=== PATIENT | female | born 1940 | race Caucasian/White ===

== ENCOUNTER → 2020-02-05 | Outpatient (CLI) | payer MEDICARE ==
[2020-02-05 19:22] LABS: BASO # 0.1 10^3/uL (0.0-0.2); BASO % 0.6 % (0.0-1.0); EOS # 0.2 10^3/uL (0.0-0.5); EOS % 1.8 % (0.0-3.0); HEMATOCRIT 44.2 % (36.0-47.0); HEMOGLOBIN 13.7 g/dl (12.0-15.5); LYMPH # 2.4 10^3/uL (1.5-5.0); LYMPH % 26.9 % (24.0-44.0); MEAN CORPUSCULAR HEMOGLOBIN 25.7 pg (27.0-33.0); MEAN CORPUSCULAR VOLUME 82.9 fl (80.0-96.0); MONO # 0.6 10^3/uL (0.0-0.8); NEUTROPHILS # 5.5 10^3/uL (1.5-8.5); NEUTROPHILS % 63.4 % (36.0-66.0); PLATELET COUNT, AUTOMATED 183 10^3/uL (150-450); RED BLOOD COUNT 5.33 10^6/uL (4.00-5.40); WHITE BLOOD COUNT 8.7 10^3/uL (4.0-10.0)
[2020-02-05 19:44] LABS: ALBUMIN 3.7 GM/DL (3.2-5.2); CALCIUM LEVEL 9.2 MG/DL (8.8-10.2); CREATININE FOR GFR 0.98 MG/DL (0.55-1.30); GLOMERULAR FILTRATION RATE 58.3 (>39); PHOSPHORUS LEVEL 3.7 MG/DL (2.5-4.9); POTASSIUM SERUM 3.8 MEQ/L (3.5-5.1)
--- NOTE | 2020-02-06 03:09 | REP ---
INDICATION: SOB COMPARISON: 11/12/2012 TECHNIQUE: PA and lateral. FINDINGS: Mediastinum and cardiac silhouette are stable. Evidence for prior cardiac valve repair. Surgical clips are identified along the right side of the mediastinum as well as in the right axillary/breast region. Lung ryan demonstrate chronic interstitial changes without focal consolidation, effusion, or pneumothorax. Skeletal structures demonstrate age-related osteopenia degenerative changes. Evidence for prior cholecystectomy. IMPRESSION: No acute cardiopulmonary process. <Electronically signed by Harrison Bone > 02/06/20 [id number]
== END ==
LOC: M WUC 17:17
PROVIDERS: ATTEND Internal Medicine Cardiovascular Disease
DX: R06.02 Shortness of breath (principal); I11.9 Hypertensive heart disease without heart failure; I35.2 Nonrheumatic aortic (valve) stenosis with insufficiency

== ENCOUNTER → 2020-04-22 | Outpatient (CLI) | payer MEDICARE | LOC: M LABSMTC 13:53 | PROVIDERS: ATTEND Family Medicine | DX: Z20.828 Contact with and (suspected) exposure to other viral communicable diseases (principal) ==

== ENCOUNTER 2020-04-30 18:54 | Inpatient (IN) | payer MEDICARE ==
[~2020-04-30] VITALS: Ht 160 cm; Wt 71.6 kg
--- OUTSIDE RECORDS SUMMARY | 2020-04-30 20:09 | CCD | Continuity of Care Document ---
Author Author Judith PARRY D.O. Organization Unknown Address [address] [address] Phone [phone] Care Team Providers Care Mandrel Cleaner Name Role Phone Shahbaz Parry D.O. AUTM [phone] Problems Active Problems Provider Date Benign essential hypertension Shahbaz Parry D.O., FAAFP O nset: 01/16/2013 Gastroesophageal reflux disease Shahbaz Parry D.O., FAAFP Onset: 01/16/2013 Generalized anxiety disorder Shahbaz Parry D.O., FAAFP On set: 01/16/2013 Hyperlipidemia Shahbaz Parry D.O. FAAFP Onset: 08/2012 Aortic valve disorder Shahbaz Parry D.O. FAAFP Onset: Note: open heart dec 2015 [place] Personal history of primary malignant neoplasm of breast Rou Jaclyn miller, DIRECTOR [employer]-BC Onset: 12/12/2014 Note: O2nASFT POORLY DIFF INVASIVE [facility] //LUMPECTOMY AND RADIATION Lacunar infarction Shahbaz Parry D.O., FAAFP Onset: 02/10 Note: january 2020 Social History Type Date Description Comments Sex Unknown ETOH Use Denies alcohol use Tobacco Use Start: Unknown Patient has never smoked Recreational Drug Use Denies Drug Use Smoking Status Reviewed: 04/09/20 Patient has never smoked Allergies, Adverse Reactions, Alerts Active Allergies Reaction Severity Comments Date Sulfa Drugs rash 01/16/2013 Doxycycline Urticaria 06/03/2014 Morphine Nausea and Vomiting 06/03/19 15 Statins mm aches 03/04/2020 Medications Active Medications SIG Qnty Indications Ordering Provide r Date Diltiazem HCL 30mg Tablets Take 1 Tablet By Mouth Twice A Day 180tabs Shahbaz Parry D.O., [facility] 10/11/2018 Ondansetron HCL 4mg Tablets 1 tab by mouth every four to six hours as needed for nausea 30tabs Shahbaz [facility] D.O., [facility] 02/06/2018 Nortriptyline HCL 75mg Capsules Take 1 Capsule By Mouth AT Bedtime 90caps Balaji Perez, [facility] 08/25/2016 Meclizine HCL 25mg Tablets 1 by mouth three times a day as needed as needed for vertigo 180tabs Shahbaz Par[facility] D.O., [facility] 08/03/2016 Metoprolol Tartrate 50mg Tablets Take 1 Tablet By Mouth Twice A Day 180tabs Balaji Perez, [facility] 01/07/2016 Calcium + D3 [id number] Tablet s 2 tab daily otc Rounds, Jaclyn Vera [facility]- [address] Take 1 Capsule By Mouth Once Daily 90caps Shahbaz Parry D.O., [facility] 07/16/2013 Acetaminophen 325mg Tablets 2 tablets q 4 hours prn for pain Unknown Aspirin Adult 325mg Tablets 1 by mouth every day Unknown Topiramate 100mg Tablets take 1/2 tablet by mouth at hs (started 02/28) decreased 03/25/20 Unknown History Medications Keflex 500mg Capsules one cap by mouth three times a day x 10 days 30caps Louis Perez, FAAFP 03/17/2020 - 03/27/2020 Diflucan 150mg Tablets take one tab by now and one tab by mouth in 10 days 2tabs Shahbaz Parry D.O., FAAFP 03/17/2020 - 03/27/2020 Cipro 500mg Tablets one tab by mouth twice a day x 7 days 14tabs Shahbaz Parry D.O., FAAFP - 03/03/2020 Diflucan 150mg Tablets take one tab by now and one tab by mouth in 7 days 2tabs Shahbaz Parry D.O., FAAFP 02/25/2020 - 03/03/2020 Keflex 500mg Capsules one cap po tid x 10 days 30caps Shahbaz Parry D.O., FAAFP - 02/14/2020 Diflucan 150mg Tablets take one tab po now and one po in 10 days 2tabs Shahbaz Parry D.O., FAA FP 02/04/2020 - 02/14/2020 Immunizations CPT Code Status Date Vaccine Lot # 36463 Given 01/09/2020 Influenza Virus Vaccine, Quadrivalent, Slit Virus, Im Use 3Y & Up [id number] 61245 Given 02/12/2019 Influenza Virus Vaccine, Quadrivalent, Slit Virus, Im Use 3Y & Up [id number] 73095 Given 01/18/2018 Influenza Virus Vaccine, Quadrivalent, Slit Virus, Im Use 3Y & Up 33400 Given 01/19/2017 Influenza Virus Vaccine, Quadrivalent, Slit Virus, Im Use 3Y & Up [id number] 70111 Given 02/02/2016 Influenza Virus Vaccine, Quadrivalent, Slit Virus, Im Use 3Y & Up [id number] 19061 Given 02/17/2015 Influenza Vaccin e (Fluzone) 3Yrs Of Age Or Older Medicare Plans [id number] 53213 Given 02/14/2014 Influenza Vaccin e (Fluzone) 3Yrs Of Age Or Older Medicare Plans [id number] 65675 Given 01/16/2013 Influenza Vaccin e (Fluzone) 3Yrs Of Age Or Older Medicare Plans 48540 Given 01/16/2013 Influenza Virus Vac. Split Virus Individuals 3 Years And Above [id number] Vital Signs Date Vital Result Comment 04/09/2020 10:35am BP Systolic 110 mmHg BP Diastolic 74 mmHg Body Temperature 96.8 F Heart Rate 81 /min Respiratory Rate 16 /min Height 62.50 inches 5'2.50" Weight 159.00 lb [place] Body Weight 110 lb BMI (Body Mass Index) 28.6 kg/m2 O2 % BldC Oximetry 98 % 03/27/2020 10:52am BP Systolic 106 mmHg BP Diastolic 70 mmHg Body Temperature 96.9 F Heart Rate 76 /min Respiratory Rate 16 /min Height 62.50 inches 5'2.50" Weight 159.00 lb [place] Body Weight 110 lb BMI (Body Mass Index) 28.6 kg/m2 O2 % dC Oximetry 99 % (AT Rest), (Room Air ) Results Test Acquired Date Facility Test Result H/L Range Note U/A DIP 04/09/2020 [facility] Color lt yellow QUAL Clarity cloudy QUAL Glucose-Ua Negative g/dL Negative Bilirubin,Urine Negative QUAL Negative Ketone Negative mg/dL Negative Specific [place] 1.010 # 1.000 - 1.030 Blood - Ua Trace-intact QUAL Abnormal Negative pH 7.0 # 5.0 - 8.0 Protein Negative mg/dL Negative Urobilinogen 0.2 NA 0.2 - 1.0 Nitrite Negative QUAL Negative Leukocyte Moderate QUAL Abnormal Negative RBC-Ua 1-4/HPF # Abnormal 0 - 3 Epithelial Cells - Ua 3-5/LPF QUAL Bacteria - Ua many QUAL Abnormal Negative WBC-Ua >100/HPF #/HPF Abnormal 0 - 5 Renal Epithelial Cells FEW QUAL Abnormal Negative U/A DIP 03/27/2020 [facility] Color yellow QUAL Clarity turbid QUAL Glucose-Ua Negative g/dL Negative Bilirubin,Urine Negative QUAL Negative Ketone Negative mg/dL Negative Specific [place] 1.020 # 1.000 - 1.030 Blood - Ua Negative QUAL Negative pH 5.5 # 5.0 - 8.0 Protein Negative mg/dL Negative Urobilinogen 0.2 NA 0.2 - 1.0 Nitrite Negative QUAL Negative Leukocyte Small QUAL Abnormal Negative RBC-Ua 0-4/HPF # Abnormal 0 - 3 Epithelial Cells - Ua 5-10/LPF QUAL High Bacteria - Ua moderate QUAL Abnormal Negative Mucous - Ua 2+ QUAL WBC-Ua 3-8/HPF #/HPF Abnormal 0 - 5 Crystals FEW SEDIMENTS QUAL Renal Epithelial Cells RARE QUAL Abnormal Negative U/A DIP 03/17/2020 [facility] Color yellow QUAL Clarity cloudy QUAL Glucose-Ua Negative g/dL Negative Bilirubin,Urine Negative QUAL Negative Ketone Negative mg/dL Negative Specific [place] 1.020 # 1.000 - 1.030 Blood - Ua Moderate QUAL Abnormal Negative pH 6.0 # 5.0 - 8.0 Protein 30 mg/dL Abnormal Negative Urobilinogen 0.2 NA 0.2 - 1.0 Nitrite Negative QUAL Negative Leukocyte Large QUAL Abnormal Negative RBC-Ua 5-10/HPF # Abnormal 0 - 3 Epithelial Cells - Ua 5-10/LPF QUAL Bacteria - Ua moderate QUAL Abnormal Negative WBC-Ua TNTC #/HPF Abnormal 0 - 5 CBC W/Automated Diff 03/14/2020 [facility] [place] [address] [phone] CBC W/Automated Diff (SEE NOTE) 1 WBC 7.3 10^3/uL 4.2 - 11.0 RBC 5.26 10^6/uL 4.20 - 5.40 Hemoglobin 13.9 g/dL 12.0 - 16.0 Hematocrit 42.8 % 37.0 - 47.0 MCV 81.4 fL 81.0 - 101 MCH 26.4 pg Low 27.0 - 34.0 MCHC 32.5 g/dL 31.0 - 36.0 RDW 15.0 % High 11.5 - 14.5 Platelets 192 10^3/uL 150 - 450 MPV 13.1 fL High 7.4 - 10.4 Neut 67.3 % 37.0 - 80.0 Lymph 23.9 % Low 25.0 - 40.0 Eagle 6.3 % 3.0 - 8.0 Eos 1.9 % 0.0 - 7.0 Baso 0.5 % 0.0 - 2.5 %Ig 0.1 % High 0.0 - 0.0 %NRBC 0.0 % 0.0 - 0.0 #Neut 4.92 10^3/uL 2.00 - 6.90 #Lymph 1.75 10^3/uL 0.60 - 3.40 #Eagle 0.46 10^3/uL 0.00 - 0.90 #Eos 0.14 10^3/uL 0.00 - 0.70 #Baso 0.04 10^3/uL 0.00 - 0.20 #Ig 0.01 10^3/uL 0.00 - 0.10 #NRBC 0.00 10^3/uL 0.00 - 0.00 Manual Diff NOT INDICATED RBC Morph NOT INDICATED Laboratory test finding 03/14/2020 [facility] [place] [address] [phone] Troponin T <0.01 NG/ML 0.00 - 0.10 2 Magnesium Serum 2.2 mg/dL 1.7 - 2.2 TSH Highly Sensitive 1.66 uIU/mL 0.47 - 5.01 Pro-BNP 75 pg/mL 0 - 450 Comprehensive Metabolic Panel 03/14/2020 [place] [address] [phone] Comprehensive Metabo (SEE NOTE) 3 Sodium 140 mEq/L 134 - 153 Potassium 4.0 mEq/L 3.6 - 5.0 Chloride 106 mEq/L 98 - 107 Co2 25 mEq/L 22 - 30 Glucose 92 mg/dL 65 - 110 BUN 14 mg/dL 7 - 21 Creatinine 0.9 mg/dL 0.7 - 1.5 BUN/Creat 16 8 - 27 Total Protein 6.6 g/dL 6.3 - 8.2 Albumin 4.0 g/dL 3.9 - 5.0 Globulin 2.6 GM/DL 2.4 - 3.2 A/G Ratio 1.5 0.8 - 2.0 Calcium 9.7 mg/dL 8.4 - 10.2 Total Bili <0.7 mg/dL 0.2 - 1.3 Alkaline Phos 100 U/L 38 - 126 Sgot/Ast 25 U/L 5 - 40 SGPT/Alt 19 U/L 7 - 56 Anion Gap 9.0 mmol/L 8.0 - 16.0 Age 80 yrs Non-Aa GFR >60 mL/min Afr Amer GFR >60 4 Urinalysis 03/14/2020 [place] [address] [phone] Urinalysis (SEE NOTE) 5, 6 Source R Color yellow Normal: Yellow Clarity cloudy Normal: Clear Spec [place] 1.010 1.001 - 1.030 pH 7 5 - 9 Glucose NORM Normal: Negative Bilirubin NEG Normal: Negative Ketone NEG Normal: Negative Protein 15 Normal: Negative Nitrite POS Normal: Negative Blood 50 Abnormal Normal: Negative Leuk Est 500 Abnormal Normal: Negative Urobilinogen NOR less than 1.0 mg/dL Microscopic See Below WBC 30 - 40 Abnormal Normal: None Seen RBC 5 - 7 Abnormal Normal: None Seen Epithelial FEW Normal: None Seen Bacteria 3+ LARGE Abnormal Normal: None Seen Culture Urine 03/14/2020 [place] [address] [phone] Culture Urine (SEE NOTE) 7 Urine Culture, Routine 03/04/2020 [facility] [place] Urine Culture, Routine Final report 8, 9 Result 1 No growth 10 U/A DIP 03/04/2020 [facility] Color yellow QUAL Clarity clear QUAL Glucose-Ua Negative g/dL Negative Bilirubin,Urine Negative QUAL Negative Ketone Negative mg/dL Negative Specific [place] 1.010 # 1.000 - 1.030 Blood - Ua Negative QUAL Negative pH 7.0 # 5.0 - 8.0 Protein Negative mg/dL Negative Urobilinogen 0.2 NA 0.2 - 1.0 Nitrite Negative QUAL Negative Leukocyte Moderate QUAL Abnormal Negative RBC-Ua 0-3/HPF # Abnormal 0 - 3 Epithelial Cells - Ua 3-8/HPF QUAL Bacteria - Ua few QUAL Abnormal Negative WBC-Ua 10-15/HPF #/HPF Abnormal 0 - 5 Renal Epithelial Cells MODERATE QUAL Abnormal Negative U/A DIP 02/25/2020 [facility] Color REDDISH-BROWN QUAL Clarity cloudy QUAL Glucose-Ua Negative g/dL Negative Bilirubin,Urine Small QUAL Abnormal Negative Ketone Negative mg/dL Negative Specific [place] >=1.030 # Abnormal 1.000 - 1.030 Blood - Ua Large QUAL Abnormal Negative pH 6.5 # 5.0 - 8.0 Protein >=300 mg/dL Abnormal Negative Urobilinogen 1.0 NA 0.2 - 1.0 Nitrite Positive QUAL Abnormal Negative Leukocyte Large QUAL Abnormal Negative RBC-Ua >10/HPF # Abnormal 0 - 3 Epithelial Cells - Ua 3-5/LPF QUAL Bacteria - Ua many QUAL Abnormal Negative WBC-Ua >100/HPF #/HPF Abnormal 0 - 5 Comment QNS FOR CX NA U/A DIP FPA 02/13/2020 [facility] Asso ciates Color Urine YELLOW Yellow Appearance CLEAR Clear Specific [place] 1.015 1.00-1.03 PH Urine 6.5 5.0-8.0 Glucose Urine NEG Negative Bilirubin Urine NEG Negative Ketones NEG Negative Blood Urine NEG Negative Protein Urine NEG Negative Urobilinogen .2 EU/dl 0.2-1.0 Nitrite NEG Negative Leukocytes TRACE Negative CBC With Differential 02/05/2020 [facility] (Interface) [phone] White Blood Count 8.7 10 Normal 4.0-10.0 Red Blood Count 5.33 10 Normal 4.00-5.40 Hemoglobin 13.7 g/dL Normal 12.0-15.5 Hematocrit 44.2 % Normal 36.0-47.0 Mean Corpuscular Volume 82.9 fl Normal 80.0-96.0 Mean Corpuscular Hemoglobin 25.7 pg Low 27.0-33.0 Mean Corpuscular HGB Conc 31.0 g/dL Low 32.0-36.5 Red Cell Distribution Width 14.6 % High 11.5-14.5 Platelet Count, Automated 183 10 Normal 150-450 Neutrophils % 63.4 % Normal 36.0-66.0 Lymph % 26.9 % Normal 24.0-44.0 Eagle % 7.0 % High 0.0-5.0 Eos % 1.8 % Normal 0.0-3.0 Baso % 0.6 % Normal 0.0-1.0 Immature Granulocyte % 0.3 % Normal 0-3.0 Nucleated Red Blood Cell % 0.0 % Normal 0-0 Neutrophils # 5.5 10 Normal 1.5-8.5 Lymph # 2.4 10 Normal 1.5-5.0 Eagle # 0.6 10 Normal 0.0-0.8 Eos # 0.2 10 Normal 0.0-0.5 Baso # 0.1 10 Normal 0.0-0.2 Renal Profile 02/05/2020 [facility] (I nterface) [phone] Glucose, Fasting 70 mg/dL Normal 70-100 Blood Urea Nitrogen 11 mg/dL Normal 7-18 Creatinine For GFR 0.98 mg/dL Normal 0.55-1.30 Glomerular Filtration Rate 58.3 Normal >39 1 1 Sodium Level 140 mEq/L Normal 136-145 Potassium Serum 3.8 mEq/L Normal 3.5-5.1 Chloride Level 106 mEq/L Normal 98-107 Carbon Dioxide Level 26 mEq/L Normal 21-32 Anion Gap 8 mEq/L Normal 8-16 Calcium Level 9.2 mg/dL Normal 8.8-10.2 Phosphorus Level 3.7 mg/dL Normal 2.5-4.9 Albumin 3.7 GM/DL Normal 3.2-5.2 Laboratory test finding 02/05/2020 [facility] (Interface) [phone] NT-Pro BNP 77 pg/mL Normal <450 Urine Culture, Routine 02/04/2020 [facility] [place] Urine Culture, Routine Final report Abnormal 12 Result 1 Escherichia coli Abnormal 13 Antimicrobial Susceptibility See Comment: 14 U/A DIP 02/04/2020 [facility] Color REDDISH/BROWN QUAL Clarity cloudy QUAL Glucose-Ua Negative g/dL Negative Bilirubin,Urine Small QUAL Abnormal Negative Ketone Negative mg/dL Negative Specific [place] 1.020 # 1.000 - 1.030 Blood - Ua Large QUAL Abnormal Negative pH 7.0 # 5.0 - 8.0 Protein 100 mg/dL Abnormal Negative Urobilinogen 1.0 NA 0.2 - 1.0 Nitrite Negative QUAL Negative Leukocyte Large QUAL Abnormal Negative RBC-Ua TNTC # Abnormal 0 - 3 Bacteria - Ua many QUAL Abnormal Negative WBC-Ua TNTC #/HPF Abnormal 0 - 5 Comment UCS SENT OUT NA CBC 01/09/2020 [facility] WBC 5.5 10E3/uL 4.1 - 10.9 15 RBC 5.16 10E6/uL 4.20 - 6.30 HGB 13.6 g/dL 12.0 - 18.0 HCT 41.8 % 37.0 - 51.0 MCV 81.0 fL 80.0 - 97.0 MCH 26.4 pg 26.0 - 32.0 MCHC 32.5 g/dL 31.0 - 36.0 PLT 154 10E3/uL 140 - 440 RDW-CV 14.2 % 11.5 - 14.5 Lym% 26.7 % 10.0 - 58.5 Neut% 64.1 % 37.0 - 92.0 MXD% 9.2 % 0.1 - 24.0 Lym# 1.5 10E3/uL 0.6 - 4.1 Neut# 3.5 % 2.0 - 7.8 MXD# 0.5 10E3/uL 0.0 - 1.8 MPV 12.6 fL 9.0 - 13.0 CMP 01/09/2020 [facility] Glu 102 mg/dL 70 - 110 BUN 9 mg/dL 8 - 23 Creat 0.8 mg/dL 0.5 - 1.0 BUN/Creatinine Ratio 11.7 CALC Na 136 mmol/L 136 - 145 K 4.0 mmol/L 3.5 - 5.1 CL 100.6 mmol/L 98.0 - 107.0 Co2 25.7 mmol/L 22.0 - 29.0 CA 9.3 mg/dL 8.6 - 10.2 TP 6.4 g/dL Low 6.6 - 8.7 Alb 4.2 g/dL 3.4 - 4.8 A/G Ratio 1.9 CALC Globulin 2.2 CALC Alp 101.1 U/L 35 - 129 Alt (SGPT) 22 U/L 0 - 41 Ast (Sgot) 27 U/L 0 - 40 Tbili 0.55 mg/dL 0.0 - 1.2 Osmolality-Calculated 270.8 CALC Anion Gap 14 mmol/L eGFR 81 # Calc 16 eGFR Non-Afr. Somali 70 # Calc 17 U/A DIP 01/09/2020 [facility] Color lt yellow QUAL Clarity clear QUAL Glucose-Ua Negative g/dL Negative Bilirubin,Urine Negative QUAL Negative Ketone Negative mg/dL Negative Specific [place] 1.020 # 1.000 - 1.030 Blood - Ua Trace-intact QUAL Abnormal Negative pH 7.0 # 5.0 - 8.0 Protein Negative mg/dL Negative Urobilinogen 0.2 NA 0.2 - 1.0 Nitrite Negative QUAL Negative Leukocyte Small QUAL Abnormal Negative RBC-Ua 0-3/HPF # 0 - 3 Epithelial Cells - Ua 6-12/HPF QUAL High Bacteria - Ua few QUAL Abnormal Negative WBC-Ua 3-5/HPF #/HPF Abnormal 0 - 5 Crystals RARE SEDIMENT QUAL Renal Epithelial Cells RARE QUAL Abnormal Negative U/A DIP 10/19/2019 [facility] Color lt yellow QUAL Clarity clear QUAL Glucose-Ua Negative g/dL Negative Bilirubin,Urine Negative QUAL Negative Ketone Negative mg/dL Negative Specific [place] 1.015 # 1.000 - 1.030 Blood - Ua Negative QUAL Negative pH 6.5 # 5.0 - 8.0 Protein Negative mg/dL Negative Urobilinogen 0.2 NA 0.2 - 1.0 Nitrite Negative QUAL Negative Leukocyte Small QUAL Abnormal Negative RBC-Ua 0-3/HPF # 0 - 3 Epithelial Cells - Ua 0-3/LPF QUAL Bacteria - Ua rare QUAL Abnormal Negative WBC-Ua 0-5/HPF #/HPF 0 - 5 1 COMPLETE BLOOD COUNT 2 TROPONIN T 0.1 ng/ml Recommended as the clinical th reshold value for Troponin T. 3 COMPREHENSIVE METABOLIC PANE L 4 Male GFR Interprentation 20-49 yrs >60 mL/min Normal 50-59 yrs >56 mL/min Normal 60-69 yrs >49 mL/min Normal 70-79yrs >42 mL/min Normal 80 and above >35 mL/min Normal Female GFR Interpretation 20-39 yrs >60 mL/min Normal 40-49 yrs >58 mL/min Normal 50-59 yrs >51 mL/min Normal 60-69 yrs >45 mL/min Normal 70-79 yrs >39 mL/min Normal 80 and above >32 mL/min Normal 5 SOURCE: Clean Catch 6 URINALYSIS 7 _CULTURE URINE_ ^$[id number] ^^[id number] $$[id number] ^^[id number] $$[id number] $$441971 $$896484 $$924571 $$494949 $$132047 $$973658 $$156580 $$437121 $$083017 $$934400 $$055631 $$979266 $$559877 $$208189 $$837719 $$340747 $$878341 $$599775 $$490243 $$416586 $$191247 $$197343 ^^127016 $$711213 $$688696 $$[id number] -- Continued on next page -- Patient: PJ BRAGG Order: [id number] Page 2 Culture: CULTURE URINE Status: Final -- Continued on next page -- Patient: PJ BRAGG Order: [id number] Page 2 Culture: CULTURE URINE Status: Prelim $$[id number] $$[id number] REPORTED DATE/TIME: 03/18/2020 15:06 Culture: CULTURE URINE Status: Final Isolate 1 Staphylococcus epidermidis Flag: A . . . . . . .6 50,000-100,000 colony forming units per mL Based on resistance to oxacillin this isolate would be resistant to all currently available beta-lactam antimicrobial agents, with the exception of the newer cephalosporins with anti-MRSA activity, such as Ceftaroline Previous result entered on 03/17/2020 07:11 ET Microbiological testing to rule out the presence of possible pathogens is in progress. Urine Culture,Comprehensive: P1 Staphylococcus epidermidis Flag: A Patient: PJ BRAGG Order: [id number] Page 3 Culture: CULTURE URINE Status: Final ISOLATE 1 Staphylococcus epidermidis Isolate 1 Antibiotic KAREN Int Units ug/mL Ciprofloxacin R R . . . . . .185-9 Gentamicin S S . . . . . .267-5 Levofloxacin R R . . . . . .57355-9 Linezolid S S . . . . . .18788-3 Nitrofurantoin S S . . . . . .363-2 Oxacillin R R . . . . . .383-0 Penicillin R R . . . . . .6932-8 Quinupristin/Dalfopristin S S . . . . . .98856-4 Rifampin S S . . . . . .428-3 Tetracycline S S . . . . . .496-0 Trimethoprim/Sulfa S S . . . . . .516-5 Vancomycin S S . . . . . .524-9 P1 Test performed by: [facility] Collin BANGURA #: [id number] [address] [place] [address] [phone] [facility] [address] Day Trader : Todd Hua MD NPI #: Studio Producer : 03/17/[email or web address].XMT.SENT REF 03/18/20.2030.XMT.SENT REF 8 SRC:VOIDED 9 Source of Specimen: VOIDED 10 Source of Specimen: VOIDED 11 Units are mL/min/1.73 m2 Chronic Kidney Disease Staging per NKF: Stage I & II GFR >=60 Normal to Mildly Decreased Stage III GFR 30-59 Moderately Decreased Stage IV GFR 15-29 Severely Decreased Stage V GFR <15 Very Little GFR Left ESRD GFR <15 on REAL ESTATE ASSISTANT 12 Source of Specimen: VOIDED 13 Escherichia coli Source of Specimen: VOIDED Greater than 100,000 colony forming units per mL Cefazolin <=4 ug/mL Cefazolin with an KAREN <=16 predicts susceptibility to the oral agents cefaclor, cefdinir, cefpodoxime, cefprozil, cefuroxime, cephalexin, and loracarbef when used for therapy of uncomplicated urinary tract infections due to E. coli, Klebsiella pneumoniae, and Proteus mirabilis. 14 Source of Specimen: VOIDED S = Susceptible; I = Intermediate; R = Resistant P = Positive; N = Negative MICS are expressed in micrograms per mL Antibiotic RSLT#1 RSLT#2 RSLT#3 RSLT#4 Amoxicillin/Clavulanic Acid S Ampicillin S Cefepime S Ceftriaxone S Cefuroxime S Ciprofloxacin S Ertapenem S Gentamicin S Imipenem S Levofloxacin S Meropenem S Nitrofurantoin S Piperacillin/Tazobactam S Tetracycline S Tobramycin S Trimethoprim/Sulfa S 15 NORMAL RANGES Age WBC RBC HGB HCT MCV PLT Adult M 4.1-10.9 4.20-6.30 12.0-18.0 37.0-51.0 80-97 140-440 Adult F 4.1-10.9 4.04-5.48 12.0-18.0 37.0-51.0 80-97 140-440 0 -1 Yr 5.0-20.0 3.9-5.9 15-18 MV: 44 MV: 91 MV: 277 2-9 Yr. 6.0-17.0 3.8-5.4 11-13 MV: 37 MV: 78 MV: 300 10 Yrs. 5.0-13.0 3.8-5.4 12-15 MV: 39 MV: 80 MV: 250 NOTE: * FOR ADULT BLACK MALES AND FEMALES, NORMAL WBC IS 2.9-7.7 K/ML * FOR ADULT BLACK MALES AND FEMALES, NORMAL RBC,HGB, AND HCT IS 5% LESS SOURCE FOR DATA: [employer] 1800 OPERATION MANUAL( AUTOMATED BLOOD COUNTS AND DIFF.) APPENDIX B-3 CHRONIC KIDNEY DISEASE STAGING PER NKF: MALE GFR INTERPRETATION: 20-49 YRS: >60 mL/min Normal 50-59 YRS: >56 mL/min Normal 60-69 YRS: >49 mL/min Normal 70-79 YRS: >42 mL/min Normal 80 and above >35 mL/min Normal FEMALE GRF INTERPRETATION: 20-39 YRS: >60 mL/min Normal 40-49 YRS: >58 mL/min Normal 50-59 YRS: >51 mL/min Normal 60-69 YRS: >45 mL/min Normal 70-79 YRS: >39 mL/min Normal 80 and above >32 mL/min Normal 16 CKD-EPI 17 CKD-EPI Procedures Description No Information Available Medical Devices Description No Information Available Encounters Type Date Location Provider Dx Diagnosis Office Visit 04/09/2020 10:30a [place] [facility] Shahbaz Parry D.O., FAAFP I10 Essential (primary) hypertension E78.5 Hyperlipidemia, unspecified K21.9 Gastro-esophageal reflux dis ease without esophagitis R35.0 Frequency of micturition R30.0 Dysuria Office Visit 03/27/2020 10:40a [place] [facility] Silvia Brannon PA N39.0 Urinary tract infection, site not specif ied Office Visit 03/17/2020 10:40a [place] [facility] Barraclough, Samanth a M, PA R30.0 Dysuria Office Visit 03/04/2020 10:00a [facility] Louis Perez, FAAFP 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 N39.0 Urinary tract infection, sit e not specified I10 Essential (primary) hyperten kennedy E78.5 Hyperlipidemia, unspecified Office Visit 02/25/2020 9:15a [place] [facility] Silvia Brannon PA R30.0 Dysuria Office Visit 02/22/2020 10:30a [place] [facility] Louis Perez, FAAFP G46.4 Cerebellar stroke syndrome I10 Essential (primary) hyperten kennedy E78.5 Hyperlipidemia, unspecified K21.9 Gastro-esophageal reflux dis ease without esophagitis Office Visit 02/13/2020 10:20a [place] [facility] Irvin Brannon PA R30.0 Dysuria R31.9 Hematuria, unspecified Office Visit 02/04/2020 9:30a [place] [facility] Silvia Brannon PA R30.0 Dysuria Office Visit 01/09/2020 9:20a [place] [facility] Shahbaz Parry D.O., FAAFP I10 Essential (primary) hypertension E78.5 Hyperlipidemia, unspecified K21.9 Gastro-esophageal reflux dis ease without esophagitis 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 Z23 Encounter for immunization Office Visit 10/19/2019 10:20a [facility] Silvia Brannon PA N39.0 Urinary tract infection, site not specif ied R30.0 Dysuria Assessments Date Code Description Provider 04/09/2020 I10 Essential (primary) hypertension Shahbaz Parry D.O., FAAFP 04/09/2020 E78.5 Hyperlipidemia, unspecified Johnnie Parry D.O., FAAFP 04/09/2020 K21.9 Gastro-esophageal reflux disease without esophagitis Shahbaz Parry D.O., FAAFP 04/09/2020 R35.0 Frequency of micturition Shahbaz Parry D.O., FAAFP 04/09/2020 R30.0 Dysuria Shahbaz Parry D.O., FAAFP 03/27/2020 N39.0 Urinary tract infection, site no t specified Ivanna Brannon, PA 03/17/2020 R30.0 Dysuria Zack Brannon, PA 03/04/2020 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 Shahbaz Parry D.O., FAAFP 03/04/2020 N39.0 Urinary tract infection, site no t specified Shahbaz Parry D.O., FAAFP 03/04/2020 I10 Essential (primary) hypertension Shahbaz Parry D.O., FAAFP 03/04/2020 E78.5 Hyperlipidemia, unspecified Johnnie Parry D.O., FAAFP 02/25/2020 R30.0 Dysuria Zack Brannon, PA 02/22/2020 G46.4 Cerebellar stroke syndrome Jamel Parry D.O., FAAFP 02/22/2020 I10 Essential (primary) hypertension Shahbaz Parry D.O., FAAFP 02/22/2020 E78.5 Hyperlipidemia, unspecified Johnnie Parry D.O., FAAFP 02/22/2020 K21.9 Gastro-esophageal reflux disease without esophagitis Shahbaz Parry D.O., FAAFP 02/13/2020 R30.0 Dysuria Zack Brannon, PA 02/13/2020 R30.0 Dysuria Shahbaz Parry D.O., FAAFP 02/13/2020 R31.9 Hematuria, unspecified Ivanna Corrigan, PA 02/04/2020 R30.0 Dysuria Zack Brannon, PA 01/09/2020 I10 Essential (primary) hypertension Shahbaz Parry D.O., FAAFP 01/09/2020 E78.5 Hyperlipidemia, unspecified Johnnie Parry D.O., FAAFP 01/09/2020 K21.9 Gastro-esophageal reflux disease without esophagitis Shahbaz Parry D.O., FAAFP 01/09/2020 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 Js Parry D.O., FAAFP 01/09/2020 Z23 Encounter for immunization Jamel Parry D.O., FAAFP 10/19/2019 N39.0 Urinary tract infection, site no t specified Ivanna Brannon PA 10/19/2019 R30.0 Dysuria Zack Brannon PA Plan of Treatment Future Appointment(s):* 07/11/2020 9:20 am - Shahbaz Parry D.O., FAAFP at [place] [facility] Functional Status Description No Information Available Mental Status Description No Information Available Referrals Refer to Reason for Referral Status Appt Date Aiden Guerrier MD eval and treat frequent UTI with culture growing greater than 100,000 colony forming units per mL Sent 05/06/2020 [facility] Urologist 3 [facility] [address] [place] [address] [phone] Sherwin Chen M.D. 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 Closed [facility] [address] [address] [facility] Medical Practices (ENT) DR MALIK ENT PT WI TH SEVERE EPISODIC VERTIGO QUICK ONSET LAST 2HOURS THEN RESOLVES LEFT EAR DISCOMFORT MID LEFT EAR CANAL HYPERTROPHIC ARDEN TISSUE PLEASE SEND [facility] AUDIOLOGY EVAL WITH CONSULT Sent 01/23/2020 826 [facility] [address] [place] [address] [phone] Yamilex Wall PLEASE EVAL QUICK ONSET GEMA RE VERTIGO RESOLVE AFTER 2 HOURS N/V 1 OR TWO TIMES MONTHLY PLEASE EVAL FOR NEUROLOGICAL CAUSE SEND [place] AUDIOLOGY REPORT Sent 01/29/2020 [facility] [address] [place], [place] [address] [phone]
--- OUTSIDE RECORDS SUMMARY | 2020-04-30 20:09 | CCD | Continuity of Care Document ---
Author Author Judith PARRY D.O. Organization Unknown Address [address] [address] Phone [phone] Care Team Providers Care Supervisor Waterworks Name Role Phone Shahbaz Parry D.O. 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 infarction Shahbaz Parry D.O., FAAFP Onset: 02/10 Note: january 2020 Social History Type Date Description Comments Sex Unknown ETOH Use Denies alcohol use Tobacco Use Start: Unknown Patient has never smoked Recreational Drug Use Denies Drug Use Smoking Status Reviewed: 03/04/20 Patient has never smoked Allergies, Adverse Reactions, Alerts Active Allergies Reaction Severity Comments Date Sulfa Drugs rash 01/16/2013 Doxycycline Urticaria 06/03/2014 Morphine Nausea and Vomiting 06/03/19 15 Statins mm aches 03/04/2020 Medications Active Medications SIG Qnty Indications Ordering Provide r Date Diltiazem HCL 30mg Tablets Take 1 Tablet By Mouth Twice A Day 180tabs Shahbaz Parry D.O., [facility] FP 10/11/2018 Ondansetron HCL 4mg Tablets 1 tab by mouth every four to six hours as needed for nausea 30tabs Shahbaz Parry D.O., [facility] 02/06/2018 Nortriptyline HCL 75mg Capsules Take 1 Capsule By Mouth Every Night AT Bedtime 90caps Shahbaz Parry D.O., [facility] 08/25/2016 Meclizine HCL 25mg Tablets 1 by mouth three times a day as needed as needed for vertigo 180tabs Shahbaz Parry D.O., [facility] 08/03/2016 Metoprolol Tartrate 50mg Tablets Take 1 Tablet By Mouth Twice A Day 180tabs Balaji Perez, [facility] 01/07/2016 Calcium + D3 [id number] Tablet s 2 tab daily otc Rounds, Jaclyn Vera SALES AGENT FINANCIAL REPORT SERVICE- [address] Take 1 Capsule By Mouth Once Daily 90caps Shahbaz Parry D.O., [facility] P 07/16/2013 Acetaminophen 325mg Tablets 2 tablets [...] CPT Code Status Date Vaccine Lot # [id number] Given 01/09/2020 Influenza Virus Vaccine, Quadrivalent, Slit Virus, Im Use 3Y & Up [id number] 55439 Given 02/12/2019 Influenza Virus Vaccine, Quadrivalent, Slit Virus, Im Use 3Y & Up [id number] 72032 Given 01/18/2018 Influenza Virus Vaccine, Quadrivalent, Slit Virus, Im Use 3Y & Up 21277 Given 01/19/2017 Influenza Virus Vaccine, Quadrivalent, Slit Virus, Im Use 3Y & Up [id number] 38901 Given 02/02/2016 Influenza Virus Vaccine, Quadrivalent, Slit Virus, Im Use 3Y & Up [id number] 21771 Given 02/17/2015 Influenza Vaccin e (Fluzone) 3Yrs Of Age Or Older Medicare Plans [id number] 13175 Given 02/14/2014 Influenza Vaccin e (Fluzone) 3Yrs Of Age Or Older Medicare Plans [id number] 59797 Given 01/16/2013 Influenza Vaccin e (Fluzone) 3Yrs Of Age Or Older Medicare Plans 97690 Given 01/16/2013 Influenza Virus Vac. Split Virus Individuals 3 Years And Above [id number] Vital Signs Date Vital Result Comment 04/09/2020 10:35am BP Systolic 110 mmHg BP Diastolic 74 mmHg Body Temperature 96.8 F Heart Rate 81 /min Respiratory Rate 16 /min Height 62.50 inches 5'2.50" Weight 159.00 lb Horse Shoe Body Weight 110 lb BMI (Body Mass Index) 28.6 kg/m2 O2 % BldC Oximetry 98 % 03/27/2020 10:52am BP Systolic 106 mmHg BP Diastolic 70 mmHg Body Temperature 96.9 F Heart Rate 76 /min Respiratory Rate 16 /min Height 62.50 inches 5'2.50" Weight 159.00 lb Horse Shoe Body Weight 110 lb BMI (Body Mass Index) 28.6 kg/m2 O2 % BldC Oximetry 99 % (AT Rest), (Room Air ) Results Test Acquired Date Facility Test Result H/L Range Note U/A DIP 04/09/2020 [facility] Color lt yellow QUAL Clarity cloudy QUAL Glucose-Ua Negative g/dL Negative Bilirubin,Urine Negative QUAL Negative Ketone Negative mg/dL Negative Specific [place] 1.010 # 1.000 - 1.030 Blood - [...] QUAL Negative Ketone Negative mg/dL Negative Specific [place] 1.020 # 1.000 - 1.030 Blood - [...] QUAL Negative Ketone Negative mg/dL Negative Specific [place] 1.020 # 1.000 - 1.030 Blood - [...] 0 - 5 CBC W/Automated Diff 03/14/2020 [facility] [place] [address] [phone] CBC W/Automated Diff (SEE NOTE) 1 WBC [...] Lymph 23.9 % Low 25.0 - 40.0 Frontier 6.3 % 3.0 - 8.0 Eos 1.9 % 0.0 - 7.0 Baso 0.5 % 0.0 - 2.5 %Ig 0.1 % High 0.0 - 0.0 %NRBC 0.0 % 0.0 - 0.0 #Neut 4.92 10^3/uL 2.00 - 6.90 #Lymph 1.75 10^3/uL 0.60 - 3.40 #Frontier 0.46 10^3/uL 0.00 - 0.90 #Eos 0.14 10^3/uL 0.00 - 0.70 #Baso 0.04 10^3/uL 0.00 - 0.20 #Ig 0.01 10^3/uL 0.00 - 0.10 #NRBC 0.00 10^3/uL 0.00 - 0.00 Manual Diff NOT INDICATED RBC Morph NOT INDICATED Laboratory test finding 03/14/2020 [facility] [place] [address] [phone] Troponin T <0.01 NG/ML 0.00 - 0.10 2 Magnesium Serum 2.2 mg/dL 1.7 - 2.2 TSH Highly Sensitive 1.66 uIU/mL 0.47 - 5.01 Pro-BNP 75 pg/mL 0 - 450 Comprehensive Metabolic Panel 03/14/2020 [place] [id number] [phone] Comprehensive Metabo (SEE NOTE) 3 Sodium 140 [...] Afr Amer GFR >60 4 Urinalysis 03/14/2020 [place] [address] [phone] Urinalysis (SEE NOTE) 5, 6 Source R Color yellow Normal: Yellow Clarity cloudy Normal: Clear Spec [place] 1.010 1.001 - 1.030 pH 7 5 [...] Abnormal Normal: None Seen Culture Urine 03/14/2020 [place] [address] [phone] Culture Urine (SEE NOTE) 7 Urine Culture, Routine 03/04/2020 [facility] [place] Urine Culture, Routine Final report 8, 9 Result 1 No growth 10 U/A DIP 03/04/2020 [facility] Color yellow QUAL Clarity clear QUAL Glucose-Ua Negative g/dL Negative Bilirubin,Urine Negative QUAL Negative Ketone Negative mg/dL Negative Specific [place] 1.010 # 1.000 - 1.030 Blood - [...] Abnormal Negative Ketone Negative mg/dL Negative Specific [place] >=1.030 # Abnormal 1.000 - 1.030 Blood [...] DIP FPA 02/13/2020 [facility] Asso ciates Color Urine YELLOW Yellow Appearance CLEAR Clear Specific [place] 1.015 1.00-1.03 PH Urine 6.5 5.0-8.0 Glucose Urine NEG Negative Bilirubin Urine NEG Negative Ketones NEG Negative Blood Urine NEG Negative Protein Urine NEG Negative Urobilinogen .2 EU/dl 0.2-1.0 Nitrite NEG Negative Leukocytes TRACE Negative CBC With Differential 02/05/2020 [facility] ([facility]) [phone] White Blood Count 8.7 10 Normal 4.0-10.0 [...] 36.0-66.0 Lymph % 26.9 % Normal 24.0-44.0 Frontier % 7.0 % High 0.0-5.0 Eos % 1.8 % Normal 0.0-3.0 Baso % 0.6 % Normal 0.0-1.0 Immature Granulocyte % 0.3 % Normal 0-3.0 Nucleated Red Blood Cell % 0.0 % Normal 0-0 Neutrophils # 5.5 10 Normal 1.5-8.5 Lymph # 2.4 10 Normal 1.5-5.0 Frontier # 0.6 10 Normal 0.0-0.8 Eos # 0.2 10 Normal 0.0-0.5 Baso # 0.1 10 Normal 0.0-0.2 Renal Profile 02/05/2020 [facility] (I nterface) [phone] Glucose, Fasting 70 mg/dL Normal 70-100 Blood [...] 3.2-5.2 Laboratory test finding 02/05/2020 [facility] l (Interface) [phone] NT-Pro BNP 77 pg/mL Normal <450 Urine Culture, Routine 02/04/2020 [facility] [place] Urine Culture, Routine Final report Abnormal 12 Result 1 Escherichia coli Abnormal 13 Antimicrobial Susceptibility See Comment: 14 U/A DIP 02/04/2020 [facility] Color REDDISH/BROWN QUAL Clarity cloudy QUAL Glucose-Ua Negative g/dL Negative Bilirubin,Urine Small QUAL Abnormal Negative Ketone Negative mg/dL Negative Specific [place] 1.020 # 1.000 - 1.030 Blood - [...] eGFR 81 # Calc 16 eGFR Non-Afr. Wallisian 70 # Calc 17 U/A DIP 01/09/2020 [facility] Color lt yellow QUAL Clarity clear QUAL Glucose-Ua Negative g/dL Negative Bilirubin,Urine Negative QUAL Negative Ketone Negative mg/dL Negative Specific [place] 1.020 # 1.000 - 1.030 Blood - [...] QUAL Negative Ketone Negative mg/dL Negative Specific [place] 1.015 # 1.000 - 1.030 Blood - [...] Clean Catch 6 URINALYSIS 7 _CULTURE URINE_ ^$[id number] ^^[id number] $$597757 ^^[id number] $$951723 $$186505 $$423575 $$617890 $$902982 $$026461 $$188688 $$646945 $$158403 $$927638 $$147405 $$706471 $$992718 $$660753 $$855186 $$757326 $$109841 $$293391 $$646032 $$305391 $$708993 $$226046 $$996869 ^^843605 $$672241 $$341899 $$688150 -- Continued on next page -- Patient: PJ BRAGG Order: [id number] Page 2 Culture: CULTURE URINE Status: Final -- Continued on next page -- Patient: PJ BRAGG Order: [id number] Page 2 Culture: CULTURE URINE Status: Prelim $$[id number] $$[id number] REPORTED DATE/TIME: 03/18/2020 15:06 Culture: CULTURE URINE [...] epidermidis Flag: A Patient: PJ BRAGG Order: [id number] Page 3 Culture: CULTURE URINE Status: Final ISOLATE 1 Staphylococcus epidermidis Isolate 1 Antibiotic KAREN Int Units ug/mL Ciprofloxacin R R . . . . . .185-9 Gentamicin S S . . . . . .267-5 Levofloxacin R R . . . . . .68720-2 Linezolid S S . . . . . .62032-1 Nitrofurantoin S S . . . . . .363-2 Oxacillin R R . . . . . .383-0 Penicillin R R . . . . . .6932-8 Quinupristin/Dalfopristin S S . . . . . .11346-4 Rifampin S S . . . . . .428-3 Tetracycline S S . . . . . .496-0 Trimethoprim/Sulfa S S . . . . . .516-5 Vancomycin S S . . . . . .524-9 P1 Test performed by: [facility] BANGURA #: [id number] [address] [place] [address] [id number] [facility] [address] High Wire Artist : Todd Hua MD NPI #: Feed Crusher Operator : 03/17/20.0836.XMT.SENT REF 03/18/20.2030.XMT.SENT REF 8 SRC:VOIDED 9 Source of Specimen: VOIDED 10 Source of Specimen: VOIDED 11 Units are mL/min/1.73 m2 Chronic Kidney Disease Staging per NKF: Stage I & II GFR >=60 Normal to Mildly Decreased Stage III GFR 30-59 Moderately Decreased Stage IV GFR 15-29 Severely Decreased Stage V GFR <15 Very Little GFR Left ESRD GFR <15 on SURGICAL PROCESSOR 12 Source of Specimen: VOIDED 13 Escherichia [...] HCT IS 5% LESS SOURCE FOR DATA: Stratio 1800 OPERATION MANUAL( AUTOMATED BLOOD COUNTS AND [...] Provider Dx Diagnosis Office Visit 04/09/2020 10:30a [facility] Shahbaz Parry D.O., FAAFP I10 Essential (primary) hypertension E78.5 Hyperlipidemia, unspecified K21.9 Gastro-esophageal reflux dis ease without esophagitis R35.0 Frequency of micturition R30.0 Dysuria Office Visit 03/27/2020 10:40a [facility] Silvia Brannon PA N39.0 Urinary tract infection, site not specif ied Office Visit 03/17/2020 10:40a [facility] Barraclough, Samanth a M, PA R30.0 Dysuria Office Visit 03/04/2020 10:00a [facility] Louis Perez, FAAFP 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 N39.0 Urinary tract infection, sit e not specified I10 Essential (primary) hyperten kennedy E78.5 Hyperlipidemia, unspecified Office Visit 02/25/2020 9:15a [facility] Silvia Brannon PA R30.0 Dysuria Office Visit 02/22/2020 10:30a [facility] Louis Perez, FAAFP G46.4 Cerebellar stroke syndrome I10 Essential (primary) hyperten kennedy E78.5 Hyperlipidemia, unspecified K21.9 Gastro-esophageal reflux dis ease without esophagitis Office Visit 02/13/2020 10:20a [place] [facility] Irvin Brannon PA R30.0 Dysuria R31.9 Hematuria, unspecified Office Visit 02/04/2020 9:30a [facility] Silvia Brannon PA R30.0 Dysuria Office Visit 01/09/2020 9:20a [facility] Shahbaz Parry D.O., FAAFP I10 Essential (primary) hypertension E78.5 Hyperlipidemia, unspecified K21.9 Gastro-esophageal reflux dis ease without esophagitis 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 Z23 Encounter for immunization Office Visit 10/19/2019 10:20a [facility] Silvia Brannon PA N39.0 Urinary tract [...] D.O., FAAFP 02/13/2020 R31.9 Hematuria, unspecified Ivanna Corrigan PA 02/04/2020 R30.0 Dysuria Zack Brannon PA 01/09/2020 I10 Essential (primary) hypertension Shahbaz [...] am - Shahbaz Parry D.O., FAAFP at [facility] Functional Status Description No Information Available Mental Status Description No Information Available Referrals Refer to Reason for Referral Status Appt Date Aiden Guerrier MD eval and treat frequent UTI with culture growing greater than 100,000 colony forming units per mL Sent 05/06/2020 [facility] Urologist [address] [address] [phone] Sherwin Chen M.D. 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 [facility] [address] [address] [facility] Medical Practices (ENT) DR MALIK ENT PT WI TH SEVERE EPISODIC VERTIGO QUICK ONSET LAST 2HOURS THEN RESOLVES LEFT EAR DISCOMFORT MID LEFT EAR CANAL HYPERTROPHIC ARDEN TISSUE PLEASE SEND [facility] AUDIOLOGY EVAL WITH CONSULT Sent 01/23/2020 826 [facility] [address] [place] [address] [phone] Yamilex Wall PLEASE EVAL QUICK ONSET GEMA RE VERTIGO RESOLVE AFTER 2 HOURS N/V 1 OR TWO TIMES MONTHLY PLEASE EVAL FOR NEUROLOGICAL CAUSE SEND [facility] AUDIOLOGY REPORT Sent 01/29/2020 [facility] [address] [place], [place] [address] [phone]
--- OUTSIDE RECORDS SUMMARY | 2020-04-30 20:09 | CCD | Continuity of Care Document ---
Author Author Judith PARRY D.O. 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 AUTM [phone] Problems Active Problems Provider Date Benign essential hypertension Shahbaz Parry D.O., FAARIK O nset: 01/16/2013 Gastroesophageal reflux disease Shahbaz Parry D.O., FAARIK Onset: 01/16/2013 Generalized anxiety disorder Shahbaz Parry D.O., FAAFP On set: 01/16/2013 Hyperlipidemia Shahbaz Parry D.O. 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 Onset: 12/12/2014 Note: [id number] POORLY DIFF INVASIVE [facility] //LUMPECTOMY [...] SIG Qnty Indications Ordering Provide r Date Keflex 500mg Capsules 1 tab by mouth three times a day for 10 days Please Call PT 30caps [facility].O., [facility] 04/12/2020 Diltiazem HCL 30mg Tablets Take 1 Tablet By Mouth Twice A Day 180tabs Shahbaz Parry D.O., [facility] 10/11/2018 Ondansetron HCL 4mg Tablets 1 tab by mouth every four to six hours as needed for nausea 30tabs Shahbaz Parry D.O., [facility] 02/06/2018 Nortriptyline HCL 75mg Capsules Take 1 Capsule By Mouth Every Night AT Bedtime 90caps Shahbaz Parry D.O., [facility] 08/25/2016 Meclizine HCL 25mg Tablets 1 by mouth three times a day as needed as needed for vertigo 180tabs Shahbaz Parry D.O., [facility] 08/03/2016 Metoprolol Tartrate 50mg Tablets Take 1 Tablet By Mouth Twice A Day 180tabs Balaji Perez, [facility] 01/07/2016 Calcium + D3 [id number] Tablet s 2 tab daily otc Rounds, Jaclyn Vera [facility]- [address] Take 1 Capsule By Mouth Once Daily 90caps Shahbaz Parry D.O., [facility] 07/16/2013 Topiramate 100mg Tablets take 1/2 tablet by mouth at hs (started 02/28) decreased 03/25/20 Unknown Aspirin Adult 325mg Tablets 1 by mouth every day Unknown Acetaminophen 325mg Tablets 2 tablets q 4 hours prn for pain Unknown History Medications Keflex 500mg Capsules one [...] in 10 days 2tabs Shahbaz Parry D.O., [facility] 02/04/2020 - 02/14/2020 Immunizations CPT Code Status Date Vaccine Lot # [id number] Given 01/09/2020 Influenza Virus Vaccine, Quadrivalent, Slit Virus, Im Use 3Y & Up [id number] 42191 Given 02/12/2019 Influenza Virus Vaccine, Quadrivalent, Slit Virus, Im Use 3Y & Up [id number] 73463 Given 01/18/2018 Influenza Virus Vaccine, Quadrivalent, Slit Virus, Im Use 3Y & Up 76270 Given 01/19/2017 Influenza Virus Vaccine, Quadrivalent, Slit Virus, Im Use 3Y & Up [id number] 81124 Given 02/02/2016 Influenza Virus Vaccine, Quadrivalent, Slit Virus, Im Use 3Y & Up [id number] 46705 Given 02/17/2015 Influenza Vaccin e (Fluzone) 3Yrs Of Age Or Older Medicare Plans [id number] 94595 Given 02/14/2014 Influenza Vaccin e (Fluzone) 3Yrs Of Age Or Older Medicare Plans [id number] 11077 Given 01/16/2013 Influenza Vaccin e (Fluzone) 3Yrs Of Age Or Older Medicare Plans 00287 Given 01/16/2013 Influenza Virus Vac. Split Virus Individuals 3 Years And Above [id number] Vital Signs Date Vital Result Comment 04/09/2020 10:35am BP Systolic 110 mmHg BP Diastolic 74 mmHg Body Temperature 96.8 F Heart Rate 81 /min Respiratory Rate 16 /min Height 62.50 inches 5'2.50" Weight 159.00 lb [place] Body Weight 110 lb BMI (Body Mass Index) 28.6 kg/m2 O2 % BldC Oximetry 98 % 03/27/2020 10:52am BP Systolic 106 mmHg BP Diastolic 70 mmHg Body Temperature 96.9 F Heart Rate 76 /min Respiratory Rate 16 /min Height 62.50 inches 5'2.50" Weight 159.00 lb [place] Body Weight 110 lb BMI (Body Mass Index) 28.6 kg/m2 O2 % BldC Oximetry 99 % (AT Rest), (Room Air ) Results Test Acquired Date Facility Test Result H/L Range Note Urine Culture, Routine 04/09/2020 [facility] [place] Urine Culture, Routine Final report 1, 2 Result 1 See Comment: 3 U/A DIP 04/09/2020 [facility]house Color lt yellow QUAL Clarity cloudy QUAL Glucose-Ua Negative g/dL Negative Bilirubin,Urine Negative QUAL Negative Ketone Negative mg/dL Negative Specific Nakina 1.010 # 1.000 - 1.030 Blood - [...] QUAL Negative Ketone Negative mg/dL Negative Specific Nakina 1.020 # 1.000 - 1.030 Blood - [...] QUAL Negative Ketone Negative mg/dL Negative Specific Nakina 1.020 # 1.000 - 1.030 Blood - [...] 0 - 5 CBC W/Automated Diff 03/14/2020 [facility] [place] [address] [phone] CBC W/Automated Diff (SEE NOTE) 4 WBC 7.3 10^3/uL 4.2 - 11.0 RBC [...] Lymph 23.9 % Low 25.0 - 40.0 [place] 6.3 % 3.0 - 8.0 Eos 1.9 % 0.0 - 7.0 Baso 0.5 % 0.0 - 2.5 %Ig 0.1 % High 0.0 - 0.0 %NRBC 0.0 % 0.0 - 0.0 #Neut 4.92 10^3/uL 2.00 - 6.90 #Lymph 1.75 10^3/uL 0.60 - 3.40 #[place] 0.46 10^3/uL 0.00 - 0.90 #Eos 0.14 10^3/uL 0.00 - 0.70 #Baso 0.04 10^3/uL 0.00 - 0.20 #Ig 0.01 10^3/uL 0.00 - 0.10 #NRBC 0.00 10^3/uL 0.00 - 0.00 Manual Diff NOT INDICATED RBC Morph NOT INDICATED Laboratory test finding 03/14/2020 [facility] [place] [address] [phone] Troponin T <0.01 NG/ML 0.00 - 0.10 5 Magnesium Serum 2.2 mg/dL 1.7 - 2.2 TSH Highly Sensitive 1.66 uIU/mL 0.47 - 5.01 Pro-BNP 75 pg/mL 0 - 450 Comprehensive Metabolic Panel 03/14/2020 [place] [address] [phone] Comprehensive Metabo (SEE NOTE) 6 Sodium 140 mEq/L 134 - 153 Potassium [...] GFR >60 mL/min Afr Amer GFR >60 7 Urinalysis [facility]2020 [facility] [place] [address] [phone] Urinalysis (SEE NOTE) 8, 9 Source R Color yellow Normal: Yellow Clarity cloudy Normal: Clear Spec Nakina 1.010 1.001 - 1.030 pH 7 5 [...] Abnormal Normal: None Seen Culture Urine 03/14/2020 [facility] [place] [address] [phone] Culture Urine (SEE NOTE) 10 Urine Culture, Routine 03/04/2020 [facility] [place] Urine Culture, Routine Final report , 12 Result 1 No growth 13 U/A DIP 03/04/2020 [facility] Color yellow QUAL Clarity clear QUAL Glucose-Ua Negative g/dL Negative Bilirubin,Urine Negative QUAL Negative Ketone Negative mg/dL Negative Specific Nakina 1.010 # 1.000 - 1.030 Blood - [...] Abnormal Negative Ketone Negative mg/dL Negative Specific [place] >=1.030 # Abnormal 1.000 - 1.030 Blood [...] FOR CX NA U/A DIP FPA 02/13/2020 [facility] Color Urine YELLOW Yellow Appearance CLEAR Clear Specific Nakina 1.015 1.00-1.03 PH Urine 6.5 5.0-8.0 Glucose Urine NEG Negative Bilirubin Urine NEG Negative Ketones NEG Negative Blood Urine NEG Negative Protein Urine NEG Negative Urobilinogen .2 EU/dl 0.2-1.0 Nitrite NEG Negative Leukocytes TRACE Negative CBC With Differential 02/05/2020 [facility] ([facility]) [phone] White Blood Count 8.7 10 Normal 4.0-10.0 [...] 36.0-66.0 Lymph % 26.9 % Normal 24.0-44.0 [place] % 7.0 % High 0.0-5.0 Eos % 1.8 % Normal 0.0-3.0 Baso % 0.6 % Normal 0.0-1.0 Immature Granulocyte % 0.3 % Normal 0-3.0 Nucleated Red Blood Cell % 0.0 % Normal 0-0 Neutrophils # 5.5 10 Normal 1.5-8.5 Lymph # 2.4 10 Normal 1.5-5.0 [place] # 0.6 10 Normal 0.0-0.8 Eos # 0.2 10 Normal 0.0-0.5 Baso # 0.1 10 Normal 0.0-0.2 Renal Profile 02/05/2020 [facility] ( [facility]) [phone] Glucose, Fasting 70 mg/dL Normal 70-100 Blood Urea Nitrogen 11 mg/dL Normal 7-18 Creatinine For GFR 0.98 mg/dL Normal 0.55-1.30 Glomerular Filtration Rate 58.3 Normal >39 1 4 Sodium Level 140 mEq/L Normal 136-145 Potassium Serum 3.8 mEq/L Normal 3.5-5.1 Chloride Level 106 mEq/L Normal 98-107 Carbon Dioxide Level 26 mEq/L Normal 21-32 Anion Gap 8 mEq/L Normal 8-16 Calcium Level 9.2 mg/dL Normal 8.8-10.2 Phosphorus Level 3.7 mg/dL Normal 2.5-4.9 Albumin 3.7 GM/DL Normal 3.2-5.2 Laboratory test finding 02/05/2020 [facility] ([facility]) [phone] NT-Pro BNP 77 pg/mL Normal <450 Urine Culture, Routine 02/04/2020 [facility] [place] Urine Culture, Routine Final report Abnormal 15 Result 1 Escherichia coli Abnormal 16 Antimicrobial Susceptibility See Comment: 17 U/A DIP 02/04/2020 [facility] Color REDDISH/BROWN QUAL Clarity cloudy QUAL Glucose-Ua Negative g/dL Negative Bilirubin,Urine Small QUAL Abnormal Negative Ketone Negative mg/dL Negative Specific Nakina 1.020 # 1.000 - 1.030 Blood - [...] FPA/Inhouse WBC 5.5 10E3/uL 4.1 - 10.9 18 RBC 5.16 10E6/uL 4.20 - 6.30 HGB [...] Gap 14 mmol/L eGFR 81 # Calc 19 eGFR Non-Afr. Kitt[place] 70 # Calc 20 U/A DIP 01/09/2020 [facility] Color lt yellow QUAL Clarity clear QUAL Glucose-Ua Negative g/dL Negative Bilirubin,Urine Negative QUAL Negative Ketone Negative mg/dL Negative Specific [place] 1.020 # 1.000 - 1.030 Blood - [...] QUAL Negative Ketone Negative mg/dL Negative Specific [place] 1.015 # 1.000 - 1.030 Blood - Ua Negative QUAL Negative pH 6.5 # 5.0 - 8.0 Protein Negative mg/dL Negative Urobilinogen 0.2 NA 0.2 - 1.0 Nitrite Negative QUAL Negative Leukocyte Small QUAL Abnormal Negative RBC-Ua 0-3/HPF # 0 - 3 Epithelial Cells - Ua 0-3/LPF QUAL Bacteria - Ua rare QUAL Abnormal Negative WBC-Ua 0-5/HPF #/HPF 0 - 5 1 SRC:VOIDED 2 Source of Specimen: VOIDED 3 Source of Specimen: VOIDED Culture shows less than 10,000 colony forming units of bacteria per milliliter of urine. This colony count is not generally considered to be clinically significant. 4 COMPLETE BLOOD COUNT 5 TROPONIN T 0.1 ng/ml Recommended as the clinical th reshold value for Troponin T. 6 COMPREHENSIVE METABOLIC PANE L 7 Male GFR Interprentation 20-49 yrs >60 mL/min Normal 50-59 yrs >56 mL/min Normal 60-69 yrs >49 mL/min Normal 70-79yrs >42 mL/min Normal 80 and above >35 mL/min Normal Female GFR Interpretation 20-39 yrs >60 mL/min Normal 40-49 yrs >58 mL/min Normal 50-59 yrs >51 mL/min Normal 60-69 yrs >45 mL/min Normal 70-79 yrs >39 mL/min Normal 80 and above >32 mL/min Normal 8 SOURCE: Clean Catch 9 URINALYSIS 10 _CULTURE URINE_ ^$[id number] ^^[id number] $$115538 ^^317138 $$[id number] $$215061 $$701215 $$039053 $$105802 $$698464 $$635041 $$065025 $$342239 $$242327 $$130440 $$267978 $$699750 $$362959 $$831264 $$574794 $$855188 $$679186 $$735029 $$868523 $$912157 $$794589 $$619300 ^^888253 $$718910 $$[id number] $$[id number] -- Continued on next page -- Patient: PJ BRAGG Order: Page 2 Culture: CULTURE URINE Status: Final -- Continued on next page -- Patient: PJ BRAGG Order: Page 2 Culture: CULTURE URINE Status: Prelim $$[id number] $$[id number] REPORTED DATE/TIME: 03/18/2020 15:06 Culture: CULTURE URINE [...] epidermidis Flag: A Patient: PJ BRAGG Order: [id number] Page 3 Culture: CULTURE URINE Status: Final ISOLATE 1 Staphylococcus epidermidis Isolate 1 Antibiotic KAREN Int Units ug/mL Ciprofloxacin R R . . . . . .185-9 Gentamicin S S . . . . . .267-5 Levofloxacin R R . . . . . .87175-3 Linezolid S S . . . . . .04864-8 Nitrofurantoin S S . . . . . .363-2 Oxacillin R R . . . . . .383-0 Penicillin R R . . . . . .6932-8 Quinupristin/Dalfopristin S S . . . . . .88886-9 Rifampin S S . . . . . .428-3 Tetracycline S S . . . . . .496-0 Trimethoprim/Sulfa S S . . . . . .516-5 Vancomycin S S . . . . . .524-9 P1 Test performed by: [facility] RICKY #: [id number] [address] [id number] [facility] [id number] Advertising Strategist : Todd Hua MD NPI #: Plater Supervisor : 03/17/20.36.XMT.SENT REF 03/18/20.2029.XMT.SENT REF 11 SRC:VOIDED 12 Source of Specimen: VOIDED 13 Source of Specimen: VOIDED 14 Units are mL/min/1.73 m2 Chronic Kidney Disease Staging per NKF: Stage I & II GFR >=60 Normal to Mildly Decreased Stage III GFR 30-59 Moderately Decreased Stage IV GFR 15-29 Severely Decreased Stage V GFR <15 Very Little GFR Left ESRD GFR <15 on BLOCK GREASER 15 Source of Specimen: VOIDED 16 Escherichia coli Source of Specimen: VOIDED Greater than 100,000 colony forming units per mL Cefazolin <=4 ug/mL Cefazolin with an KAREN <=16 predicts susceptibility to the oral agents cefaclor, cefdinir, cefpodoxime, cefprozil, cefuroxime, cephalexin, and loracarbef when used for therapy of uncomplicated urinary tract infections due to E. coli, Klebsiella pneumoniae, and Proteus mirabilis. 17 Source of Specimen: VOIDED S = Susceptible; [...] S Tetracycline S Tobramycin S Trimethoprim/Sulfa S 18 NORMAL RANGES Age WBC RBC HGB HCT [...] HCT IS 5% LESS SOURCE FOR DATA: Prot-On 1800 OPERATION MANUAL( AUTOMATED BLOOD COUNTS AND [...] Normal 80 and above >32 mL/min Normal 19 CKD-EPI 20 CKD-EPI Procedures Description No Information Available Medical Devices Description No Information Available Encounters Type Date Location Provider Dx Diagnosis Office Visit 04/09/2020 10:30a [facility] Shahbaz Parry D.O., FAAFP I10 Essential (primary) hypertension E78.5 Hyperlipidemia, unspecified K21.9 Gastro-esophageal reflux dis ease without esophagitis R35.0 Frequency of micturition R30.0 Dysuria Office Visit 03/27/2020 10:40a [facility] Silvia Brannon PA N39.0 Urinary tract infection, site not specif ied Office Visit 03/17/2020 10:40a [facility] Silvia Brannon PA R30.0 Dysuria Office Visit 03/04/2020 10:00a [facility] Shahbaz Parry D.O ., FAAFP 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 N39.0 Urinary tract infection, sit e not specified I10 Essential (primary) hyperten kennedy E78.5 Hyperlipidemia, unspecified Office Visit 02/25/2020 9:15a [facility] Silvia Brannon PA R30.0 Dysuria Office Visit 02/22/2020 10:30a [facility] Shahbaz Parry D.O ., FAAFP G46.4 Cerebellar stroke syndrome I10 Essential (primary) hyperten kennedy E78.5 Hyperlipidemia, unspecified K21.9 Gastro-esophageal reflux dis ease without esophagitis Office Visit 02/13/2020 10:20a [facility] Irvin Brannon PA R30.0 Dysuria R31.9 Hematuria, unspecified Office Visit 02/04/2020 9:30a [facility] Silvia Brannon PA R30.0 Dysuria Office Visit 01/09/2020 9:20a [facility] Shahbaz Parry D.O., FAAFP I10 Essential (primary) hypertension E78.5 Hyperlipidemia, unspecified K21.9 Gastro-esophageal reflux dis ease without esophagitis 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 Z23 Encounter for immunization Office Visit 10/19/2019 10:20a [facility] Silvia Brannon PA N39.0 Urinary tract infection, site not specif ied R30.0 Dysuria Assessments Date Code Description Provider 04/09/2020 I10 Essential (primary) hypertension Shahbaz Parry D.O., FAAFP 04/09/2020 E78.5 Hyperlipidemia, unspecified Johnnie Parry D.O., FAAFP 04/09/2020 K21.9 Gastro-esophageal reflux disease without esophagitis Shahbaz Parry D.O., FAAFP 04/09/2020 R35.0 Frequency of micturition Shabhaz Parry D.O., FAAFP 04/09/2020 R30.0 Dysuria Shahbaz Parry D.O., FAAFP 03/27/2020 N39.0 Urinary tract infection, site no t specified Ivanna Brannon PA 03/17/2020 R30.0 Dysuria Zack Brannon PA 03/04/2020 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O., FAAFP 02/13/2020 R30.0 Dysuria Zack Brannon PA 02/13/2020 R30.0 Dysuria Shahbaz Parry D.O., FAAFP 02/13/2020 R31.9 Hematuria, unspecified Ivanna Corrigan PA 02/04/2020 R30.0 Dysuria Zack Brannon PA 01/09/2020 I10 Essential (primary) hypertension Shahbaz Parry D.O., FAAFP 01/09/2020 E78.5 Hyperlipidemia, unspecified Johnnie kareem Tito Parry D.O., FAAFP 01/09/2020 K21.9 Gastro-esophageal reflux [...] am - Shahbaz Parry D.O., FAAFP at [facility] Functional Status Description No Information Available Mental Status Description No Information Available Referrals Refer to Reason for Referral Status Appt Date Aiden Guerrier MD eval and treat frequent UTI with culture growing greater than 100,000 colony forming units per mL Sent 05/06/2020 [facility] Urologist 3 [facility] [address] [place] [address] [phone] Sherwin Chen M.D. 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 [facility] [address] [address] [facility] Medical Practices (ENT) DR MALIK ENT PT WI TH SEVERE EPISODIC VERTIGO QUICK ONSET LAST 2HOURS THEN RESOLVES LEFT EAR DISCOMFORT MID LEFT EAR CANAL HYPERTROPHIC ARDEN TISSUE PLEASE SEND [facility] EVAL WITH CONSULT Sent 01/23/2020 [address] [facility] [address] [place] [address] [phone] [employer] Wall PLEASE EVAL QUICK ONSET GEMA RE VERTIGO RESOLVE AFTER 2 HOURS N/V 1 OR TWO TIMES MONTHLY PLEASE EVAL FOR NEUROLOGICAL CAUSE SEND [facility] REPORT Sent 01/29/2020 [facility] [address] [place], [place] [address] [phone]
--- OUTSIDE RECORDS SUMMARY | 2020-04-30 20:10 | CCD | Continuity of Care Document ---
Author Author Judith CHIN Organization Unknown Address [address] [place] [address], [place] [address] Phone [phone] Care Team Providers Care Workforce Staffing Advisor Name Role Phone Dorinda, Alex PRINGLE AUTM [phone] Kishore Rodriguez MD AUTM [phone] Will Strong MD AUTM [phone] Shahbaz Aldana DO AUTM [phone] Yanna Lorenz MD AUTM [phone] Andre Hsu MD AUTM [phone] Emanuel Bhatia MD AUTM [phone] Problems Active Problems Provider Date Precordial pain Hira Perez MD Onset: 11/17/2012 Electrocardiogram abnormal Hira Perez MD Onset: 2012 Dizziness and giddiness Hira Perez MD Onset: 3 Aortic valve disorder Hira Perez MD Onset: 11/17/2012 Benign hypertensive heart disease without congestive h eart failure Hira Perez MD Onset: 11/17/2012 Mitral valve disorder Zee Lynch NP Onset: 04/24/2014 Preoperative cardiovascular examination Zee Lynch NP Onset: 04/24/2014 Overweight Zee Lynch NP Onset: 04/24/2014 Right bundle branch block Zee Lynch NP Onset: 015 Pure hypercholesterolemia Zee Lynch NP Onset: 015 Hypertensive heart disease without heart failure Zee brady NP Onset: 01/02/2015 Aortic valve stenosis with insufficiency Zee Lynch NP Onset: 01/02/2015 Transplantation of heart valve DANIKA Bates Onset: 08/03/2016 Dietary management surveillance DANIKA Bates Onset: 02/02/2017 Dyspnea YARY Pace Onset: 07/11/2017 Atherosclerotic heart disease of [place] coronary arter y without angina pectoris YARY Pace Onset: 02/09/2019 Social History Type Date Description Comments Sex Unknown ETOH Use Does not consume alcohol Tobacco Use Start: Unknown Patient has never smoked Smoking Status Reviewed: 01/31/20 Patient has never smoked Exercise Type/Frequency Does housework daily Exercise Limitations Shortness Of Breath Allergies, Adverse Reactions, Alerts Active Allergies Reaction Severity Comments Date Sulfa rash on face 11/17/2012 Morphine Nausea and Vomiting 10/24/19 15 Lipitor myalgia 10/23/2014 Crestor myalgia 10/23/2014 Exemestane dizziness 02/02/2017 Lisinopril cough 01/27/2018 Candesartan Cough 07/31/2018 Carafate insomnia 09/17/2018 Aldactazide severe onset SOB 01/30/2020 Doxycycline hives 01/30/2020 Inactive Allergies Sucralfate insomnia 12/19/2012 Medications Active Medications SIG Qnty Indications Ordering Provide r Date Metoprolol Tartrate 50mg Tablets 1 by mouth twice a day R94.31 Jovan ShahbazDO kolton 09/17/2018 Ondansetron HCL 4mg Tablets 1 by mouth every 6 hours as needed Jovan ShahbazDO [place] 2018 Diltiazem HCL 60mg Tablets 1/2 by mouth twice daily Unknown 07/30/2018 Stool Softener 100mg Capsules 1 by mouth every day Unknown 01/10/2018 Aspirin 81mg Tablets 1 by mouth every day Jovan ShahbazDO kol[place] 07/10/2017 Meclizine HCL 25mg Tablets 1 by mouth three times daily as needed Jovan ShahbazDO kol[place] Amoxicillin 500mg Tablets 4 tablets one hour prior to dental procedures 4tabs I35.2 DANIKA Bates 01/08/2016 Acetaminophen 325mg Tablets 1-2 every 4 hours as needed Unknown 01/07/[address] 1 po qd Hira Bocanegra PA 12/19/2012 Nortriptyline HCL 75mg Capsules 1 by mouth every day Alex Seth PA 11/16/2012 History Medications Aldactazide 25-25mg Tablets 1 by mouth daily Andre Hsu MD 01/27/2020 - 01/30/2020 Neomycin/Polymyxin/Hydrocortisone (Otic) 3.5-25760-3 Solution instill 4 drops into left ear twice daily for 7 days Shahbaz Aldana DO 01/16/2020 - 020 Immunizations Description No Information Available Vital Signs Date Vital Result Comment 01/31/2020 10:27am Weight 157.00 lb Home Weight 156lb Height 63 inches 5'3" BMI (Body Mass Index) 27.8 kg/m2 Heart Rate 96 /min regular BP Systolic Sitting 114 mmHg large cuff, Ra BP Diastolic Sitting 74 mmHg large cuff, Ra 01/17/2020 9:14am Weight 160.00 lb Home Weight 160lb Height 63 inches 5'3" BMI (Body Mass Index) 28.3 kg/m2 Heart Rate 72 /min BP Systolic Sitting 122 mmHg large cuff, LA BP Diastolic Sitting 76 mmHg large cuff, LA Results Test Acquired Date Facility Test Result H/L Range Note CBC With Differential 02/05/2020 [facility] [phone] White Blood Count 8.7 10 Normal 4.0-10.0 [...] 36.0-66.0 Lymph % 26.9 % Normal 24.0-44.0 [place] % 7.0 % High 0.0-5.0 Eos % 1.8 % Normal 0.0-3.0 Baso % 0.6 % Normal 0.0-1.0 Immature Granulocyte % 0.3 % Normal 0-3.0 Nucleated Red Blood Cell % 0.0 % Normal 0-0 Neutrophils # 5.5 10 Normal 1.5-8.5 Lymph # 2.4 10 Normal 1.5-5.0 [place] # 0.6 10 Normal 0.0-0.8 Eos # 0.2 10 Normal 0.0-0.5 Baso # 0.1 10 Normal 0.0-0.2 Renal Profile 02/05/2020 [facility] nter [phone] Glucose, Fasting 70 mg/dL Normal 70-100 Blood Urea Nitrogen 11 mg/dL Normal 7-18 Creatinine For GFR 0.98 mg/dL Normal 0.55-1.30 Glomerular Filtration Rate 58.3 Normal >39 1 Sodium Level 140 mEq/L Normal 136-145 Potassium Serum 3.8 mEq/L Normal 3.5-5.1 Chloride Level 106 mEq/L Normal 98-107 Carbon Dioxide Level 26 mEq/L Normal 21-32 Anion Gap 8 mEq/L Normal 8-16 Calcium Level 9.2 mg/dL Normal 8.8-10.2 Phosphorus Level 3.7 mg/dL Normal 2.5-4.9 Albumin 3.7 GM/DL Normal 3.2-5.2 Laboratory test finding 02/05/2020 [facility] [phone] NT-Pro BNP 77 pg/mL Normal <450 Lipid Profile/Cardiac Risk Pro 10/03/2019 [facility] (315)- - Triglycerides 195 Cholesterol 212 High 0-200 HDL 44 Low 45-65 LDL Cholesterol 129 Chol/HDL Ratio 4.9 CBC without Differential 10/03/2019 [facility] ([facility])- - White Blood Count 6.4 4.1-10.9 Red Blood Count 5.18 4.20-6.30 Platelets 163 140-440 Hemoglobin 14.2 12.0-18.0 Hematocrit 42.5 37.0-51.0 CMP 10/03/2019 [facility] (315)- - Albumin Serum/Plasma 4.2 Alt - SGPT 26 Calcium Ser/Plasma Mass/Vol 9.6 Carbon Dioxide Ser/Plasm 23.3 Chloride Serum/Plasma 103.8 Alkaline Phosphatase 105.3 Potassium 4.1 Protein Total 6.9 Sodium 137 Ast - Sgot 29 BUN - Urea Nitrogen 12 Glucose 115 High 70-110 Creatinine For GFR 0.9 1 Units are mL/min/1.73 m2 Chronic Kidney Disease Staging per NKF: Stage I & II GFR >=60 Normal to Mildly Decreased Stage III GFR 30-59 Moderately Decreased Stage IV GFR 15-29 Severely Decreased Stage V GFR <15 Very Little GFR Left ESRD GFR <15 on ELECTRICAL ENGINEERING MANAGER Procedures Date Code Description Status 03/10/2020 96397 Echocardiogram 2-D Doppler Color Completed 01/17/2020 45947 ECG 12-Lead Completed Medical Devices Description No Information Available Encounters Type Date Location Provider Dx Diagnosis Office Visit 01/31/2020 10:15a Main Office YARY Pace R06.0 2 Shortness of breath Office Visit 01/17/2020 8:45a Main Office YARY Pace I25.1 0 Athscl heart disease of [place] coronary artery w/o ang pctrs Z95.3 Presence of xenogenic heart valve I11.9 Hypertensive heart disease w ithout heart failure R94.31 Abnormal electrocardiogram [ ECG] [EKG] Z71.3 Dietary counseling and surve illance Assessments Date Code Description Provider 03/10/2020 R06.02 Shortness of breath ECHO 01/31/2020 R06.02 Shortness of breath YARY Mejia 01/17/2020 I25.10 Atherosclerotic hear t disease of [place] coronary artery without angina pectoris YARY Pace 01/17/2020 Z95.3 Presence of xenogenic heart valv e YARY Pace 01/17/2020 I11.9 Hypertensive heart disease witho ut heart failure YARY Pace 01/17/2020 R94.31 Abnormal electrocardiogram [ECG] [EKG] YARY Pace 01/17/2020 Z71.3 Dietary counseling and surveilla nce YARY Pace Plan of Treatment Future Appointment(s):* 07/28/2020 9:45 am - YARY Ramsey at Main Office 01/31/2020 - YARY Pace* R06.02 Shortness of breath* Recommendations: * Please schedule echocardiogram. * All * Follow up:* CV after echo. Functional Status Functional Condition Comment Date Status Independent with all ADL's Activ e Mental Status Description No Information Available Referrals Description No Information Available
--- OUTSIDE RECORDS SUMMARY | 2020-04-30 20:10 | CCD | Continuity of Care Document ---
Author Author Judith PARRY D.O. Organization Unknown Address [address] [address] Phone [phone] Care Team Providers Care Glucose And Syrup Weigher Name Role Phone Shahbaz Parry D.O. AUTM [phone] Problems Active Problems Provider Date Benign essential [...] malignant neoplasm of breast Rou Jaclyn miller, PARTS ANALYST-BC Onset: 12/12/2014 Note: [id number] POORLY DIFF INVASIVE [facility] //LUMPECTOMY AND RADIATION Lacunar infarction Shahbaz [...] Twice A Day 180tabs Shahbaz Parry D.O., [facility] FP 10/11/2018 Ondansetron HCL 4mg Tablets 1 tab by mouth every four to six hours as needed for nausea 30tabs Shah[facility] D.O., [facility] 02/06/2018 Nortriptyline HCL 75mg Capsules Take 1 Capsule By Mouth AT Bedtime 90caps Balaji Perez, [facility] 08/25/2016 Meclizine HCL 25mg Tablets 1 by mouth three times a day as needed as needed for vertigo 180tabs Shah[facility] D.O., [facility] 08/03/2016 Metoprolol Tartrate 50mg Tablets Take 1 Tablet By Mouth Twice A Day 180tabs Balaji Perez, [facility] 01/07/2016 Calcium + D3 [id number] Tablet s 2 tab daily otc Rounds, Jaclyn Vera [facility]- [address] Take 1 Capsule By Mouth Once Daily 90caps Shahbaz Parry D.O., [facility] P 07/16/2013 Acetaminophen 325mg Tablets [...] CPT Code Status Date Vaccine Lot # 52530 Given 01/09/2020 Influenza Virus Vaccine, Quadrivalent, Slit Virus, Im Use 3Y & Up [id number] 15587 Given 02/12/2019 Influenza Virus Vaccine, Quadrivalent, Slit Virus, Im Use 3Y & Up [id number] 50817 Given 01/18/2018 Influenza Virus Vaccine, Quadrivalent, Slit Virus, Im Use 3Y & Up 53727 Given 01/19/2017 Influenza Virus Vaccine, Quadrivalent, Slit Virus, Im Use 3Y & Up [id number] 08841 Given 02/02/2016 Influenza Virus Vaccine, Quadrivalent, Slit Virus, Im Use 3Y & Up [id number] 39745 Given 02/17/2015 Influenza Vaccin e (Fluzone) 3Yrs Of Age Or Older Medicare Plans [id number] 90453 Given 02/14/2014 Influenza Vaccin e (Fluzone) 3Yrs Of Age Or Older Medicare Plans [id number] 22302 Given 01/16/2013 Influenza Vaccin e (Fluzone) 3Yrs Of Age Or Older Medicare Plans 58839 Given 01/16/2013 Influenza Virus Vac. Split Virus Individuals 3 Years And Above [id number] Vital Signs Date Vital Result Comment 04/09/2020 10:35am BP Systolic 110 mmHg BP Diastolic 74 mmHg Body Temperature 96.8 F Heart Rate 81 /min Respiratory Rate 16 /min Height 62.50 inches 5'2.50" Weight 159.00 lb [place] Body Weight 110 lb BMI (Body Mass Index) 28.6 kg/m2 O2 % BldC Oximetry 98 % 03/27/2020 10:52am BP Systolic 106 mmHg BP Diastolic 70 mmHg Body Temperature 96.9 F Heart Rate 76 /min Respiratory Rate 16 /min Height 62.50 inches 5'2.50" Weight 159.00 lb [place] Body Weight 110 lb BMI (Body Mass Index) 28.6 kg/m2 O2 % [facility] Oximetry 99 % (AT Rest), (Room Air ) Results Test Acquired Date Facility Test Result H/L Range Note U/A DIP 03/27/2020 [facility] Color yellow QUAL Clarity turbid QUAL Glucose-Ua Negative g/dL Negative Bilirubin,Urine Negative QUAL Negative Ketone Negative mg/dL Negative Specific [place] 1.020 # 1.000 - 1.030 Blood - [...] QUAL Negative Ketone Negative mg/dL Negative Specific [place] 1.020 # 1.000 - 1.030 Blood - [...] 0 - 5 CBC W/Automated Diff 03/14/2020 [place] [address] [phone] CBC W/Automated Diff (SEE NOTE) 1 WBC [...] Lymph 23.9 % Low 25.0 - 40.0 [place] 6.3 % 3.0 - 8.0 Eos 1.9 % 0.0 - 7.0 Baso 0.5 % 0.0 - 2.5 %Ig 0.1 % High 0.0 - 0.0 %NRBC 0.0 % 0.0 - 0.0 #Neut 4.92 10^3/uL 2.00 - 6.90 #Lymph 1.75 10^3/uL 0.60 - 3.40 #[place] 0.46 10^3/uL 0.00 - 0.90 #Eos 0.14 10^3/uL 0.00 - 0.70 #Baso 0.04 10^3/uL 0.00 - 0.20 #Ig 0.01 10^3/uL 0.00 - 0.10 #NRBC 0.00 10^3/uL 0.00 - 0.00 Manual Diff NOT INDICATED RBC Morph NOT INDICATED Laboratory test finding 03/14/2020 [place] [address] [phone] Troponin T <0.01 NG/ML 0.00 - 0.10 2 Magnesium Serum 2.2 mg/dL 1.7 - 2.2 TSH Highly Sensitive 1.66 uIU/mL 0.47 - 5.01 Pro-BNP 75 pg/mL 0 - 450 Comprehensive Metabolic Panel 03/14/2020 [place] [address] [phone] Comprehensive Metabo (SEE NOTE) 3 Sodium 140 [...] Afr Amer GFR >60 4 Urinalysis 03/14/2020 [place] [id number] [phone] Urinalysis (SEE NOTE) 5, 6 Source R Color yellow Normal: Yellow Clarity cloudy Normal: Clear Spec [place] 1.010 1.001 - 1.030 pH 7 5 [...] Abnormal Normal: None Seen Culture Urine 03/14/2020 [place] [address] [phone] Culture Urine (SEE NOTE) 7 Urine Culture, Routine 03/04/2020 [facility] [place] Urine Culture, Routine Final report 8, 9 Result 1 No growth 10 U/A DIP 03/04/2020 [facility] Color yellow QUAL Clarity clear QUAL Glucose-Ua Negative g/dL Negative Bilirubin,Urine Negative QUAL Negative Ketone Negative mg/dL Negative Specific [place] 1.010 # 1.000 - 1.030 Blood - [...] Abnormal Negative Ketone Negative mg/dL Negative Specific [place] >=1.030 # Abnormal 1.000 - 1.030 Blood [...] FOR CX NA U/A DIP FPA 02/13/[address] [facility] Practice Asso ciates Color Urine YELLOW Yellow Appearance CLEAR Clear Specific [place] 1.015 1.00-1.03 PH Urine 6.5 5.0-8.0 Glucose Urine NEG Negative Bilirubin Urine NEG Negative Ketones NEG Negative Blood Urine NEG Negative Protein Urine NEG Negative Urobilinogen .2 EU/dl 0.2-1.0 Nitrite NEG Negative Leukocytes TRACE Negative CBC With Differential 02/05/2020 [facility] (Interface) [phone] White Blood Count 8.7 10 Normal 4.0-10.0 [...] 36.0-66.0 Lymph % 26.9 % Normal 24.0-44.0 [place] % 7.0 % High 0.0-5.0 Eos % 1.8 % Normal 0.0-3.0 Baso % 0.6 % Normal 0.0-1.0 Immature Granulocyte % 0.3 % Normal 0-3.0 Nucleated Red Blood Cell % 0.0 % Normal 0-0 Neutrophils # 5.5 10 Normal 1.5-8.5 Lymph # 2.4 10 Normal 1.5-5.0 [place] # 0.6 10 Normal 0.0-0.8 Eos # 0.2 10 Normal 0.0-0.5 Baso # 0.1 10 Normal 0.0-0.2 Renal Profile 02/05/2020 [facility] (I nterface) [phone] Glucose, Fasting 70 mg/dL Normal 70-100 Blood [...] Normal 3.2-5.2 Laboratory test finding 02/05/2020 [facility] (Interface) [phone] NT-Pro BNP 77 pg/mL Normal <450 Urine Culture, Routine 02/04/2020 [facility] [place] Urine Culture, Routine Final report Abnormal 12 Result 1 Escherichia coli Abnormal 13 Antimicrobial Susceptibility See Comment: 14 U/A DIP 02/04/2020 [facility] Color REDDISH/BROWN QUAL Clarity cloudy QUAL Glucose-Ua Negative g/dL Negative Bilirubin,Urine Small QUAL Abnormal Negative Ketone Negative mg/dL Negative Specific [place] 1.020 # 1.000 - 1.030 Blood - [...] eGFR 81 # Calc 16 eGFR Non-Afr. [place] 70 # Calc 17 U/A DIP 01/09/2020 [facility] Color lt yellow QUAL Clarity clear QUAL Glucose-Ua Negative g/dL Negative Bilirubin,Urine Negative QUAL Negative Ketone Negative mg/dL Negative Specific [place] 1.020 # 1.000 - 1.030 Blood - [...] QUAL Negative Ketone Negative mg/dL Negative Specific [place] 1.015 # 1.000 - 1.030 Blood - [...] Clean Catch 6 URINALYSIS 7 _CULTURE URINE_ ^$[id number] ^^729473 $$001827 ^^339588 $$141465 $$988868 $$207564 $$860246 $$396336 $$584293 $$780374 $$658069 $$915117 $$281999 $$996778 $$335988 $$323671 $$925520 $$115861 $$908382 $$263784 $$330836 $$402570 $$903757 $$185877 $$478790 $$215479 ^^736630 $$000335 $$104208 $$004302 -- Continued on next page -- Patient: PJ BRAGG Order: Page 2 Culture: CULTURE URINE Status: Final -- Continued on next page -- Patient: PJ BRAGG Order: [id number] Page 2 Culture: CULTURE URINE Status: Prelim $$[id number] $$[id number] REPORTED DATE/TIME: 03/18/2020 15:06 Culture: CULTURE URINE [...] epidermidis Flag: A Patient: PJ BRAGG Order: Page 3 Culture: CULTURE URINE Status: Final ISOLATE 1 Staphylococcus epidermidis Isolate 1 Antibiotic KAREN Int Units ug/mL Ciprofloxacin R R . . . . . .185-9 Gentamicin S S . . . . . .267-5 Levofloxacin R R . . . . . .09321-2 Linezolid S S . . . . . .16403-3 Nitrofurantoin S S . . . . . .363-2 Oxacillin R R . . . . . .383-0 Penicillin R R . . . . . .6932-8 Quinupristin/Dalfopristin S S . . . . . .25761-8 Rifampin S S . . . . . .428-3 Tetracycline S S . . . . . .496-0 Trimethoprim/Sulfa S S . . . . . .516-5 Vancomycin S S . . . . . .524-9 P1 Test performed by: [facility] #: [id number] [address] [place] [address] [id number] [facility] [address] Discharge Door Operator : Todd Hua MD NPI #: Platform Worker : 03/17/[email or web address] REF 03/18/[email or web address].[email or web address].SENT REF 8 SRC:VOIDED 9 Source of Specimen: VOIDED 10 Source of Specimen: VOIDED 11 Units are mL/min/1.73 m2 Chronic Kidney Disease Staging per NKF: Stage I & II GFR >=60 Normal to Mildly Decreased Stage III GFR 30-59 Moderately Decreased Stage IV GFR 15-29 Severely Decreased Stage V GFR <15 Very Little GFR Left ESRD GFR <15 on OPERATIONS DEVELOPER 12 Source of Specimen: VOIDED 13 Escherichia [...] HCT IS 5% LESS SOURCE FOR DATA: CAMILO DYN 1800 OPERATION MANUAL( AUTOMATED BLOOD COUNTS AND [...] Date Location Provider Dx Diagnosis Office Visit 03/27/2020 10:40a [facility] Silvia Brannon PA N39.0 Urinary tract infection, site not specif ied Office Visit 03/17/2020 10:40a [facility] Silvia Brannon PA R30.0 Dysuria Office Visit 03/04/2020 10:00a [facility] Louis Perez, FAAFP 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 N39.0 Urinary tract infection, sit e not specified I10 Essential (primary) hyperten kennedy E78.5 Hyperlipidemia, unspecified Office Visit 02/25/2020 9:15a [facility] Silvia Brannon PA R30.0 Dysuria Office Visit 02/22/2020 10:30a [facility] Louis Perez, FAAFP G46.4 Cerebellar stroke syndrome I10 Essential (primary) hyperten kennedy E78.5 Hyperlipidemia, unspecified K21.9 Gastro-esophageal reflux dis ease without esophagitis Office Visit 02/13/2020 10:20a [facility] Irvin Brannon PA R30.0 Dysuria R31.9 Hematuria, unspecified Office Visit 02/04/2020 9:30a [facility] Silvia Brannon PA R30.0 Dysuria Office Visit 01/09/2020 9:20a [facility] Shahbaz Parry D.O., FAAFP I10 Essential (primary) hypertension E78.5 Hyperlipidemia, unspecified K21.9 Gastro-esophageal reflux dis ease without esophagitis 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 Z23 Encounter for immunization Office Visit 10/19/2019 10:20a [facility] Silvia Brannon PA N39.0 Urinary tract infection, site not specif ied R30.0 Dysuria Assessments Date Code Description Provider 04/09/2020 I10 Essential (primary) hypertension Shahbaz Parry D.O., FAAFP 04/09/2020 E78.5 Hyperlipidemia, unspecified Johnnie Parry D.O., FAAFP 04/09/2020 K21.9 Gastro-esophageal reflux disease without esophagitis Shahbaz Parry D.O., FAAFP 03/27/2020 N39.0 Urinary [...] Dysuria Zack Brannon PA Plan of Treatment No Information Available Functional Status Description No Information Available Mental Status Description No Information Available Referrals Refer to Reason for Referral Status Appt Date Aiden Guerrier MD eval and treat frequent UTI with culture growing greater than 100,000 colony forming units per mL Sent 05/06/2020 [facility] Urologist [address] [place] [address] [phone] Sherwin Chen M.D. 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 [facility]osed [facility] [address] [address] [facility] (ENT) DR MALIK ENT PT WI TH SEVERE EPISODIC VERTIGO QUICK ONSET LAST 2HOURS THEN RESOLVES LEFT EAR DISCOMFORT MID LEFT EAR CANAL HYPERTROPHIC ARDEN TISSUE PLEASE SEND [facility] EVAL WITH CONSULT Sent 01/23/[address] [address] [phone] [employer]ile[employer] Wall PLEASE EVAL QUICK ONSET GEMA RE VERTIGO RESOLVE AFTER 2 HOURS N/V 1 OR TWO TIMES MONTHLY PLEASE EVAL FOR NEUROLOGICAL CAUSE SEND [facility] REPORT Sent 01/29/2020 [facility] [address] [place], [place] [address] [phone]
--- OUTSIDE RECORDS SUMMARY | 2020-04-30 20:10 | CCD | Continuity of Care Document ---
Author Author Judith PARRY D.O. 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 AUTM [phone] Problems Active Problems Provider Date Benign essential [...] malignant neoplasm of breast Rou Jaclyn miller, [employer] DEVELOPER-BC Onset: 12/12/2014 Note: K4hOILE POORLY DIFF INVASIVE [facility] //LUMPECTOMY AND RADIATION Lacunar infarction Shahbaz Parry D.O., FAAFP Onset: 02/10 Note: january 2020 Social History Type Date Description Comments Sex Unknown ETOH Use Denies alcohol use Tobacco Use Start: Unknown Patient has never smoked Recreational Drug Use Denies Drug Use Smoking Status Reviewed: 12/13/19 Patient has never smoked Allergies, Adverse Reactions, Alerts Active Allergies Reaction Severity Comments Date Sulfa Drugs rash 01/16/2013 Doxycycline Urticaria 06/03/2014 Morphine Nausea and Vomiting 06/03/19 15 Statins mm aches 03/04/2020 Medications Active Medications SIG Qnty Indications Ordering Provide r Date Diltiazem HCL 30mg Tablets Take 1 Tablet By Mouth Twice A Day 180tabs Shahbaz Parry D.O., [facility] FP 10/11/2018 Ondansetron HCL 4mg Tablets 1 tab by mouth every four to six hours as needed for nausea 30tabs Shahbaz Parry D.O., FAAFP 02/06/2018 Nortriptyline HCL 75mg Capsules Take 1 Capsule By Mouth AT Bedtime 90caps Balaji Perez, FAAFP 08/25/2016 Meclizine HCL 25mg Tablets 1 by mouth three times a day as needed as needed for vertigo 180tabs Shahbaz Parry D.O., FAAFP 08/03/2016 Metoprolol Tartrate 50mg Tablets Take 1 Tablet By Mouth Twice A Day 180tabs Balaji Perez, FAAFP 01/07/2016 Calcium + D3 [id number] Tablet s 2 tab daily otc Bony, Jaclyn Vera [employer] DEVELOPER- [address] Take 1 Capsule By Mouth Once Daily 90caps Shahbaz Parry D.O., [facility] P 07/16/2013 Topiramate 100mg Tablets take one tablet by mouth at hs (started 02/28) Unknown Aspirin Adult 325mg Tablets 1 by mouth every day Unknown Acetaminophen 325mg Tablets 2 tablets q 4 hours prn for pain Unknown History Medications Cipro 500mg Tablets one tab by mouth [...] in 10 days 2tabs Shahbaz Parry D.O., [facility] FP 02/04/2020 - 02/14/2020 Keflex 500mg Capsules one cap po tid x 10 days 30caps Shahbaz Parry D.O., FAAFP - 10/19/2019 Diflucan 150mg Tablets take one tab po now and one po in 10 days 2tabs Shahbaz Parry D.O., FAA FP 10/09/2019 - 10/19/2019 Ciprodex 0.3-0.1% Suspension 4 drops in left ear bid x 7 days 7.500ml Shahbaz Parry D.O., FAA FP 09/13/2019 - 09/13/2019 Szaegjuv-Rkggjwzjb-TL 1% Solution 4 drops in L ear bid x 7 days. 10ml Shahbaz Parry D.O., FA AFP 09/13/2019 - 09/20/2019 Immunizations CPT Code Status Date Vaccine Lot # 11391 Given 01/09/2020 Influenza Virus Vaccine, Quadrivalent, Slit Virus, Im Use 3Y & Up [id number] 68695 Given 02/12/2019 Influenza Virus Vaccine, Quadrivalent, Slit Virus, Im Use 3Y & Up [id number] 02083 Given 01/18/2018 Influenza Virus Vaccine, Quadrivalent, Slit Virus, Im Use 3Y & Up 18375 Given 01/19/2017 Influenza Virus Vaccine, Quadrivalent, Slit Virus, Im Use 3Y & Up [id number] 01240 Given 02/02/2016 Influenza Virus Vaccine, Quadrivalent, Slit Virus, Im Use 3Y & Up [id number] 89604 Given 02/17/2015 Influenza Vaccin e (Fluzone) 3Yrs Of Age Or Older Medicare Plans [id number] 18402 Given 02/14/2014 Influenza Vaccin e (Fluzone) 3Yrs Of Age Or Older Medicare Plans [id number] 65871 Given 01/16/2013 Influenza Vaccin e (Fluzone) 3Yrs Of Age Or Older Medicare Plans 40533 Given 01/16/2013 Influenza Virus Vac. Split Virus Individuals 3 Years And Above [id number] Vital Signs Date Vital Result Comment 03/04/2020 10:04am BP Systolic 118 mmHg BP Diastolic 82 mmHg Body Temperature 97.5 F Heart Rate 66 /min Respiratory Rate 16 /min Height 62.50 inches 5'2.50" Weight 160.00 lb Fischer Body Weight 110 lb BMI (Body Mass Index) 28.8 kg/m2 O2 % BldC Oximetry 98 % 02/25/2020 9:40am BP Systolic 122 mmHg BP Diastolic 78 mmHg Body Temperature 97.1 F Heart Rate 86 /min Respiratory Rate 17 /min Height 62.50 inches 5'2.50" Weight 159.00 lb Fischer Body Weight 110 lb BMI (Body Mass Index) 28.6 kg/m2 O2 % BldC Oximetry 98 % (AT Rest), (Room Air ) Results Test Acquired Date Facility Test Result H/L Range Note Urine Culture, Routine 03/04/2020 [facility] [place] Urine Culture, Routine Final report 1, 2 Result 1 No growth 3 U/A DIP 03/04/2020 [facility] Color yellow QUAL Clarity clear QUAL Glucose-Ua Negative g/dL Negative Bilirubin,Urine Negative QUAL Negative Ketone Negative mg/dL Negative Specific [place] 1.010 # 1.000 - 1.030 Blood - [...] Abnormal Negative Ketone Negative mg/dL Negative Specific [place] >=1.030 # Abnormal 1.000 - 1.030 Blood [...] FOR CX NA U/A DIP FPA 02/13/2020 [facility] Practice Asso ciates Color Urine YELLOW Yellow Appearance CLEAR Clear Specific [place] 1.015 1.00-1.03 PH Urine 6.5 5.0-8.0 Glucose Urine NEG Negative Bilirubin Urine NEG Negative Ketones NEG Negative Blood Urine NEG Negative Protein Urine NEG Negative Urobilinogen .2 EU/dl 0.2-1.0 Nitrite NEG Negative Leukocytes TRACE Negative Laboratory test finding 02/05/2020 [facility] (Interface) [phone] NT-Pro BNP 77 pg/mL Normal <450 Renal Profile 02/05/2020 [facility] [phone] Glucose, Fasting 70 mg/dL Normal 70-100 Blood Urea Nitrogen 11 mg/dL Normal 7-18 Creatinine For GFR 0.98 mg/dL Normal 0.55-1.30 Glomerular Filtration Rate 58.3 Normal >39 4 Sodium Level 140 mEq/L Normal 136-145 Potassium Serum 3.8 mEq/L Normal 3.5-5.1 Chloride Level 106 mEq/L Normal 98-107 Carbon Dioxide Level 26 mEq/L Normal 21-32 Anion Gap 8 mEq/L Normal 8-16 Calcium Level 9.2 mg/dL Normal 8.8-10.2 Phosphorus Level 3.7 mg/dL Normal 2.5-4.9 Albumin 3.7 GM/DL Normal 3.2-5.2 CBC With Differential 02/05/2020 [facility] (Interface) [phone] White Blood Count 8.7 10 Normal 4.0-10.0 [...] 36.0-66.0 Lymph % 26.9 % Normal 24.0-44.0 [place] % 7.0 % High 0.0-5.0 Eos % 1.8 % Normal 0.0-3.0 Baso % 0.6 % Normal 0.0-1.0 Immature Granulocyte % 0.3 % Normal 0-3.0 Nucleated Red Blood Cell % 0.0 % Normal 0-0 Neutrophils # 5.5 10 Normal 1.5-8.5 Lymph # 2.4 10 Normal 1.5-5.0 [place] # 0.6 10 Normal 0.0-0.8 Eos # 0.2 10 Normal 0.0-0.5 Baso # 0.1 10 Normal 0.0-0.2 Urine Culture, Routine 02/04/2020 [facility] [place] Urine Culture, Routine Final report Abnormal 5 Result 1 Escherichia coli Abnormal 6 Antimicrobial Susceptibility See Comment: 7 U/A DIP 02/04/2020 [facility] Color REDDISH/BROWN QUAL Clarity cloudy QUAL Glucose-Ua Negative g/dL Negative Bilirubin,Urine Small QUAL Abnormal Negative Ketone Negative mg/dL Negative Specific [place] 1.020 # 1.000 - 1.030 Blood - [...] [facility]/Inhouse WBC 5.5 10E3/uL 4.1 - 10.9 8 RBC 5.16 10E6/uL 4.20 - 6.30 HGB [...] Gap 14 mmol/L eGFR 81 # Calc 9 eGFR Non-Afr. Kyrgyz 70 # Calc 10 U/A DIP 01/09/2020 [facility] Color lt yellow QUAL Clarity clear QUAL Glucose-Ua Negative g/dL Negative Bilirubin,Urine Negative QUAL Negative Ketone Negative mg/dL Negative Specific [place] 1.020 # 1.000 - 1.030 Blood - [...] QUAL Negative Ketone Negative mg/dL Negative Specific [place] 1.015 # 1.000 - 1.030 Blood - Ua Negative QUAL Negative pH 6.5 # 5.0 - 8.0 Protein Negative mg/dL Negative Urobilinogen 0.2 NA 0.2 - 1.0 Nitrite Negative QUAL Negative Leukocyte Small QUAL Abnormal Negative RBC-Ua 0-3/HPF # 0 - 3 Epithelial Cells - Ua 0-3/LPF QUAL Bacteria - Ua rare QUAL Abnormal Negative WBC-Ua 0-5/HPF #/HPF 0 - 5 Urine Culture, Routine 10/09/2019 [facility] [place] Urine Culture, Routine Final report Abnormal 11, 12 Result 1 Escherichia coli Abnormal 13 Antimicrobial Susceptibility See Comment: 14 U/A DIP 10/09/2019 [facility] Color REDDISH-BROWN QUAL Clarity cloudy QUAL Glucose-Ua Negative g/dL Negative Bilirubin,Urine Small QUAL Abnormal Negative Ketone Negative mg/dL Negative Specific [place] 1.025 # 1.000 - 1.030 Blood - Ua Large QUAL Abnormal Negative pH 6.5 # 5.0 - 8.0 Protein >=300 mg/dL Abnormal Negative Urobilinogen 1.0 NA 0.2 - 1.0 Nitrite Positive QUAL Abnormal Negative Leukocyte Large QUAL Abnormal Negative RBC-Ua TNTC # Abnormal 0 - 3 Epithelial Cells - Ua 3-5/LPF QUAL Bacteria - Ua many QUAL Abnormal Negative WBC-Ua >100/HPF #/HPF Abnormal 0 - 5 Comment UCS SENT OUT NA High CBC 10/03/2019 [facility] WBC 6.4 10E3/uL 4.1 - 10.9 15 RBC 5.18 10E6/uL 4.20 - 6.30 HGB 14.2 g/dL 12.0 - 18.0 HCT 42.5 % 37.0 - 51.0 MCV 82.0 fL 80.0 - 97.0 MCH 27.4 pg 26.0 - 32.0 MCHC 33.4 g/dL 31.0 - 36.0 PLT 163 10E3/uL 140 - 440 RDW-CV 14.3 % 11.5 - 14.5 Lym% 23.1 % 10.0 - 58.5 Neut% 69.3 % 37.0 - 92.0 MXD% 7.6 % 0.1 - 24.0 Lym# 1.5 10E3/uL 0.6 - 4.1 Neut# 4.4 % 2.0 - 7.8 MXD# 0.5 10E3/uL 0.0 - 1.8 MPV 12.5 fL 9.0 - 13.0 CMP 10/03/2019 [facility] Glu 115 mg/dL High 70 - 110 BUN 12 mg/dL 8 - 23 Creat 0.9 mg/dL 0.5 - 1.0 BUN/Creatinine Ratio 14.1 CALC Na 137 mmol/L 136 - 145 K 4.1 mmol/L 3.5 - 5.1 CL 103.8 mmol/L 98.0 - 107.0 Co2 23.3 mmol/L 22.0 - 29.0 CA 9.6 mg/dL 8.6 - 10.2 TP 6.9 g/dL 6.6 - 8.7 Alb 4.2 g/dL 3.4 - 4.8 A/G Ratio 1.6 CALC Globulin 2.6 CALC Alp 105.3 U/L 35 - 129 Alt (SGPT) 26 U/L 0 - 41 Ast (Sgot) 29 U/L 0 - 40 Tbili 0.53 mg/dL 0.0 - 1.2 Osmolality-Calculated 274.6 CALC Anion Gap 14 mmol/L eGFR 70 # Calc 16 eGFR Non-Afr. Kyrgyz 60 # Calc 17 Laboratory test finding 10/03/2019 [facility] CK 48 U/L 26 - 192 Lipid Panel 10/03/2019 [facility] Chol 212 mg/dL High 0 - 200 Trig 195 mg/dL 40 - 200 HDL 44 mg/dL Low 45 - 65 LDL_C 129 Calc 75 - 129 Cho/HDL Ratio 4.9 CALC U/A DIP 10/03/2019 [facility] Color yellow QUAL Clarity clear QUAL Glucose-Ua Negative g/dL Negative Bilirubin,Urine Negative QUAL Negative Ketone Negative mg/dL Negative Blood - Ua Negative QUAL Negative pH 6.5 # 5.0 - 8.0 Protein Negative mg/dL Negative Urobilinogen 0.2 NA 0.2 - 1.0 Nitrite Negative QUAL Negative Leukocyte Trace QUAL Negative 1 SRC:VOIDED 2 Source of Specimen: VOIDED 3 Source of Specimen: VOIDED 4 Units are mL/min/1.73 m2 Chronic Kidney Disease Staging per NKF: Stage I & II GFR >=60 Normal to Mildly Decreased Stage III GFR 30-59 Moderately Decreased Stage IV GFR 15-29 Severely Decreased Stage V GFR <15 Very Little GFR Left ESRD GFR <15 on GEOPHYSICS PROFESSOR 5 Source of Specimen: VOIDED 6 Escherichia coli Source of Specimen: VOIDED Greater than 100,000 colony forming units per mL Cefazolin <=4 ug/mL Cefazolin with an KAREN <=16 predicts susceptibility to the oral agents cefaclor, cefdinir, cefpodoxime, cefprozil, cefuroxime, cephalexin, and loracarbef when used for therapy of uncomplicated urinary tract infections due to E. coli, Klebsiella pneumoniae, and Proteus mirabilis. 7 Source of Specimen: VOIDED S = Susceptible; [...] S Tetracycline S Tobramycin S Trimethoprim/Sulfa S 8 NORMAL RANGES Age WBC RBC HGB HCT [...] Normal 80 and above >32 mL/min Normal 9 CKD-EPI 10 CKD-EPI 11 SRC:UA VOIDED 12 Source of Specimen: UA VOIDE D 13 Escherichia coli Source of Specimen: UA VOIDED Greater than 100,000 colony forming units per mL Cefazolin <=4 ug/mL Cefazolin with an KAREN <=16 predicts susceptibility to the oral agents cefaclor, cefdinir, cefpodoxime, cefprozil, cefuroxime, cephalexin, and loracarbef when used for therapy of uncomplicated urinary tract infections due to E. coli, Klebsiella pneumoniae, and Proteus mirabilis. 14 Source of Specimen: UA VOIDE D S = Susceptible; I = Intermediate; R [...] HCT IS 5% LESS SOURCE FOR DATA: [facility] 1800 OPERATION MANUAL( AUTOMATED BLOOD COUNTS AND [...] mL/min Normal 80 and above >32 mL/min NormalCLASSIFICATION CHOLESTEROL FOR ADULTS CHILDREN/ADOLESCENTS* DESIRABLE: <200 MG/DL <170 MG/DL BORDER-LINE HIGH RISK: 200-239 MG/DL 170-199 MG/DL HIGH RISK: >240 MG/DL >200 MG/DL CLASS. FOR PRIMARY LDL CHOL PREVENTION: LDL CHOL-CHILD/ADOLESCENTS* DESIRABLE: <130 MG/DL <110 MG/DL BORDERLINE-HIGH RISK: 130-159 MG/DL 110-129 MG/DL HIGH RISK: >160 MG/DL >130 MG/DL *CHILDREN AND ADOLESCENTS REPRESENTS INDIVIDUALA AGED 2-19 YEARS EXCLUSIVE. 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 I10 Essential (primary) hyperten kennedy E78.5 Hyperlipidemia, unspecified K21.9 Gastro-esophageal reflux dis ease without esophagitis Office Visit 02/13/2020 10:20a [facility] Irvin Brannon PA R30.0 Dysuria R31.9 Hematuria, unspecified Office Visit 02/04/2020 9:30a [facility] Silvia Brannon PA R30.0 Dysuria Office Visit 01/09/2020 9:20a [facility] Shahbaz Parry D.O., FAAFP I10 Essential (primary) hypertension E78.5 Hyperlipidemia, unspecified K21.9 Gastro-esophageal reflux dis ease without esophagitis 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 Z23 Encounter for immunization Office Visit 10/19/2019 10:20a [facility] Silvia Brannon PA N39.0 Urinary tract infection, site not specif ied R30.0 Dysuria Office Visit 10/09/2019 1:15p [facility] Silvia Brannon PA N39.0 Urinary tract infection, site not specif ied R30.0 Dysuria Office Visit 10/03/2019 8:45a [facility] Louis Perez, FAAFP Z00.01 Encounter for general adult medical exam w abnormal findings I10 Essential (primary) hyperten kennedy E78.5 Hyperlipidemia, unspecified K21.9 Gastro-esophageal reflux dis ease without esophagitis Office Visit 09/21/2019 10:00a [facility] Silvia Brannon PA H60.92 Unspecified otitis externa, left ear Office Visit 09/13/2019 10:00a [facility] Silvia Brannon PA H60.92 Unspecified otitis externa, left ear Assessments Date Code Description Provider 03/04/2020 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 Shahbaz Parry [...] Urinary tract infection, site no t specified RenettaoughIvanna M, PA 10/19/2019 R30.0 Dysuria Zack Brannon, PA 10/09/2019 N39.0 Urinary tract infection, site no t specified Shahbaz Parry D.O., FAAFP 10/09/2019 N39.0 Urinary tract infection, site no t specified Ivanna Brannon M, PA 10/09/2019 R30.0 Dysuria Shahbaz Parry D.O., FAAFP 10/09/2019 R30.0 Dysuria Zack Brannon, PA 10/03/2019 Z00.01 Encounter for genera l adult medical examination with abnormal findings Shahbaz Parry D.O., FAAFP 10/03/2019 I10 Essential (primary) hypertension Shahbaz Parry D.O., FAAFP 10/03/2019 E78.5 Hyperlipidemia, unspecified Johnnie Parry D.O., FAAFP 10/03/2019 K21.9 Gastro-esophageal reflux disease without esophagitis Shahbaz Parry D.O., FAAFP 09/21/2019 H60.92 Unspecified otitis externa, left ear Shahbaz Parry D.O., FAAFP 09/21/2019 H60.92 Unspecified otitis externa, left ear Ivanna Brannon, PA 09/13/2019 H60.92 Unspecified otitis externa, left ear Shahbaz Parry D.O., FAAFP 09/13/2019 H60.92 Otitis externa Zack Brannon PA Plan of Treatment Future Appointment(s):* 04/09/2020 10:30 am - Shahbaz Parry D.O., FAAFP at [facility] Functional Status Description No Information Available Mental Status Description No Information Available Referrals Refer to Reason for Referral Status Appt Date Sherwin Chen M.D. 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 Closed [facility] [address] [address] [facility] (ENT) DR MALIK ENT PT WI TH SEVERE EPISODIC VERTIGO QUICK ONSET LAST 2HOURS THEN RESOLVES LEFT EAR DISCOMFORT MID LEFT EAR CANAL HYPERTROPHIC ARDEN TISSUE PLEASE SEND [facility] EVAL WITH CONSULT Sent 01/23/2020 [address] [facility] [address] [place] [address] [phone] [employer] PLEASE EVAL QUICK ONSET GEMA RE VERTIGO RESOLVE AFTER 2 HOURS N/V 1 OR TWO TIMES MONTHLY PLEASE EVAL FOR NEUROLOGICAL CAUSE SEND [facility] REPORT Sent 01/29/2020 [facility] [address] [address] [phone]
--- OUTSIDE RECORDS SUMMARY | 2020-04-30 20:10 | CCD | Continuity of Care Document ---
Author Author Judith PARRY D.O. Organization Unknown Address [address] [address] Phone [phone] Care Team Providers Care Supervisor Whipped Topping Name Role Phone Shahbaz Parry D.O. AUTM [phone] Problems Active Problems Provider Date Benign essential [...] malignant neoplasm of breast Rou Jaclyn miller, [employer]ER-BC Onset: 12/12/2014 Note: [id number] POORLY DIFF INVASIVE [facility] //LUMPECTOMY [...] Twice A Day 180tabs Shahbaz Parry D.O., [facility] FP 10/11/2018 Ondansetron HCL 4mg Tablets [...] Balaji Perez, FAAFP 01/07/2016 Calcium + D3 [id number] Tablet s 2 tab daily otc Bony, Jaclyn Vera [employer]- [address] Take 1 Capsule By Mouth Once Daily 90caps Shahbaz Parry D.O., [facility] P 07/16/2013 Topiramate 100mg Tablets take one [...] in 10 days 2tabs Shahbaz Parry D.O., [facility] FP 02/04/2020 - 02/14/2020 Keflex 500mg Capsules [...] Parry D.O., FAA FP 09/13/2019 - 09/13/2019 Drzxhyzo-Teouajyon-JT 1% Solution 4 drops in L ear bid x 7 days. 10ml Shahbaz Parry D.O., FA AFP 09/13/2019 - 09/20/2019 Immunizations CPT Code Status Date Vaccine Lot # [id number] Given 01/09/2020 Influenza Virus Vaccine, Quadrivalent, Slit Virus, Im Use 3Y & Up [id number] 58553 Given 02/12/2019 Influenza Virus Vaccine, Quadrivalent, Slit Virus, Im Use 3Y & Up [id number] 93496 Given 01/18/2018 Influenza Virus Vaccine, Quadrivalent, Slit Virus, Im Use 3Y & Up 03293 Given 01/19/2017 Influenza Virus Vaccine, Quadrivalent, Slit Virus, Im Use 3Y & Up [id number] 10815 Given 02/02/2016 Influenza Virus Vaccine, Quadrivalent, Slit Virus, Im Use 3Y & Up [id number] 13731 Given 02/17/2015 Influenza Vaccin e (Fluzone) 3Yrs Of Age Or Older Medicare Plans [id number] 16861 Given 02/14/2014 Influenza Vaccin e (Fluzone) 3Yrs Of Age Or Older Medicare Plans [id number] 59016 Given 01/16/2013 Influenza Vaccin e (Fluzone) 3Yrs Of Age Or Older Medicare Plans 09412 Given 01/16/2013 Influenza Virus Vac. Split Virus Individuals 3 Years And Above [id number] Vital Signs Date Vital Result Comment 03/04/2020 10:04am BP Systolic 118 mmHg BP Diastolic 82 mmHg Body Temperature 97.5 F Heart Rate 66 /min Respiratory Rate 16 /min Height 62.50 inches 5'2.50" Weight 160.00 lb [place] Body Weight 110 lb BMI (Body Mass Index) 28.8 kg/m2 O2 % BldC Oximetry 98 % 02/25/2020 9:40am BP Systolic 122 mmHg BP Diastolic 78 mmHg Body Temperature 97.1 F Heart Rate 86 /min Respiratory Rate 17 /min Height 62.50 inches 5'2.50" Weight 159.00 lb [place] Body Weight 110 lb BMI (Body Mass Index) 28.6 kg/m2 O2 % BldC Oximetry 98 % (AT Rest), (Room Air ) Results Test Acquired Date Facility Test Result H/L Range Note U/A DIP 03/04/2020 [facility] Color yellow QUAL Clarity clear QUAL Glucose-Ua Negative g/dL Negative Bilirubin,Urine Negative QUAL Negative Ketone Negative mg/dL Negative Specific [place] 1.010 # 1.000 - 1.030 Blood - [...] Abnormal Negative Ketone Negative mg/dL Negative Specific [place] >=1.030 # Abnormal 1.000 - 1.030 Blood [...] FOR CX NA U/A DIP [facility]PA 02/13/2020 [facility] Asso ciates Color Urine YELLOW Yellow Appearance CLEAR Clear Specific [place] 1.015 1.00-1.03 PH Urine 6.5 5.0-8.0 Glucose Urine NEG Negative Bilirubin Urine NEG Negative Ketones NEG Negative Blood Urine NEG Negative Protein Urine NEG Negative Urobilinogen .2 EU/dl 0.2-1.0 Nitrite NEG Negative Leukocytes TRACE Negative Laboratory test finding 02/05/2020 [facility] (Interface) [phone] NT-Pro BNP 77 pg/mL Normal <450 Renal Profile 02/05/2020 [facility] (I nterface) [phone] Glucose, Fasting 70 mg/dL Normal 70-100 Blood [...] GM/DL Normal 3.2-5.2 CBC With Differential 02/05/2020 [facility] (Interface) [phone] White Blood Count 8.7 10 Normal 4.0-10.0 [...] 36.0-66.0 Lymph % 26.9 % Normal 24.0-44.0 Moffat % 7.0 % High 0.0-5.0 Eos % 1.8 % Normal 0.0-3.0 Baso % 0.6 % Normal 0.0-1.0 Immature Granulocyte % 0.3 % Normal 0-3.0 Nucleated Red Blood Cell % 0.0 % Normal 0-0 Neutrophils # 5.5 10 Normal 1.5-8.5 Lymph # 2.4 10 Normal 1.5-5.0 Moffat # 0.6 10 Normal 0.0-0.8 Eos # 0.2 10 Normal 0.0-0.5 Baso # 0.1 10 Normal 0.0-0.2 Urine Culture, Routine 02/04/2020 [facility] [place] Urine Culture, Routine Final report Abnormal 2, 3 Result 1 Escherichia coli Abnormal 4 Antimicrobial Susceptibility See Comment: 5 U/A DIP 02/04/2020 [facility] Color REDDISH/BROWN QUAL Clarity cloudy QUAL Glucose-Ua Negative g/dL Negative Bilirubin,Urine Small QUAL Abnormal Negative Ketone Negative mg/dL Negative Specific [place] 1.020 # 1.000 - 1.030 Blood - [...] [facility] WBC 5.5 10E3/uL 4.1 - 10.9 6 RBC 5.16 10E6/uL 4.20 - 6.30 HGB [...] Gap 14 mmol/L eGFR 81 # Calc 7 eGFR Non-Afr. Guyanese 70 # Calc 8 U/A DIP 01/09/2020 [facility] Color lt yellow QUAL Clarity clear QUAL Glucose-Ua Negative g/dL Negative Bilirubin,Urine Negative QUAL Negative Ketone Negative mg/dL Negative Specific [place] 1.020 # 1.000 - 1.030 Blood - [...] QUAL Negative Ketone Negative mg/dL Negative Specific [place] 1.015 # 1.000 - 1.030 Blood - [...] NE Urine Culture, Routine Final report Abnormal 9, 1 0 Result 1 Escherichia coli Abnormal 11 Antimicrobial Susceptibility See Comment: 12 U/A DIP 10/09/2019 [facility] Color REDDISH-BROWN QUAL Clarity cloudy QUAL Glucose-Ua Negative g/dL Negative Bilirubin,Urine Small QUAL Abnormal Negative Ketone Negative mg/dL Negative Specific Dodge 1.025 # 1.000 - 1.030 Blood - [...] [facility]/Inhouse WBC 6.4 10E3/uL 4.1 - 10.9 13 RBC 5.18 10E6/uL 4.20 - 6.30 HGB [...] Gap 14 mmol/L eGFR 70 # Calc 14 eGFR Non-Afr. 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 coli, Klebsiella pneumoniae, and Proteus mirabilis. 5 Source of Specimen: VOIDED S = Susceptible; [...] S Tetracycline S Tobramycin S Trimethoprim/Sulfa S 6 NORMAL RANGES Age WBC RBC HGB HCT [...] Normal 80 and above >32 mL/min Normal 7 CKD-EPI 8 CKD-EPI 9 SRC:UA VOIDED 10 Source of Specimen: UA VOIDE D 11 Escherichia coli Source of Specimen: UA VOIDED Greater than 100,000 colony forming units per mL Cefazolin <=4 ug/mL Cefazolin with an KAREN <=16 predicts susceptibility to the oral agents cefaclor, cefdinir, cefpodoxime, cefprozil, cefuroxime, cephalexin, and loracarbef when used for therapy of uncomplicated urinary tract infections due to E. coli, Klebsiella pneumoniae, and Proteus mirabilis. 12 Source of Specimen: UA VOIDE D S [...] S Tetracycline S Tobramycin S Trimethoprim/Sulfa S 13 NORMAL RANGES Age WBC RBC HGB HCT [...] HCT IS 5% LESS SOURCE FOR DATA: [employer] 1800 OPERATION MANUAL( AUTOMATED BLOOD COUNTS AND [...] ADOLESCENTS REPRESENTS INDIVIDUALA AGED 2-19 YEARS EXCLUSIVE. 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 N39.0 Urinary tract infection, sit e not specified I10 Essential (primary) hyperten kennedy E78.5 Hyperlipidemia, unspecified Office Visit 02/25/2020 9:15a [facility] Sivlia Brannon PA R30.0 Dysuria Office Visit 02/22/2020 10:30a [facility] Shahbaz Parry D.O ., FAAFP G46.4 Cerebellar stroke syndrome I10 Essential (primary) hyperten kennedy E78.5 Hyperlipidemia, unspecified K21.9 Gastro-esophageal reflux dis ease without esophagitis Office Visit 02/13/2020 10:20a [facility] Irvin Brannon PA R30.0 Dysuria R31.9 Hematuria, unspecified Office Visit 02/04/2020 9:30a [facility] Silvia Brannon PA R30.0 Dysuria Office Visit 01/09/2020 9:20a [facility] Shahbaz Parry D.O., FAAFP I10 Essential (primary) hypertension E78.5 Hyperlipidemia, unspecified K21.9 Gastro-esophageal reflux dis ease without esophagitis 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 Z23 Encounter for immunization Office Visit 10/19/2019 10:20a [facility] Silvia Brannon PA N39.0 Urinary tract infection, site not specif ied R30.0 Dysuria Office Visit 10/09/2019 1:15p [facility] Silvia Brannon PA N39.0 Urinary tract infection, site not specif ied R30.0 Dysuria Office Visit 10/03/2019 8:45a [facility] Louis Perez, FAAFP Z00.01 Encounter for general adult medical exam w abnormal findings I10 Essential (primary) hyperten kennedy E78.5 Hyperlipidemia, unspecified K21.9 Gastro-esophageal reflux dis ease without esophagitis Office Visit 09/21/2019 10:00a [facility] Silvia Brannon PA H60.92 Unspecified otitis externa, left ear Office Visit 09/13/2019 10:00a [facility] Silvia Brannon PA H60.92 Unspecified otitis externa, left ear Assessments Date Code Description Provider 03/04/2020 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 03/04/2020 N39.0 Urinary tract infection, site no t specified Shahbaz Parry D.O., [facility] 03/04/2020 I10 Essential (primary) hypertension Shahbaz Parry D.O., [facility] 03/04/2020 E78.5 Hyperlipidemia, unspecified Johnnie Parry D.O., FAAFP 02/25/2020 R30.0 Dysuria Zack Brannon PA 02/22/2020 G46.4 Cerebellar stroke syndrome Jamel Parry D.O., [facility] 02/22/2020 I10 Essential (primary) hypertension Shahbaz Parry [...] site no t specified Ivanna Brannon, PA 10/19/2019 R30.0 Dysuria Zack Brannon PA 10/09/2019 N39.0 Urinary tract infection, site no t specified Shahbaz Parry D.O., FAAFP 10/09/2019 N39.0 Urinary tract infection, site no t specified Ivanna Brannon, PA 10/09/2019 R30.0 Dysuria [facility] D.O., [facility] 10/09/2019 R30.0 Dysuria Zack Brannon PA 10/03/2019 Z00.01 Encounter for genera l adult medical examination with abnormal findings Shahbaz Parry D.O., FAAFP 10/03/2019 I10 Essential (primary) hypertension Shabhaz Parry D.O., FAAFP 10/03/2019 E78.5 Hyperlipidemia, unspecified Johnnie Parry D.O., FAAFP 10/03/2019 K21.9 Gastro-esophageal reflux disease without esophagitis Shahbaz Parry D.O., FAAFP 09/21/2019 H60.92 Unspecified otitis externa, left ear Shahbaz Parry D.O., FAAFP 09/21/2019 H60.92 Unspecified otitis externa, left ear Ivanna Brannon PA 09/13/2019 H60.92 Unspecified otitis externa, left ear Shahbaz Parry D.O., FAAFP 09/13/2019 H60.92 Otitis externa Zack Brannon PA Plan of Treatment Future Appointment(s):* 04/09/2020 10:30 am - Shahbaz Parry D.O., FAAFP at [facility] Functional Status Description No Information Available Mental Status Description No Information Available Referrals Refer to Reason for Referral Status Appt Date Sherwin Chen M.D. 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 Closed [facility] [address] [place] [address] [facility] (ENT) DR MALIK ENT PT WI TH SEVERE EPISODIC VERTIGO QUICK ONSET LAST 2HOURS THEN RESOLVES LEFT EAR DISCOMFORT MID LEFT EAR CANAL HYPERTROPHIC ARDEN TISSUE PLEASE SEND [facility] EVAL WITH CONSULT Sent 01/23/[address] [place] [address] [address] [place] [address] [phone] [employer] PLEASE EVAL QUICK ONSET GEMA RE VERTIGO RESOLVE AFTER 2 HOURS N/V 1 OR TWO TIMES MONTHLY PLEASE EVAL FOR NEUROLOGICAL CAUSE SEND [facility] REPORT Sent 01/29/2020 [facility] [address] [address] [phone]
--- OUTSIDE RECORDS SUMMARY | 2020-04-30 20:11 | CCD | Continuity of Care Document ---
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 Onset: 12/12/2014 Note: B2mSVPA POORLY DIFF INVASIVE CHAU LEEANN CANCER //LUMPECTOMY AND RADIATION Social History Type Date Description Comments Sex Unknown ETOH Use Denies alcohol use Tobacco Use Start: Unknown Patient has never smoked Recreational Drug Use Denies Drug Use Smoking Status Reviewed: 12/13/19 Patient has never smoked Allergies, Adverse Reactions, Alerts Active Allergies Reaction Severity Comments Date Sulfa Drugs rash 01/16/2013 Doxycycline Urticaria 06/03/2014 Morphine Nausea and Vomiting 06/03/19 15 Medications Active Medications SIG Qnty Indications Ordering Provide r Date Cipro 500mg Tablets one tab by mouth twice a day x 7 days 14tabs Shahbaz Aldana D.O., FAAFP Diflucan 150mg Tablets take one tab by now and one tab by mouth in 7 days 2tabs Shahbaz Aldana D.O., FAAFP 02/25/2020 Diltiazem HCL 30mg Tablets Take 1 Tablet By Mouth Twice A Day 180tabs Shahbaz Aldana D.O., [facility] FP 10/11/2018 Ondansetron HCL 4mg Tablets 1 tab by mouth every four to six hours as needed for nausea 30tabs Shahbaz Aldana D.O., FAAFP 02/06/2018 Nortriptyline HCL 75mg Capsules Take 1 Capsule By Mouth AT Bedtime 90caps Balaji Perez, FAAFP 08/25/2016 Meclizine HCL 25mg Tablets 1 by mouth three times a day as needed as needed for vertigo 180tabs Shahbaz Aldana D.O., FAAFP 08/03/2016 Metoprolol Tartrate 50mg Tablets Take 1 Tablet By Mouth Twice A Day 180tabs Balaji Perez, [facility] 01/07/2016 Calcium + D3 [id number] Tablet s 2 tab daily otc Rounds, Jaclyn Vera [facility] [address] Take 1 Capsule By Mouth Once Daily 90caps Shahbaz Aldana D.O., [facility] P 07/16/2013 Topiramate 100mg Tablets take one tablet by mouth at hs (started 02/28) Unknown Aspirin Adult 325mg Tablets 1 by mouth every day Unknown Acetaminophen 325mg Tablets 2 tablets q 4 hours prn for pain Unknown History Medications Keflex 500mg Capsules one cap po tid x 10 days 30caps Shahbaz Aldana D.O., FAAFP - 02/14/2020 Diflucan 150mg Tablets take one tab po now and one po in 10 days 2tabs Shahbaz Aldana D.O., [facility] FP 02/04/2020 - 02/14/2020 Keflex 500mg Capsules one cap po tid x 10 days 30caps Shahbaz Aldana D.O., FAAFP - 10/19/2019 Diflucan 150mg Tablets take one tab po now and one po in 10 days 2tabs Shahbaz Aldana D.O., FAA FP 10/09/2019 - 10/19/2019 Ciprodex 0.3-0.1% Suspension 4 drops in left ear bid x 7 days 7.500ml Shahbaz Aldana D.O., FAA FP 09/13/2019 - 09/13/2019 Yaxxqnnx-Rguatogho-BY 1% Solution 4 drops in L ear bid x 7 days. 10ml Shahbaz Aldana D.O., [facility] 09/13/2019 - 09/20/2019 Immunizations CPT Code Status Date Vaccine Lot # [id number] Given 01/09/2020 Influenza Virus Vaccine, Quadrivalent, Slit Virus, Im Use 3Y & Up [id number] 07592 Given 02/12/2019 Influenza Virus Vaccine, Quadrivalent, Slit Virus, Im Use 3Y & Up [id number] 80292 Given 01/18/2018 Influenza Virus Vaccine, Quadrivalent, Slit Virus, Im Use 3Y & Up 82394 Given 01/19/2017 Influenza Virus Vaccine, Quadrivalent, Slit Virus, Im Use 3Y & Up [id number] 17865 Given 02/02/2016 Influenza Virus Vaccine, Quadrivalent, Slit Virus, Im Use 3Y & Up [id number] 66477 Given 02/17/2015 Influenza Vaccin e (Fluzone) 3Yrs Of Age Or Older Medicare Plans [id number] 80433 Given 02/14/2014 Influenza Vaccin e (Fluzone) 3Yrs Of Age Or Older Medicare Plans [id number] 85910 Given 01/16/2013 Influenza Vaccin e (Fluzone) 3Yrs Of Age Or Older Medicare Plans 52470 Given 01/16/2013 Influenza Virus Vac. Split Virus Individuals 3 Years And Above [id number] Vital Signs Date Vital Result Comment 02/25/2020 9:40am BP Systolic 122 mmHg BP Diastolic 78 mmHg Body Temperature 97.1 F Heart Rate 86 /min Respiratory Rate 17 /min Height 62.50 inches 5'2.50" Weight 159.00 lb [place] Body Weight 110 lb BMI (Body Mass Index) 28.6 kg/m2 O2 % BldC Oximetry 98 % (AT Rest), (Room Air ) 02/22/2020 10:47am BP Systolic 116 mmHg BP Diastolic 80 mmHg Body Temperature 98.1 F Heart Rate 80 /min Respiratory Rate 16 /min Height 62.50 inches 5'2.50" Weight 160.00 lb [place] Body Weight 110 lb BMI (Body Mass Index) 28.8 kg/m2 O2 % BldC Oximetry 99 % Results Test Acquired Date Facility Test Result H/L Range Note U/A DIP 02/25/2020 [facility]/Inhouse Color REDDISH-BROWN QUAL Clarity cloudy QUAL Glucose-Ua Negative g/dL Negative Bilirubin,Urine Small QUAL Abnormal Negative Ketone Negative mg/dL Negative Specific [place] >=1.030 # Abnormal 1.000 - 1.030 Blood [...] Urine YELLOW Yellow Appearance CLEAR Clear Specific [place] 1.015 1.00-1.03 PH Urine 6.5 5.0-8.0 Glucose Urine NEG Negative Bilirubin Urine NEG Negative Ketones NEG Negative Blood Urine NEG Negative Protein Urine NEG Negative Urobilinogen .2 EU/dl 0.2-1.0 Nitrite NEG Negative Leukocytes TRACE Negative Laboratory test finding 02/05/2020 [facility] l (Interface) [phone] NT-Pro BNP 77 pg/mL Normal <450 Renal Profile 02/05/2020 [facility] (I nterface) [phone] Glucose, Fasting 70 mg/dL Normal 70-100 Blood [...] GM/DL Normal 3.2-5.2 CBC With Differential 02/05/2020 [facility] ([facility]) [phone] White Blood Count 8.7 10 Normal 4.0-10.0 [...] 36.0-66.0 Lymph % 26.9 % Normal 24.0-44.0 [place] % 7.0 % High 0.0-5.0 Eos % 1.8 % Normal 0.0-3.0 Baso % 0.6 % Normal 0.0-1.0 Immature Granulocyte % 0.3 % Normal 0-3.0 Nucleated Red Blood Cell % 0.0 % Normal 0-0 Neutrophils # 5.5 10 Normal 1.5-8.5 Lymph # 2.4 10 Normal 1.5-5.0 [place] # 0.6 10 Normal 0.0-0.8 Eos # [...] Abnormal Negative Ketone Negative mg/dL Negative Specific [place] 1.020 # 1.000 - 1.030 Blood - [...] eGFR 81 # Calc 7 eGFR Non-Afr. New Zealander 70 # Calc 8 U/A DIP 01/09/2020 FPA/Inhouse Color lt yellow QUAL Clarity clear QUAL Glucose-Ua Negative g/dL Negative Bilirubin,Urine Negative QUAL Negative Ketone Negative mg/dL Negative Specific [place] 1.020 # 1.000 - 1.030 Blood - [...] QUAL Negative Ketone Negative mg/dL Negative Specific [place] 1.015 # 1.000 - 1.030 Blood - [...] Abnormal Negative Ketone Negative mg/dL Negative Specific [place] 1.025 # 1.000 - 1.030 Blood - [...] eGFR 70 # Calc 14 eGFR Non-Afr. 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 SRC:VOIDED 3 Source of Specimen: VOIDED [...] HCT IS 5% LESS SOURCE FOR DATA: [employer] 1800 OPERATION MANUAL( AUTOMATED BLOOD COUNTS AND [...] HCT IS 5% LESS SOURCE FOR DATA: [employer] 1800 OPERATION MANUAL( AUTOMATED BLOOD COUNTS AND [...] Date Location Provider Dx Diagnosis Office Visit 02/25/2020 9:15a [place] [facility] Silvia Brannon PA R30.0 Dysuria Office Visit 02/22/2020 10:30a [place] [facility] Louis Perez, FAAFP G46.4 Cerebellar stroke syndrome I10 Essential (primary) hyperten kennedy E78.5 Hyperlipidemia, unspecified K21.9 Gastro-esophageal reflux dis ease without esophagitis Office Visit 02/13/2020 10:20a [place] [facility] Irvin Brannon PA R30.0 Dysuria R31.9 Hematuria, unspecified Office Visit 02/04/2020 9:30a [place] [facility] Silvia Brannon PA R30.0 Dysuria Office Visit 01/09/2020 9:20a [place] [facility] Shahbaz Aldana D.O., FAAFP I10 Essential (primary) hypertension E78.5 Hyperlipidemia, unspecified K21.9 Gastro-esophageal reflux dis ease without esophagitis 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 Z23 Encounter for immunization Office Visit 10/19/2019 10:20a [place] [facility] Silvia Brannon PA N39.0 Urinary tract infection, site not specif ied R30.0 Dysuria Office Visit 10/09/2019 1:15p [place] [facility] Silvia Brannon PA N39.0 Urinary tract infection, site not specif ied R30.0 Dysuria Office Visit 10/03/2019 8:45a [place] [facility] Louis Perez, FAAFP Z00.01 Encounter for general adult medical exam w abnormal findings I10 Essential (primary) hyperten kennedy E78.5 Hyperlipidemia, unspecified K21.9 Gastro-esophageal reflux dis ease without esophagitis Office Visit 09/21/2019 10:00a [place] [facility] Silvia Brannon PA H60.92 Unspecified otitis externa, left ear Office Visit 09/13/2019 10:00a [place] [facility] Silvia Brannon PA H60.92 Unspecified otitis externa, left ear Assessments Date Code Description Provider 02/25/2020 R30.0 Dysuria Zack Brannon PA 02/22/2020 G46.4 Cerebellar stroke syndrome Jamel Aldana D.O., FAAFP 02/22/2020 I10 Essential (primary) hypertension Shahbaz Aldana D.O., FAAFP 02/22/2020 E78.5 Hyperlipidemia, unspecified Johnnie Aldana D.O., FAAFP 02/22/2020 K21.9 Gastro-esophageal reflux disease without esophagitis Shahbaz Aldana D.O., FAAFP 02/13/2020 R30.0 Dysuria Zack Brannon PA 02/13/2020 R30.0 Dysuria Shahbaz Aldana D.O., FAAFP 02/13/2020 R31.9 Hematuria, unspecified [place] cox Ivanna Vera, PA 02/04/2020 R30.0 Dysuria Renett[place]ovani Zack Vera, PA 01/09/2020 I10 Essential (primary) hypertension Shahbaz Aldana D.O., FAAFP 01/09/2020 E78.5 Hyperlipidemia, unspecified Johnnie Aldana D.O., FAAFP 01/09/2020 K21.9 Gastro-esophageal reflux disease without esophagitis Shahbaz Aldana D.O., FAAFP 01/09/2020 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 Js Aldana D.O., FAAFP 01/09/2020 Z23 Encounter for immunization Jamel Aldana D.O., FAAFP 10/19/2019 N39.0 Urinary tract infection, site no t specified Ivanna Brannon, PA 10/19/2019 R30.0 Dysuria Zack Brannon, PA 10/09/2019 N39.0 Urinary tract infection, site no t specified Shahbaz Aldana D.O., FAAFP 10/09/2019 N39.0 Urinary tract infection, site no t specified Ivanna Brannon, PA 10/09/2019 R30.0 Dysuria Shahbaz Aldana D.O., FAAFP 10/09/2019 R30.0 Dysuria Zack Brannon, PA 10/03/2019 Z00.01 Encounter for genera l adult medical examination with abnormal findings Shahbaz Aldana D.O., FAAFP 10/03/2019 I10 Essential (primary) hypertension Shahbaz Aldana D.O., FAAFP 10/03/2019 E78.5 Hyperlipidemia, unspecified Johnnie Aldana D.O., FAAFP 10/03/2019 K21.9 Gastro-esophageal reflux disease without esophagitis Shahbaz Aldana D.O., FAAFP 09/21/2019 H60.92 Unspecified otitis externa, left ear Shahbaz Aldana D.O., FAAFP 09/21/2019 H60.92 Unspecified otitis externa, left ear Ivanna Brannon PA 09/13/2019 H60.92 Unspecified otitis externa, left ear Shahbaz Aldana D.O., FAAFP 09/13/2019 H60.92 Otitis externa Zack Brannon PA Plan of Treatment Future Appointment(s):* 03/03/2020 1:15 pm - Ivanna Brannon PA at [place] [facility] * 04/09/2020 10:30 am - Shahbaz Aldana D.O., FAAFP at [place] [facility] Functional Status Description No Information Available Mental Status Description No Information Available Referrals Refer to Reason for Referral Status Appt Date Sherwin Chen M.D. 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 [facility] [address] [address] [facility] (ENT) DR MALIK ENT PT WI TH SEVERE EPISODIC VERTIGO QUICK ONSET LAST 2HOURS THEN RESOLVES LEFT EAR DISCOMFORT MID LEFT EAR CANAL HYPERTROPHIC ARDEN TISSUE PLEASE SEND [facility] EVAL WITH CONSULT Sent 01/23/2020 [address] [place] [address] [phone] Yamilex Wall PLEASE EVAL QUICK ONSET GEMA RE VERTIGO RESOLVE AFTER 2 HOURS N/V 1 OR TWO TIMES MONTHLY PLEASE EVAL FOR NEUROLOGICAL CAUSE SEND [facility] REPORT Sent 01/29/2020 [facility] [address] [address] [phone]
--- OUTSIDE RECORDS SUMMARY | 2020-04-30 20:11 | CCD | Continuity of Care Document ---
Author Author Judith PARRY D.O. Organization Unknown Address [address] [address] Phone [phone] Care Team Providers Care Integration Architect Name Role Phone Shahbaz Parry D.O. AUTM [phone] Problems Active Problems Provider Date Benign essential hypertension Shahbaz Parry D.O., FAAFP O nset: 01/16/2013 Gastroesophageal reflux disease Shahbaz Parry D.O., BRINDAFP Onset: 01/16/2013 Generalized anxiety disorder Shahbaz Parry D.O., FAAFP On set: 01/16/2013 Hyperlipidemia Shahbaz Parry D.O., 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, LIFE SCIENCE TAXONOMIST-BC Onset: 12/12/2014 Note: O1pZHCN POORLY DIFF INVASIVE CHAU LEEANN CANCER //LUMPECTOMY [...] Twice A Day 180tabs Shahbaz Parry D.O., FAA FP 10/11/2018 Ondansetron HCL 4mg Tablets 1 tab by mouth every four to six hours as needed for nausea 30tabs [facility] 02/06/2018 Nortriptyline HCL 75mg Capsules Take 1 Capsule By Mouth AT Bedtime 90caps Balaji Perez., [facility] 08/25/2016 Meclizine HCL 25mg Tablets 1 by mouth three times a day as needed as needed for vertigo 180tabs Shahbaz [facility] D.O., [facility] 08/03/2016 Metoprolol Tartrate 50mg Tablets Take 1 Tablet By Mouth Twice A Day 180tabs Balaji Perez, [facility] 01/07/2016 Calcium + D3 [id number] Tablet s 2 tab daily otc Jaclyn Lovett [facility] [address] Take 1 Capsule By Mouth Once Daily 90caps Shahbaz Parry D.O., [facility] P 07/16/2013 Topiramate 100mg Tablets take one tablet by mouth at hs (started 02/28) Unknown Aspirin Adult 325mg Tablets 1 by mouth every day Unknown Acetaminophen 325mg Tablets 2 tablets q 4 hours prn for pain Unknown History Medications Cipro 500mg Tablets one tab by mouth twice a day x 7 days 14tabs [facility] D.O., [facility] - 03/03/2020 Diflucan 150mg Tablets take one [...] Parry D.O., FAA FP 02/04/2020 - 02/14/2020 Keflex 500mg Capsules [...] Parry D.O., FAA FP 09/13/2019 - 09/13/2019 Tyefebde-Bosopnxar-LZ 1% Solution 4 drops in L ear bid x 7 days. 10ml Shahbaz Parry D.O., FA AFP 09/13/2019 - 09/20/2019 Immunizations CPT Code Status Date Vaccine Lot # [id number] Given 01/09/2020 Influenza Virus Vaccine, Quadrivalent, Slit Virus, Im Use 3Y & Up [id number] 25658 Given 02/12/2019 Influenza Virus Vaccine, Quadrivalent, Slit Virus, Im Use 3Y & Up [id number] 02331 Given 01/18/2018 Influenza Virus Vaccine, Quadrivalent, Slit Virus, Im Use 3Y & Up 20182 Given 01/19/2017 Influenza Virus Vaccine, Quadrivalent, Slit Virus, Im Use 3Y & Up [id number] 61842 Given 02/02/2016 Influenza Virus Vaccine, Quadrivalent, Slit Virus, Im Use 3Y & Up [id number] 55844 Given 02/17/2015 Influenza Vaccin e (Fluzone) 3Yrs Of Age Or Older Medicare Plans [id number] 21732 Given 02/14/2014 Influenza Vaccin e (Fluzone) 3Yrs Of Age Or Older Medicare Plans [id number] 54213 Given 01/16/2013 Influenza Vaccin e (Fluzone) 3Yrs Of Age Or Older Medicare Plans 27920 Given 01/16/2013 Influenza Virus Vac. Split Virus Individuals 3 Years And Above [id number] Vital Signs Date Vital Result Comment 03/04/2020 10:04am BP Systolic 118 mmHg BP Diastolic 82 mmHg Body Temperature 97.5 F Heart Rate 66 /min Respiratory Rate 16 /min Height 62.50 inches 5'2.50" Weight 160.00 lb [place] Body Weight 110 lb BMI (Body Mass Index) 28.8 kg/m2 O2 % BldC Oximetry 98 % 02/25/2020 9:40am BP Systolic 122 mmHg BP Diastolic 78 mmHg Body Temperature 97.1 F Heart Rate 86 /min Respiratory Rate 17 /min Height 62.50 inches 5'2.50" Weight 159.00 lb [place] Body Weight 110 lb BMI (Body Mass Index) 28.6 kg/m2 O2 % BldC Oximetry 98 % (AT Rest), (Room Air ) Results Test Acquired Date Facility Test Result H/L Range Note U/A DIP 02/25/2020 [facility]PA/Inhouse Color REDDISH-BROWN QUAL Clarity cloudy QUAL Glucose-Ua Negative g/dL Negative Bilirubin,Urine Small QUAL Abnormal Negative Ketone Negative mg/dL Negative Specific [place] >=1.030 # Abnormal 1.000 - 1.030 Blood [...] Urine YELLOW Yellow Appearance CLEAR Clear Specific [place] 1.015 1.00-1.03 PH Urine 6.5 5.0-8.0 Glucose Urine NEG Negative Bilirubin Urine NEG Negative Ketones NEG Negative Blood Urine NEG Negative Protein Urine NEG Negative Urobilinogen .2 EU/dl 0.2-1.0 Nitrite NEG Negative Leukocytes TRACE Negative Laboratory test finding 02/05/2020 [facility] l (Interface) [phone] NT-Pro BNP 77 pg/mL Normal <450 Renal Profile 02/05/2020 [facility] (I nterface) [phone] Glucose, Fasting 70 mg/dL Normal 70-100 Blood [...] GM/DL Normal 3.2-5.2 CBC With Differential 02/05/2020 [facility] ([facility]) [phone] White Blood Count 8.7 10 Normal 4.0-10.0 [...] 36.0-66.0 Lymph % 26.9 % Normal 24.0-44.0 Bucks % 7.0 % High 0.0-5.0 Eos % 1.8 % Normal 0.0-3.0 Baso % 0.6 % Normal 0.0-1.0 Immature Granulocyte % 0.3 % Normal 0-3.0 Nucleated Red Blood Cell % 0.0 % Normal 0-0 Neutrophils # 5.5 10 Normal 1.5-8.5 Lymph # 2.4 10 Normal 1.5-5.0 Bucks # 0.6 10 Normal 0.0-0.8 Eos # [...] Abnormal Negative Ketone Negative mg/dL Negative Specific [place] 1.020 # 1.000 - 1.030 Blood - [...] eGFR 81 # Calc 7 eGFR Non-Afr. Mongolian 70 # Calc 8 U/A DIP 01/09/2020 FPA/Inhouse Color lt yellow QUAL Clarity clear QUAL Glucose-Ua Negative g/dL Negative Bilirubin,Urine Negative QUAL Negative Ketone Negative mg/dL Negative Specific [place] 1.020 # 1.000 - 1.030 Blood - [...] QUAL Negative Ketone Negative mg/dL Negative Specific [place] 1.015 # 1.000 - 1.030 Blood - [...] Abnormal Negative Ketone Negative mg/dL Negative Specific [place] 1.025 # 1.000 - 1.030 Blood - [...] eGFR 70 # Calc 14 eGFR Non-Afr. Mongolian 60 # Calc 15 Laboratory test finding [...] Little GFR Left ESRD GFR <15 on TEXTILE CHEMIST 2 SRC:VOIDED 3 Source of Specimen: VOIDED [...] HCT IS 5% LESS SOURCE FOR DATA: [employer] 1800 OPERATION MANUAL( AUTOMATED BLOOD COUNTS AND [...] HCT IS 5% LESS SOURCE FOR DATA: [employer] 1800 OPERATION MANUAL( AUTOMATED BLOOD COUNTS AND [...] Provider Dx Diagnosis Office Visit 02/25/2020 9:15a [place] [facility] Silvia Brannon PA R30.0 Dysuria Office Visit 02/22/2020 10:30a [place] [facility] Louis Perez, FAAFP G46.4 Cerebellar stroke syndrome I10 Essential (primary) hyperten kennedy E78.5 Hyperlipidemia, unspecified K21.9 Gastro-esophageal reflux dis ease without esophagitis Office Visit 02/13/2020 10:20a [place] [facility] Irvin Brannon PA R30.0 Dysuria R31.9 Hematuria, unspecified Office Visit 02/04/2020 9:30a [place] [facility] Silvia Brannon PA R30.0 Dysuria Office Visit 01/09/2020 9:20a [place] [facility] Shahbaz Parry D.O., FAAFP I10 Essential (primary) hypertension E78.5 Hyperlipidemia, unspecified K21.9 Gastro-esophageal reflux dis ease without esophagitis 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 Z23 Encounter for immunization Office Visit 10/19/2019 10:20a [place] [facility] Silvia Brannon PA N39.0 Urinary tract infection, site not specif ied R30.0 Dysuria Office Visit 10/09/2019 1:15p [place] [facility] Silvia Brannon PA N39.0 Urinary tract infection, site not specif ied R30.0 Dysuria Office Visit 10/03/2019 8:45a [place] [facility] Louis Perez, FAAFP Z00.01 Encounter for general adult medical exam w abnormal findings I10 Essential (primary) hyperten kennedy E78.5 Hyperlipidemia, unspecified K21.9 Gastro-esophageal reflux dis ease without esophagitis Office Visit 09/21/2019 10:00a [place] [facility] Silvia Brannon PA H60.92 Unspecified otitis externa, left ear Office Visit 09/13/2019 10:00a [place] [facility] Silvia Brannon PA H60.92 Unspecified otitis externa, left ear Assessments Date Code Description Provider 02/25/2020 R30.0 Dysuria Zack Brannon PA 02/22/2020 G46.4 Cerebellar stroke syndrome Jamel Parry D.O., FAAFP 02/22/2020 I10 Essential (primary) hypertension Shahbaz Parry D.O., FAAFP 02/22/2020 E78.5 Hyperlipidemia, unspecified Johnnie Parry D.O., FAAFP 02/22/2020 K21.9 Gastro-esophageal reflux disease without esophagitis Shahbaz Parry D.O., FAAFP 02/13/2020 R30.0 Dysuria [place] Zack Vera, PA 02/13/2020 R30.0 Dysuria Shahbaz Parry D.O., FAAFP 02/13/2020 R31.9 Hematuria, unspecified [place]rozin[place] cox Ivanna Vera, PA 02/04/2020 R30.0 Dysuria Zack Brannon alcides Vera, PA 01/09/2020 I10 Essential (primary) hypertension [...] specified Ivanna Brannon, PA 10/19/2019 R30.0 Dysuria LettyZack willson, PA 10/09/2019 N39.0 Urinary tract infection, site no t specified Shahbaz Parry D.O., FAAFP 10/09/2019 N39.0 Urinary tract infection, site no t specified Ivanna Brannon, PA 10/09/2019 R30.0 Dysuria Shahbaz Parry D.O., FAAFP 10/09/2019 R30.0 Dysuria RenettaZack pina, PA 10/03/2019 Z00.01 Encounter for genera l [...] am - Shahbaz Parry D.O., FAAFP at [place] [facility] Functional Status Description No Information Available Mental Status Description No Information Available Referrals Refer to Reason for Referral Status Appt Date Sherwin Chen M.D. 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 [facility] [address] [address] [facility] (ENT) DR MALIK ENT PT WI TH SEVERE EPISODIC VERTIGO QUICK ONSET LAST 2HOURS THEN RESOLVES LEFT EAR DISCOMFORT MID LEFT EAR CANAL HYPERTROPHIC ARDEN TISSUE PLEASE SEND [facility] [facility] EVAL WITH CONSULT Sent 01/23/2020 [address] [place] [address] [phone] Yamilex Wall PLEASE EVAL QUICK ONSET GEMA RE VERTIGO RESOLVE AFTER 2 HOURS N/V 1 OR TWO TIMES MONTHLY PLEASE EVAL FOR NEUROLOGICAL CAUSE SEND [facility] REPORT Sent 01/29/2020 [facility] [address] [address] [phone]
--- OUTSIDE RECORDS SUMMARY | 2020-04-30 20:11 | CCD | Continuity of Care Document ---
Author Author Judith PARRY D.O. Organization Unknown Address [address] [address] Phone [phone] Care Team Providers Care Environmental Aide Name Role Phone Shahbaz Parry D.O. AUTM [phone] Problems Active Problems Provider Date Benign essential [...] malignant neoplasm of breast Rou Jaclyn miller, DETENTION OFFICER-BC Onset: 12/12/2014 Note: [id number] POORLY DIFF INVASIVE CHAU LEEANN CANCER //LUMPECTOMY [...] Twice A Day 180tabs Shahbaz Parry D.O., [facility] FP 10/11/2018 Ondansetron HCL 4mg [...] Balaji Perez, FAAFP 01/07/2016 Calcium + D3 [id number] Tablet s 2 tab daily otc Bony, Jaclyn Vera DETENTION OFFICER- [address] Take 1 Capsule By Mouth Once Daily 90caps Shahbaz Parry D.O., [facility] P 07/16/2013 Topiramate 100mg Tablets take [...] in 10 days 2tabs Shahbaz Parry D.O., [facility] FP 02/04/2020 - 02/14/2020 Keflex 500mg [...] Parry D.O., FAA FP 09/13/2019 - 09/13/2019 Bkyvinuu-Aszlwbkyc-UW 1% Solution 4 drops in L ear bid x 7 days. 10ml Shahbaz Parry D.O., FA AFP 09/13/2019 - 09/20/2019 Immunizations CPT Code Status Date Vaccine Lot # [id number] Given 01/09/2020 Influenza Virus Vaccine, Quadrivalent, Slit Virus, Im Use 3Y & Up [id number] 69276 Given 02/12/2019 Influenza Virus Vaccine, Quadrivalent, Slit Virus, Im Use 3Y & Up [id number] 61519 Given 01/18/2018 Influenza Virus Vaccine, Quadrivalent, Slit Virus, Im Use 3Y & Up 67629 Given 01/19/2017 Influenza Virus Vaccine, Quadrivalent, Slit Virus, Im Use 3Y & Up [id number] 76491 Given 02/02/2016 Influenza Virus Vaccine, Quadrivalent, Slit Virus, Im Use 3Y & Up [id number] 98389 Given 02/17/2015 Influenza Vaccin e (Fluzone) 3Yrs Of Age Or Older Medicare Plans [id number] 18412 Given 02/14/2014 Influenza Vaccin e (Fluzone) 3Yrs Of Age Or Older Medicare Plans [id number] 82112 Given 01/16/2013 Influenza Vaccin e (Fluzone) 3Yrs Of Age Or Older Medicare Plans 08241 Given 01/16/2013 Influenza Virus Vac. Split Virus Individuals 3 Years And Above [id number] Vital Signs Date Vital Result Comment 03/04/2020 10:04am BP Systolic 118 mmHg BP Diastolic 82 mmHg Body Temperature 97.5 F Heart Rate 66 /min Respiratory Rate 16 /min Height 62.50 inches 5'2.50" Weight 160.00 lb [place] Body Weight 110 lb BMI (Body Mass Index) 28.8 kg/m2 O2 % BldC Oximetry 98 % 02/25/2020 9:40am BP Systolic 122 mmHg BP Diastolic 78 mmHg Body Temperature 97.1 F Heart Rate 86 /min Respiratory Rate 17 /min Height 62.50 inches 5'2.50" Weight 159.00 lb [place] Body Weight 110 lb BMI (Body Mass Index) 28.6 kg/m2 O2 % BldC Oximetry 98 % (AT Rest), (Room Air ) Results Test Acquired Date Facility Test Result H/L Range Note U/A DIP 03/04/2020 [facility] Color yellow QUAL Clarity clear QUAL Glucose-Ua Negative g/dL Negative Bilirubin,Urine Negative QUAL Negative Ketone Negative mg/dL Negative Specific [place] 1.010 # 1.000 - 1.030 Blood - [...] Abnormal Negative Ketone Negative mg/dL Negative Specific [place] >=1.030 # Abnormal 1.000 - 1.030 Blood [...] DIP FPA 02/13/2020 [facility] Asso ciates Color Urine YELLOW Yellow Appearance CLEAR Clear Specific [place] 1.015 1.00-1.03 PH Urine 6.5 5.0-8.0 Glucose Urine NEG Negative Bilirubin Urine NEG Negative Ketones NEG Negative Blood Urine NEG Negative Protein Urine NEG Negative Urobilinogen .2 EU/dl 0.2-1.0 Nitrite NEG Negative Leukocytes TRACE Negative Laboratory test finding 02/05/2020 [facility] (Interface) [phone] NT-Pro BNP 77 pg/mL Normal <450 Renal Profile 02/05/2020 [facility] (I nterface) [phone] Glucose, Fasting 70 mg/dL Normal 70-100 Blood [...] GM/DL Normal 3.2-5.2 CBC With Differential 02/05/2020 [facility] (Interface) [phone] White Blood Count 8.7 10 Normal 4.0-10.0 [...] 36.0-66.0 Lymph % 26.9 % Normal 24.0-44.0 Mccracken % 7.0 % High 0.0-5.0 Eos % 1.8 % Normal 0.0-3.0 Baso % 0.6 % Normal 0.0-1.0 Immature Granulocyte % 0.3 % Normal 0-3.0 Nucleated Red Blood Cell % 0.0 % Normal 0-0 Neutrophils # 5.5 10 Normal 1.5-8.5 Lymph # 2.4 10 Normal 1.5-5.0 Mccracken # 0.6 10 Normal 0.0-0.8 Eos # [...] Abnormal Negative Ketone Negative mg/dL Negative Specific [place] 1.020 # 1.000 - 1.030 Blood - [...] eGFR 81 # Calc 7 eGFR Non-Afr. Afghan 70 # Calc 8 U/A DIP 01/09/2020 [facility]/Inhouse Color lt yellow QUAL Clarity clear QUAL Glucose-Ua Negative g/dL Negative Bilirubin,Urine Negative QUAL Negative Ketone Negative mg/dL Negative Specific [place] 1.020 # 1.000 - 1.030 Blood - [...] QUAL Negative Ketone Negative mg/dL Negative Specific [place] 1.015 # 1.000 - 1.030 Blood - [...] Abnormal Negative Ketone Negative mg/dL Negative Specific [place] 1.025 # 1.000 - 1.030 Blood - [...] eGFR 70 # Calc 14 eGFR Non-Afr. 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 N39.0 Urinary tract infection, sit e not specified I10 Essential (primary) hyperten kennedy E78.5 Hyperlipidemia, unspecified Office Visit 02/25/2020 9:15a [facility] Silvia Brannon PA R30.0 Dysuria Office Visit 02/22/2020 10:30a [facility] Shahbaz Parry D.O ., FAAFP G46.4 Cerebellar stroke syndrome I10 Essential (primary) hyperten kennedy E78.5 Hyperlipidemia, unspecified K21.9 Gastro-esophageal reflux dis ease without esophagitis Office Visit 02/13/2020 10:20a [facility] Irvin Brannon PA R30.0 Dysuria R31.9 Hematuria, unspecified Office Visit 02/04/2020 9:30a [facility] Silvia Brannon PA R30.0 Dysuria Office Visit 01/09/2020 9:20a [facility] Shahbaz Parry D.O., FAAFP I10 Essential (primary) hypertension E78.5 Hyperlipidemia, unspecified K21.9 Gastro-esophageal reflux dis ease without esophagitis 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 Z23 Encounter for immunization Office Visit 10/19/2019 10:20a [facility] Silvia Brannon PA N39.0 Urinary tract infection, site not specif ied R30.0 Dysuria Office Visit 10/09/2019 1:15p [facility] Silvia Brannon PA N39.0 Urinary tract infection, site not specif ied R30.0 Dysuria Office Visit 10/03/2019 8:45a [facility] Louis Perez, FAAFP Z00.01 Encounter for general adult medical exam w abnormal findings I10 Essential (primary) hyperten kennedy E78.5 Hyperlipidemia, unspecified K21.9 Gastro-esophageal reflux dis ease without esophagitis Office Visit 09/21/2019 10:00a [facility] Silvia Brannon PA H60.92 Unspecified otitis externa, left ear Office Visit 09/13/2019 10:00a [facility] Silvia Brannon PA H60.92 Unspecified otitis externa, left ear Assessments Date Code Description Provider 03/04/2020 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 Shahbaz Parry D.O., [facility] 03/04/2020 N39.0 Urinary tract infection, site no t specified Shahbaz Parry D.O., [facility] 03/04/2020 I10 Essential (primary) hypertension Shahbaz Parry D.O., [facility] 03/04/2020 E78.5 Hyperlipidemia, unspecified Johnnie Parry D.O., FAAFP 02/25/2020 R30.0 Dysuria Zack Brannon PA 02/22/2020 G46.4 Cerebellar stroke syndrome Jamel Parry D.O., [facility] 02/22/2020 I10 Essential (primary) hypertension Shahbaz Parry [...] PA 10/09/2019 R30.0 Dysuria [facility] D.O., [facility] 10/09/2019 R30.0 Dysuria Zack Brannon PA 10/03/2019 [...] AORTIC VALVE REPLACEMENT Closed [facility] [address] [place] [address] [facility] (ENT) DR MALIK ENT PT WI TH SEVERE EPISODIC VERTIGO QUICK ONSET LAST 2HOURS THEN RESOLVES LEFT EAR DISCOMFORT MID LEFT EAR CANAL HYPERTROPHIC ARDEN TISSUE PLEASE SEND [facility] EVAL WITH CONSULT Sent 01/23/[address] [place] [address] [address] [place] [address] [phone] [employer] Wall PLEASE EVAL QUICK ONSET GEMA RE VERTIGO RESOLVE AFTER 2 HOURS N/V 1 OR TWO TIMES MONTHLY PLEASE EVAL FOR NEUROLOGICAL CAUSE SEND [facility] REPORT Sent 01/29/2020 [facility] [address] [address] [phone]
--- OUTSIDE RECORDS SUMMARY | 2020-04-30 20:11 | CCD | Continuity of Care Document ---
Author Author Judith PARRY D.O. 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 AUTM [phone] Problems Active Problems Provider Date Benign essential hypertension Shahbaz Parry D.O., FAAFP O nset: 01/16/2013 Gastroesophageal reflux disease Shahbaz Parry D.O., FAAFP Onset: 01/16/2013 Generalized anxiety disorder Shahbaz Parry D.O., [place] On set: 01/16/2013 Hyperlipidemia Shahbaz Parry D.O., 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, HYGIENE TEACHER-BC Onset: 12/12/2014 Note: [id number] POORLY DIFF INVASIVE CHAU LEEANN CANCER //LUMPECTOMY [...] 7 days 14tabs Shahbaz Parry D.O., FAAFP Diflucan 150mg Tablets take one tab by now and one tab by mouth in 7 days 2tabs Shahbaz Parry D.O., FAAFP 02/25/2020 Diltiazem HCL 30mg Tablets [...] Balaji Perez, FAAFP 01/07/2016 Calcium + D3 [id number] Tablet s 2 tab daily otc Rounds, Jaclyn Vera HYGIENE TEACHER- [address] Take 1 Capsule By Mouth Once Daily 90caps Shahbaz Parry D.O., [facility] P 07/16/2013 Topiramate 100mg Tablets take [...] Parry D.O., FAA FP 09/13/2019 - 09/13/2019 Sslmuyqv-Gjezrvfnh-YP 1% Solution 4 drops in L ear bid x 7 days. 10ml Shahbaz Parry D.O., FA AFP 09/13/2019 - 09/20/2019 Immunizations CPT Code Status Date Vaccine Lot # [id number] Given 01/09/2020 Influenza Virus Vaccine, Quadrivalent, Slit Virus, Im Use 3Y & Up [id number] 90364 Given 02/12/2019 Influenza Virus Vaccine, Quadrivalent, Slit Virus, Im Use 3Y & Up [id number] 70790 Given 01/18/2018 Influenza Virus Vaccine, Quadrivalent, Slit Virus, Im Use 3Y & Up 46039 Given 01/19/2017 Influenza Virus Vaccine, Quadrivalent, Slit Virus, Im Use 3Y & Up [id number] 48828 Given 02/02/2016 Influenza Virus Vaccine, Quadrivalent, Slit Virus, Im Use 3Y & Up [id number] 47104 Given 02/17/2015 Influenza Vaccin e (Fluzone) 3Yrs Of Age Or Older Medicare Plans [id number] 66880 Given 02/14/2014 Influenza Vaccin e (Fluzone) 3Yrs Of Age Or Older Medicare Plans [id number] 94724 Given 01/16/2013 Influenza Vaccin e (Fluzone) 3Yrs Of Age Or Older Medicare Plans 54997 Given 01/16/2013 Influenza Virus Vac. Split Virus Individuals 3 Years And Above [id number] Vital Signs Date Vital Result Comment 02/25/2020 9:40am BP Systolic 122 mmHg BP Diastolic 78 mmHg Body Temperature 97.1 F Heart Rate 86 /min Respiratory Rate 17 /min Height 62.50 inches 5'2.50" Weight 159.00 lb [place] Body Weight 110 lb BMI (Body Mass Index) 28.6 kg/m2 O2 % BldC Oximetry 98 % (AT Rest), (Room Air ) 02/22/2020 10:47am BP Systolic 116 mmHg BP Diastolic 80 mmHg Body Temperature 98.1 F Heart Rate 80 /min Respiratory Rate 16 /min Height 62.50 inches 5'2.50" Weight 160.00 lb [place] Body Weight 110 lb BMI (Body Mass Index) 28.8 kg/m2 O2 % BldC Oximetry 99 % Results Test Acquired Date Facility Test Result H/L Range Note U/A DIP 02/25/2020 [facility]/Inhouse Color REDDISH-BROWN QUAL Clarity cloudy QUAL Glucose-Ua Negative g/dL Negative Bilirubin,Urine Small QUAL Abnormal Negative Ketone Negative mg/dL Negative Specific [place] >=1.030 # Abnormal 1.000 - 1.030 Blood [...] Urine YELLOW Yellow Appearance CLEAR Clear Specific [place] 1.015 1.00-1.03 PH Urine 6.5 5.0-8.0 Glucose Urine NEG Negative Bilirubin Urine NEG Negative Ketones NEG Negative Blood Urine NEG Negative Protein Urine NEG Negative Urobilinogen .2 EU/dl 0.2-1.0 Nitrite NEG Negative Leukocytes TRACE Negative Laboratory test finding 02/05/2020 [facility] (Interface) [phone] NT-Pro BNP 77 pg/mL Normal <450 Renal Profile 02/05/2020 [facility] (I nterface) [phone] Glucose, Fasting 70 mg/dL Normal 70-100 Blood [...] GM/DL Normal 3.2-5.2 CBC With Differential 02/05/2020 [facility] ([facility]) [phone] White Blood Count 8.7 10 Normal 4.0-10.0 [...] 36.0-66.0 Lymph % 26.9 % Normal 24.0-44.0 [place] % 7.0 % High 0.0-5.0 Eos % 1.8 % Normal 0.0-3.0 Baso % 0.6 % Normal 0.0-1.0 Immature Granulocyte % 0.3 % Normal 0-3.0 Nucleated Red Blood Cell % 0.0 % Normal 0-0 Neutrophils # 5.5 10 Normal 1.5-8.5 Lymph # 2.4 10 Normal 1.5-5.0 Runnels # 0.6 10 Normal 0.0-0.8 Eos # [...] Abnormal Negative Ketone Negative mg/dL Negative Specific [place] 1.020 # 1.000 - 1.030 Blood - [...] eGFR 81 # Calc 7 eGFR Non-Afr. Welsh 70 # Calc 8 U/A DIP 01/09/2020 [facility]/Inhouse Color lt yellow QUAL Clarity clear QUAL Glucose-Ua Negative g/dL Negative Bilirubin,Urine Negative QUAL Negative Ketone Negative mg/dL Negative Specific [place] 1.020 # 1.000 - 1.030 Blood - [...] QUAL Negative Ketone Negative mg/dL Negative Specific [place] 1.015 # 1.000 - 1.030 Blood - [...] Abnormal Negative Ketone Negative mg/dL Negative Specific [place] 1.025 # 1.000 - 1.030 Blood - [...] eGFR 70 # Calc 14 eGFR Non-Afr. 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 2 SRC:VOIDED 3 Source of Specimen: VOIDED [...] HCT IS 5% LESS SOURCE FOR DATA: [employer] 1800 OPERATION MANUAL( AUTOMATED BLOOD COUNTS AND [...] HCT IS 5% LESS SOURCE FOR DATA: [employer] 1800 OPERATION MANUAL( AUTOMATED BLOOD COUNTS AND [...] Provider Dx Diagnosis Office Visit 02/25/2020 9:15a [facility] Silvia Brannon PA R30.0 Dysuria Office Visit 02/22/2020 10:30a [facility] Louis Perez, FAAFP G46.4 Cerebellar stroke syndrome I10 Essential (primary) hyperten kennedy E78.5 Hyperlipidemia, unspecified K21.9 Gastro-esophageal reflux dis ease without esophagitis Office Visit 02/13/2020 10:20a [facility] Irvin Brannon PA R30.0 Dysuria R31.9 Hematuria, unspecified Office Visit 02/04/2020 9:30a [facility] Silvia Brannon PA R30.0 Dysuria Office Visit 01/09/2020 9:20a [facility] Shahbaz Parry D.O., FAAFP I10 Essential (primary) hypertension E78.5 Hyperlipidemia, unspecified K21.9 Gastro-esophageal reflux dis ease without esophagitis 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 Z23 Encounter for immunization Office Visit 10/19/2019 10:20a [facility] Silvia Brannon PA N39.0 Urinary tract infection, site not specif ied R30.0 Dysuria Office Visit 10/09/2019 1:15p [facility] Silvia Brannon PA N39.0 Urinary tract infection, site not specif ied R30.0 Dysuria Office Visit 10/03/2019 8:45a [facility] Louis Perez, FAAFP Z00.01 Encounter for general adult medical exam w abnormal findings I10 Essential (primary) hyperten kennedy E78.5 Hyperlipidemia, unspecified K21.9 Gastro-esophageal reflux dis ease without esophagitis Office Visit 09/21/2019 10:00a [facility] Silvia Brannon PA H60.92 Unspecified otitis externa, left ear Office Visit 09/13/2019 10:00a [facility] Silvia Brannon PA H60.92 Unspecified otitis [...] unspecified Ivanna Corrigan, PA 02/04/2020 R30.0 Dysuria SaludZack, PA 01/09/2020 I10 Essential (primary) hypertension Shahbaz [...] 1:15 pm - Ivanna Brannon PA at [facility] * 04/09/2020 10:30 am - Shahbaz Parry D.O., FAAFP at [facility] Functional Status Description No Information Available Mental Status Description No Information Available Referrals Refer to Reason for Referral Status Appt Date Sherwin Chen M.D. 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 [facility] [place] [address] [address] [facility] (ENT) DR MALIK ENT PT WI TH SEVERE EPISODIC VERTIGO QUICK ONSET LAST 2HOURS THEN RESOLVES LEFT EAR DISCOMFORT MID LEFT EAR CANAL HYPERTROPHIC ARDEN TISSUE PLEASE SEND [facility] EVAL WITH CONSULT Sent 01/23/2020 [address] [place] [address] [phone] Yamilex Wall PLEASE EVAL QUICK ONSET GEMA RE VERTIGO RESOLVE AFTER 2 HOURS N/V 1 OR TWO TIMES MONTHLY PLEASE EVAL FOR NEUROLOGICAL CAUSE SEND [facility] REPORT Sent 01/29/2020 [facility] [address] [address] [phone]
--- OUTSIDE RECORDS SUMMARY | 2020-04-30 20:12 | CCD | Continuity of Care Document ---
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 [facility] [phone] Problems Active Problems Provider Date Benign essential [...] neoplasm of breast Rou Jaclyn miller Chuy, PROFESSOR OF COMMUNICATION-BC Onset: 12/12/2014 Note: [id number] POORLY DIFF INVASIVE CHAU LEEANN CANCER //LUMPECTOMY [...] Twice A Day 180tabs Shahbaz Aldana D.O., [facility] 10/11/2018 Ondansetron HCL 4mg Tablets [...] Mouth Twice A Day 180tabs Balaji Perez, [facility] 01/07/2016 Calcium + D3 [id number] Tablet s 2 tab daily otc Rounds, Jaclyn Vera [facility] [address] Take 1 Capsule By Mouth Once Daily 90caps Shahbaz Aldana D.O., [facility] P 07/16/2013 Topiramate 100mg Tablets take [...] in 10 days 2tabs Shahbaz Aldana D.O., [facility] FP 02/04/2020 - 02/14/2020 Keflex 500mg [...] Aldana D.O., [employer] FP 09/13/2019 - 09/13/2019 Hcuniycg-Aexacmlcv-EH 1% Solution 4 drops in L ear bid x 7 days. 10ml Shahbaz Aldana D.O., FA [facility] 09/13/2019 - 09/20/2019 Immunizations CPT Code Status Date Vaccine Lot # [id number] Given 01/09/2020 Influenza Virus Vaccine, Quadrivalent, Slit Virus, Im Use 3Y & Up [id number] 48161 Given 02/12/2019 Influenza Virus Vaccine, Quadrivalent, Slit Virus, Im Use 3Y & Up [id number] 03549 Given 01/18/2018 Influenza Virus Vaccine, Quadrivalent, Slit Virus, Im Use 3Y & Up 63691 Given 01/19/2017 Influenza Virus Vaccine, Quadrivalent, Slit Virus, Im Use 3Y & Up [id number] 33238 Given 02/02/2016 Influenza Virus Vaccine, Quadrivalent, Slit Virus, Im Use 3Y & Up [id number] 31381 Given 02/17/2015 Influenza Vaccin e (Fluzone) 3Yrs Of Age Or Older Medicare Plans [id number] 75973 Given 02/14/2014 Influenza Vaccin e (Fluzone) 3Yrs Of Age Or Older Medicare Plans [id number] 09748 Given 01/16/2013 Influenza Vaccin e (Fluzone) 3Yrs Of Age Or Older Medicare Plans 84451 Given 01/16/2013 Influenza Virus Vac. Split Virus Individuals 3 Years And Above [id number] Vital Signs Date Vital Result Comment 02/25/2020 9:40am BP Systolic 122 mmHg BP Diastolic 78 mmHg Body Temperature 97.1 F Heart Rate 86 /min Respiratory Rate 17 /min Height 62.50 inches 5'2.50" Weight 159.00 lb [place] Body Weight 110 lb BMI (Body Mass Index) 28.6 kg/m2 O2 % BldC Oximetry 98 % (AT Rest), (Room Air ) 02/22/2020 10:47am BP Systolic 116 mmHg BP Diastolic 80 mmHg Body Temperature 98.1 F Heart Rate 80 /min Respiratory Rate 16 /min Height 62.50 inches 5'2.50" Weight 160.00 lb [place] Body Weight 110 lb BMI (Body Mass Index) 28.8 kg/m2 O2 % BldC Oximetry 99 % Results Test Acquired Date Facility Test Result H/L Range Note U/A DIP 02/25/2020 [facility] Color REDDISH-BROWN QUAL Clarity cloudy QUAL Glucose-Ua Negative g/dL Negative Bilirubin,Urine Small QUAL Abnormal Negative Ketone Negative mg/dL Negative Specific [place] >=1.030 # Abnormal 1.000 - 1.030 Blood [...] Urine YELLOW Yellow Appearance CLEAR Clear Specific [place] 1.015 1.00-1.03 PH Urine 6.5 5.0-8.0 Glucose Urine NEG Negative Bilirubin Urine NEG Negative Ketones NEG Negative Blood Urine NEG Negative Protein Urine NEG Negative Urobilinogen .2 EU/dl 0.2-1.0 Nitrite NEG Negative Leukocytes TRACE Negative Laboratory test finding 02/05/2020 [facility] l (Interface) [phone] NT-Pro BNP 77 pg/mL Normal <450 Renal Profile 02/05/2020 [facility] (I nterface) [phone] Glucose, Fasting 70 mg/dL Normal 70-100 Blood [...] GM/DL Normal 3.2-5.2 CBC With Differential 02/05/2020 [facility] ([facility]) [phone] White Blood Count 8.7 10 Normal 4.0-10.0 [...] 36.0-66.0 Lymph % 26.9 % Normal 24.0-44.0 [place] % 7.0 % High 0.0-5.0 Eos % 1.8 % Normal 0.0-3.0 Baso % 0.6 % Normal 0.0-1.0 Immature Granulocyte % 0.3 % Normal 0-3.0 Nucleated Red Blood Cell % 0.0 % Normal 0-0 Neutrophils # 5.5 10 Normal 1.5-8.5 Lymph # 2.4 10 Normal 1.5-5.0 [place] # 0.6 10 Normal 0.0-0.8 Eos # [...] Abnormal Negative Ketone Negative mg/dL Negative Specific [place] 1.020 # 1.000 - 1.030 Blood - [...] eGFR 81 # Calc 7 eGFR Non-Afr. Bangladeshi 70 # Calc 8 U/A DIP 01/09/2020 [facility]/Inhouse Color lt yellow QUAL Clarity clear QUAL Glucose-Ua Negative g/dL Negative Bilirubin,Urine Negative QUAL Negative Ketone Negative mg/dL Negative Specific [place] 1.020 # 1.000 - 1.030 Blood - [...] QUAL Negative Ketone Negative mg/dL Negative Specific [place] 1.015 # 1.000 - 1.030 Blood - [...] Abnormal Negative Ketone Negative mg/dL Negative Specific [place] 1.025 # 1.000 - 1.030 Blood - [...] eGFR 70 # Calc 14 eGFR Non-Afr. 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 SRC:VOIDED 3 Source of Specimen: VOIDED [...] HCT IS 5% LESS SOURCE FOR DATA: [employer] 1800 OPERATION MANUAL( AUTOMATED BLOOD COUNTS AND [...] HCT IS 5% LESS SOURCE FOR DATA: [employer] DYN 1800 OPERATION MANUAL( AUTOMATED BLOOD COUNTS [...] Date Location Provider Dx Diagnosis Office Visit 02/13/2020 10:20a [place] [facility] Irvin Brannon PA R30.0 Dysuria R31.9 Hematuria, unspecified Office Visit 02/04/2020 9:30a [place] [facility] Silvia Brannon PA R30.0 Dysuria Office Visit 01/09/2020 9:20a [place] [facility] Shahbaz Aldana D.O., FAAFP I10 Essential (primary) hypertension E78.5 Hyperlipidemia, unspecified K21.9 Gastro-esophageal reflux dis ease without esophagitis 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 Z23 Encounter for immunization Office Visit 10/19/2019 10:20a [place] [facility] Silvia Brannno PA N39.0 Urinary tract infection, site not specif ied R30.0 Dysuria Office Visit 10/09/2019 1:15p [place] [facility] Silvia Brannon PA N39.0 Urinary tract infection, site not specif ied R30.0 Dysuria Office Visit 10/03/2019 8:45a [place] [facility] Louis Perez, FAAFP Z00.01 Encounter for general adult medical exam w abnormal findings I10 Essential (primary) hyperten kennedy E78.5 Hyperlipidemia, unspecified K21.9 Gastro-esophageal reflux dis ease without esophagitis Office Visit 09/21/2019 10:00a [place] [facility] Silvia Brannon PA H60.92 Unspecified otitis externa, left ear Office Visit 09/13/2019 10:00a [place] [facility] Silvia Brannon PA H60.92 Unspecified otitis [...] Aldana D.O., FAAFP 02/13/2020 R31.9 Hematuria, unspecified Ivanna [...] examination with abnormal findings [facility] 10/03/2019 I10 Essential (primary) hypertension Shahbaz Aldana [...] Future Appointment(s):* 04/09/2020 10:30 am - Shahbaz Aldana D.O., FAAFP at [facility] Functional Status Description No Information Available Mental Status Description No Information Available Referrals Refer to Reason for Referral Status Appt Date Sherwin Chen M.D. 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 Closed [facility] [address] [address] [facility] (ENT) DR MALIK ENT PT WI TH SEVERE EPISODIC VERTIGO QUICK ONSET LAST 2HOURS THEN RESOLVES LEFT EAR DISCOMFORT MID LEFT EAR CANAL HYPERTROPHIC ARDEN TISSUE PLEASE SEND HEMATITE AUDIOLOGY EVAL WITH CONSULT Sent 01/23/[address] [place] [address] [phone] [employer] PLEASE EVAL QUICK ONSET GEMA RE VERTIGO RESOLVE AFTER 2 HOURS N/V 1 OR TWO TIMES MONTHLY PLEASE EVAL FOR NEUROLOGICAL CAUSE SEND HEMATITE AUDIOLOGY REPORT Sent 01/29/2020 [facility] [address] [address] [phone]
--- OUTSIDE RECORDS SUMMARY | 2020-04-30 20:12 | CCD | Continuity of Care Document ---
Author Author Judith CARBALLO M.D. 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 Onset: 01/29/2020 Migraine Emanuel Carballo M.D. Onset: 01/29/2020 Personal history of primary malignant neoplasm of breast Onset: 12/12/2014 Note: [id number] Poorly Diff Invasive Salo simi Cancer //Lumpectomy And Radiation Hyperlipidemia Onset: 02/13/2013 Aortic valve disorder Onset: 02/13/2013 Note: open heart dec 2015 [place] Benign essential hypertension Onset: 11/2012 Gastroesophageal reflux disease Onset: Generalized anxiety disorder Onset: 11/2012 Social History Type Date Description Comments Sex Unknown Tobacco Use Start: Unknown Patient has never smoked Allergies, Adverse Reactions, Alerts Active Allergies Reaction Severity Comments Date Sulfa Antibiotics 01/29/2020 Morphine and Related 020 Doxycycline Urticaria 01/29/2020 Morphine Nausea and Vomiting 01/29/20 20 Sulfa Drugs rash 01/29/2020 Medications Active Medications SIG Qnty Indications Ordering Provide r Date Aspirin Adult 325mg Tablets patient takes once a day 90tabs Emanuel Carballo M.D. 02/18/2020 Topiramate 25mg Tablets take 1 tab qhs x7day, then 2 tabs qhs x7days, then 3 tabs qhs x7days, then 100mg tab qhs. 42tabs Emanuel Carballo M.D. 01/29/2020 Topiramate 100mg Tablets take one tablet by mouth at bedtime 30tabs Emanuel Carballo M.D. 2019 Diltiazem HCL 30mg Tablets Take 1 Tablet By Mouth Twice Daily 180tabs Shahbaz Aldana D.O. 019 Ondansetron HCL 4mg Tablets 1 tab by mouth every four to six hours as needed for nausea 30tabs [facility] Shahbaz ralph D.O. 02/06/2018 Meclizine HCL 25mg Tablets 1 by mouth three times a day as needed as needed for vertigo 180tabs Shahbaz Aldana D.O. 08/03/2016 Metoprolol Tartrate 50mg Tablets take 1 tablet by mouth twice a day 180tabs Shahbaz Aldana D.O. 01/07/2016 Calcium + D3 [id number] Tablet s 2 tab daily Jaclyn Henderson F.N.P. 09/19/[address] take 1 capsule by mouth once a day 90caps Shahbaz Aldana D.O. 07/17/19 14 Nortriptyline HCL 75mg Capsules take one capsule at bedtime 30caps Emanuel Carballo M.D. 0000/0 000 Acetaminophen 325mg Tablets 2 tablets q 4 hours prn for pain Unknown Immunizations Description No Information Available Vital Signs Date Vital Result Comment 02/21/2020 2:00pm BP Systolic 120 mmHg BP Diastolic 78 mmHg Heart Rate 72 /min Respiratory Rate 12 /min Height 63 inches 5'3" Weight 160.00 lb BMI (Body Mass Index) 28.3 kg/m2 [place] Body Weight 115 lb 01/29/2020 9:06am Respiratory Rate 12 /min Height 63 inches 5'3" Weight 160.00 lb BMI (Body Mass Index) 28.3 kg/m2 [place] Body Weight 115 lb Results Test Acquired Date Facility Test Result H/L Range Note Lab Results 01/09/2020 N2N/CCD Import WBC 5.5 10E3/uL 4.1-10.9 1 RBC 5.16 10E6/uL 4.20-6.30 HGB 13.6 g/dL 12.0-18.0 HCT 41.8 % 37.0-51.0 MCV 81.0 fL 80.0-97.0 MCH 26.4 pg 26.0-32.0 MCHC 32.5 g/dL 31.0-36.0 PLT 154 10E3/uL 140-440 RDW-CV 14.2 % 11.5-14.5 Lym% 26.7 % 10.0-58.5 Neut% 64.1 % 37.0-92.0 MXD% 9.2 % 0.1-24.0 Lym# 1.5 10E3/uL 0.6-4.1 Neut# 3.5 % 2.0-7.8 MXD# 0.5 10E3/uL 0.0-1.8 MPV 12.6 fL 9.0-13.0 Glu 102 mg/dL 70-110 BUN 9 mg/dL 8-23 Creat 0.8 mg/dL 0.5-1.0 BUN/Creatinine Ratio 11.7 CALC Na 136 mmol/L 136-145 K 4.0 mmol/L 3.5-5.1 CL 100.6 mmol/L 98.0-107.0 Co2 25.7 mmol/L 22.0-29.0 CA 9.3 mg/dL 8.6-10.2 TP 6.4 g/dL Low 6.6-8.7 Alb 4.2 g/dL 3.4-4.8 A/G Ratio 1.9 CALC Globulin 2.2 CALC Alp 101.1 U/L 35-129 Alt (SGPT) 22 U/L 0-41 Ast (Sgot) 27 U/L 0-40 Tbili 0.55 mg/dL 0.0-1.2 Osmolality-Calculated 270.8 CALC Anion Gap 14 mmol/L eGFR 81 # 2 eGFR Non-Afr. Tu[place] 70 # 3 Color lt yellow Qual Clarity clear Qual Glucose-Ua Negative g/dL Bilirubin,Urine Negative Qual Ketone Negative mg/dL Specific [place] 1.020 # 1.000-1.030 Blood - Ua Trace-intact Qual Abnormal pH 7.0 # 5.0-8.0 Protein Negative mg/dL Urobilinogen 0.2 NA 0.2-1.0 Nitrite Negative Qual Leukocyte Small Qual Abnormal RBC-Ua 0-3/HPF # 0-3 Epithelial Cells - Ua 6-12/HPF Qual High Bacteria - Ua few Qual Abnormal WBC-Ua 3-5/HPF #/HPF Abnormal 0-5 Crystals Rare Sediment Qual Renal Epithelial Cells Rare Qual Abnormal 1 NORMAL RANGES Age WBC RBC HGB HCT [...] HCT IS 5% LESS SOURCE FOR DATA: [employer] 1800 OPERATION MANUAL( AUTOMATED BLOOD COUNTS AND [...] Normal 80 and above >32 mL/min Normal 2 CKD-EPI 3 CKD-EPI Procedures Date Code Description Status 02/14/2020 10140 MRI Brain W/O Contrast Completed 02/14/2020 45225 MRI Brain W/O Contrast Completed 02/14/2020 73308 Magnetic Resonance Angiography N deo W/O Contrast Materials Completed 02/14/2020 15250 Magnetic Resonance Angiography N deo W/O Contrast Materials Completed 02/14/2020 29374 Magnetic Resonance Angiogtaphy H ead W/O Contrast Material(S) Completed 02/14/2020 00969 Magnetic Resonance Angiogtaphy H ead W/O Contrast Material(S) Completed 02/06/2020 62064 Sympathetic Skin Responses Compl eted 02/06/2020 96898 Sympathetic Skin Responses Compl eted 02/06/2020 03618 Test Autonomic Nervous System, C ardiovagal Innervation Completed 02/06/2020 28689 Test Autonomic Nervous System, C ardiovagal Innervation Completed Medical Devices Description No Information Available Encounters Type Date Location Provider Dx Diagnosis Office Visit 02/21/2020 1:30p [facility] [place] Emanuel drake M.D. I63.9 Cerebral infarction, unspecified Office Visit 01/29/2020 8:30a [facility] - [facility] M.[facility]. 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 02/14/2020 G43.009 Migraine without aur a, not intractable, without status migrainosus MRI 02/14/2020 R26.81 Unsteadiness on feet Francis Templeton M.D. 02/14/2020 R26.81 Unsteadiness on feet MRI 02/06/2020 G62.9 Polyneuropathy, unspecified Swapnil Carballo M.D. 02/06/2020 G62.9 Polyneuropathy, unspecified Ans/ VS 02/06/2020 I95.1 Orthostatic hypotension Emanuel waller M.D. 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 01/29/2020 G43.009 Migraine without aur a, not intractable, without status migrainosus Emanuel Carballo M.D. Plan of Treatment Future Appointment(s):* 05/26/2020 2:45 pm - Emanuel Carballo M.D. at Main office - [facility] Functional Status Description No Information Available Mental Status Description No Information Available Referrals Refer to Dr Reason for Referral Status Appt Date Emanuel Carballo M.D. Created [address] [place] [id number] [phone] [facility] AUDIO METRIC AND VNG TESTING WITH VESTIBULAR PHYSICAL THERAPY - AUTH PENDING Created [employer] [address] [address] [phone]
--- OUTSIDE RECORDS SUMMARY | 2020-04-30 20:12 | CCD | Continuity of Care Document ---
Author Author Judith PARRY D.O. Organization Unknown Address [address] [address] Phone [phone] Care Team Providers Care Processing Inspector Name Role Phone Shahbaz Parry D.O. 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 [...] needed for nausea 30tabs [facility]., [facility] 02/[facility]2018 Nortriptyline HCL 75mg Capsules Take 1 Capsule By Mouth AT Bedtime 90caps Balaji Perez., FAAFP 08/25/2016 Meclizine HCL 25mg Tablets 1 by mouth three times a day as needed as needed for vertigo 180tabs Shahbaz Parry D.O., FAAFP 08/03/2016 Metoprolol Tartrate 50mg Tablets Take 1 Tablet By Mouth Twice A Day 180tabs Balaji Perez, FAAFP 01/07/2016 Calcium + D3 [id number] Tablet s 2 tab daily otc Jaclyn Lovett [facility] [address] Take 1 Capsule By Mouth Once Daily 90caps Shahbaz Parry D.O., [facility] P 07/16/2013 Acetaminophen 325mg Tablets 2 tablets q 4 hours prn for pain Unknown Aspirin Adult 325mg Tablets 1 by mouth every day Unknown Topiramate 100mg Tablets take one tablet by mouth at hs (started 02/28) Unknown History Medications Keflex 500mg Capsules one cap po tid x 10 days 30caps Shahbaz Parry D.O., FAAFP - 02/14/2020 Diflucan 150mg Tablets take one tab po now and one po in 10 days 2tabs Shahbaz Parry D.O., [facility] 02/04/2020 - 02/14/2020 Keflex 500mg Capsules one cap po tid x 10 days 30caps Shahbaz Parry D.O., FAAFP - 10/19/2019 Diflucan 150mg Tablets take one tab po now and one po in 10 days 2tabs Shahbaz Parry D.O., FAA FP 10/09/2019 - 10/19/2019 Ciprodex 0.3-0.1% Suspension 4 drops in left ear bid x 7 days 7.500ml Shahbaz Parry D.O., [facility] FP 09/13/2019 - 09/13/2019 Omlrkwjf-Pihfedbyl-EO 1% Solution 4 drops in L ear bid x 7 days. 10ml Shahbaz Parry D.O., FA AFP 09/13/2019 - 09/20/2019 Immunizations CPT Code Status Date Vaccine Lot # [id number] Given 01/09/2020 Influenza Virus Vaccine, Quadrivalent, Slit Virus, Im Use 3Y & Up [id number] 30637 Given 02/12/2019 Influenza Virus Vaccine, Quadrivalent, Slit Virus, Im Use 3Y & Up [id number] 40198 Given 01/18/2018 Influenza Virus Vaccine, Quadrivalent, Slit Virus, Im Use 3Y & Up 26348 Given 01/19/2017 Influenza Virus Vaccine, Quadrivalent, Slit Virus, Im Use 3Y & Up [id number] 23106 Given 02/02/2016 Influenza Virus Vaccine, Quadrivalent, Slit Virus, Im Use 3Y & Up [id number] 53710 Given 02/17/2015 Influenza Vaccin e (Fluzone) 3Yrs Of Age Or Older Medicare Plans [id number] 18646 Given 02/14/2014 Influenza Vaccin e (Fluzone) 3Yrs Of Age Or Older Medicare Plans [id number] 44533 Given 01/16/2013 Influenza Vaccin e (Fluzone) 3Yrs Of Age Or Older Medicare Plans 49029 Given 01/16/2013 Influenza Virus Vac. Split Virus Individuals 3 Years And Above [id number] Vital Signs Date Vital Result Comment 02/22/2020 10:47am BP Systolic 116 mmHg BP Diastolic 80 mmHg Body Temperature 98.1 F Heart Rate 80 /min Respiratory Rate 16 /min Height 62.50 inches 5'2.50" Weight 160.00 lb [place] Body Weight 110 lb BMI (Body Mass Index) 28.8 kg/m2 O2 % BldC Oximetry 99 % 02/13/2020 10:56am BP Systolic 128 mmHg BP Diastolic 68 mmHg Body Temperature 97.0 F Heart Rate 74 /min Respiratory Rate 16 /min Height 62.50 inches 5'2.50" Weight 162.00 lb [place] Body Weight 110 lb BMI (Body Mass Index) 29.2 kg/m2 O2 % BldC Oximetry 98 % Results Test Acquired Date Facility Test Result H/L Range Note U/A DIP FPA 02/13/2020 [facility] Color Urine YELLOW Yellow Appearance CLEAR Clear Specific [place] 1.015 1.00-1.03 PH Urine 6.5 5.0-8.0 Glucose Urine NEG Negative Bilirubin Urine NEG Negative Ketones NEG Negative Blood Urine NEG Negative Protein Urine NEG Negative Urobilinogen .2 EU/dl 0.2-1.0 Nitrite NEG Negative Leukocytes TRACE Negative CBC With Differential 02/05/2020 [facility]) [phone] White Blood Count 8.7 10 Normal 4.0-10.0 [...] 36.0-66.0 Lymph % 26.9 % Normal 24.0-44.0 [place] % 7.0 % High 0.0-5.0 Eos % 1.8 % Normal 0.0-3.0 Baso % 0.6 % Normal 0.0-1.0 Immature Granulocyte % 0.3 % Normal 0-3.0 Nucleated Red Blood Cell % 0.0 % Normal 0-0 Neutrophils # 5.5 10 Normal 1.5-8.5 Lymph # 2.4 10 Normal 1.5-5.0 Vance # 0.6 10 Normal 0.0-0.8 Eos # 0.2 10 Normal 0.0-0.5 Baso # 0.1 10 Normal 0.0-0.2 Renal Profile 02/05/2020 [facility] (I nterfa) [phone] Glucose, Fasting 70 mg/dL Normal 70-100 Blood [...] GM/DL Normal 3.2-5.2 Laboratory test finding 02/05/2020 [facility] (Interface) [phone] NT-Pro BNP 77 pg/mL Normal <450 Urine Culture, Routine 02/04/2020 [facility] [place] Urine Culture, Routine Final report Abnormal 2, 3 Result 1 Escherichia coli Abnormal 4 Antimicrobial Susceptibility See Comment: 5 U/A DIP 02/04/2020 FPA/Inhouse Color REDDISH/BROWN QUAL Clarity cloudy QUAL Glucose-Ua Negative g/dL Negative Bilirubin,Urine Small QUAL Abnormal Negative Ketone Negative mg/dL Negative Specific [place] 1.020 # 1.000 - 1.030 Blood - [...] - 5 Comment UCS SENT OUT NA U/A DIP 01/09/2020 FPA/Inhouse Color lt yellow QUAL 6 Clarity clear QUAL Glucose-Ua Negative g/dL Negative Bilirubin,Urine Negative QUAL Negative Ketone Negative mg/dL Negative Specific [place] 1.020 # 1.000 - 1.030 Blood - [...] Renal Epithelial Cells RARE QUAL Abnormal Negative CMP 01/09/2020 FPA/Inhouse Glu 102 mg/dL 70 [...] eGFR 81 # Calc 7 eGFR Non-Afr. Indian 70 # Calc 8 CBC 01/09/2020 FPA/Inhouse WBC 5.5 10E3/uL 4.1 - 10.9 RBC 5.16 10E6/uL 4.20 - 6.30 HGB [...] 1.8 MPV 12.6 fL 9.0 - 13.0 U/A DIP 10/19/2019 FPA/Inhouse Color lt yellow QUAL Clarity clear QUAL Glucose-Ua Negative g/dL Negative Bilirubin,Urine Negative QUAL Negative Ketone Negative mg/dL Negative Specific [place] 1.015 # 1.000 - 1.030 Blood - [...] Abnormal Negative Ketone Negative mg/dL Negative Specific [place] 1.025 # 1.000 - 1.030 Blood - [...] eGFR 70 # Calc 14 eGFR Non-Afr. Indian 60 # Calc 15 Laboratory test finding [...] Little GFR Left ESRD GFR <15 on OPTIC FIBRE DRAWER 2 SRC:VOIDED 3 Source of Specimen: VOIDED [...] HCT IS 5% LESS SOURCE FOR DATA: [employer] 1800 OPERATION MANUAL( AUTOMATED BLOOD COUNTS AND [...] Provider Dx Diagnosis Office Visit 02/13/2020 10:20a [place] [facility] Irvin Brannon PA R30.0 Dysuria R31.9 Hematuria, unspecified Office Visit 02/04/2020 9:30a [place] [facility] Silvia Brannon PA R30.0 Dysuria Office Visit 01/09/2020 9:20a [place] [facility] Shahbaz Parry D.O., FAAFP I10 Essential (primary) hypertension E78.5 Hyperlipidemia, unspecified K21.9 Gastro-esophageal reflux dis ease without esophagitis 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 Z23 Encounter for immunization Office Visit 10/19/2019 10:20a [place] [facility] Silvia Brannon PA N39.0 Urinary tract infection, site not specif ied R30.0 Dysuria Office Visit 10/09/2019 1:15p [place] [facility] Silvia Brannon PA N39.0 Urinary tract infection, site not specif ied R30.0 Dysuria Office Visit 10/03/2019 8:45a [place] [facility] Louis Perez, FAAFP Z00.01 Encounter for general adult medical exam w abnormal findings I10 Essential (primary) hyperten kennedy E78.5 Hyperlipidemia, unspecified K21.9 Gastro-esophageal reflux dis ease without esophagitis Office Visit 09/21/2019 10:00a [place] [facility] Silvia Brannon PA H60.92 Unspecified otitis externa, left ear Office Visit 09/13/2019 10:00a [place] [facility] Silvia Brannon PA H60.92 Unspecified otitis externa, left ear Assessments Date Code Description Provider 02/13/2020 R30.0 Dysuria Zack Brannon, PA 02/13/2020 R30.0 Dysuria Shahbaz Parry D.O., FAAFP 02/13/2020 R31.9 Hematuria, unspecified Lettyadela Ivanna cox, PA 02/04/2020 R30.0 Dysuria Zack Brannon, PA 01/09/2020 I10 Essential (primary) hypertension Shahbaz Parry D.O., FAAFP 01/09/2020 E78.5 Hyperlipidemia, unspecified Johnnie Parry D.O., FAAFP 01/09/2020 K21.9 Gastro-esophageal reflux disease without esophagitis Shahbaz Parry D.O., FAAFP 01/09/2020 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 Js Parry D.O., [facility] 01/09/2020 Z23 Encounter for immunization Jamel Parry D.O., FAAFP 10/19/2019 N39.0 Urinary tract infection, site no t specified Ivanna Brannon, PA 10/19/2019 R30.0 Dysuria Zack Brannon, PA 10/09/2019 N39.0 Urinary tract infection, site no t specified Shahbaz Parry D.O., FAAFP 10/09/2019 N39.0 Urinary tract infection, site no t specified Ivanna Brannon, PA 10/09/2019 R30.0 Dysuria Shahbaz Parry D.O., [facility] 10/09/2019 R30.0 Dysuria Zack Brannon, PA 10/03/2019 [...] am - Shahbaz Parry D.O., FAAFP at [facility] Functional Status Description No Information Available Mental Status Description No Information Available Referrals Refer to Dr Reason for Referral Status Appt Date [facility] (ENT) DR MALIK ENT PT WI TH SEVERE EPISODIC VERTIGO QUICK ONSET LAST 2HOURS THEN RESOLVES LEFT EAR DISCOMFORT MID LEFT EAR CANAL HYPERTROPHIC ARDEN TISSUE PLEASE SEND [facility] EVAL WITH CONSULT Sent 01/23/[address] [place] [address] [phone] Yam[employer] Wall PLEASE EVAL QUICK ONSET GEMA RE VERTIGO RESOLVE AFTER 2 HOURS N/V 1 OR TWO TIMES MONTHLY PLEASE EVAL FOR NEUROLOGICAL CAUSE SEND [facility] REPORT Sent 01/29/2020 [facility] [address] [address] [phone]
--- OUTSIDE RECORDS SUMMARY | 2020-04-30 20:12 | CCD | Continuity of Care Document ---
Author Author Judith PARRY D.O. Organization Unknown Address [address] [address] Phone [phone] Care Team Providers Care Director Security Risk Management Name Role Phone Shahbaz Parry D.O. 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 10ml Shahbaz Parry D.O., FA AFP 09/13/2019 - 09/20/2019 Immunizations CPT Code Status Date Vaccine Lot # [id number] Given 01/09/2020 Influenza Virus Vaccine, Quadrivalent, Slit Virus, Im Use 3Y & Up [id number] 59287 Given 02/12/2019 Influenza Virus Vaccine, Quadrivalent, Slit Virus, Im Use 3Y & Up [id number] 05649 Given 01/18/2018 Influenza Virus Vaccine, Quadrivalent, Slit Virus, Im Use 3Y & Up 95020 Given 01/19/2017 Influenza Virus Vaccine, Quadrivalent, Slit Virus, Im Use 3Y & Up [id number] 10927 Given 02/02/2016 Influenza Virus Vaccine, Quadrivalent, Slit Virus, Im Use 3Y & Up [id number] 59460 Given 02/17/2015 Influenza Vaccin e (Fluzone) 3Yrs Of Age Or Older Medicare Plans [id number] 79809 Given 02/14/2014 Influenza Vaccin e (Fluzone) 3Yrs Of Age Or Older Medicare Plans [id number] 21038 Given 01/16/2013 Influenza Vaccin e (Fluzone) 3Yrs Of Age Or Older Medicare Plans 45104 Given 01/16/2013 Influenza Virus Vac. Split Virus Individuals 3 Years And Above [id number] Vital Signs Date Vital Result Comment 02/25/2020 9:40am BP Systolic 122 mmHg BP Diastolic 78 mmHg Body Temperature 97.1 F Heart Rate 86 /min Respiratory Rate 17 /min Height 62.50 inches 5'2.50" Weight 159.00 lb [place] Body Weight 110 lb BMI (Body Mass Index) 28.6 kg/m2 O2 % BldC Oximetry 98 % (AT Rest), (Room Air ) 02/22/2020 10:47am BP Systolic 116 mmHg BP Diastolic 80 mmHg Body Temperature 98.1 F Heart Rate 80 /min Respiratory Rate 16 /min Height 62.50 inches 5'2.50" Weight 160.00 lb [place] Body Weight 110 lb BMI (Body Mass Index) 28.8 kg/m2 O2 % BldC Oximetry 99 % Results Test Acquired Date Facility Test Result H/L Range Note U/A DIP 02/25/2020 FPA/Inhouse Color REDDISH-BROWN QUAL Clarity cloudy QUAL Glucose-Ua Negative g/dL Negative Bilirubin,Urine Small QUAL Abnormal Negative Ketone Negative mg/dL Negative Specific [place] >=1.030 # Abnormal 1.000 - 1.030 Blood [...] Urine YELLOW Yellow Appearance CLEAR Clear Specific [place] 1.015 1.00-1.03 PH Urine 6.5 5.0-8.0 Glucose Urine NEG Negative Bilirubin Urine NEG Negative Ketones NEG Negative Blood Urine NEG Negative Protein Urine NEG Negative Urobilinogen .2 EU/dl 0.2-1.0 Nitrite NEG Negative Leukocytes TRACE Negative Laboratory test finding 02/05/[address] [facility] (Interface) [phone] NT-Pro BNP 77 pg/mL Normal <450 Renal Profile 02/05/2020 [facility] (I nterface) [phone] Glucose, Fasting 70 mg/dL Normal 70-100 Blood [...] GM/DL Normal 3.2-5.2 CBC With Differential 02/05/2020 [facility] ([facility]) [phone] White Blood Count 8.7 10 Normal 4.0-10.0 [...] 36.0-66.0 Lymph % 26.9 % Normal 24.0-44.0 [place] % 7.0 % High 0.0-5.0 Eos % 1.8 % Normal 0.0-3.0 Baso % 0.6 % Normal 0.0-1.0 Immature Granulocyte % 0.3 % Normal 0-3.0 Nucleated Red Blood Cell % 0.0 % Normal 0-0 Neutrophils # 5.5 10 Normal 1.5-8.5 Lymph # 2.4 10 Normal 1.5-5.0 [place] # 0.6 10 Normal 0.0-0.8 Eos # [...] Abnormal Negative Ketone Negative mg/dL Negative Specific [place] 1.020 # 1.000 - 1.030 Blood - [...] eGFR 81 # Calc 7 eGFR Non-Afr. [place] 70 # Calc 8 U/A DIP 01/09/2020 FPA/Inhouse Color lt yellow QUAL Clarity clear QUAL Glucose-Ua Negative g/dL Negative Bilirubin,Urine Negative QUAL Negative Ketone Negative mg/dL Negative Specific [place] 1.020 # 1.000 - 1.030 Blood - [...] QUAL Negative Ketone Negative mg/dL Negative Specific [place] 1.015 # 1.000 - 1.030 Blood - [...] Abnormal Negative Ketone Negative mg/dL Negative Specific [place] 1.025 # 1.000 - 1.030 Blood - [...] eGFR 70 # Calc 14 eGFR Non-Afr. Salvadorean 60 # Calc 15 Laboratory test finding [...] Little GFR Left ESRD GFR <15 on SENIOR EXECUTIVE ASSISTANT 2 SRC:VOIDED 3 Source of Specimen: VOIDED [...] HCT IS 5% LESS SOURCE FOR DATA: [employer] 1800 OPERATION MANUAL( AUTOMATED BLOOD COUNTS AND [...] HCT IS 5% LESS SOURCE FOR DATA: [employer] 1800 OPERATION MANUAL( AUTOMATED BLOOD COUNTS [...] Provider Dx Diagnosis Office Visit 02/25/2020 9:15a [place] [facility] Silvia Brannon PA R30.0 Dysuria Office Visit 02/13/2020 10:20a [place] [facility] Irvin Brannon PA R30.0 Dysuria R31.9 Hematuria, unspecified Office Visit 02/04/2020 9:30a [place] [facility] Silvia Brannon PA R30.0 Dysuria Office Visit 01/09/2020 9:20a [place] [facility] Shahbaz Parry D.O., FAAFP I10 Essential (primary) hypertension E78.5 Hyperlipidemia, unspecified K21.9 Gastro-esophageal reflux dis ease without esophagitis 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 Z23 Encounter for immunization Office Visit 10/19/2019 10:20a [place] [facility] Silvia Brannon PA N39.0 Urinary tract infection, site not specif ied R30.0 Dysuria Office Visit 10/09/2019 1:15p [place] [facility] Silvia Brannon PA N39.0 Urinary tract infection, site not specif ied R30.0 Dysuria Office Visit 10/03/2019 8:45a [place] [facility] Louis Perez, FAAFP Z00.01 Encounter for general adult medical exam w abnormal findings I10 Essential (primary) hyperten kennedy E78.5 Hyperlipidemia, unspecified K21.9 Gastro-esophageal reflux dis ease without esophagitis Office Visit 09/21/2019 10:00a [place] [facility] Silvia Brannon PA H60.92 Unspecified otitis externa, left ear Office Visit 09/13/2019 10:00a [place] [facility] Silvia Brannon PA H60.92 Unspecified otitis [...] Ivanna Corrigan PA 02/04/2020 R30.0 Dysuria Zack Brannon, PA [...] 1:15 pm - Ivanna Brannon PA at [place] [facility] * 04/09/2020 10:30 am - Shahbaz Parry D.O., KELVIN at [facility] Functional Status Description No Information Available Mental Status Description No Information Available Referrals Refer to Dr Reason for Referral Status Appt Date Sherwin Chen M.D. 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 [address] [address] [facility] (ENT) DR MALIK ENT PT WI TH SEVERE EPISODIC VERTIGO QUICK ONSET LAST 2HOURS THEN RESOLVES LEFT EAR DISCOMFORT MID LEFT EAR CANAL HYPERTROPHIC ARDEN TISSUE PLEASE SEND [facility] EVAL WITH CONSULT Sent 01/23/[address] [place] [address] [phone] [employer] Wall PLEASE EVAL QUICK ONSET GEMA RE VERTIGO RESOLVE AFTER 2 HOURS N/V 1 OR TWO TIMES MONTHLY PLEASE EVAL FOR NEUROLOGICAL CAUSE SEND [facility] REPORT Sent 01/29/2020 [facility] [address] [address] [phone]
--- OUTSIDE RECORDS SUMMARY | 2020-04-30 20:13 | CCD | Continuity of Care Document ---
Author Author Judith OSORIO Organization Unknown Address [address] [place] [address] Phone [phone] Care Team Providers Care Landscape Maintenance Internship Name Role Phone Shahbaz Aldana D.O. AUTM [phone] Problems Active Problems Provider Date Vertigo Emanuel Bhatia M.D. Onset: 01/29/2020 Migraine Emanuel Bhatia M.D. Onset: 01/29/2020 Personal history of primary malignant neoplasm of breast Onset: 12/12/2014 Note: [id number] Poorly Diff Invasive Salo simi Cancer //Lumpectomy [...] SIG Qnty Indications Ordering Provide r Date Topiramate 25mg Tablets take 1 tab qhs x7day, then 2 tabs qhs x7days, then 3 tabs qhs x7days, then 100mg tab qhs. 42tabs Emanuel Bhatia M.D. 01/29/2020 Topiramate 100mg Tablets take one tablet by mouth at bedtime 30tabs Emanuel Bhatia M.D. 2019 Diltiazem HCL 30mg Tablets Take 1 Tablet By Mouth Twice Daily 180tabs Shahbaz Aldana D.O. 019 Ondansetron HCL 4mg Tablets 1 tab by mouth every four to six hours as needed for nausea 30tabs [place]nn Shahbaz ralph D.O. 02/06/2018 Meclizine HCL 25mg Tablets 1 by mouth three times a day as needed as needed for vertigo 180tabs Shahbaz Aldana D.O. 08/03/2016 Metoprolol Tartrate 50mg Tablets take 1 tablet by mouth twice a day 180tabs Shahbaz Aldana D.OPillo 01/07/2016 Calcium + D3 [id number] Tablet s 2 tab daily Jaclyn Henderson F.N.PPillo 09/19/[address] take 1 capsule by mouth once a day 90caps Shahbaz Aldana D.O. 07/17/19 14 Nortriptyline HCL 75mg Capsules take one capsule at bedtime 30caps Emanuel Bhatia M.D. 000 Acetaminophen 325mg Tablets 2 tablets q 4 hours prn for pain Unknown Immunizations Description No Information Available Vital Signs Date Vital Result Comment 01/29/2020 9:06am Respiratory Rate 12 /min Height 63 inches 5'3" Weight 160.00 lb BMI (Body Mass Index) 28.3 kg/m2 [place] Body Weight 115 lb 01/09/2020 9:30am BP Systolic 128 mmHg BP Diastolic 84 mmHg Heart Rate 84 /min Body Temperature 98.3 F Respiratory Rate 16 /min Height 62.50 inches Weight 160.00 lb BMI (Body Mass Index) 28.8 kg/m2 O2 % BldC Oximetry 96 % Results Test Acquired Date Facility Test [...] mmol/L eGFR 81 # 2 eGFR Non-Afr. Nauruan 70 # 3 Color lt yellow Qual Clarity clear Qual Glucose-Ua Negative g/dL Bilirubin,Urine Negative Qual Ketone Negative mg/dL Specific [place] 1.020 # 1.000-1.030 Blood - Ua Trace-intact [...] HCT IS 5% LESS SOURCE FOR DATA: [employer] 1800 OPERATION MANUAL( AUTOMATED BLOOD COUNTS AND [...] CKD-EPI Procedures Date Code Description Status 02/14/2020 87333 MRI Brain W/O Contrast Completed 02/14/2020 85172 Magnetic Resonance Angiography N deo W/O Contrast Materials Completed 02/14/2020 58755 Magnetic Resonance Angiogtaphy H ead W/O Contrast Material(S) Completed 02/06/2020 61707 Sympathetic Skin Responses Compl eted 02/06/2020 03864 Sympathetic Skin Responses Compl eted 02/06/2020 72468 Test Autonomic Nervous System, C ardiovagal Innervation Completed 02/06/2020 96355 Test Autonomic Nervous System, C ardiovagal Innervation Completed Medical Devices Description No Information Available Encounters Type Date Location Provider Dx Diagnosis Office Visit 01/29/2020 8:30a Main office - [place] Emanuel drake M.D. 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 02/06/2020 G62.9 Polyneuropathy, unspecified Ans/ VS 02/06/2020 I95.1 Orthostatic hypotension Emanuel waller M.D. 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 01/29/2020 G43.009 Migraine without aur a, not intractable, without status migrainosus Emanuel Bhatia M.D. Plan of Treatment Future Appointment(s):* 05/05/2020 1:15 pm - Emanuel Bhatia M.D. at Main office - [place] Functional Status Description No Information Available Mental Status Description No Information Available Referrals Refer to Reason for Referral Status Appt Date [facility] AUDIO METRIC AND VNG TESTING WITH VESTIBULAR PHYSICAL THERAPY - [place] [address] [phone]
--- OUTSIDE RECORDS SUMMARY | 2020-04-30 20:13 | CCD | Continuity of Care Document ---
Author Author Judith BRANNON PA Organization Unknown Address [address] [address] Phone [phone] Care Team Providers Care Door Repairer Bus Name Role Phone Shahbaz Aldana D.O. 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 FP 02/04/2020 Diltiazem HCL 30mg Tablets Take 1 Tablet By Mouth Twice A Day 180tabs Shahbaz Aldana D.O., [facility] FP 10/11/2018 Ondansetron HCL 4mg Tablets 1 [...] Mouth Twice A Day 180tabs Balaji Perez, [facility] 01/07/2016 Calcium + D3 [id number] Tablet s 2 tab daily otc Rounds, Jaclyn Vera [facility] [address] Take 1 Capsule By Mouth Once Daily 90caps Shahbaz Aldana D.O., [facility] P 07/16/2013 Asa 81 Capsules 1 po qd Shahbaz Aldana D.O., [facility] 01/16/2013 Acetaminophen 325mg Tablets 2 tablets q 4 hours prn for pain Unknown History Medications Keflex 500mg Capsules one cap po tid x 10 days 30caps Shahbaz Aldana D.O., FAAFP - 10/19/2019 Diflucan 150mg Tablets take one tab po now and one po in 10 days 2tabs Shahbaz Aldana D.O., [facility] FP 10/09/2019 - 10/19/2019 Ciprodex 0.3-0.1% Suspension 4 drops in left ear bid x 7 days 7.500ml Shahbaz Aldana D.O., FAA FP 09/13/2019 - 09/13/2019 Bgphhgnn-Xtqyixvtl-QU 1% Solution 4 drops in L ear bid x 7 days. 10ml Shahbaz Aldana D.O., FA AFP 09/13/2019 - 09/20/2019 Immunizations CPT Code Status Date Vaccine Lot # [id number] Given 01/09/2020 Influenza Virus Vaccine, Quadrivalent, Slit Virus, Im Use 3Y & Up [id number] 80544 Given 02/12/2019 Influenza Virus Vaccine, Quadrivalent, Slit Virus, Im Use 3Y & Up [id number] 52037 Given 01/18/2018 Influenza Virus Vaccine, Quadrivalent, Slit Virus, Im Use 3Y & Up 52226 Given 01/19/2017 Influenza Virus Vaccine, Quadrivalent, Slit Virus, Im Use 3Y & Up [id number] 10684 Given 02/02/2016 Influenza Virus Vaccine, Quadrivalent, Slit Virus, Im Use 3Y & Up [id number] 57682 Given 02/17/2015 Influenza Vaccin e (Fluzone) 3Yrs Of Age Or Older Medicare Plans [id number] 90384 Given 02/14/2014 Influenza Vaccin e (Fluzone) 3Yrs Of Age Or Older Medicare Plans [id number] 47695 Given 01/16/2013 Influenza Vaccin e (Fluzone) 3Yrs Of Age Or Older Medicare Plans 28810 Given 01/16/2013 Influenza Virus Vac. Split Virus Individuals 3 Years And Above [id number] Vital Signs Date Vital Result Comment 02/13/2020 10:56am BP Systolic 128 mmHg BP Diastolic 68 mmHg Body Temperature 97.0 F Heart Rate 74 /min Respiratory Rate 16 /min Height 62.50 inches 5'2.50" Weight 162.00 lb [place] Body Weight 110 lb BMI (Body Mass Index) 29.2 kg/m2 O2 % BldC Oximetry 98 % 02/04/2020 9:40am BP Systolic 108 mmHg BP Diastolic 64 mmHg Body Temperature 96.9 F Heart Rate 81 /min Respiratory Rate 16 /min Height 62.50 inches 5'2.50" Weight 163.00 lb [place] Body Weight 110 lb BMI (Body Mass Index) 29.3 kg/m2 O2 % BldC Oximetry 98 % (AT Rest), (Room Air ) Results Test Acquired Date Facility Test Result H/L Range Note U/A DIP FPA 02/13/2020 [facility] Color Urine YELLOW Yellow Appearance CLEAR Clear Specific [place] 1.015 1.00-1.03 PH Urine 6.5 5.0-8.0 Glucose Urine NEG Negative Bilirubin Urine NEG Negative Ketones NEG Negative Blood Urine NEG Negative Protein Urine NEG Negative Urobilinogen .2 EU/dl 0.2-1.0 Nitrite NEG Negative Leukocytes TRACE Negative CBC With Differential 02/05/2020 [facility] ([facility]) [phone] White Blood Count 8.7 10 Normal 4.0-10.0 [...] 36.0-66.0 Lymph % 26.9 % Normal 24.0-44.0 [place] % 7.0 % High 0.0-5.0 Eos % 1.8 % Normal 0.0-3.0 Baso % 0.6 % Normal 0.0-1.0 Immature Granulocyte % 0.3 % Normal 0-3.0 Nucleated Red Blood Cell % 0.0 % Normal 0-0 Neutrophils # 5.5 10 Normal 1.5-8.5 Lymph # 2.4 10 Normal 1.5-5.0 [place] # 0.6 10 Normal 0.0-0.8 Eos # 0.2 10 Normal 0.0-0.5 Baso # 0.1 10 Normal 0.0-0.2 Renal Profile 02/05/2020 [facility] (I nterfa) [phone] Glucose, Fasting 70 mg/dL Normal 70-100 Blood [...] GM/DL Normal 3.2-5.2 Laboratory test finding 02/05/2020 [facility] l (Interface) [phone] NT-Pro BNP 77 pg/mL Normal <450 Urine Culture, Routine 02/04/2020 [facility] [place] Urine Culture, Routine Final report Abnormal 2, 3 Result 1 Escherichia coli Abnormal 4 Antimicrobial Susceptibility See Comment: 5 U/A DIP 02/04/2020 FPA/Inhouse Color REDDISH/BROWN QUAL Clarity cloudy QUAL Glucose-Ua Negative g/dL Negative Bilirubin,Urine Small QUAL Abnormal Negative Ketone Negative mg/dL Negative Specific [place] 1.020 # 1.000 - 1.030 Blood - [...] QUAL Negative Ketone Negative mg/dL Negative Specific [place] 1.020 # 1.000 - 1.030 Blood - [...] eGFR 81 # Calc 7 eGFR Non-Afr. [place] 70 # Calc 8 CBC 01/09/2020 FPA/Inhouse [...] QUAL Negative Ketone Negative mg/dL Negative Specific [place] 1.015 # 1.000 - 1.030 Blood - [...] Abnormal Negative Ketone Negative mg/dL Negative Specific [place] 1.025 # 1.000 - 1.030 Blood - [...] eGFR 70 # Calc 14 eGFR Non-Afr. 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 SRC:VOIDED 3 Source of Specimen: VOIDED [...] HCT IS 5% LESS SOURCE FOR DATA: [employer] 1800 OPERATION MANUAL( AUTOMATED BLOOD COUNTS AND [...] Date Location Provider Dx Diagnosis Office Visit 02/04/2020 9:30a [place] [facility] Silvia Brannon PA R30.0 Dysuria Office Visit 01/09/2020 9:20a [place] [facility] Shahbaz Aldana D.O., FAAFP I10 Essential (primary) hypertension E78.5 Hyperlipidemia, unspecified K21.9 Gastro-esophageal reflux dis ease without esophagitis 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 Z23 Encounter for immunization Office Visit 10/19/2019 10:20a [place] [facility] Silvia Brannon PA N39.0 Urinary tract infection, site not specif ied R30.0 Dysuria Office Visit 10/09/2019 1:15p [place] [facility] Silvia Brannon PA N39.0 Urinary tract infection, site not specif ied R30.0 Dysuria Office Visit 10/03/2019 8:45a [place] [facility] Louis Perez, FAAFP Z00.01 Encounter for general adult medical exam w abnormal findings I10 Essential (primary) hyperten kennedy E78.5 Hyperlipidemia, unspecified K21.9 Gastro-esophageal reflux dis ease without esophagitis Office Visit 09/21/2019 10:00a [place] [facility] Silvia Brannon PA H60.92 Unspecified otitis externa, left ear Office Visit 09/13/2019 10:00a [place] [facility] Silvia Brannon PA H60.92 Unspecified otitis externa, left ear Assessments Date Code Description Provider 02/13/2020 R30.0 Dysuria Shahbaz Aldana D.O., FAAFP 02/13/2020 R30.0 Dysuria Zack Brannon PA 02/04/2020 R30.0 Dysuria Zack Brannon, PA [...] am - Shahbaz Aldana D.O., FAAFP at [facility] Functional Status Description No Information Available Mental Status Description No Information Available Referrals Refer to Dr Reason for Referral Status Appt Date [facility] (ENT) DR MALIK ENT PT WI TH SEVERE EPISODIC VERTIGO QUICK ONSET LAST 2HOURS THEN RESOLVES LEFT EAR DISCOMFORT MID LEFT EAR CANAL HYPERTROPHIC ARDEN TISSUE PLEASE SEND [facility] EVAL WITH CONSULT Sent 01/23/[address] [place] [address] [address] [place] [address] [phone] [employer] Wall PLEASE EVAL QUICK ONSET GEMA RE VERTIGO RESOLVE AFTER 2 HOURS N/V 1 OR TWO TIMES MONTHLY PLEASE EVAL FOR NEUROLOGICAL CAUSE SEND [facility] REPORT Sent 01/29/2020 [facility] [address] [place], [place] [address] [phone]
--- OUTSIDE RECORDS SUMMARY | 2020-04-30 20:13 | CCD | Continuity of Care Document ---
Author Author Judith BRANNON PA Organization Unknown Address [address] [address] Phone [phone] Care Team Providers Care Piece Dye Worker Name Role Phone Shahbaz Aldana D.O. 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 [...] Twice A Day 180tabs Shahbaz Aldana D.O., FAA FP 10/11/2018 Ondansetron HCL 4mg Tablets 1 tab by mouth every four to six hours as needed for nausea 30tabs Shahbaz [facility] D.O., [facility] 02/06/2018 Nortriptyline HCL 75mg Capsules Take 1 Capsule By Mouth AT Bedtime 90caps Balaji Perez., FAAFP 08/25/2016 Meclizine HCL 25mg Tablets 1 by mouth three times a day as needed as needed for vertigo 180tabs Shahbaz Aldana D.O., FAAFP 08/03/2016 Metoprolol Tartrate 50mg Tablets Take 1 Tablet By Mouth Twice A Day 180tabs Balaji Perez, FAAFP 01/07/2016 Calcium + D3 [id number] Tablet s 2 tab daily otc Jaclyn Lovett [facility] [address] Take 1 Capsule By Mouth Once Daily 90caps Shahbaz Aldana D.O., [facility] P 07/16/2013 Asa 81 Capsules 1 po qd Shahbaz Aldana D.O., [facility] 01/16/2013 Acetaminophen 325mg Tablets 2 tablets q 4 hours prn for pain Unknown History Medications Keflex 500mg Capsules one cap po tid x 10 days 30caps Shahbaz Aldana D.O., [facility] - 02/14/2020 Diflucan 150mg Tablets take one tab po now and one po in 10 days 2tabs Shahbaz Aldana D.O., [facility] FP 02/04/2020 - 02/14/2020 Keflex 500mg Capsules one cap po tid x 10 days 30caps Shahbaz Aldana D.O., FAAFP - 10/19/2019 Diflucan 150mg Tablets take one tab po now and one po in 10 days 2tabs Shahbaz Aldana D.O., [facility] FP 10/09/2019 - 10/19/2019 Ciprodex 0.3-0.1% Suspension 4 drops in left ear bid x 7 days 7.500ml Shahbaz Aldana D.O., [facility] FP 09/13/2019 - 09/13/2019 Mnjyspgh-Kjfsdhndn-GY 1% Solution 4 drops in L ear bid x 7 days. 10ml Shahbaz Aldana D.O., FA AFP 09/13/2019 - 09/20/2019 Immunizations CPT Code Status Date Vaccine Lot # [id number] Given 01/09/2020 Influenza Virus Vaccine, Quadrivalent, Slit Virus, Im Use 3Y & Up [id number] 97783 Given 02/12/2019 Influenza Virus Vaccine, Quadrivalent, Slit Virus, Im Use 3Y & Up [id number] 53919 Given 01/18/2018 Influenza Virus Vaccine, Quadrivalent, Slit Virus, Im Use 3Y & Up 38476 Given 01/19/2017 Influenza Virus Vaccine, Quadrivalent, Slit Virus, Im Use 3Y & Up [id number] 59748 Given 02/02/2016 Influenza Virus Vaccine, Quadrivalent, Slit Virus, Im Use 3Y & Up [id number] 89092 Given 02/17/2015 Influenza Vaccin e (Fluzone) 3Yrs Of Age Or Older Medicare Plans [id number] 40179 Given 02/14/2014 Influenza Vaccin e (Fluzone) 3Yrs Of Age Or Older Medicare Plans [id number] 39567 Given 01/16/2013 Influenza Vaccin e (Fluzone) 3Yrs Of Age Or Older Medicare Plans [id number] Given 01/16/2013 Influenza Virus Vac. Split Virus Individuals 3 Years And Above [id number] Vital Signs Date Vital Result Comment 02/13/2020 10:56am BP Systolic 128 mmHg BP Diastolic 68 mmHg Body Temperature 97.0 F Heart Rate 74 /min Respiratory Rate 16 /min Height 62.50 inches 5'2.50" Weight 162.00 lb [place] Body Weight 110 lb BMI (Body Mass Index) 29.2 kg/m2 O2 % BldC Oximetry 98 % 02/04/2020 9:40am BP Systolic 108 mmHg BP Diastolic 64 mmHg Body Temperature 96.9 F Heart Rate 81 /min Respiratory Rate 16 /min Height 62.50 inches 5'2.50" Weight 163.00 lb [place] Body Weight 110 lb BMI (Body Mass Index) 29.3 kg/m2 O2 % BldC Oximetry 98 % (AT Rest), (Room Air ) Results Test Acquired Date Facility Test Result H/L Range Note U/A DIP FPA 02/13/2020 [facility] Color Urine YELLOW Yellow Appearance CLEAR Clear Specific [place] 1.015 1.00-1.03 PH Urine 6.5 5.0-8.0 Glucose Urine NEG Negative Bilirubin Urine NEG Negative Ketones NEG Negative Blood Urine NEG Negative Protein Urine NEG Negative Urobilinogen .2 EU/dl 0.2-1.0 Nitrite NEG Negative Leukocytes TRACE Negative CBC With Differential 02/05/2020 [facility] ([facility]) [phone] White Blood Count 8.7 10 Normal 4.0-10.0 [...] 36.0-66.0 Lymph % 26.9 % Normal 24.0-44.0 [place] % 7.0 % High 0.0-5.0 Eos % 1.8 % Normal 0.0-3.0 Baso % 0.6 % Normal 0.0-1.0 Immature Granulocyte % 0.3 % Normal 0-3.0 Nucleated Red Blood Cell % 0.0 % Normal 0-0 Neutrophils # 5.5 10 Normal 1.5-8.5 Lymph # 2.4 10 Normal 1.5-5.0 [place] # 0.6 10 Normal 0.0-0.8 Eos # 0.2 10 Normal 0.0-0.5 Baso # 0.1 10 Normal 0.0-0.2 Renal Profile 02/05/2020 [facility] (I nterface) [phone] Glucose, Fasting 70 mg/dL Normal 70-100 Blood [...] GM/DL Normal 3.2-5.2 Laboratory test finding 02/05/2020 [facility] (Interface) [phone] NT-Pro BNP 77 pg/mL Normal <450 Urine Culture, Routine 02/04/2020 [facility] [place] Urine Culture, Routine Final report Abnormal 2, 3 Result 1 Escherichia coli Abnormal 4 Antimicrobial Susceptibility See Comment: 5 U/A DIP 02/04/2020 FPA/Inhouse Color REDDISH/BROWN QUAL Clarity cloudy QUAL Glucose-Ua Negative g/dL Negative Bilirubin,Urine Small QUAL Abnormal Negative Ketone Negative mg/dL Negative Specific [place] 1.020 # 1.000 - 1.030 Blood - [...] QUAL Negative Ketone Negative mg/dL Negative Specific [place] 1.020 # 1.000 - 1.030 Blood - [...] eGFR 81 # Calc 7 eGFR Non-Afr. [place] 70 # Calc 8 CBC 01/09/2020 FPA/Inhouse [...] QUAL Negative Ketone Negative mg/dL Negative Specific [place] 1.015 # 1.000 - 1.030 Blood - [...] Abnormal Negative Ketone Negative mg/dL Negative Specific [place] 1.025 # 1.000 - 1.030 Blood - [...] eGFR 70 # Calc 14 eGFR Non-Afr. 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 SRC:VOIDED 3 Source of Specimen: VOIDED [...] HCT IS 5% LESS SOURCE FOR DATA: [employer] 1800 OPERATION MANUAL( AUTOMATED BLOOD COUNTS AND [...] Provider Dx Diagnosis Office Visit 02/13/2020 10:20a [place] [facility] Irvin Brannon PA R30.0 Dysuria R31.9 Hematuria, unspecified Office Visit 02/04/2020 9:30a [place] [facility] Silvia Brannon PA R30.0 Dysuria Office Visit 01/09/2020 9:20a [place] [facility] Shahbaz Aldana D.O., FAAFP I10 Essential (primary) hypertension E78.5 Hyperlipidemia, unspecified K21.9 Gastro-esophageal reflux dis ease without esophagitis 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 Z23 Encounter for immunization Office Visit 10/19/2019 10:20a [place] [facility] Silvia Brannon PA N39.0 Urinary tract infection, site not specif ied R30.0 Dysuria Office Visit 10/09/2019 1:15p [place] [facility] Silvia Brannon PA N39.0 Urinary tract infection, site not specif ied R30.0 Dysuria Office Visit 10/03/2019 8:45a [place] [facility] Louis Perez, FAAFP Z00.01 Encounter for general adult medical exam w abnormal findings I10 Essential (primary) hyperten kennedy E78.5 Hyperlipidemia, unspecified K21.9 Gastro-esophageal reflux dis ease without esophagitis Office Visit 09/21/2019 10:00a [place] [facility] Silvia Brannon PA H60.92 Unspecified otitis externa, left ear Office Visit 09/13/2019 10:00a [place] [facility] Silvia Brannon PA H60.92 Unspecified otitis externa, left ear Assessments Date Code Description Provider 02/13/2020 R30.0 Dysuria BarrZack willson, PA 02/13/2020 R30.0 Dysuria Shahbaz Aldana D.O., FAAFP 02/13/2020 R31.9 Hematuria, unspecified Loi cox Ivanna Vera, PA 02/04/2020 R30.0 Dysuria [place] Zack Vera, PA 01/09/2020 I10 Essential (primary) [...] Shahbaz Aldana D.O., FAAFP 10/09/2019 R30.0 Dysuria LettyZack willson, PA 10/03/2019 Z00.01 Encounter for genera l [...] am - Shahbaz Aldana D.O., FAAFP at [facility] Functional Status Description No Information Available Mental Status Description No Information Available Referrals Refer to Dr Reason for Referral Status Appt Date [facility] (ENT) DR MALIK ENT PT WI TH SEVERE EPISODIC VERTIGO QUICK ONSET LAST 2HOURS THEN RESOLVES LEFT EAR DISCOMFORT MID LEFT EAR CANAL HYPERTROPHIC ARDEN TISSUE PLEASE SEND [facility] EVAL WITH CONSULT Sent 01/23/[address] [address] [phone] Yamilex Wall PLEASE EVAL QUICK ONSET GEMA RE VERTIGO RESOLVE AFTER 2 HOURS N/V 1 OR TWO TIMES MONTHLY PLEASE EVAL FOR NEUROLOGICAL CAUSE SEND [facility] REPORT Sent 01/29/2020 [facility] [address] [place], [place] [address] [phone]
--- OUTSIDE RECORDS SUMMARY | 2020-04-30 20:13 | CCD | Continuity of Care Document ---
Author Author Judith OSORIO Organization Unknown Address [address] [place] [address] Phone [phone] Care Team Providers Care Field Service Coordinator Name Role Phone Shahbaz Aldana D.O. [facility] [phone] Problems Active Problems Provider Date Vertigo Emanuel Bhatia M.D. Onset: 01/29/2020 Migraine Emanuel Bhatia M.D. 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 [place] 70 # 3 Color lt yellow Qual Clarity clear Qual Glucose-Ua Negative g/dL Bilirubin,Urine Negative Qual Ketone Negative mg/dL Specific [place] 1.020 # 1.000-1.030 Blood - Ua Trace-intact [...] HCT IS 5% LESS SOURCE FOR DATA: [employer] 1800 OPERATION MANUAL( AUTOMATED BLOOD COUNTS AND [...] CKD-EPI Procedures Date Code Description Status 02/14/2020 52882 MRI Brain W/O Contrast Completed 02/14/2020 87283 MRI Brain W/O Contrast Completed 02/14/2020 92556 Magnetic Resonance Angiography N deo W/O Contrast Materials Completed 02/14/2020 91026 Magnetic Resonance Angiography N deo W/O Contrast Materials Completed 02/14/2020 21569 Magnetic Resonance Angiogtaphy H ead W/O Contrast Material(S) Completed 02/14/2020 54537 Magnetic Resonance Angiogtaphy H ead W/O Contrast Material(S) Completed 02/06/2020 48393 Sympathetic Skin Responses Compl eted 02/06/2020 24746 Sympathetic Skin Responses Compl eted 02/06/2020 98679 Test Autonomic Nervous System, C ardiovagal Innervation Completed 02/06/2020 41370 Test Autonomic Nervous System, C ardiovagal Innervation Completed Medical Devices Description No Information Available Encounters Type Date Location Provider Dx Diagnosis Office Visit 01/29/2020 8:30a [place] office - [place] Emanuel drake M.D. 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 at Main office - [place] Functional Status Description No Information Available Mental Status Description No Information Available Referrals Refer to Dr Reason for Referral Status Appt Date Emanuel Bhatia M.D. Created 0 [address] [place] [address] [phone] [facility] AUDIO METRIC AND VNG TESTING WITH VESTIBULAR PHYSICAL THERAPY - AUTH PENDING Created [address] [address] [phone]
--- OUTSIDE RECORDS SUMMARY | 2020-04-30 20:13 | CCD | Continuity of Care Document ---
Author Author Judith BRANNON PA Organization Unknown Address [address] [address] Phone [phone] Care Team Providers Care Court Abstractor Name Role Phone Shahbaz Aldana D.O. 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 [...] in 10 days 2tabs Shahbaz Aldana D.O., [facility] 02/04/2020 Diltiazem HCL 30mg Tablets Take 1 Tablet By Mouth Twice A Day 180tabs Shahbaz Aldana D.O., [facility] 10/11/2018 Ondansetron HCL 4mg Tablets [...] Perez, [facility] 01/07/2016 Calcium + D3 [id number] Tablet s 2 tab daily otc Rounds, Jaclyn Vera [facility] [address] Take 1 Capsule By Mouth Once Daily 90caps Shahbaz Aldana D.O., [facility] 07/16/2013 Asa 81 Capsules 1 po qd [facility] 01/16/2013 Acetaminophen 325mg Tablets 2 tablets q 4 hours prn for pain Unknown History Medications Keflex 500mg Capsules one cap po tid x 10 days 30caps Shahbaz Aldana D.O., FAAFP - 10/19/2019 Diflucan 150mg Tablets take one tab po now and one po in 10 days 2tabs Shahbaz Aldana D.O., [facility] 10/09/2019 - 10/19/2019 Ciprodex 0.3-0.1% Suspension 4 drops in left ear bid x 7 days 7.500ml Shahbaz Aldana D.O., FAA FP 09/13/2019 - 09/13/2019 Iafrwxgy-Herusqycy-WM 1% Solution 4 drops in L ear bid x 7 days. 10ml Shahbaz Aldana D.O., FA AFP 09/13/2019 - 09/20/2019 Immunizations CPT Code Status Date Vaccine Lot # [id number] Given 01/09/2020 Influenza Virus Vaccine, Quadrivalent, Slit Virus, Im Use 3Y & Up [id number] 81125 Given 02/12/2019 Influenza Virus Vaccine, Quadrivalent, Slit Virus, Im Use 3Y & Up [id number] 06840 Given 01/18/2018 Influenza Virus Vaccine, Quadrivalent, Slit Virus, Im Use 3Y & Up 24272 Given 01/19/2017 Influenza Virus Vaccine, Quadrivalent, Slit Virus, Im Use 3Y & Up [id number] 78331 Given 02/02/2016 Influenza Virus Vaccine, Quadrivalent, Slit Virus, Im Use 3Y & Up [id number] 57457 Given 02/17/2015 Influenza Vaccin e (Fluzone) 3Yrs Of Age Or Older Medicare Plans [id number] 48060 Given 02/14/2014 Influenza Vaccin e (Fluzone) 3Yrs Of Age Or Older Medicare Plans [id number] 63202 Given 01/16/2013 Influenza Vaccin e (Fluzone) 3Yrs Of Age Or Older Medicare Plans 30596 Given 01/16/2013 Influenza Virus Vac. Split Virus Individuals 3 Years And Above [id number] Vital Signs Date Vital Result Comment 02/13/2020 10:56am BP Systolic 128 mmHg BP Diastolic 68 mmHg Body Temperature 97.0 F Heart Rate 74 /min Respiratory Rate 16 /min Height 62.50 inches 5'2.50" Weight 162.00 lb [place] Body Weight 110 lb BMI (Body Mass Index) 29.2 kg/m2 O2 % BldC Oximetry 98 % 02/04/2020 9:40am BP Systolic 108 mmHg BP Diastolic 64 mmHg Body Temperature 96.9 F Heart Rate 81 /min Respiratory Rate 16 /min Height 62.50 inches 5'2.50" Weight 163.00 lb [place] Body Weight 110 lb BMI (Body Mass Index) 29.3 kg/m2 O2 % BldC Oximetry 98 % (AT Rest), (Room Air ) Results Test Acquired Date Facility Test Result H/L Range Note CBC With Differential 02/05/2020 [facility] ([facility]) [phone] White Blood Count 8.7 10 Normal 4.0-10.0 [...] 36.0-66.0 Lymph % 26.9 % Normal 24.0-44.0 [place] % 7.0 % High 0.0-5.0 Eos % 1.8 % Normal 0.0-3.0 Baso % 0.6 % Normal 0.0-1.0 Immature Granulocyte % 0.3 % Normal 0-3.0 Nucleated Red Blood Cell % 0.0 % Normal 0-0 Neutrophils # 5.5 10 Normal 1.5-8.5 Lymph # 2.4 10 Normal 1.5-5.0 [place] # 0.6 10 Normal 0.0-0.8 Eos # 0.2 10 Normal 0.0-0.5 Baso # 0.1 10 Normal 0.0-0.2 Renal Profile 02/05/2020 [facility] (I nterface) [phone] Glucose, Fasting 70 mg/dL Normal 70-100 Blood [...] GM/DL Normal 3.2-5.2 Laboratory test finding 02/05/2020 [facility] (Interface) [phone] NT-Pro BNP 77 pg/mL Normal <450 Urine Culture, Routine 02/04/2020 [facility] [place] Urine Culture, Routine Final report Abnormal 2, 3 Result 1 Escherichia coli Abnormal 4 Antimicrobial Susceptibility See Comment: 5 U/A DIP 02/04/2020 FPA/Inhouse Color REDDISH/BROWN QUAL Clarity cloudy QUAL Glucose-Ua Negative g/dL Negative Bilirubin,Urine Small QUAL Abnormal Negative Ketone Negative mg/dL Negative Specific [place] 1.020 # 1.000 - 1.030 Blood - [...] eGFR 81 # Calc 7 eGFR Non-Afr. [place] 70 # Calc 8 U/A DIP 01/09/2020 FPA/Inhouse Color lt yellow QUAL Clarity clear QUAL Glucose-Ua Negative g/dL Negative Bilirubin,Urine Negative QUAL Negative Ketone Negative mg/dL Negative Specific [place] 1.020 # 1.000 - 1.030 Blood - [...] QUAL Negative Ketone Negative mg/dL Negative Specific [place] 1.015 # 1.000 - 1.030 Blood - [...] Abnormal Negative Ketone Negative mg/dL Negative Specific [place] 1.025 # 1.000 - 1.030 Blood - [...] eGFR 70 # Calc 14 eGFR Non-Afr. 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 SRC:VOIDED 3 Source of Specimen: VOIDED [...] HCT IS 5% LESS SOURCE FOR DATA: [employer] 1800 OPERATION MANUAL( AUTOMATED BLOOD COUNTS AND [...] HCT IS 5% LESS SOURCE FOR DATA: [employer] 1800 OPERATION MANUAL( AUTOMATED BLOOD COUNTS AND [...] Provider Dx Diagnosis Office Visit 02/04/2020 9:30a [place] [facility] Silvia Brannon PA R30.0 Dysuria Office Visit 01/09/2020 9:20a [place] [facility] Shahbaz Aldana D.O., FAAFP I10 Essential (primary) hypertension E78.5 Hyperlipidemia, unspecified K21.9 Gastro-esophageal reflux dis ease without esophagitis 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 Z23 Encounter for immunization Office Visit 10/19/2019 10:20a [place] [facility] Silvia Brannon PA N39.0 Urinary tract infection, site not specif ied R30.0 Dysuria Office Visit 10/09/2019 1:15p [place] [facility] Silvia Brannon PA N39.0 Urinary tract infection, site not specif ied R30.0 Dysuria Office Visit 10/03/2019 8:45a [place] [facility] Louis Perez, FAAFP Z00.01 Encounter for general adult medical exam w abnormal findings I10 Essential (primary) hyperten kennedy E78.5 Hyperlipidemia, unspecified K21.9 Gastro-esophageal reflux dis ease without esophagitis Office Visit 09/21/2019 10:00a [place] [facility] Silvia Brannon PA H60.92 Unspecified otitis externa, left ear Office Visit 09/13/2019 10:00a [place] [facility] Silvia Brannon PA H60.92 Unspecified otitis externa, left ear Assessments Date Code Description Provider 02/04/2020 R30.0 Dysuria Zack Brannon PA 01/09/2020 [...] Aldana D.O., FAAFP 10/09/2019 R30.0 Dysuria Zack Brannon PA 10/03/2019 [...] 04/09/2020 10:30 am - Shahbaz Aldana D.O., [facility] at [facility] Functional Status Description No Information Available Mental Status Description No Information Available Referrals Refer to Reason for Referral Status Appt Date [facility] (ENT) DR MALIK ENT PT WI TH SEVERE EPISODIC VERTIGO QUICK ONSET LAST 2HOURS THEN RESOLVES LEFT EAR DISCOMFORT MID LEFT EAR CANAL HYPERTROPHIC ARDEN TISSUE PLEASE SEND [facility] EVAL WITH CONSULT Sent 01/23/2020 [address] [facility] [address] [place] [address] [phone] Yamile[employer] Wall PLEASE EVAL QUICK ONSET GEMA RE VERTIGO RESOLVE AFTER 2 HOURS N/V 1 OR TWO TIMES MONTHLY PLEASE EVAL FOR NEUROLOGICAL CAUSE SEND [facility] REPORT Sent 01/29/2020 [facility] [address] [place], [place] [address] [phone]
--- OUTSIDE RECORDS SUMMARY | 2020-04-30 20:14 | CCD | Continuity of Care Document ---
Author Author Judith PARRY D.O. Organization Unknown Address [address] [address] Phone [phone] Care Team Providers Care Connie Scratcher Name Role Phone Shahbaz Parry D.O. 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 Fish, D.O., [facility] FP 02/04/2020 Diltiazem HCL 30mg Tablets Take 1 Tablet By Mouth Twice A Day 180tabs Shahbaz Parry D.O., [facility] 10/11/2018 Ondansetron HCL 4mg Tablets 1 tab by mouth every four to six hours as needed for nausea 30tabs Shahbaz Parry D.O., FAAFP 02/06/2018 Nortriptyline HCL 75mg Capsules Take 1 Capsule By Mouth AT Bedtime 90caps Balaji Perez[facility] 08/25/2016 Meclizine HCL 25mg Tablets 1 by mouth three times a day as needed as needed for vertigo 180tabs [facility] D.O., [facility] 08/03/2016 Metoprolol Tartrate 50mg Tablets Take 1 Tablet By Mouth Twice A Day 180tabs Balaji Perez[facility] 01/07/2016 Calcium + D3 [id number] Tablet s 2 tab daily otc Bony, Jaclyn Vera [facility] [address] Take 1 Capsule By Mouth Once Daily 90caps Shahbaz Parry D.O., [facility] P 07/16/2013 Asa 81 Capsules 1 po qd [facility] D.O., [facility] 01/16/2013 Acetaminophen 325mg Tablets 2 tablets q 4 hours prn for pain Unknown History Medications Keflex 500mg Capsules one cap po tid x 10 days 30caps Shahbaz Parry D.O., FAAFP - 10/19/2019 Diflucan 150mg Tablets take one tab po now and one po in 10 days 2tabs Shahbaz Parry D.O., [facility] 10/09/2019 - 10/19/2019 Ciprodex 0.3-0.1% Suspension 4 drops in left ear bid x 7 days 7.500ml Shahbaz Parry D.O., [facility] FP 09/13/2019 - 09/13/2019 Sahsdhhm-Hhhjixhox-TR 1% Solution 4 drops in L ear bid x 7 days. 10ml Shahbaz Parry D.O., FA AFP 09/13/2019 - 09/20/2019 Immunizations CPT Code Status Date Vaccine Lot # [id number] Given 01/09/2020 Influenza Virus Vaccine, Quadrivalent, Slit Virus, Im Use 3Y & Up [id number] 17708 Given 02/12/2019 Influenza Virus Vaccine, Quadrivalent, Slit Virus, Im Use 3Y & Up [id number] 09736 Given 01/18/2018 Influenza Virus Vaccine, Quadrivalent, Slit Virus, Im Use 3Y & Up 03177 Given 01/19/2017 Influenza Virus Vaccine, Quadrivalent, Slit Virus, Im Use 3Y & Up [id number] 15580 Given 02/02/2016 Influenza Virus Vaccine, Quadrivalent, Slit Virus, Im Use 3Y & Up [id number] 33588 Given 02/17/2015 Influenza Vaccin e (Fluzone) 3Yrs Of Age Or Older Medicare Plans [id number] 69674 Given 02/14/2014 Influenza Vaccin e (Fluzone) 3Yrs Of Age Or Older Medicare Plans [id number] 73688 Given 01/16/2013 Influenza Vaccin e (Fluzone) 3Yrs Of Age Or Older Medicare Plans 15663 Given 01/16/2013 Influenza Virus Vac. Split Virus Individuals 3 Years And Above [id number] Vital Signs Date Vital Result Comment 02/04/2020 9:40am BP Systolic 108 mmHg BP Diastolic 64 mmHg Body Temperature 96.9 F Heart Rate 81 /min Respiratory Rate 16 /min Height 62.50 inches 5'2.50" Weight 163.00 lb [place] Body Weight 110 lb BMI (Body Mass Index) 29.3 kg/m2 O2 % BldC Oximetry 98 % (AT Rest), (Room Air ) 01/09/2020 9:30am BP Systolic 128 mmHg BP Diastolic 84 mmHg Body Temperature 98.3 F Heart Rate 84 /min Respiratory Rate 16 /min Height 62.50 inches 5'2.50" Weight 160.00 lb [place] Body Weight 110 lb BMI (Body Mass Index) 28.8 kg/m2 O2 % BldC Oximetry 96 % Results Test Acquired Date Facility Test Result H/L Range Note CBC With Differential 02/05/2020 [facility] ([facility]) [phone] White Blood Count 8.7 10 Normal 4.0-10.0 [...] 36.0-66.0 Lymph % 26.9 % Normal 24.0-44.0 [place] % 7.0 % High 0.0-5.0 Eos % 1.8 % Normal 0.0-3.0 Baso % 0.6 % Normal 0.0-1.0 Immature Granulocyte % 0.3 % Normal 0-3.0 Nucleated Red Blood Cell % 0.0 % Normal 0-0 Neutrophils # 5.5 10 Normal 1.5-8.5 Lymph # 2.4 10 Normal 1.5-5.0 [place] # 0.6 10 Normal 0.0-0.8 Eos # 0.2 10 Normal 0.0-0.5 Baso # 0.1 10 Normal 0.0-0.2 Renal Profile 02/05/2020 [facility] (I nterfa) [phone] Glucose, Fasting 70 mg/dL Normal 70-100 Blood [...] GM/DL Normal 3.2-5.2 Laboratory test finding 02/05/2020 [facility] (Interface) [phone] NT-Pro BNP 77 pg/mL Normal <450 Urine Culture, Routine 02/04/2020 [facility] [place] Urine Culture, Routine Final report Abnormal 2, 3 Result 1 Escherichia coli Abnormal 4 Antimicrobial Susceptibility See Comment: 5 U/A DIP 02/04/2020 FPA/Inhouse Color REDDISH/BROWN QUAL Clarity cloudy QUAL Glucose-Ua Negative g/dL Negative Bilirubin,Urine Small QUAL Abnormal Negative Ketone Negative mg/dL Negative Specific [place] 1.020 # 1.000 - 1.030 Blood - [...] eGFR 81 # Calc 7 eGFR Non-Afr. [place] Islander 70 # Calc 8 U/A DIP 01/09/2020 FPA/Inhouse Color lt yellow QUAL Clarity clear QUAL Glucose-Ua Negative g/dL Negative Bilirubin,Urine Negative QUAL Negative Ketone Negative mg/dL Negative Specific [place] 1.020 # 1.000 - 1.030 Blood - [...] QUAL Negative Ketone Negative mg/dL Negative Specific [place] 1.015 # 1.000 - 1.030 Blood - [...] Abnormal Negative Ketone Negative mg/dL Negative Specific [place] 1.025 # 1.000 - 1.030 Blood - [...] eGFR 70 # Calc 14 eGFR Non-Afr. 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 SRC:VOIDED 3 Source of Specimen: [...] HCT IS 5% LESS SOURCE FOR DATA: [employer] 1800 OPERATION MANUAL( AUTOMATED BLOOD COUNTS AND [...] HCT IS 5% LESS SOURCE FOR DATA: [employer] 1800 OPERATION MANUAL( AUTOMATED BLOOD COUNTS AND [...] Provider Dx Diagnosis Office Visit 02/04/2020 9:30a [place] [facility] Silvia Brannon PA R30.0 Dysuria Office Visit 01/09/2020 9:20a [place] [facility] Shahbaz Parry D.O., FAAFP I10 Essential (primary) hypertension E78.5 Hyperlipidemia, unspecified K21.9 Gastro-esophageal reflux dis ease without esophagitis 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 Z23 Encounter for immunization Office Visit 10/19/2019 10:20a [place] [facility] Silvia Brannon PA N39.0 Urinary tract infection, site not specif ied R30.0 Dysuria Office Visit 10/09/2019 1:15p [place] [facility] Silvia Brannon PA N39.0 Urinary tract infection, site not specif ied R30.0 Dysuria Office Visit 10/03/2019 8:45a [place] [facility] Louis Perez, FAAFP Z00.01 Encounter for general adult medical exam w abnormal findings I10 Essential (primary) hyperten kennedy E78.5 Hyperlipidemia, unspecified K21.9 Gastro-esophageal reflux dis ease without esophagitis Office Visit 09/21/2019 10:00a [place] [facility] Silvia Brannon PA H60.92 Unspecified otitis externa, left ear Office Visit 09/13/2019 10:00a [place] [facility] Silvia Brannon PA H60.92 Unspecified otitis [...] D.O., FAAFP 01/09/2020 Z23 Encounter for immunization Balaji GutierrezO., FAAFP 10/19/2019 N39.0 Urinary tract infection, site no t specified Ivanna Brannon, YARY 10/19/2019 R30.0 Dysuria Zack Brannon PA 10/09/2019 N39.0 Urinary tract infection, site no t specified Shahbaz Parry D.O., FAAFP 10/09/2019 N39.0 Urinary tract infection, site no t specified Ivanna Brannon, PA 10/09/2019 R30.0 Dysuria Shahbaz Parry D.O., FAAFP 10/09/2019 R30.0 Dysuria Zack Brannon [...] Brannon PA Plan of Treatment Future Appointment(s):* 02/12/2020 10:40 am - Ivanna Brannon PA at [facility] * 04/09/2020 10:30 am - hSahbaz Parry D.O., FAAFP at [facility] Functional Status Description No Information Available Mental Status Description No Information Available Referrals Refer to Dr Reason for Referral Status Appt Date [facility] (ENT) DR MALIK ENT PT WI TH SEVERE EPISODIC VERTIGO QUICK ONSET LAST 2HOURS THEN RESOLVES LEFT EAR DISCOMFORT MID LEFT EAR CANAL HYPERTROPHIC ARDEN TISSUE PLEASE SEND [facility] EVAL WITH CONSULT Sent 01/23/2020 [address] [facility] [address] [place] [address] [phone] Yamilex Wall PLEASE EVAL QUICK ONSET GEMA RE VERTIGO RESOLVE AFTER 2 HOURS N/V 1 OR TWO TIMES MONTHLY PLEASE EVAL FOR NEUROLOGICAL CAUSE SEND [facility] REPORT Sent 01/29/2020 [facility] [address] [place], [place] [address] [phone]
[2020-04-30] MEDS ORDERED: ACETAMINOPHEN TAB 650MG DOSE (2X325MG) PO ONE (20:15)
--- OUTSIDE RECORDS SUMMARY | 2020-04-30 20:15 | CCD ---
Author Author [facility] Organization [facility] Address Unknown Phone Unavailable Care Team Providers Care Retail Worker Name Role Phone Barraclough, Ivanna PA Unavailable Unavailable Barraclough, Ivanna PA Unavailable Unavailable Barraclough, Ivanna PA Unavailable Unavailable Barraclough, Ivanna PA Unavailable Unavailable Barraclough, Ivanna PA Unavailable Unavailable Barraclough, Ivanna PA Unavailable Unavailable Fish, J Shahbaz Unavailable Unavailable Fish, J Shahbaz Unavailable Unavailable Fish, J Shahbaz Unavailable Unavailable Fish, J Shahbaz Unavailable Unavailable Fish, J Shahbaz Unavailable Unavailable Fish, J Shahbaz Unavailable Unavailable Fish, J Shahbaz Unavailable Unavailable Fish, J Shahbaz Unavailable Unavailable Fish, J Shahbaz Unavailable Unavailable Fish, J Shahbaz Unavailable Unavailable Fish, J Shahbaz Unavailable Unavailable Fish, J Shahbaz Unavailable Unavailable Fish, J Shahbaz Unavailable Unavailable Fish, J Shahbaz Unavailable Unavailable Fish, J Shahbaz Unavailable Unavailable Fish, J Shahbaz Unavailable Unavailable Fish, J Shahbaz Unavailable Unavailable Fish, J Shahbaz Unavailable Unavailable Fish, J Shahbaz Unavailable Unavailable Fish, J Shahbaz Unavailable Unavailable Fish, J Shahbaz Unavailable Unavailable Fish, J Shahbaz Unavailable Unavailable Fish, J Shahbaz Unavailable Unavailable Fish, J Shahbaz Unavailable Unavailable Fish, J Shahbaz Unavailable Unavailable Fish, J Shahbaz Unavailable Unavailable Fish, J Shahbaz Unavailable Unavailable Fish, J Shahbaz Unavailable Unavailable Fish, J Shahbaz Unavailable Unavailable Fish, J Shahbaz Unavailable Unavailable Fish, J Shahbaz Unavailable Unavailable Fish, J Shahbaz Unavailable Unavailable Fish, J Shahbaz Unavailable Unavailable Fish, J Shahbaz Unavailable Unavailable Fish, J Shahbaz Unavailable Unavailable Fish, J Shahbaz Unavailable Unavailable Fish, J Shahbaz Unavailable Unavailable Fish, J Shahbaz Unavailable Unavailable Fish, J Shahbaz Unavailable Unavailable Fish, J Shahbaz Unavailable Unavailable Fish, J Shahbaz Unavailable Unavailable Fish, J Shahbaz Unavailable Unavailable Fish, J Shahbaz Unavailable Unavailable Fish, J Shahbaz Unavailable Unavailable Fish, J Shahbaz Unavailable Unavailable Fish, J Shahbaz Unavailable Unavailable Fish, J Shahbaz Unavailable Unavailable Fish, J Shahbaz Unavailable Unavailable Fish, J Shahbaz Unavailable Unavailable Fish, J Shahbaz Unavailable Unavailable Fish, J Shahbaz Unavailable Unavailable Fish, J Shahbaz Unavailable Unavailable Fish, J Shahbaz Unavailable Unavailable Fish, J Shahbaz Unavailable Unavailable Fish, J Shahbaz Unavailable Unavailable Fish, J Shahbaz Unavailable Unavailable Fish, J Shahbaz Unavailable Unavailable Fish, J Shahbaz Unavailable Unavailable Fish, J Shahbaz Unavailable Unavailable Fish, J Shahbaz Unavailable Unavailable Fish, J Shahbaz Unavailable Unavailable Fish, J Shahbaz Unavailable Unavailable Fish, J Shahbaz Unavailable Unavailable Fish, J Shahbaz Unavailable Unavailable Fish, J Shahbaz Unavailable Unavailable Fish, J Shahbaz Unavailable Unavailable Fish, J Shahbaz Unavailable Unavailable Fish, J Shahbaz Unavailable Unavailable Fish, J Shahbaz Unavailable Unavailable Fish, J Shahbaz Unavailable Unavailable Fish, J Shahbaz Unavailable Unavailable Fish, J Shahbaz Unavailable Unavailable Fish, J Shahbaz Unavailable Unavailable Fish, J Shahbaz Unavailable Unavailable Fish, J Shahbaz Unavailable Unavailable Fish, J Shahbaz Unavailable Unavailable Fish, J Shahbaz Unavailable Unavailable Fish, J Shahbaz Unavailable Unavailable Fish, J Shahbaz Unavailable Unavailable Fish, J Shahbaz Unavailable Unavailable Fish, J Shahbaz Unavailable Unavailable Fish, J Shahbaz Unavailable Unavailable Fish, J Shahbaz Unavailable Unavailable Fish, J Shahbaz Unavailable Unavailable Fish, J Shahbaz Unavailable Unavailable KORT, C DALI VALENZUELA Unavailable Unavailable KORT, C DALI VALENZUELA Unavailable Unavailable KORT, C DALI MD Unavailable Unavailable KORT, C DALI MD Unavailable Unavailable KORT, C DALI MD Unavailable Unavailable KORT, C DALI MD Unavailable Unavailable KORT, C DALI MD Unavailable Unavailable KORT, C DALI MD Unavailable Unavailable KORT, C DALI VALENZUELA Unavailable Unavailable KORT, C DALI MD Unavailable Unavailable KORT, C DALI MD Unavailable Unavailable KORT, C DALI MD Unavailable Unavailable KORT, C DALI MD Unavailable Unavailable KORT, C DALI MD Unavailable Unavailable KORT, C DALI MD Unavailable Unavailable KORT, C DALI MD Unavailable Unavailable KORT, C DALI MD Unavailable Unavailable KORT, C DALI MD Unavailable Unavailable KORT, C DALI MD Unavailable Unavailable KORT, C DALI MD Unavailable Unavailable KORT, C DALI MD Unavailable Unavailable KORT, C DALI MD Unavailable Unavailable KORT, C DALI MD Unavailable Unavailable KORT, C DALI MD Unavailable Unavailable KORT, C DALI MD Unavailable Unavailable KORT, C DALI MD Unavailable Unavailable KORT, C DALI MD Unavailable Unavailable KORT, C DALI MD Unavailable Unavailable KORT, C DALI MD Unavailable Unavailable KORT, C DALI MD Unavailable Unavailable KORT, C DALI MD Unavailable Unavailable KORT, C DALI MD Unavailable Unavailable KORT, C DALI MD Unavailable Unavailable KORT, C DALI MD Unavailable Unavailable KORT, C DALI MD Unavailable Unavailable KORT, C DALI MD Unavailable Unavailable KORT, C DALI MD Unavailable Unavailable KORT, C DALI MD Unavailable Unavailable KORT, C DALI MD Unavailable Unavailable KORT, C DALI MD Unavailable Unavailable KORT, C DALI MD Unavailable Unavailable KORT, C DALI MD Unavailable Unavailable KORT, C DALI MD Unavailable Unavailable KORT, C DALI MD Unavailable Unavailable KORT, C DALI MD Unavailable Unavailable KORT, C DALI MD Unavailable Unavailable KORT, C DALI MD Unavailable Unavailable KORT, C DAIL MD Unavailable Unavailable KORT, C DALI MD Unavailable Unavailable KORT, C DALI MD Unavailable Unavailable KORT, C DALI MD Unavailable Unavailable KORT, C DALI MD Unavailable Unavailable KORT, C DALI MD Unavailable Unavailable KORT, C DALI MD Unavailable Unavailable KORT, C DALI MD Unavailable Unavailable KORT, C DALI MD Unavailable Unavailable KORT, C DALI MD Unavailable Unavailable KORT, C DALI MD Unavailable Unavailable KORT, C DALI MD Unavailable Unavailable KORT, C DALI MD Unavailable Unavailable KORT, C DALI MD Unavailable Unavailable KORT, C DALI MD Unavailable Unavailable KORT, C DALI MD Unavailable Unavailable KORT, C DALI MD Unavailable Unavailable KORT, C DALI MD Unavailable Unavailable KORT, C DALI MD Unavailable Unavailable KORT, C DALI MD Unavailable Unavailable KORT, C DALI MD Unavailable Unavailable KORT, C DALI MD Unavailable Unavailable KORT, C DALI MD Unavailable Unavailable KORT, C DALI MD Unavailable Unavailable KORT, C DALI MD Unavailable Unavailable KORT, C DALI MD Unavailable Unavailable KORT, C DALI MD Unavailable Unavailable KORT, C DALI MD Unavailable Unavailable KORT, C DALI MD Unavailable Unavailable KORT, C DALI MD Unavailable Unavailable KORT, C DALI MD Unavailable Unavailable KORT, C DALI MD Unavailable Unavailable KORT, C DALI MD Unavailable Unavailable KORT, C DALI MD Unavailable Unavailable KORT, C DALI MD Unavailable Unavailable KORT, C DALI MD Unavailable Unavailable KORT, C DALI MD Unavailable Unavailable KORT, C DALI MD Unavailable Unavailable KORT, C DALI MD Unavailable Unavailable KORT, C DALI MD Unavailable Unavailable KORT, C DALI MD Unavailable Unavailable KORT, C DALI MD Unavailable Unavailable KORT, C DALI MD Unavailable Unavailable KORT, C DALI MD Unavailable Unavailable KORT, C DALI MD Unavailable Unavailable KORT, C DALI MD Unavailable Unavailable KORT, C DALI MD Unavailable Unavailable Sushant, L Delmy PA Unavailable Unavailable Sushant, L Delmy PA Unavailable Unavailable Sushant, L Delmy PA Unavailable Unavailable Sushant, L Delmy PA Unavailable Unavailable Sushant, L Delmy PA Unavailable Unavailable Sushant, L Delmy PA Unavailable Unavailable Sushant, L Delmy PA Unavailable Unavailable Sushant, L Delmy PA Unavailable Unavailable Sushant, L Delmy PA Unavailable Unavailable Sushant, L Delmy PA Unavailable Unavailable Sushant, L Delmy PA Unavailable Unavailable Sushant, L Delmy PA Unavailable Unavailable Sushant, L Delmy PA Unavailable Unavailable Sushant, L Delmy PA Unavailable Unavailable Sushant, L Delmy PA Unavailable Unavailable Sushant, L Delmy PA Unavailable Unavailable Sushant, L Delmy PA Unavailable Unavailable Sushant, L Delmy PA Unavailable Unavailable Sushant, L Delmy PA Unavailable Unavailable Sushant, L Delmy PA Unavailable Unavailable Sushant, L Delmy PA Unavailable Unavailable Sushant, L Delmy PA Unavailable Unavailable Sushant, L Delmy PA Unavailable Unavailable KORT, C DALI MD Unavailable Unavailable KORT, C DALI MD Unavailable Unavailable KORT, C DALI MD Unavailable Unavailable KORT, C DALI MD Unavailable Unavailable KORT, C DALI MD Unavailable Unavailable KORT, C DALI MD Unavailable Unavailable KORT, C DALI MD Unavailable Unavailable KORT, C DALI MD Unavailable Unavailable KORT, C DALI MD Unavailable Unavailable KORT, C DALI MD Unavailable Unavailable KORT, C DALI MD Unavailable Unavailable KORT, C DALI MD Unavailable Unavailable KORT, C DALI MD Unavailable Unavailable KORT, C DALI MD Unavailable Unavailable KORT, C DALI MD Unavailable Unavailable KORT, C DALI MD Unavailable Unavailable KORT, C DALI MD Unavailable Unavailable KORT, C DALI MD Unavailable Unavailable KORT, C DALI MD Unavailable Unavailable KORT, C DALI MD Unavailable Unavailable KORT, C DALI MD Unavailable Unavailable KORT, C DALI MD Unavailable Unavailable KORT, C DALI MD Unavailable Unavailable KORT, C DALI MD Unavailable Unavailable KORT, C DALI MD Unavailable Unavailable KORT, C DALI MD Unavailable Unavailable KORT, C DALI MD Unavailable Unavailable KORT, C DALI MD Unavailable Unavailable KORT, C DALI MD Unavailable Unavailable KORT, C DALI MD Unavailable Unavailable KORT, C DALI MD Unavailable Unavailable KORT, C DALI MD Unavailable Unavailable KORT, C DALI MD Unavailable Unavailable KORT, C DALI MD Unavailable Unavailable KORT, C DALI MD Unavailable Unavailable KORT, C DALI MD Unavailable Unavailable KORT, C DALI MD Unavailable Unavailable KORT, C DALI MD Unavailable Unavailable KORT, C DALI MD Unavailable Unavailable KORT, C DALI MD Unavailable Unavailable KORT, C DALI MD Unavailable Unavailable KORT, C DALI MD Unavailable Unavailable KORT, C DALI MD Unavailable Unavailable KORT, C DALI MD Unavailable Unavailable KORT, C DALI MD Unavailable Unavailable KORT, C DALI MD Unavailable Unavailable KORT, C DALI MD Unavailable Unavailable KORT, C DALI MD Unavailable Unavailable KORT, C DALI MD Unavailable Unavailable KORT, C DALI MD Unavailable Unavailable KORT, C DALI MD Unavailable Unavailable KORT, C DALI MD Unavailable Unavailable KORT, C DALI MD Unavailable Unavailable KORT, C DALI MD Unavailable Unavailable KORT, C DALI MD Unavailable Unavailable KORT, C DALI MD Unavailable Unavailable KORT, C DALI MD Unavailable Unavailable KORT, C DALI MD Unavailable Unavailable KORT, C DALI MD Unavailable Unavailable KORT, C DALI MD Unavailable Unavailable KORT, C DALI MD Unavailable Unavailable KORT, C DALI MD Unavailable Unavailable KORT, C DALI MD Unavailable Unavailable KORT, C DALI MD Unavailable Unavailable KORT, C DALI MD Unavailable Unavailable KORT, C DALI MD Unavailable Unavailable KORT, C DALI MD Unavailable Unavailable KORT, C DALI MD Unavailable Unavailable KORT, C DALI MD Unavailable Unavailable KORT, C DALI MD Unavailable Unavailable KORT, C DALI MD Unavailable Unavailable KORT, C DALI MD Unavailable Unavailable KORT, C DALI MD Unavailable Unavailable KORT, C DALI MD Unavailable Unavailable KORT, C DALI MD Unavailable Unavailable KORT, C DALI MD Unavailable Unavailable KORT, C DALI MD Unavailable Unavailable KORT, C DALI MD Unavailable Unavailable KORT, C DALI MD Unavailable Unavailable KORT, C DALI MD Unavailable Unavailable KORT, C DALI MD Unavailable Unavailable KORT, C DALI MD Unavailable Unavailable KORT, C DALI MD Unavailable Unavailable KORT, C DALI MD Unavailable Unavailable KORT, C DALI MD Unavailable Unavailable KORT, C DALI MD Unavailable Unavailable KORT, C DALI MD Unavailable Unavailable KORT, C DALI MD Unavailable Unavailable KORT, C DALI MD Unavailable Unavailable KORT, C DALI MD Unavailable Unavailable KORT, C DALI MD Unavailable Unavailable KORT, C DALI MD Unavailable Unavailable KORT, C DALI MD Unavailable Unavailable KORT, C DALI MD Unavailable Unavailable Chuy Womack MD Unavailable Unavailable Chuy Womack MD Unavailable Unavailable Chuy Womack MD Unavailable Unavailable Chuy Womack MD Unavailable Unavailable Chuy Womack MD Unavailable Unavailable Chuy Womack MD Unavailable Unavailable Chuy Womack MD Unavailable Unavailable Chuy Womack MD Unavailable Unavailable Chuy Womack MD Unavailable Unavailable Chuy Womack MD Unavailable Unavailable Chuy Womack MD Unavailable Unavailable Chuy Womack MD Unavailable Unavailable Chuy Womack MD Unavailable Unavailable Chuy Womack MD Unavailable Unavailable Chuy Womack MD Unavailable Unavailable Chuy Womack MD Unavailable Unavailable Chuy Womack MD Unavailable Unavailable Chuy Womack MD Unavailable Unavailable Chuy Womack MD Unavailable Unavailable Chuy Womack MD Unavailable Unavailable Chuy Womack MD Unavailable Unavailable Chuy Womack MD Unavailable Unavailable Chuy Womack MD Unavailable Unavailable Chuy Womack MD Unavailable Unavailable Chuy Womack MD Unavailable Unavailable Chuy Womack MD Unavailable Unavailable Chuy Womack MD Unavailable Unavailable Chuy Womack MD Unavailable Unavailable Chuy Womack MD Unavailable Unavailable Chuy Womack MD Unavailable Unavailable Chuy Womack MD Unavailable Unavailable Chuy Womack MD Unavailable Unavailable Chuy Womack MD Unavailable Unavailable Chuy Womack MD Unavailable Unavailable Chuy Womack MD Unavailable Unavailable Chuy Womack MD Unavailable Unavailable Chuy Womack MD Unavailable Unavailable Chuy Womack MD Unavailable Unavailable Chuy Womack MD Unavailable Unavailable Chuy Womack MD Unavailable Unavailable Chuy Womack MD Unavailable Unavailable Chuy Womack MD Unavailable Unavailable Chuy Womack MD Unavailable Unavailable Chuy Womack MD Unavailable Unavailable Chuy Womack MD Unavailable Unavailable Chuy Womack MD Unavailable Unavailable Chuy Womack MD Unavailable Unavailable Chuy Womack MD Unavailable Unavailable Chuy Womack MD Unavailable Unavailable Chuy Womack MD Unavailable Unavailable Chuy Womack MD Unavailable Unavailable Chuy Womack MD Unavailable Unavailable Chuy Womack MD Unavailable Unavailable Chuy Womack MD Unavailable Unavailable Chuy Womack MD Unavailable Unavailable Chuy Womack MD Unavailable Unavailable Chuy Womack MD Unavailable Unavailable Chuy Womack MD Unavailable Unavailable Chuy Womack MD Unavailable Unavailable Chuy Womack MD Unavailable Unavailable Chuy Womack MD Unavailable Unavailable Chuy Womack MD Unavailable Unavailable Chuy Womack MD Unavailable Unavailable Chuy Womack MD Unavailable Unavailable Chuy Womack MD Unavailable Unavailable Chuy Womack MD Unavailable Unavailable Chuy Womack MD Unavailable Unavailable Chuy Womack MD Unavailable Unavailable Chuy Womack MD Unavailable Unavailable Chuy Womack MD Unavailable Unavailable CICO, A LUZ PRODUCTION WORKER Unavailable Unavailable CICO, A LUZ PRODUCTION WORKER Unavailable Unavailable CICO, A LUZ PRODUCTION WORKER Unavailable Unavailable CICO, A LUZ PRODUCTION WORKER Unavailable Unavailable CICO, A LUZ PRODUCTION WORKER Unavailable Unavailable CICO, A LUZ PRODUCTION WORKER Unavailable Unavailable CICO, A LUZ PRODUCTION WORKER Unavailable Unavailable CICO, A LUZ PRODUCTION WORKER Unavailable Unavailable CICO, A LUZ PRODUCTION WORKER Unavailable Unavailable CICO, A LUZ PRODUCTION WORKER Unavailable Unavailable CICO, A LUZ PRODUCTION WORKER Unavailable Unavailable CICO, A LUZ PRODUCTION WORKER Unavailable Unavailable CICO, A LUZ PRODUCTION WORKER Unavailable Unavailable CICO, A LUZ PRODUCTION WORKER Unavailable Unavailable CICO, A LUZ PRODUCTION WORKER Unavailable Unavailable CICO, A LUZ PRODUCTION WORKER Unavailable Unavailable CICO, A LUZ PRODUCTION WORKER Unavailable Unavailable CICO, A LUZ PRODUCTION WORKER Unavailable Unavailable CICO, A LUZ PRODUCTION WORKER Unavailable Unavailable CICO, A LUZ PRODUCTION WORKER Unavailable Unavailable CICO, A LUZ PRODUCTION WORKER Unavailable Unavailable CICO, A LUZ PRODUCTION WORKER Unavailable Unavailable CICO, A LUZ PRODUCTION WORKER Unavailable Unavailable CICO, A LUZ PRODUCTION WORKER Unavailable Unavailable CICO, A LUZ PRODUCTION WORKER Unavailable Unavailable CICO, A LUZ PRODUCTION WORKER Unavailable Unavailable CICO, A LUZ PRODUCTION WORKER Unavailable Unavailable CICO, A LUZ PRODUCTION WORKER Unavailable Unavailable CICO, A LUZ PRODUCTION WORKER Unavailable Unavailable CICO, A LUZ PRODUCTION WORKER Unavailable Unavailable CICO, A LUZ PRODUCTION WORKER Unavailable Unavailable CICO, A LUZ PRODUCTION WORKER Unavailable Unavailable CICO, A LUZ PRODUCTION WORKER Unavailable Unavailable CICO, A LUZ PRODUCTION WORKER Unavailable Unavailable CICO, A LUZ PRODUCTION WORKER Unavailable Unavailable CICO, A LUZ PRODUCTION WORKER Unavailable Unavailable CICO, A LUZ PRODUCTION WORKER Unavailable Unavailable CICO, A LUZ PRODUCTION WORKER Unavailable Unavailable CICO, A LUZ PRODUCTION WORKER Unavailable Unavailable CICO, A LUZ PRODUCTION WORKER Unavailable Unavailable CICO, A LUZ PRODUCTION WORKER Unavailable Unavailable CICO, A LUZ PRODUCTION WORKER Unavailable Unavailable CICO, A LUZ PRODUCTION WORKER Unavailable Unavailable CICO, A LUZ PRODUCTION WORKER Unavailable Unavailable CICO, A LUZ PRODUCTION WORKER Unavailable Unavailable CICO, A LUZ PRODUCTION WORKER Unavailable Unavailable CICO, A LUZ PRODUCTION WORKER Unavailable Unavailable CICO, A LUZ PRODUCTION WORKER Unavailable Unavailable CICO, A LUZ PRODUCTION WORKER Unavailable Unavailable CICO, A LUZ PRODUCTION WORKER Unavailable Unavailable CICO, A LUZ PRODUCTION WORKER Unavailable Unavailable Fish, J Shahbaz Unavailable Unavailable Fish, J Shahbaz Unavailable Unavailable Fish, J Shahbaz Unavailable Unavailable Fish, J Shahbaz Unavailable Unavailable Fish, J Shahbaz Unavailable Unavailable Fish, J Shahbaz Unavailable Unavailable Fish, J Shahbaz Unavailable Unavailable Fish, J Shahbaz Unavailable Unavailable Fish, J Shahbaz Unavailable Unavailable Fish, J Shahbaz Unavailable Unavailable Fish, J Shahbaz Unavailable Unavailable Fish, J Shahbaz Unavailable Unavailable Fish, J Shahbaz Unavailable Unavailable Fish, J Shahbaz Unavailable Unavailable Fish, J Shahbaz Unavailable Unavailable Fish, J Shahbaz Unavailable Unavailable Fish, J Shahbaz Unavailable Unavailable Fish, J Shahbaz Unavailable Unavailable Fish, J Shahbaz Unavailable Unavailable Fish, J Shahbaz Unavailable Unavailable Fish, J Shahbaz Unavailable Unavailable Fish, J Shahbaz Unavailable Unavailable Fish, J Shahbaz Unavailable Unavailable Fish, J Shahbaz Unavailable Unavailable Fish, J Shahbaz Unavailable Unavailable Fish, J Shahbaz Unavailable Unavailable Fish, J Shahbaz Unavailable Unavailable Fish, J Shahbaz Unavailable Unavailable Fish, J Shahbaz Unavailable Unavailable Fish, J Shahbaz Unavailable Unavailable Fish, J Shahbaz Unavailable Unavailable Fish, J Shahbaz Unavailable Unavailable Fish, J Shahbaz Unavailable Unavailable Fish, J Shahbaz Unavailable Unavailable Fish, J Shahbaz Unavailable Unavailable Fish, J Shahbaz Unavailable Unavailable Fish, J Shahbaz Unavailable Unavailable Fish, J Shahbaz Unavailable Unavailable Fish, J Shahbaz Unavailable Unavailable Fish, J Shahbaz Unavailable Unavailable Fish, J Shahbaz Unavailable Unavailable Fish, J Shahbaz Unavailable Unavailable Fish, J Shahbaz Unavailable Unavailable Fish, J Shahbaz Unavailable Unavailable Fish, J Shahbaz Unavailable Unavailable Fish, J Shahbaz Unavailable Unavailable Fish, J Shahbaz Unavailable Unavailable Fish, J Shahbaz Unavailable Unavailable Fish, J Shahbaz Unavailable Unavailable Fish, J Shahbaz Unavailable Unavailable Fish, J Shahbaz Unavailable Unavailable Fish, J Shahbaz Unavailable Unavailable Fish, J Shahbaz Unavailable Unavailable Fish, J Shahbaz Unavailable Unavailable Fish, J Shahbaz Unavailable Unavailable Fish, J Shahbaz Unavailable Unavailable Fish, J Shahbaz Unavailable Unavailable Fish, J Shahbaz Unavailable Unavailable Fish, J Shahbaz Unavailable Unavailable Fish, J Shahbaz Unavailable Unavailable Fish, J Shahbaz Unavailable Unavailable Fish, J Shahbaz Unavailable Unavailable Fish, J Shahbaz Unavailable Unavailable Fish, J Shahbaz Unavailable Unavailable Fish, J Shahbaz Unavailable Unavailable Fish, J Shahbaz Unavailable Unavailable Fish, J Shahbaz Unavailable Unavailable Fish, J Shahbaz Unavailable Unavailable Fish, J Shahbaz Unavailable Unavailable Fish, J Shahbaz Unavailable Unavailable Fish, J Shahbaz Unavailable Unavailable Fish, J Shahbaz Unavailable Unavailable Fish, J Shahbaz Unavailable Unavailable Fish, J Shahbaz Unavailable Unavailable Fish, J Shahbaz Unavailable Unavailable Fish, J Shahbaz Unavailable Unavailable Fish, J Shahbaz Unavailable Unavailable Fish, J Shahbaz Unavailable Unavailable Fish, J Shahbaz Unavailable Unavailable Fish, J Shahbaz Unavailable Unavailable Fish, J Shahbaz Unavailable Unavailable Fish, J Shahbaz Unavailable Unavailable Fish, J Shahbaz Unavailable Unavailable Fish, J Shahbaz Unavailable Unavailable Fish, J Shahbaz Unavailable Unavailable Fish, J Shahbaz Unavailable Unavailable Fish, J Shahbaz Unavailable Unavailable Fish, J Shahbaz Unavailable Unavailable Fish, J Shahbaz Unavailable Unavailable Fish, J Shahbaz Unavailable Unavailable Fish, J Shahbaz Unavailable Unavailable Fish, J Shahbaz Unavailable Unavailable Fish, J Shahbaz Unavailable Unavailable Fish, J Shahbaz Unavailable Unavailable Fish, J Shahbaz Unavailable Unavailable Fish, J Shahbaz Unavailable Unavailable Fish, J Shahbaz Unavailable Unavailable Fish, J Shahbaz Unavailable Unavailable Fish, J Shahbaz Unavailable Unavailable Fish, J Shahbaz Unavailable Unavailable Fish, J Shahbaz Unavailable Unavailable Fish, J Shahbaz Unavailable Unavailable Fish, J Shahbaz Unavailable Unavailable Fish, J Shahbaz Unavailable Unavailable Fish, J Shahbaz Unavailable Unavailable Fish, J Shahbaz Unavailable Unavailable Fish, J Shahbaz Unavailable Unavailable Fish, J Shahbaz Unavailable Unavailable Fish, J Shahbaz Unavailable Unavailable Fish, J Shahbaz Unavailable Unavailable Fish, J Shahbaz Unavailable Unavailable Fish, J Shahbaz Unavailable Unavailable Fish, J Shahbaz Unavailable Unavailable Fish, J Shahbaz Unavailable Unavailable Fish, J Shahbaz Unavailable Unavailable Fish, J Shahbaz Unavailable Unavailable Fish, J Shahbaz Unavailable Unavailable Fish, J Shahbaz Unavailable Unavailable Fish, J Shahbaz Unavailable Unavailable Fish, J Shahbaz Unavailable Unavailable Fish, J Shahbaz Unavailable Unavailable Fish, J Shahbaz Unavailable Unavailable Fish, J Shahbaz Unavailable Unavailable Fish, J Shahbaz Unavailable Unavailable Fish, J Shahbaz Unavailable Unavailable Fish, J Shahbaz Unavailable Unavailable Fish, J Shahbaz Unavailable Unavailable Fish, J Shahbaz Unavailable Unavailable Fish, J Shahbaz Unavailable Unavailable Fish, J Shahbaz Unavailable Unavailable Fish, J Shahbaz Unavailable Unavailable Fish, J Shahbaz Unavailable Unavailable Fish, J Shahbaz Unavailable Unavailable Fish, J Shahbaz Unavailable Unavailable Fish, J Shahbaz Unavailable Unavailable Fish, J Shahbaz Unavailable Unavailable Fish, J Shahbaz Unavailable Unavailable Fish, J Shahbaz Unavailable Unavailable Fish, J Shabhaz Unavailable Unavailable Fish, J Shahbaz Unavailable Unavailable Fish, J Shahbaz Unavailable Unavailable Fish, J Shahbaz Unavailable Unavailable Fish, J Shahbaz Unavailable Unavailable Fish, J Shahbaz Unavailable Unavailable Fish, J Shahbaz Unavailable Unavailable Fish, J Shahbaz Unavailable Unavailable Fish, J Shahbaz Unavailable Unavailable Fish, J Shahbaz Unavailable Unavailable Fish, J Shahbaz Unavailable Unavailable Fish, J Shahbaz Unavailable Unavailable Fish, J Shahbaz Unavailable Unavailable Fish, J Shahbaz Unavailable Unavailable Fish, J Shahbaz Unavailable Unavailable Fish, J Shahbaz Unavailable Unavailable Fish, J Shahbaz Unavailable Unavailable Fish, J Shahbaz Unavailable Unavailable Fish, J Shahbaz Unavailable Unavailable Fish, J Shahbaz Unavailable Unavailable Fish, J Shahbaz Unavailable Unavailable Fish, J Shahbaz Unavailable Unavailable Fish, J Shahbaz Unavailable Unavailable Fish, J Shahbaz Unavailable Unavailable Fish, J Shahbaz Unavailable Unavailable Fish, J Shahbaz Unavailable Unavailable Fish, J Shahbaz Unavailable Unavailable Fish, J Shahbaz Unavailable Unavailable Fish, J Shahbaz Unavailable Unavailable Fish, J Shahbaz Unavailable Unavailable Fish, J Shahbaz Unavailable Unavailable Fish, J Shahbaz Unavailable Unavailable Linda Bhatia MD Unavailable Unavailable Linda Bhatia MD Unavailable Unavailable Linda Bhatia MD Unavailable Unavailable Linda Bhatia MD Unavailable Unavailable Linda Bhatia MD Unavailable Unavailable Linda Bhatia MD Unavailable Unavailable Linda Bhatia MD Unavailable Unavailable Linda Bhatia MD Unavailable Unavailable Linda Bhatia MD Unavailable Unavailable Linda Bhatia MD Unavailable Unavailable Linda Bhatia MD Unavailable Unavailable Linda Bhatia MD Unavailable Unavailable Linda Bhatia MD Unavailable Unavailable Linda Bhatia MD Unavailable Unavailable Linda Bhatia MD Unavailable Unavailable Linda Bhatia MD Unavailable Unavailable Linda Bhatia MD Unavailable Unavailable Linda Bhatia MD Unavailable Unavailable Linda Bhatia MD Unavailable Unavailable Linda Bhatia MD Unavailable Unavailable Linda Bhatia MD Unavailable Unavailable Linda Bhatia MD Unavailable Unavailable Linda Bhatia MD Unavailable Unavailable Linda Bhatia MD Unavailable Unavailable Linda Bhatia MD Unavailable Unavailable Linda Bhatia MD Unavailable Unavailable Linda Bhatia MD Unavailable Unavailable Linda Bhatia MD Unavailable Unavailable Linda Bhatia MD Unavailable Unavailable Linda Bhatia MD Unavailable Unavailable Linda Bhatia MD Unavailable Unavailable Linda Bhatia MD Unavailable Unavailable Linda Bhatia MD Unavailable Unavailable Linda Bhatia MD Unavailable Unavailable Linda Bhatia MD Unavailable Unavailable Linda Bhatia MD Unavailable Unavailable Linda Bhatia MD Unavailable Unavailable Linda Bhatia MD Unavailable Unavailable Linda Bhatia MD Unavailable Unavailable Linda Bhatia MD Unavailable Unavailable Linda Bhatia MD Unavailable Unavailable Linda Bhatia MD Unavailable Unavailable Linda Bhatia MD Unavailable Unavailable Linda Bhatia MD Unavailable Unavailable Linda Bhatia MD Unavailable Unavailable Linda Bhatia MD Unavailable Unavailable Linda Bhatia MD Unavailable Unavailable Linda Bhatia MD Unavailable Unavailable Linda Bhatia MD Unavailable Unavailable Linda Bhatia MD Unavailable Unavailable Linda Bhatia MD Unavailable Unavailable Linda Bhatia MD Unavailable Unavailable Linda Bhatia MD Unavailable Unavailable Linda Bhatia MD Unavailable Unavailable Linda Bhatia MD Unavailable Unavailable Linda Bhatia MD Unavailable Unavailable Linda Bhatia MD Unavailable Unavailable Linda Bhatia MD Unavailable Unavailable Linda Bhatia MD Unavailable Unavailable Linda Bhatia MD Unavailable Unavailable Linda Bhatia MD Unavailable Unavailable Linda Bhatia MD Unavailable Unavailable Linda Bhatia MD Unavailable Unavailable Linda Bhatia MD Unavailable Unavailable Linda Bhatia MD Unavailable Unavailable Linda Bhatia MD Unavailable Unavailable Linda Bhatia MD Unavailable Unavailable Linda Bhatia MD Unavailable Unavailable Linda Bhatia MD Unavailable Unavailable Linda Bhatia MD Unavailable Unavailable Linda Bhatia MD Unavailable Unavailable Linda Bhatia MD Unavailable Unavailable Linda Bhatia MD Unavailable Unavailable Linda Bhatia MD Unavailable Unavailable Linda Bhatia MD Unavailable Unavailable Bekah RAVI MD Unavailable Unavailable KIRILL, L AMINA MD Unavailable Unavailable KIRILL, L AMINA MD Unavailable Unavailable KIRILL, L AMINA MD Unavailable Unavailable KIRILL, L AMINA MD Unavailable Unavailable KIRILL, L AMINA MD Unavailable Unavailable KIRILL, L AMINA MD Unavailable Unavailable KIRILL, L AMINA MD Unavailable Unavailable KIRILL, L AMINA MD Unavailable Unavailable KIRILL, L AMINA MD Unavailable Unavailable KIRILL, L AMINA MD Unavailable Unavailable KIRILL, L AMINA MD Unavailable Unavailable KIRILL, L AMINA MD Unavailable Unavailable KIRILL, L AMINA MD Unavailable Unavailable KIRILL, L AMINA MD Unavailable Unavailable KIRILL, L AMINA MD Unavailable Unavailable KIRILL, L AMINA MD Unavailable Unavailable KIRILL, L AMINA MD Unavailable Unavailable KIRILL, L AMINA MD Unavailable Unavailable KIRILL, L AMINA MD Unavailable Unavailable KIRILL, L AMINA MD Unavailable Unavailable KIRILL, L AMINA MD Unavailable Unavailable KIRILL, L AMINA MD Unavailable Unavailable Birchenough, R Marine DO Unavailable Unavailable Birchenough, R Marine DO Unavailable Unavailable Birchenough, R Marine DO Unavailable Unavailable Birchenough, R Marine DO Unavailable Unavailable Birchenough, R Marine DO Unavailable Unavailable Birchenough, R Marine DO Unavailable Unavailable Birchenough, R Marine DO Unavailable Unavailable Birchenough, R Marine DO Unavailable Unavailable Birchenough, R Marine DO Unavailable Unavailable Birchenough, R Marine DO Unavailable Unavailable Birchenough, R Marine DO Unavailable Unavailable Birchenough, R Marine DO Unavailable Unavailable Birchenough, R Marine DO Unavailable Unavailable Birchenough, R Marine DO Unavailable Unavailable Re-disclosure Warning The records that you are about to access may contain information from federally-assisted alcohol or drug abuse programs. If such information is present, then the following federally mandated warning applies: This information has been disclosed to you from records protected by federal confidentiality rules (42 CFR part 2). The federal rules prohibit you from making any further disclosure of this information unless further disclosure is expressly permitted by the written consent of the person to whom it pertains or as otherwise permitted by 42 CFR part 2. A general authorization for the release of medical or other information is NOT sufficient for this purpose. The Federal rules restrict any use of the information to criminally investigate or prosecute any alcohol or drug abuse patient.The records that you are about to access may contain highly sensitive health information, the redisclosure of which is protected by Article 27-F of the [facility] Public Health law. If you continue you may have access to information: Regarding HIV / AIDS; Provided by facilities licensed or operated by the [facility] Office of Mental Health; or Provided by the [facility] Office for People With Developmental Disabilities. If such information is present, then the following [facility] mandated warning applies: This information has been disclosed to you from confidential records which are protected by state law. State law prohibits you from making any further disclosure of this information without the specific written consent of the person to whom it pertains, or as otherwise permitted by law. Any unauthorized further disclosure in violation of state law may result in a fine or senior living sentence or both. A general authorization for the release of medical or other information is NOT sufficient authorization for further disc losure. Allergies and Adverse Reactions Type Description Substance Reaction Status Data Source(s ) CLASS SULFA (sulfonamide) SULFA (sulfonamide) [facility] Drug Allergy Drug Allergy NKDA [facility] ([facility], ) Family History Family Member Name Family Member Gender Family Member Status Date o f Status Description Data Source(s) Unknown Condition [facility] Unknown Condition [facility] Unknown Unknown Problem [facility] Unknown Male Problem [facility] ([facility] Encounters Encounter Providers Location Date Indications Data Source(s ) Outpatient Attender: Eduard Womack MDReferrer: DALI GUILLORY MD LH _[id number] 04/14/2020 01:00:18 PM EST [facility] Outpatient Attender: Shahbaz Aldana [facility] 04/09/2020 09:30:0 0 AM EST [facility] ([facility] Outpatient Attender: Ivanna PRINGLE [place] [facility] 03/27/2020 09:40:00 AM EST [facility] Outpatient Attender: Ivanna PRINGLE [place] [facility] 03/17/2020 09:40:00 AM EST [facility] Emergency Attender: AMINA RAVI MDConsultant: Shahbaz Overton 03/14/2020 04:53:00 PM EST - 03/14/2020 10:10:00 PM EST [facility] Patient discharged. Outpatient Attender: Eduardedvin Womack MDReferrer: DALI GUILLORY MD LH _[id number] 03/12/2020 03:23:51 PM EST [facility] Outpatient Attender: Eduard Womack MDReferrer: DALI GUILLORY MD LH _[id number] 2020 11:10:46 AM EST [facility] Out[facility] Attender: Eduard Womack MDReferrer: DALI GUILLORY MD _[id number] 2020 11:02:42 AM EST [facility] Out[facility] Attender: Eduard Vu MDReferrer: DALI GUILLORY MD LH _[id number] 2020 10:35:18 AM EST [facility] Outpatient Attender: Eduard Vu MDReferrer: DALI GUILLORY MD LH _[id number] 2020 10:22:49 AM EST [facility] Outpatient Attender: Eduard Womack MDReferrer: DALI GUILLORY MD LH _[id number] 2020 10:18:26 AM EST [facility] Outpatient Attender: Eduard Womack MDReferrer: DALI GUILLORY MD _[id number] 2020 05:07:59 AM EST [facility] Out[facility] Attender: [facility] Office 03/04/2020 09:00:0 0 AM EST [facility] ([facility] Outpatient Attender: Ivanna PRINGLE [place] [facility] 02/25/2020 08:15:00 AM EST [facility]/22[facility] 09:30:0 0 AM EST [facility] ([facility] Outpatient Attender: Emanuel Bhatia MD [facility] office [facility] 02/21/2020 12:30:00 PM EST [facility] ([facility] sean ) Outpatient Attender: Ivanna PRINGLE [place] [facility] 02/13/2020 09:20:00 AM EST [facility] ([facility] Outpatient Attender: Eduard Womack MDReferrer: DALI GUILLORY MD _[id number] 02/11/2020 04:38:20 AM EST [facility] Outpatient Attender: Ivanna PRINGLE [place] [facility] 02/04/2020 09:30:00 AM EDT [facility] ([facility] Outpatient Attender: Delmy PRINGLE Main Office 01/31/2020 10:15:0 0 AM EDT [facility] ([facility]) Outpatient Attender: Emanuel Bhatia MD Main office [facility] 01/29/2020 08:30:00 AM EDT MED[facility] ([facility], ) Outpatient Attender: Delmy PRINGLE Main Office 01/17/2020 08:45:0 0 AM EDT [facility] ([facility]) Outpatient Attender: Shahbaz Aldana [place] [facility] 01/09/2020 09:20:0 0 AM EDT [facility] ([facility] Outpatient Attender: Ivanna PRINGLE [place] [facility] 10/19/2019 10:20:00 AM EDT [facility] ([facility] Outpatient Attender: DALI GUILLORY MD [facility] 0 12:00:00 AM EDT - 10/17/2019 11:10:02 AM EDT [facility] Outpatient Attender: Ivanna PRINGLE [place] [facility] 10/09/2019 01:15:00 PM EDT [facility] ([facility] Outpatient Attender: Shahbaz Aldana [place] [facility] 10/03/2019 08:45:0 0 AM EDT [facility] ([facility] Outpatient Attender: Ivanna PRINGLE [place] [facility] 09/21/2019 10:00:00 AM EDT [facility] ([facility] Outpatient Attender: Ivanna jacobs 09/13/2019 10:00:00 AM EDT [facility] (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 IIV4 01/09/2020 09:31:00 AM EDT completed [facility] ([facility] Medications Medication Brand Name Start Date Product Form Dose Route Admi nistrative Instructions Pharmacy Instructions Status Indications Reaction Description Data Source(s) Cephalexin 500 MG Oral Capsule [Keflex] Keflex 04/12/2020 12:00:0 0 AM EST ORAL active [facility] ([facility] Fluconazole 150 MG Oral Tablet [Diflucan] Diflucan 03/17/2020 1 2:00:00 AM EST ORAL completed [facility] ([facility] Cephalexin 500 MG Oral Capsule [Keflex] Keflex 03/17/2020 12:00:0 0 AM EST ORAL completed [facility] ([facility] Ciprofloxacin 500 MG Oral Tablet [Cipro] Cipro 02/25/2020 12:00: 00 AM EST ORAL completed [facility] ([facility] Fluconazole 150 MG Oral Tablet [Diflucan] Diflucan 02/25/2020 1 2:00:00 AM EST ORAL completed [facility] ([facility] Aspirin 325 MG Oral Tablet Aspirin Adult 02/18/2020 12:00:00 AM EST active [facility] ([facility] Fluconazole 150 MG Oral Tablet [Diflucan] Diflucan 02/04/2020 1 2:00:00 AM EDT completed [facility] ([facility] Cephalexin 500 MG Oral Capsule [Keflex] Keflex 02/04/2020 12:00:0 0 AM EDT ORAL completed [facility] ([facility] topiramate 100 MG Oral Tablet Topiramate 01/29/2020 12:00:00 AM EDT ORAL active [facility] ([facility], ) topiramate 25 MG Oral Tablet Topiramate 01/29/2020 12:00:00 AM EDT active [facility] ([facility] ) Hydrochlorothiazide 25 MG / Spironolactone 25 MG Oral Tablet [Aldactazide] Aldactazide 01/27/2020 12:00:00 AM EDT ORAL completed [facility] ([facility]) Hydrocortisone 10 MG/ML / Neomycin 3.5 M G/ML / Polymyxin B 70766 UNT/ML Otic Solution Neomycin/Polymyxin/Hydrocortisone (Otic) 01/16/2020 12:00:00 AM EDT AURICULAR completed [facility] ([facility]) Cephalexin 500 MG Oral Capsule [Keflex] Keflex 10/09/2019 12:00:0 0 AM EDT ORAL completed [facility] ([facility] Fluconazole 150 MG Oral Tablet [Diflucan] Diflucan 10/09/2019 1 2:00:00 AM EDT completed [facility] ([facility] Hydrocortisone 10 MG/ML / Neomycin 3.5 M G/ML / Polymyxin B 87063 UNT/ML Otic Solution Qhcrqdeo-Kjwposcwl-LK 09/13/2019 12:00:00 AM EDT completed [facility] ([facility] Ciprofloxacin 3 MG/ML / Dexamethasone 1 MG/ML Otic Corrina pension [Ciprodex] Ciprodex 09/13/2019 12:00:00 AM EDT AURICULAR completed [facility] ([facility] Metronidazole 0.0075 MG/MG Vaginal Gel Metronidazole 8 03:05:00 PM EDT 1 APPLIC completed [facility] Diphenhydramine Hydrochloride 25 MG Oral Capsule Diphe nhydramine Hcl Diphenhydramine Hcl 11/29/2016 10:38:00 AM EDT 25 [facility] Insurance Providers Payer name Policy type / Coverage type Policy ID Covered constitution party ID Covered constitution party's relationship to zaidi Policy Zaidi Plan Information MEDICARE COMPLETE [id number] SP [id number] [employer] OPTIONS [id number] SP [id number] MEDICARE COMPLETE [id number] SP [id number] [facility] MCRHMO [id number] SP [id number] [facility] Medicare Complete Primary [id number] MEDICARE COMPLETE-[facility] P [id number] S [id number] [employer] MEDICARE O/P [id number] 18 [id number] [employer] MEDICARE O/P [id number] 18 [id number] AARP S [id number] S [id number] MEDICARE P [id number] S [id number] A MEDICARE [id number] SP [id number] MEDICARE [id number] SP [id number] A [facility] [id number] SP [id number] [facility] MEDICARE [id number] Lizzy [id number] Self [id number] [facility] MEDICARE [id number] Lizzy [id number] BCBS Medicare Blue U/W Commercial [id number] Self [id number] Today's Options PFFS Commercial [id number] Self [id number] Medicare (Part B) Medicare Primary [id number] Self [id number] [facility]-Medicare [employer] Commercial [id number] Self [id number] [facility] Commercial [id number] Self [id number] BCBS Medicare Blue U/W Commercial [id number] Self [id number] Today[employer] Options PFFS Commercial [id number] Self [id number] Medicare (Part B) Medicare Primary [id number] Self [id number] [facility]-[employer]icare [employer] Commercial [id number] Self [id number] MEDICARE COMPLETE-[facility] O [id number] S [id number] BCBS Medicare Blue U/W Commercial [id number] Self [id number] [employer] PFFS Commercial [id number] Self [id number] Medicare (Part B) Medicare Primary [id number] Self [id number] [employer] Commercial [id number] Self [id number] BCBS Medicare Blue U/W Commercial [id number] Self [id number] [employer] Options PFFS Commercial [id number] Self [id number] Medicare (Part B) Medicare Primary [id number] Self [id number] [place] [employer]ic[employer] Commercial [id number] Self [id number] BCBS Medicare Blue U/W Commercial [id number] Self [id number] [employer] PFF[employer] Commercial [id number] Self [id number] Medicare (Part B) Medicare Primary [id number] Self [id number] [employer] Commercial [id number] Self [id number] BCBS Medicare Blue U/W Commercial [id number] Self [id number] [employer] PFF[employer] Commercial [id number] Self [id number] Medicare (Part B) Medicare Primary [id number] Self [id number] [place] [employer] Commercial [id number] Self [id number] BCBS Medicare Blue U/W Commercial [id number] Self [id number] [employer] Commercial [id number] Self [id number] Medicare (Part B) Medicare Primary [id number] Self [id number] [place] [employer] Commercial [id number] Self [id number] [facility] MEDICARE [id number] Lizzy [id number] [employer]Medicare Solutions Commercial [id number] Self [id number] BCBS Medicare Blue U/W Commercial [id number] Self [id number] [employer] Commercial [id number] Self [id number] Medicare (Part B) Medicare Primary [id number] Self [id number] [employer]ic[employer] Commercial [id number] Self [id number] BCBS Medicare Blue U/W Commercial [id number] Self [id number] [employer] Commercial [id number] Self [id number] Medicare (Part B) Medicare Primary [id number] Self [id number] [facility]-Medicare Solutions Commercial [id number] Self [id number] BS Medicare Blue U/W Commercial [id number] Self [id number] [employer] Commercial [id number] Self [id number] Medicare (Part B) Medicare Primary [id number] Self [id number] AARP HEALTH CARE OPTIONS [id number] SP [id number] MEDICARE [id number] SP [id number] A MEDICARE [id number] Lizzy [id number] A [facility] [id number] Lizzy [id number] [facility] [id number] Lizzy [id number] MEDICARE [id number] Lizzy [id number] A BS Medicare Blue U/W Commercial Self Medicare (Part B) Medicare Primary Self [employer] Commercial Self [facility] [facility] Options Medigap Part B Self [facility] Commercial Self MEDICARE PART A -O/P [id number] 18 [id number] AARP HEALTH CARE OPTIONS -O/P [id number] 18 [id number] [facility] - Medicare Blue Ppo Commercial Self Medicare Medicare Primary Self MEDICARE [id number] Lizzy [id number] A [facility] MEDICARE [id number] Lizzy [id number] MEDICARE [id number] Lizzy [id number] A AARP S [id number] S [id number] [facility] MEDICARE [id number] Lizzy [id number] [employer]/UNHC MEDICARE-O/P [id number] 18 [id number] MEDICARE COMPLETE [id number] SP [id number] [employer]HC MEDICARE-CLINIC [id number] 18 [id number] [employer]HC MEDICARE-CLINIC [id number] Problems, Conditions, and Diagnoses Code Display Name Description Problem Type Effective Dates Data Source(s) 527734669 Lacunar infarction Lacunar infarction Problem 12:00:00 AM MARGARITA ZAPATA ([facility] 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 Diagnosis 03/14/2020 04:53:00 PM [facility] I10 Essential (primary) hypertension Essential (primary) h ypertension Diagnosis 03/14/2020 04:53:00 PM [facility] E785 Hyperlipidemia, unspecified Hyperlipidemia, unspecifie d Diagnosis 03/14/2020 04:53:00 PM [facility] R55 Syncope and collapse Syncope and collapse Diagnosis 03/14/2020 04:53:00 PM [facility] Surgeries/Procedures Procedure Description Date Indications Data Source(s) ECHO TTHR R-T 2D W/WOM-MODE COMPL SPEC&COLR DOP 03/10 12:00:00 AM EST [facility] ([facility]) Magnetic Resonance Angiogtaphy Head W/O Contrast Material(S) 02/14/2020 12:00:00 AM EST [facility] ([facility] [place]) Magnetic Resonance Angiogtaphy Head W/O Contrast Material(S) 02/14/2020 12:00:00 AM EST [facility] ([facility] [place]) Magnetic Resonance Angiography Neck W/O Contrast Materials 02/14/2020 12:00:00 AM EST [facility] ([facility] [place]) Magnetic Resonance Angiography Neck W/O Contrast Materials 02/14/2020 12:00:00 AM EST [facility] ([facility] ) MRI BRAIN BRAIN STEM W/O CONTRAST MATERIAL 02/14/2020 12:00:00 AM EST [facility] ([facility], ) MRI BRAIN BRAIN STEM W/O CONTRAST MATERIAL 02/14/2020 12:00:00 AM EST [facility] ([facility]) TSTG ANS FUNCJ CARDIOVAGAL INNERVAJ PARASYMP 0 12:00:00 AM EDT [facility] ([facility]) TSTG ANS FUNCJ CARDIOVAGAL INNERVAJ PARASYMP 0 12:00:00 AM EDT [facility] ([facility]) TESTING AUTONOMIC NERVOUS SYSTEM FUNCTION 02/06/2020 1 2:00:00 AM EDT [facility] ([facility], ) TESTING AUTONOMIC NERVOUS SYSTEM FUNCTION 02/06/2020 1 2:00:00 AM EDT [facility] ([facility]) ECG ROUTINE ECG W/LEAST 12 LDS W/I&R 01/17/2020 12:00: 00 AM EDT [facility] ([facility]) Results ID Date Data Source [id number] 04/22/2020 02:20:00 PM EST [facility] Name Value Range Interpretation Code Description Data Josephine rce(s) Supporting Document(s) SARS coronavirus 2 RNA Detected [facility] This lab was ordered by [facility] and reported by [facility]. ID Date Data Source [id number] 04/09/2020 11:38:00 AM EST [facility] ([facility] Name Value Range Interpretation Code Description Data Josephine rce(s) Supporting Document(s) Urine Culture, Routine Laboratory test result [facility] ([facility] SRC:VOIDED Bacteria identified in Urine by Culture Laboratory test result [facility] ([facility] SRC:VOIDED ID Date Data Source [id number] 04/09/2020 10:56:00 AM EST [facility] Name Value Range Interpretation Code Description Data Josephine rce(s) Supporting Document(s) Glucose-Ua Laboratory test result ME DENT ([facility] Color Laboratory test result [facility] ([facility] Clarity Laboratory test result [facility] ([facility] Ketone Laboratory test result [facility] ([facility] Creatine kinase [Enzymatic activity/volume] in Serum or Plas ma 1.010 # 1.000-1.030 [facility] Bilirubin,Urine Laboratory test result [facility] ([facility] pH 7.0 # 5.0-8.0 [facility] Urobilinogen 0.2 NA 0.2-1.0 [facility] ([facility] Blood - Ua Laboratory test result Abnormal (applies to non -numeric results) [facility] ([facility] Protein Laboratory test result [facility] ([facility] Nitrite Laboratory test result [facility] ([facility] Leukocyte Laboratory test result Abnormal (applies to non -numeric results) [facility] ([facility] RBC-Ua Laboratory test result 0-3 Abnormal (applies to non -numeric results) [facility] ([facility] Epithelial Cells - Ua Laboratory test result [facility] ([facility] WBC-Ua Laboratory test result 0-5 Abnormal (applies to non -numeric results) [facility] ([facility] Bacteria - Ua Laboratory test result Abnormal (applies to non-numeric results) [facility] ([facility] ) Renal Epithelial Cells Laboratory test result Ab normal (applies to non-numeric results) [facility] ([facility] ) ID Date Data Source [id number] 03/27/2020 10:40:00 AM EST [facility] ([facility] Name Value Range Interpretation Code Description Data Josephine rce(s) Supporting Document(s) Glucose-Ua Laboratory test result ME HOLLY ([facility] Clarity Laboratory test result [facility] ([facility] Color Laboratory test result [facility] ([facility] Bilirubin,Urine Laboratory test result [facility] ([facility] Ketone Laboratory test result [facility] ([facility] Blood - Ua Laboratory test result ME ELAYNE ([facility] Creatine kinase [Enzymatic activity/volume] in Serum or Plas ma 1.020 # 1.000-1.030 [facility] Protein Laboratory test result [facility] ([facility] pH 5.5 # 5.0-8.0 [facility] ([facility] Urobilinogen 0.2 NA 0.2-1.0 [facility] ([facility] RBC-Ua Laboratory test result 0-3 Abnormal (applies to non -numeric results) [facility] ([facility] Nitrite Laboratory test result [facility] ([facility] Leukocyte Laboratory test result Abnormal (applies to non -numeric results) [facility] ([facility] Bacteria - Ua Laboratory test result Abnormal (applies to non-numeric results) [facility] ([facility] ) Mucous - Ua Laboratory test result M EDENT ([facility] Epithelial Cells - Ua Laboratory test result Above high no rmal [facility] ([facility] WBC-Ua Laboratory test result 0-5 Abnormal (applies to non -numeric results) [facility] ([facility] Crystals Laboratory test result [facility] ([facility] Renal Epithelial Cells Laboratory test result Ab normal (applies to non-numeric results) [facility] ([facility] ) ID Date Data Source [id number] 03/19/2020 12:51:00 [place] [address] PHONE: [phone] FAX: [phone] Name .................. : PJ BRAGG Acct Number.................. : [id number] ROOM. ................. : TR-07 MR Number ................... : [id number] Stay type ............. : E/R Discharge Date......... ... : 03/14/20 Admit Date ....... .. : 03/14/20 Admit Phys .................... : COONEYNORM Date of ....... : 1940 Family Phys ................... : SOHAN ALMEIDA Phone .................. : [phone] Age ................................ : 80 Film# .................. .:[id number] Sex ................................. : F Unsigned transcriptions are preliminary reports and do not represent a medical or legal document CHEST PORTABLE [id number] COMPLETE:03/14/20 17:53 DOMENICO [id number] Reason(s): syncope PORTABLE CHEST X-RAY: COMPARISON: 09/21/09 FINDINGS: There is what appears to be chronic interstitial lung disease. Definitive evidence of acute consolidation or congestive heart failure is not appreciated. The heart is not enlarged. There is no hilar adenopathy. The aorta is unfolded, tortuous and calcified. The patient is status post mediastinal surgery. IMPRESSION: No evidence of significant acute pulmonary disease. Electronically Reviewed and Signed By Raf Briones MD , 03/19/20 12:52, AML Transcribe Initials: STEFANO , Transcribe Date: 03/15/20 03:53, Dictation Date: Copy for: SOHAN ORDOÑEZ via fax Copy for: EMERGENCY DEPT via modem Copy for: 710 MED REC DISCHARGED Page 1 of 1 Name Value Range Interpretation Code Description Data Josephine rce(s) Supporting Document(s) ID Date Data Source [id number] 03/17/2020 12:05:00 PM EST [facility] [address] [place] [address] PHONE: [phone] FAX: [phone] Name .................. : PJ BRAGG Acct Number.................. : [id number] ROOM. ................. : -07 MR Number ................... : [id number] Stay type ............. : E/R Discharge Date......... ... : 03/14/20 Admit Date ....... .. : 03/14/20 Admit Phys .................... : COONEYNORM Date of ....... : 1940 Family Phys ................... : Eyelation Phone .................. : [phone] Age ................................ : 80 Film# .................. .:[id number] Sex ................................. : F Unsigned transcriptions are preliminary reports and do not represent a medical or legal document CT CTA NECK W CONT [facility] [address] COMPLETE:03/14/20 20:36 BE [id number] Reason(s): syncope CTA OF THE NECK WITH CONTRAST: INDICATION: Syncope. TECHNIQUE: CTA examination of the neck was acquired. Axial, coronal and sagittal images along with MIP images are evaluated. FINDINGS: The bilateral carotid arteries are patent. Scattered plaque identified in the carotid bulbs into the proximal right ICA. No evidence of any significant ICA stenosis. No dissection. The bilateral vertebral arteries are patent. No vertebral artery dissection. Right vertebral artery dominance. The soft tissues of the neck are unremarkable. IMPRESSION: No significant ICA stenosis. Less than 50% stenosis noted. NASCET criteria was utilized. No dissection. While performing the above CT examination, radiation dose reduction was accomplished utilizing automated exposure control, adjusting of the mA and kV based on the patient's body size and/or the use of imperative reconstructive techniques. CT dose: 2092.7 mGycm Contrast agent in mL: 75 Isovue 370 Method of administration: Intravenous Page 1 of 2 [facility] [address] [place] [address] [place] [address] PHONE: [phone] FAX: [phone] Name .................. : PJ BRAGG Acct Number.................. : [id number] ROOM. ................. : TR-07 MR Number ................... : [id number] Stay type ............. : E/R Discharge Date......... ... : 03/14/20 Admit Date ......... : 03/14/20 Admit Phys .................... : COANNETTE Date of ....... : 1940 Family Phys ................... : SOHAN ALMEIDA Phone .................. : [phone] Age ................................ : 80 Film# .................. .:[id number] Sex ................................. : F Unsigned transcriptions are preliminary reports and do not represent a medical or legal document [place] [address] COMPLETE:03/14/20 20:36 BEM 75050 Reason(s): syncope Electronically Reviewed and Signed By Arnaldo Dale MD , 03/17/20 12:05, MARILYN Transcribe Initials: STEFANO , Transcribe Date: 03/15/20 02:17, Dictation Date: Copy for: SOHAN SHAHBAZ via fax Copy for: EMERGENCY DEPT via modem Copy for: 710 MED REC DISCHARGED Page 2 of 2 Name Value Range Interpretation Code Description Data Josephine rce(s) Supporting Document(s) ID Date Data Source [id number] 03/17/2020 12:05:00 [place] [address] PHONE: [phone] FAX: [phone] Name .................. : PJ JUDITH Acct Number.................. : [id number] ROOM. ................. : TR-07 MR Number ................... : [id number] Stay type ............. : E/R Discharge Date......... ... : 03/14/20 Admit Date ....... .. : 03/14/20 Admit Phys .................... : COONEYNORM Date of ....... : 1940 Family Phys ................... : SOHAN ALMEIDA Phone .................. : [phone] Age ................................ : 80 Film# .................. .:[id number] Sex ................................. : F Unsigned transcriptions are preliminary reports and do not represent a medical or legal document [place] [address] COMPLETE:03/14/20 20:35 BEM 21459 Reason(s): syncope CTA OF THE HEAD WITH CONTRAST: INDICATION: Syncope. FINDINGS: The distal ICAs and vertebral arteries are patent. The basilar artery is unremarkable. No cerebral artery aneurysm. No cerebral artery stenosis or occlusion identified. There is symmetric branching of both right and left anterior, middle and posterior cerebral arteries. No arteriovenous malformation. MIP images are also evaluated. IMPRESSION: No cerebral artery aneurysm or stenosis. While performing the above CT examination, radiation dose reduction was accomplished utilizing automated exposure control, adjusting of the mA and kV based on the patient's body size and/or the use of imperative reconstructive techniques. CT dose: 2092.7 mGycm Contrast agent in mL: 75 Isovue 370 Method of administration: Intravenous Electronically Reviewed and Signed By Arnaldo Dale MD , 03/17/20 12:05, MARILYN Page 1 of 2 [place] [address] PHONE: [phone] FAX: [phone] Name .................. : PJ BRAGG Acct Number.................. : [id number] ROOM. ................. : TR-07 MR Number ................... : [id number] Stay type ............. : E/R Discharge Date......... ... : 03/14/20 Admit Date ......... : 03/14/20 Admit Phys .................... : COONEYNORM Date of ....... : 1940 Family Phys ................... : SOHAN ALMEIDA Phon e .................. : [phone] Age ................................ : 80 Film# .................. .:[id number] Sex ................................. : F Unsigned transcriptions are preliminary reports and do not represent a medical or legal document [place] [address] COMPLETE:03/14/20 20:35 BEM 00478 Reason(s): syncope Transcribe Initials: STEFANO , Transcribe Date: 03/15/20 02:13, Dictation Date: Copy for: SOHAN ORDOÑEZ via fax Copy for: EMERGENCY DEPT via modem Copy for: 710 MED REC DISCHARGED Page 2 of 2 Name Value Range Interpretation Code Description Data Josephine rce(s) Supporting Document(s) ID Date Data Source [id number] 03/17/2020 12:05:00 [place] [address] PHONE: [phone] FAX: [phone] Name .................. : PJ BRAGG Acct Number.................. : [id number] ROOM. ................. : TR-07 MR Number ................... : [id number] Stay type ............. : E/R Discharge Date......... ... : Admit Date ......... : 07/29 Admit Phys .................... : COONEYNORM Date of ....... : 1940 Family Phys ................... : SOHAN ALMEIDA Phone .................. : [phone] Age ................................ : 80 Film# .................. .:[id number] Sex ................................. : F Unsigned transcriptions are preliminary reports and do not represent a medical or legal document CT HEAD W/O CONTRAST 35591 COMPLETE:03/14/20 17:45 71850 Reason(s): Syncope CT OF THE HEAD WITHOUT CONTRAST: INDICATION: Syncope. FINDINGS: Age appropriate atrophy. No bleeds. No mass or mass effect. No midline shift. No skull fracture. The visualized paranasal sinuses and mastoid air cells are unremarkable. IMPRESSION: No acute intracranial process. Atrophy. While performing the above CT examination, radiation dose reduction was accomplished utilizing automated e xposure control, adjusting of the mA and kV based on the patient's body size and/or the use of imperative reconstructive techniques. CT dose: 854.8 mGycm Electronically Reviewed and Signed By Arnaldo Dale MD , 03/17/20 12:05, MARILYN Transcribe Initials: STEFANO , Transcribe Date: 03/14/20 19:14, Dictation Date: Copy for: SOHAN ORDOÑEZ via fax Copy for: EMERGENCY DEPT via modem Copy for: 710 MED REC DISCHARGED Page 1 of 1 Name Value Range Interpretation Code Description Data Josephine rce(s) Supporting Document(s) ID Date Data Source [id number] 03/17/2020 10:37:00 AM EST [facility] ([facility] Name Value Range Interpretation Code Description Data Josephine rce(s) Supporting Document(s) Color Laboratory test result [facility] ([facility] Bilirubin,Urine Laboratory test result [facility] ([facility] Clarity Laboratory test result [facility] ([facility] Glucose-Ua Laboratory test result ME DENT ([facility] Creatine kinase [Enzymatic activity/volume] in Serum or Plas ma 1.020 # 1.000-1.030 [facility] Blood - Ua Laboratory test result Abnormal (applies to non -numeric results) [facility] ([facility] Ketone Laboratory test result [facility] ([facility] Protein 30 mg/dL Abnormal (applies to non-numeric res ults) [facility] ([facility] pH 6.0 # 5.0-8.0 [facility] Urobilinogen 0.2 NA 0.2-1.0 [facility] Epithelial Cells - Ua Laboratory test result [facility] ([facility] Leukocyte Laboratory test result Abnormal (applies to non -numeric results) [facility] ([facility] RBC-Ua Laboratory test result 0-3 Abnormal (applies to non -numeric results) [facility] ([facility] Nitrite Laboratory test result [facility] ([facility] Bacteria - Ua Laboratory test result Abnormal (applies to non-numeric results) [facility] ([facility] ) WBC-Ua Laboratory test result 0-5 Abnormal (applies to non -numeric results) [facility] ([facility] ID Date Data Source [id number] 03/14/2020 04:53:00 PM [facility] 1 OrderSheet [facility] [address] [place] [address] Phone #: ext- [phone] 03/14/2020 16:44 Patient: JUDITH ZAVALA Merged With [facility]#: [id number] Sex: F : 1940 Age: 80yWEIGHT:72.5 kg (S) HEIGHT:63 inches (S) BMI:28.3ALLERGIES: Doxycycline, Morphine and Related, Sulfa AntibioticsDIAGNOSIS: SyncopeLAB ORDERSOrder Description Priority Entered Acknowledged InitialedCBC w Diff STAT 17:45 03/14/2020 17:48 Kirill Vital Norma MD; Collin CummingsCMP STAT 17:45 03/14/2020 17:48 Kirill Vital Norma MD; Collin CummingsMagnesium STAT 17:45 03/14/2020 17:48 Kirill Vital Norma MD; Collin CummingsUrinalysis (Clean STAT 17:45 03/14/2020 17:59 Amanuel,Catch) Amina Ravi MD; Collin CummingsTroponin-T STAT 17:45 03/14/2020 17:48 Kirill Vital Norma MD; Collin CummingsTSH STAT 17:45 03/14/2020 17:48 Kirill Vital Norma MD; Collin CummingsBNP STAT 17:45 03/14/2020 17:48 Kirill Vital Norma MD; Collin CummingsCulture, Urine STAT 18:56 03/14/2020 19:05 Amanuel(Urine, Catheter) Amina Ravi MD; Collin CummingsDIAGNOSTIC STUDY ORDERSOrder Description Priority Entered Acknowledged InitialedChest Portable 1 STAT 17:45 03/14/2020 17:48 Amanuel,View Amina Ravi MD; Collin Cummings(Oxygen?(No)) Reason for Study: syncopeCT Head W/O Cont STAT 17:45 03/14/2020 17:48 Amanuel(Oxygen?(No)) Amina Ravi MD; Collin Cummings Reason for Study: SyncopeCT CTA HEAD W STAT 19:07 03/14/2020 19:43 [employer] [employer] PP Amina Ravi MD; Collin Cummings(Oxygen?(No))(IV?(Yes)) Reason for Study: syncopeCT CTA NECK W STAT 19:07 03/14/2020 19:43 [facility] PP Amina Ravi MD; Collin Cummings 2 OrderSheet [facility] [address] [place] [address] Phone #: ext- [phone] 03/14/2020 16:44 Patient: JUDITH ZAVALA Sex: F : 1940 Age: 80y(Oxygen?(No))(IV?(No)) Reason for Study: syncopeMEDICATION/IV/DRIP/FLUID ORDERSOrder Description Priority Entered Acknowledged InitialedRocephin 18:56 03/14/2020 19:29 Amanuel,(1gm/50mL) IVPB Amina Ravi MD; Collin Cummings1000 mg withDextrose 50 mlspike bag (D5W)GENERAL ORDERSOrder Description Priority Entered Acknowledged Initialed[Electronically signed by Collin Vital R.N. (22:09 03/14/2020)][Electronically signed by Amina Ravi MD (06:08 03/15/2020)][Electronically locked by Collin Vital R.N. (22:03/14/2020)] Name Value Range Interpretation Code Description Data Josephine rce(s) Supporting Document(s) ID Date Data Source [id number] 03/14/2020 04:53:00 PM EST [facility] 1 Medication Reconciliation Report [facility] [address] [place] [address] Phone #: ext- [phone] 03/14/2020 16:44 Patient: JUDITH ZAVALA Sex: F : 1940 Age: 80yWeight: 72.5 kgHeight/Length: 63 in.BMI: 28.3ALLERGIES: Doxycycline, Morphine and Related, Sulfa AntibioticsThe patient's Home Medications are listed below:CONTINUE TAKING THE FOLLOWING MEDICATIONS: Aspirin Oral (325 mg), daily Meclizine HCl Oral 50 mg, 3x a day Metoprolol Tartrate Oral 50 mg, 2x a day Nortriptyline HCl Oral 75 mg, at bedtime Omeprazole Oral 40 mg, daily Topiramate Oral 100 mg, at bedtime Tylenol Oral Zofran OralThe source(s) of the original Home Medication information:patientThe following Medications were given to the patient in the Emergency Department:ROCEPHIN (1GM/50ML) [IVPB] IVPB bolus 0, then 1000 mg 100 mL/hr, administered: 03/14/2020 7:29:00PMThe following Medications were prescribed to the patient:None. Name Value Range Interpretation Code Description Data Josephine rce(s) Supporting Document(s) ID Date Data Source [id number] 03/14/2020 04:53:00 PM EST [facility] 1 Medication Administration Record [facility] [address] [place] [address] Phone #: ext- [phone] 03/14/2020 16:44 Patient: JUDITH ZAVALA Sex: F : 1940 Age: 80yWeight: 72.5 kgHeight/Length: 63 inBMI: 28.3ALLERGIES: Doxycycline, Sulfa Antibiotics, Morphine and Related Date/Time Medication Administered Medication OrderedStart ROCEPHIN (1GM/50ML) [IVPB] Rocephin (1gm/50mL) IVPB [id number] 03/14/2020 (CEFTRIAXONE SODIUM) mg with Dextrose 50 ml spike Collin Marcano R.N. Dose: 1000 mg IVPB (D5W)---- Rate: 100 mL/hr over 30 minute(s)Stop Dispensed: 50 mL bag22:09 03/14/2020 Site: #1 left crysCollin Vital R.N. Name Value Range Interpretation Code Description Data Josephine rce(s) Supporting Document(s) ID Date Data Source [id number] 03/14/2020 04:53:00 PM EST [facility] 1 General Instructions [facility] [address] [place] [address] Phone #: ext- [phone] 03/14/2020 16:44 Patient: JUDITH ZAVALA Sex: F : 1940 Age: 80ySyncope.Infiltrated iv left wrist.INSTRUCTIONSNo strenuous activity. Rest.(Please follow up with your primary care physician. return if any issues. please keep your left armelevated. you may do warm compressed to help with the mild swelling due to the infiltrated iv. pleasefollow up with your doctor and discuss your brief episode of passing out.).Warnings: Further evaluation is necessary.GENERAL WARNINGS: Return or contact your physician immediately if your condition worsens orchanges unexpectedly, if not improving as expected, or if other problems arise.Your Current Medications: Your current home medications have been reviewed.CONTINUE TAKING THE FOLLOWING MEDICATIONS:Aspirin Oral : Tablet 325 mg, daily.Meclizine HCl Oral : 50 mg 3x a day.Metoprolol Tartrate Oral : 50 mg 2x a day.Nortriptyline HCl Oral : 75 mg, at bedtime.Omeprazole Oral : 40 mg daily.Topiramate Oral : 100 mg, at bedtime.Tylenol Oral.Zofran Oral.Follow-up:Follow up with your doctor Tuesday even if well. Call for an appointment. Reason for referral: evaluation.Summary of care provided to patient via paper.Understanding of the discharge instructions verbalized by patient. ADDITIONAL INFORMATIONFainting: Uncertain CauseFainting (syncope) is a temporary loss of consciousness, which is often associated with a loss ofpostural tone. There are other causes of fainting, too. It's also called passing out. It occurs when 2 General Instructions [facility] [address] [place] [address] Phone #: ext- [phone] 03/14/2020 16:44 Patient: JUDITH ZAVALA Sex: F : 1940 Age: 80yblood flow to the brain is less than normal. Near-fainting (near-syncope) is very similar to fainting, butyou don't fully pass out.Common minor causes of fainting include: Sudden fear Pain Nausea Emotional stress OverexertionSuddenly standing up after sitting or lying for a long time can also cause fainting.More serious causes of fainting include: Very slow or very fast heartbeat (arrhythmia) Other types of heart disease, such as heart valve disease or coronary artery disease Dehydration Loss of blood Seizure Stroke Ruptured blood vessel in the brainTaking too much high blood pressure medicine can also cause low blood pressure and fainting.Your healthcare provider does not know the exact cause of your fainting. But the tests today did notshow any of the serious causes of fainting. Sometimes you may need more tests to find out if youhave a serious problem. That's why it's important to follow up with your provider as advised.Home careFollow these guidelines when caring for yourself at home: Rest today. You may go back to your normal activities when you are feeling back to normal. It is best to stay with someone who can check on you for the next 24 hours to watch for another episode of fainting. If you become lightheaded or dizzy, lie down right away and try to prop your feet above the level of your head. Or sit with your head between your knees. 3 General Instructions [facility] [address] [place] [address] Phone #: ext- [phone] 03/14/2020 16:44 Patient: JUDITH ZAVALA Sex: F : 1940 Age: 80y Because the provider doesn't know the exact cause of your fainting or near-fainting spell, it's possible for you to have another spell without warning. Because of this, don't drive a car or operate dangerous equipment. Don't take a bath alone. Use a shower instead. Don't swim alone until your healthcare provider says that you are no longer in danger of having another fainting spell.Follow-up careFollow up with your healthcare provider, or as advised.Call [phone] if any of these occur: Another fainting spell that's not explained by the common causes listed above Pain in your chest, arm, neck, jaw, back, or abdomen Shortness of breath Severe headache or seizure Blood in vomit or stools (black or red color) Unexpected vaginal bleeding Your heart beats very rapidly, very slowly, or irregularly (palpitations) Weakness in an arm or leg or on one side of the face Difficulty speaking or seeing Extreme drowsiness, confusion, dizziness, or fainting [id number] [employer]. [address] [place] [address]. All rights reserved. This information is not intended as asubstitute for professional medical care. Always follow your healthcare professional's instructions. You have been given the following additional information: Syncope, Unk Cause No strenuous activity. Rest. 4 General Instructions [facility] Emergency Department [address] [place] [address] Phone #: ext- [phone] 03/14/2020 16:44 --------- Patient: JUDITH ZAVALA Sex: F : 1940 Age: 80y(Electronically signed by Amina Ravi MD 03/15/2020 06:08) Name Value Range Interpretation Code Description Data Josephine rce(s) Supporting Document(s) ID Date Data Source [id number] 03/14/2020 04:53:00 PM EST [facility] 1 Clinical Report - Nurses [facility] Department [address] [place] [address] Phone #: ext- [phone] 03/14/2020 16:44 Patient: JUDITH ZAVALA Sex: F : 1940 Age: 80yTRIAGEArrived by private vehicle. Historian: patient. Accompanied by family. ( presents with c/o syncopalepisode on 03/11, states she got dizzy and passed out for couple sec. [place] due [place]x of stroke and instructed to go to ER. no more episodes since , does c/o slight headache over R eyeand back of head.).Triage time: 16:45 03/14/2020. Acuity: LEVEL 3.Alert. No acute distress.This occurred 3 days. Witnessed: Event was witnessed.Treatment COLOR CARD MAKER:None.SEPSIS SCREEN: SIRS Screen negative. Sepsis Screen negative. No suspected or confirmed signs ofinfection present. --17:05 03/14/20 Luz Schulte RN16:53 03/14/20. BP: 144/100. MAP: 114. HR: 83. RR: 16. O2 saturation: 95%. Temp: 97.1 F. Pain levelnow: 07/19. --17:05 03/14/20 Luz Schulte, RNChief Complaint: NEAR-SYNCOPE. --22:09 03/14/20 Collin Vital R.N.Weight: 72.5 kg stated. Height/Length: 63 inches Per Patient. BMI: 28.3. --16:52 03/14/20 Luz Schulte RN.MedicationsAspirin Oral (Tablet 325 mg), daily. --16:58 03/14/20 Luz Schulte RN Topiramate Oral 100 mg, at bedtime. --16:59 03/14/20 Luz Schulte, GARCIA Nortriptyline HCl Oral 75 mg, at bedtime. --16:59 03/14/20 Luz Schulte RN Meclizine HCl Oral 50 mg, 3x a day. --17:03 03/14/20 Luz Schulte RN Zofran Oral. --17:03 03/14/20 Luz Schulte RN Metoprolol Tartrate Oral 50 mg, 2x a day. --17:04 03/14/20 Luz Schulte RN Omeprazole Oral 40 mg, daily. --17:04 03/14/20 Luz Schulte RN Tylenol Oral. --17:04 03/14/20 Luz Schulte RN.AllergiesMorphine and Related.Sulfa Antibiotics. --16:59 03/14/20 Luz Schulte RNDoxycycline. --17:00 03/14/20 Luz Schulte RN.PROBLEMS:CVA - Cerebrovascular Accident. 2 Clinical Report - Nurses [facility] Emergency Department [address] [place] [address] Phone #: ext- [phone] 03/14/2020 16:44 Patient: JUDITH ZAVALA Sex: F : 1940 Age: 80yHypertension.Gastroesophageal Reflux Disease.Generalized anxiety disorder.Hyperlipidemia.Aortic valve disorder.Breast Cancer.Vertigo.Migraine Headache. --17:04 03/14/20 Luz Schulte RN.Medication/allergy information source: the patient. --17:05 03/14/20 Brown, Luz, RN.ADDITIONAL SURGERIES:Aortic valve replacement.Bladder Suspension.Cholecystectomy.Hysterectomy.Lumpectomy of breast. --17:04 03/14/20 Luz Schulte RN.HistorySOCIAL HX: Never smoker. No alcohol use or drug use. She was offered HIV testing but declined andhepatitis C testing but declined. She has not traveled outside the [place]Infectious disease exposure: No infectious disease exposure.SELF HARM ASSESSMENT: Self harm assessment was performed. The patient answered "no" to thequestion(s) "Have you recently felt down, depressed, or hopeless?".ABUSE ASSESSMENT: No report of abuse.NUTRITIONAL RISK ASSESSMENT: The nutritional risk assessment revealed no deficiencies.FUNCTIONAL ASSESSMENT: Functional assessment: no impairments noted.LEARNING NEEDS ASSESSMENT: The learning needs assessment revealed no barriers.FALL RISK ASSESSMENT: Fall risk assessment completed. Risk factors identified include nausea,dizziness, vertigo and patient medications, age greater than 65 years and impairment of mobility andcognition. Fall interventions initiated. Patient placed on stretcher. Side rails up x2. Bed in low position.Brakes on. Call light in reach of patient. Instructed not to get up without assistance. Instructions given topatient.SKIN INTEGRITY ASSESSMENT: Skin integrity risk assessment completed. No skin integrity riskidentified. --17:05 03/14/20 Luz Schulte RN.PHYSICAL ASSESSMENT 3 Clinical Report - Nurses [facility] Emergency Department [address] [place] [address] Phone #: ext- [phone] 03/14/2020 16:44 Patient: JUDITH ZAVALA Sex: F : 1940 Age: 80y GENERAL / NEURO / PSYCH: Oriented X 4. Appears in no acute distress. Alert. Speech within normal limits. HEENT: Pupils equal, round and reactive to light. RESPIRATORY: Respirations not labored. CVS: Normal sinus rhythm noted. SKIN: Skin is warm and dry. --17:31 03/14/20 Collin Vital R.N.NURSING PROGRESS NOTESPatient gowned. Reassurance given. Two patient identifiers checked. Side rails up x 2. Bed placed inlowest position. Brakes of bed on. Patient ready for evaluation. --17:06 03/14/20 Luz Schulte, RN Patient transported to CT by stretcher with tech. --17:48 03/14/20 Collin Vital R.N. 19:29 03/14/2020 Site #1 started via IV in the left forearm; three attempts. Saline lock flushed with 5 mL saline. --19:29 03/14/20 Collin Vital R.N. 19:29 03/14/2020 Started 1000 mg of ROCEPHIN (1GM/50ML) (cefTRIAXone Sodium) IVPB in bag #1 50 mL; at 100 mL/hr over 30 minute(s) via site #1. --19:29 03/14/20 Collin Vital R.N. Patient transported to CT by wheelchair with tech. --19:43 03/14/20 Collin Vital R.N. Patient returned from CT by wheelchair with tech. --20:30 03/14/20 Collin Vital R.N. ( IV blew when approx 70 percent of contrast was injected per food equipment service technician. Warm compress applied to site. Pt resting comfortably. notified.). --20:31 03/14/20 Collin Vital R.N. Reassurance given to the patient. The patient is calm and resting quietly. --21:20 03/14/20 Collin Vital R.N. 21:19 03/14/20. BP: 135/87. MAP: 103. HR: 67. RR: 18. O2 saturation: 97%. Temp: deferred. Pain level now: 0/10. --21:20 03/14/20 Collin Vital R.N. 22:00 03/14/20. BP: 143/81. MAP: 101. HR: 61. RR: 18. O2 saturation: 97%. Temp: deferred. Pain level now: 0/10. --22:00 03/14/20 Collin Vital R.N. The patient is calm and resting quietly. Overall patient status- she states feels the same. --22:00 03/14/20 Collin Vital R.N. 22:09 03/14/2020 ROCEPHIN (1GM/50ML) IVPB via IV site #1 Discontinued: bag #1 infused upon discharge. Total amount infused: 600 mL. --22:09 03/14/20 Collin Vital R.N.DISPOSITION / DISCHARGE No learning barriers present. Discharge instructions provided and reviewed with the patient. The patient was discharged by the physician. She was discharged home and accompanied by spouse. She left 4 Clinical Report - Nurses [facility] Department [address] [place] [address] Phone #: ext- [phone] 03/14/2020 16:44 Patient: JUDITH ZAVALA Sex: F : 1940 Age: 80y ambulatory and via private vehicle. Spouse driving. --22:08 03/14/20 Collin Vital R.N. 22:08 03/14/20. BP: 142/71. MAP: 94. HR: 63. RR: 16. O2 saturation: 97%. Temp: deferred. Pain level now: 0/10. --22:08 03/14/20 Collin Vital R.N. Departure time: 22:09 03/14/2020. --22:09 03/14/20 Collin Vital R.N.Locked/Released at 03/14/2020 22:09 by Collin Vital R.N. Name Value Range Interpretation Code Description Data Josephine rce(s) Supporting Document(s) ID Date Data Source [id number] 03/14/2020 04:53:00 PM EST [facility] 1 Clinical Report - Physicians/Mid Levels [facility] Department [address] [place] [address] Phone #: ext- [phone] 03/14/2020 16:44 [id number] Sex: F : 1940 Age: 80y Arrived- By private vehicle. Historian- patient. Disposition decision: 22:09 03/14/2020.HISTORY OF PRESENT ILLNESS Chief Complaint: syncope. This started 4 days ago and is now gone. At its maximum, severity described as mild. When seen in the E.D., it was gone. Modifying factors. Not worsened by anything. Not relieved by anything. No loss of appetite, weight loss, headache, visual disturbance or fatigue. No muscle aches or weakness. Denies sleep problem. No decreased urine output. No current or associated symptoms. (resents with c/o syncopal episode on 03/11, states she got dizzy and passed out for couple sec. she sees neuro in [place] due to hx of stroke and instructed to go to ER. no more episodes since , does c/o slight headache over R eye and back of head.) pt reiterated that her syncope lasted only a few seconds. she denies any weakness to an arm or a leg.). Similar symptoms previously. None. Recent medical care: Not recently seen/assessed.REVIEW OF SYSTEMSNo fever, sore throat or throat, sinus drainage or nasal congestion. No cough, difficulty breathing, chestpain or pain or abdominal pain. No nausea, vomiting, diarrhea, black stools or bloody stools. No chills,difficulty with urination or urination or abnormal bleeding. No skin rash or rash, back pain, calf pain orheadache. No blackouts, double vision or vision, chills or fever. No ear pain, runny nose, cough,difficulty breathing or constipation. No diarrhea, nausea, vomiting, urinary frequency or hematuria. Nojoint pain, headache, seizure or easy bruising. No difficulty with ambulation.PAST HISTORYSee nurses notes. Problems: Hypertension. Generalized anxiety disorder. Hyperlipidemia. Vertigo. Migraine Headache. Additional Surgeries: Aortic valve replacement. Bladder Suspension. Cholecystectomy. Hysterectomy. 2 Clinical Report - Physicians/Mid Levels [facility] Department [address] [place] [address] Phone #: ext- [phone] 03/14/2020 16:44 Patient: JUDITH ZAVALA Sex: F : 1940 Age: 80y Lumpectomy of breast. Medications: Tylenol Oral. Omeprazole Oral 40 mg, daily. Metoprolol Tartrate Oral 50 mg, 2x a day. Zofran Oral. Meclizine HCl Oral 50 mg, 3x a day. Nortriptyline HCl Oral 75 mg, at bedtime. Topiramate Oral 100 mg, at bedtime. Aspirin Oral (Tablet 325 mg), daily. Allergies: Doxycycline. Morphine and Related. Sulfa Antibiotics.SOCIAL HISTORYNo drug use.ADDITIONAL NOTESThe nursing notes have been reviewed.PHYSICAL EXAMVital Signs: 03/14/2020 22:08 BP: 142/71. MAP: 94. HR: 63. RR: 16. O2 saturation: 97%. Pain level now:0.03/14/2020 22:00 BP: 143/81. MAP: 101. HR: 61. RR: 18. O2 saturation: 97%. Pain level now: 0.03/14/2020 21:19 BP: 135/87. MAP: 103. HR: 67. RR: 18. O2 saturation: 97%. Pain level now: 0.03/14/2020 16:53 BP: 144/100. MAP: 114. HR: 83. RR: 16. O2 saturation: 95%. Temp: 97.1 F. Pain levelnow: 10. Have been reviewed and appear to be correct. Blood pressure normal. Mean arterialpressure- high. Heart rate normal. Respiratory rate normal. Temperature normal. Oxygen saturationnormal.Appearance: Alert. No acute distress.Eyes: Pupils equal, round and reactive to light. Eyes normal inspection.ENT: Ears normal. Nose normal. Pharynx normal.Neck: Normal inspection. Neck supple.CVS: Normal heart rate and rhythm. Heart sounds normal. Pulses normal.Respiratory: No respiratory distress. Painless inspiration. Breath sounds normal. Chest nontender.Abdomen: No visible injury. Soft and nontender.Back: Normal inspection. No CVA tenderness.Skin: Skin warm and dry. Normal skin color. No rash. Normal skin turgor.Extremities: Extremities exhibit normal ROM. No lower extremity edema.Neuro: Oriented X 3. No motor deficit. No sensory deficit.LABS, X-RAYS, AND EKG 3 Clinical Report - Physicians/Mid Levels [facility] Department [address] [place] [address] Phone #: ext- [phone] 03/14/2020 16:44 Patient: JUDITH ZAVALA Sex: F : 1940 Age: 80yLaboratory Tests:CT CTA HEAD W CONTRAST INC PP: (TAHMINA: 03/14/2020 19:07) ( MsgRcvd 03/14/2020 20:36) In ProgressCT CTA HEAD W CONTRAST INC PPReason(s): syncopeTRANSPORTATION: S IV? IV?(Yes) O2? Oxygen?(No) RoCT CTA NECK W CONT INC PP: (TAHMINA: 03/14/2020 19:07) ( MsgRcvd 03/14/2020 20:36) In ProgressCT CTA NECK W CONT INC PPReason(s): syncopeTRANSPORTATION: S IV? IV?(No) O2? Oxygen?(No) RooCulture, Urine: (TAHMINA: 03/14/2020 18:56) ( MsgRcvd 03/14/2020 19:55) CanceledSOURCE: Urine, CatheterBNP: (TAHMINA: 03/14/2020 18:28) ( MsgRcvd 03/14/2020 19:28) Final results Test Result Flag Units (Reference) BNP 75 PG/ML (0 - 450)CBC w Diff: (TAHMINA: 03/14/2020 18:28) ( [facility] 03/14/[facility] 19:13) Final results Test Result Flag Units (Reference) CBC W/AUTOMATED DIFF COMPLETE BLOOD COUNT WBC 7.3 10/uL (4.2 - 11.0) RBC 5.26 10/uL (4.20 - 5.40) HEMOGLOBIN 13.9 g/dL (12.0 - 16.0) HEMATOCRIT 42.8 % (37.0 - 47.0) MCV 81.4 fL (81.0 - 101) MCH 26.4 L pg (27.0 - 34.0) MCHC 32.5 g/dL (31.0 - 36.0) RDW 15.0 H % (11.5 - 14.5) PLATELETS 192 10/uL (150 - 450) MPV 13.1 H fL (7.4 - 10.4) NEUT 67.3 % (37.0 - 80.0) LYMPH 23.9 L % (25.0 - 40.0) MONO 6.3 % (3.0 - 8.0) EOS 1.9 % (0.0 - 7.0) BASO 0.5 % (0.0 - 2.5) %IG 0.1 H % (0.0 - 0.0) %NRBC 0.0 % (0.0 - 0.0) #NEUT 4.92 10/uL (2.00 - 6.90) #LYMPH 1.75 10/uL (0.60 - 3.40) #MONO 0.46 10/uL (0.00 - 0.90) #EOS 0.14 10/uL (0.00 - 0.70) #BASO 0.04 10/uL (0.00 - 0.20) #IG 0.01 10/uL (0.00 - 0.10) #NRBC 0.00 10/uL (0.00 - 0.00) MANUAL DIFF NOT INDICATED RBC MORPH NOT INDICA TEDCMP: (TAHMINA: 03/14/2020 18:28) ( [facility] 03/14/2020 19:31) Final results Test Result Flag Units (Reference) 4 Clinical Report - Physicians/Mid Levels [facility] Emergency Department [address] [place] [address] Phone #: ext- [phone] 03/14/2020 16:44 Patient: JUDITH ZAVALA Sex: F : 1940 Age: 80y COMPREHENSIVE METABOLIC PANEL COMPREHENSIVE METABOLIC PANEL SODIUM 140 mEq/L (134 - 153) POTASSIUM 4.0 mEq/L (3.6 - 5.0) CHLORIDE 106 mEq/L (98 - 107) CO2 25 MEQ/L (22 - 30) GLUCOSE 92 MG/DL (65 - 110) BUN 14 MG/DL (7 - 21) CREATININE 0.9 MG/DL (0.7 - 1.5) BUN/CREAT 16 (8 - 27) TOTAL PROTEIN 6.6 G/DL (6.3 - 8.2) ALBUMIN 4.0 G/DL (3.9 - 5.0) GLOBULIN 2.6 GM/DL (2.4 - 3.2) A/G RATIO 1.5 (0.8 - 2.0) CALCIUM 9.7 MG/DL (8.4 - 10.2) TOTAL BILI <0.7 MG/DL (0.2 - 1.3) ALKALINE PHOS 100 U/L (38 - 126) SGOT/AST 25 U/L (5 - 40) SGPT/ALT 19 U/L (7 - 56) ANION GAP 9.0 mmol/L (8.0 - 16.0) AGE 80 yrs NON-AA GFR >60 mL/min AFR AMER GFR > 60 Male GFR Interprentation 20- 49 yrs >60 mL/min Sgnxnk82-31 yrs >56 mL/min Normal 60-69 yrs >49 mL/min Normal 70-79yrs>42 mL/min Normal 80 and above >35 mL/min Normal Female GFRInterpretation 20-39 yrs >60 mL/min Normal 40-49 yrs >58 mL/minNormal 50-59 yrs >51 mL/min Normal 60-69 yrs >45 mL/min Pipbmf94- 79 yrs >39 mL/min Normal 80 and above >32 mL/min NormalMagnesium: (TAHMINA: 03/14/2020 18:28) ( MsgRcvd 03/14/2020 19:28) Final results Test Result Flag Units (Reference) MAGNESIUM 2.2 MG/DL (1.7 - 2.2)Urinalysis: (TAHMINA: 03/14/2020 18:00) ( MsgRcvd 03/14/2020 18:25) Final results Test Result Flag Units (Reference) URINALYSIS URINALYSIS SOURCE R COLOR yellow (NORMAL: Yello CLARITY cloudy (NORMAL: Clear SPEC GRAVITY 1.010 (1.001 - 1.030 pH 7 (5 - 9) GLUCOSE NORM (NORMAL: Negat BILIRUBIN NEG (NORMAL: Negat KETONE NEG (NORMAL: Negat PROTEIN 15 (NORMAL: Negat NITRITE POS (NORMAL: Negat BLOOD 50 A (NORMAL: Negat LEUK EST 500 A (NORMAL: Negat UROBILINOGEN NOR (less than 1.0 MICROSCOPIC See Below WBC 30 - 40 A (NORMAL: NONE RBC 5 - 7 A (NORMAL: NONE EPITHELIAL FEW (NORMAL: NONE BACTERIA 3+ LARGE A (NORMAL: NONE 5 Clinical Report - Physicians/Mid Levels [facility] Department [address] [place] [address] Phone #: ext- [phone] 03/14/2020 16:44 Patient: JUDITH ZAVALA Sex: F : 1940 Age: 80yChest Portable 1 View: (TAHMINA: 03/14/2020 17:45) ( MsgRcvd 03/14/2020 17:53) In ProgressCHEST PORTABLEReason(s): syncopeTRANSPORTATION: S IV? O2? Oxygen?(No) Room: EDCT Head W/O Cont: (TAHMINA: 03/14/2020 17:45) ( MsgRcvd 03/14/2020 20:35) In Progress Exam CT HEAD W/[place] [address] PHONE: [phone] FAX: [phone] Name .................. : PJ BRAGG Acct Number.................. : [id number] ROOM. ................. : TR-07 MR Number ................... : [id number] Stay type ............. : E/R Discharge Date......... ... : Admit Date ......... : 03/14/20 Admit Phys .................... : COONEYNORM Date of ....... : 1940 Family Phys ................... : SOHAN ALMEIDA Phone .................. : [phone] Age ................................ : 80 Film# .................. .:[id number] Sex ................................. : F Unsigned transcriptions are preliminary reports and do not represent a medical or legal document CT HEAD W/O CONTRAST [id number] COMPLETE:03/14/20 17:45 [id number] Reason(s): Syncope CT OF THE HEAD WITHOUT CONTR AST: INDICATION: Syncope. FINDINGS: Age appropriate atrophy. No bleeds. No mass or mass effect. No midline shift. No skull fracture. The visualized paranasal sinuses and mastoid air cells are unremarkable. IMPRESSION: No acute intracranial process. Atrophy. While performing the above CT examination, radiation dose reduction was accomplished utilizing automated exposure control, adjusting of the mA and kV based on the patient's body size and/or the use of imperative reconstructive techniques. CT dose: 854.8 mGycm Electronically Reviewed and Signed By DCTNAME SIGNDATEMARILYN Transcribe Initials: STEFANO , Transcribe Date: 03/14/20 19:14, Dictation Date: <<REPDIST>> Page 1 of 1 6 Clinical Report - Physicians/Mid Levels [facility] Department [address] [place] [address] Phone #: ext- [phone] 03/14/2020 16:44 Patient: JUDITH ZAVALA Sex: F : 1940 Age: 80y Troponin-T: (TAHMINA: 03/14/2020 18:28) ( NjgRcvd 03/14/2020 19:14) Final results Test Result Flag Units (Reference) TROPONIN T <0.01 NG/ML (0.00 - 0.10) TROPONIN T0.1 ng/ml Recommended as the clinical threshold value forTroponin T. TSH: (TAHMINA: 03/14/2020 18:28) ( MsgRcvd 03/14/2020 19:28) Final results Test Result Flag Units (Reference) TSH 1.66 uIU/mL (0.47 - 5.01).PROGRESS AND PROCEDURESCourse of Care: pt presents for evaluation of her syncopal episode 4 days ago. she reportedly called idalia today and told him about it and he recommended she come in for evaluation. she denies any headinjury. her ct head was negative and her cta of head and neck were also unremarkable. ekg showed noacute findings. labs reviewed. I discussed observation. pt would like to go home. since this happened4 days ago, i feel that if there were something acutely wrong, we would have been able to detect it. Idiscussed this with the patient. she is in agreement to f/u wtih her pcp and neurologist tuesday. pt is toreturn if worse or any new symptoms. Patient/family counseled. Disposition: Di scharged. Condition: good and stable.CLINICAL IMPRESSION Syncope. Infiltrated iv left wrist.INSTRUCTIONS No strenuous activity. Rest. (Please follow up with your primary care physician. return if any issues. please keep your left arm elevated. you may do warm compressed to help with the mild swelling due to the infiltrated iv. please follow up with your doctor and discuss your brief episode of passing out.). Warnings: Further evaluation is necessary. GENERAL WARNINGS: Return or contact your physician immediately if your condition worsens or changes unexpectedly, if not improving as expected, or if other problems arise. Your Current Medications: Your current home medications have been reviewed. CONTINUE TAKING THE FOLLOWING MEDICATIONS: 7 Clinical Report - Physicians/Mid Levels [facility] Department [address] [place] [address] Phone #: ext- [phone] 03/14/2020 16:44 Patient: JUDITH ZAVALA Sex: F : 1940 Age: 80y Aspirin Oral : Tablet 325 mg, daily. Meclizine HCl Oral : 50 mg 3x a day. Metoprolol Tartrate Oral : 50 mg 2x a day. Nortriptyline HCl Oral : 75 mg, at bedtime. Omeprazole Oral : 40 mg daily. Topiramate Oral : 100 mg, at bedtime. Tylenol Oral. Zofran Oral. Follow-up: Follow up with your doctor Tuesday even if well. Call for an appointment. Reason for referral: evaluation. Summary of care provided to patient via paper. Understanding of the discharge instructions verbalized by patient.(Electronically signed by Amina Ravi MD 03/15/2020 06:08) Name Value Range Interpretation Code Description Data Josephine rce(s) Supporting Document(s) ID Date Data Source [id number] 03/14/2020 06:28:00 PM EST [facility] ([facility] Name Value Range Interpretation Code Description Data Josephine rce(s) Supporting Document(s) Comprehensive [facility] Laboratory test result [facility] COMPREHENSIVE METABOLIC PANEL Potassium 4.0 meq/L 3.6-5.0 [facility] Sodium 140 meq/L 134-153 [facility] Chloride 106 meq/L 98-107 [facility] Glucose 92 mg/dL 65-110 [facility] Co2 25 meq/L 22-30 [facility] BUN 14 mg/dL 7-21 [facility] BUN/Creat 16 8-27 [facility] ([facility] Total Protein 6.6 g/dL 6.3-8.2 [facility] ([facility] Creatinine 0.9 mg/dL 0.7-1.5 [facility] Globulin 2.6 GM/DL 2.4-3.2 [facility] Albumin 4.0 g/dL 3.9-5.0 [facility] A/G Ratio 1.5 0.8-2.0 [facility] ([facility] Total Bili Laboratory test result 0.2-1.3 [facility] ([facility] Calcium 9.7 mg/dL 8.4-10.2 [facility] Alkaline Phos 100 U/L 38-126 [facility] ([facility] Anion Gap 9.0 mmol/L 8.0-16.0 [facility] ([facility] Sgot/Ast 25 U/L 5-40 [facility] ([facility] SGPT/Alt 19 U/L 7-56 [facility] ([facility] Non-Aa GFR Laboratory test result [facility] Afr Amer GFR Laboratory test result [facility] Male GFR Interprentation 20-49 yrs >60 mL/min Normal 50-59 yrs >56 mL/min Normal 60-69 yrs >49 mL/min Normal 70-79yrs >42 mL/min Normal 80 and above >35 mL/min Normal Female GFR Interpretation 20-39 yrs >60 mL/min Normal 40-49 yrs >58 mL/min Normal 50-59 yrs >51 mL/min Normal 60-69 yrs >45 mL/min Normal 70-79 yrs >39 mL/min Normal 80 and above >32 mL/min Normal Age 80 yrs [facility] ([facility] ID Date Data Source [id number] 03/14/2020 06:28:00 PM EST [facility] ([facility] Name Value Range Interpretation Code Description Data Josephine rce(s) Supporting Document(s) Troponin T.cardiac [Mass/volume] in Serum or Plasma Laborato ry test result 0.00-0.10 [facility] ([facility] TROPONIN T 0.1 ng/ml Recommended as the clinical th reshold value for Troponin T. Magnesium [Mass/volume] in Serum or Plasma 2.2 mg/dL 1.7-2.2 [facility] ([facility] Thyrotropin [Units/volume] in Serum or Plasma 1.66 uIU/mL 0.47-5.01 [facility] ([facility] Natriuretic peptide.B prohormone N-Terminal [Mass/volu me] in Serum or Plasma 75 pg/mL 0-450 [facility] ([facility] ID Date Data Source [id number] 03/14/2020 06:28:00 PM EST [facility] Name Value Range Interpretation Code Description Data Josephine rce(s) Supporting Document(s) CBC W/Automated Diff Laboratory test result [facility] ([facility] COMPLETE BLOOD COUNT WBC 7.3 10^3/uL 4.2-11.0 [facility] MCV 81.4 fL 81.0-101 [facility] Hematocrit 42.8 % 37.0-47.0 [facility] Hemoglobin 13.9 g/dL 12.0-16.0 [facility] RBC 5.26 10^6/uL 4.20-5.40 [facility] [facility] RDW 15.0 % 11.5-14.5 Above high normal [facility] ([facility] MCHC 32.5 g/dL 31.0-36.0 [facility] ([facility] MCH 26.4 pg 27.0-34.0 Below low normal [facility] ( [facility] Platelets 192 10^3/uL 150-450 [facility] ([facility] Lymph 23.9 % 25.0-40.0 Below low normal [facility] ( [facility] MPV 13.1 fL 7.4-10.4 Above high normal [facility] ([facility] Neut 67.3 % 37.0-80.0 [facility] ([facility] [place] 6.3 % 3.0-8.0 [facility] ([facility] Eos 1.9 % 0.0-7.0 [facility] ([facility] Baso 0.5 % 0.0-2.5 [facility] ([facility] #Lymph 1.75 10^3/uL 0.60-3.40 [facility] ([facility] %Ig 0.1 % 0.0-0.0 Above high normal [facility] ([facility] #Neut 4.92 10^3/uL 2.00-6.90 [facility] ([facility] %NRBC 0.0 % 0.0-0.0 [facility] ([facility] #Baso 0.04 10^3/uL 0.00-0.20 [facility] ([facility] #Eos 0.14 10^3/uL 0.00-0.70 [facility] ([facility] #[place] 0.46 10^3/uL 0.00-0.90 [facility] ([facility] Manual Diff Laboratory test result M EDENT ([facility] #NRBC 0.00 10^3/uL 0.00-0.00 [facility] ([facility] #Ig 0.01 10^3/uL 0.00-0.10 [facility] ([facility] RBC Morph Laboratory test result ME DENT ([facility] ID Date Data Source [id number] 03/14/2020 07:31:00 PM EST [facility] Name Value Range Interpretation Code Description Data Josephine rce(s) Supporting Document(s) COMPREHENSIVE METABOLIC PANEL [facility] COMPREHENSIVE METABOLIC PANEL Sodium [Moles/volume] in Serum or Plasma 140 mEq/L 134 - 153 [facility] Potassium [Moles/volume] in Serum or Plasma 4.0 mEq/L 3.6 - 5.0 [facility] Chloride [Moles/volume] in Serum or Plasma 106 mEq/L 98 - 107 [facility] Carbon dioxide, total [Moles/volume] in Serum or Plasma 25 MEQ/L 22 - 30 [facility] Glucose [Mass/volume] in Serum or Plasma 92 MG/DL 65 - 110 [facility] BUN 14 MG/DL 7 - 21 [facility] Creat[facility] [Mass/volume] in Serum or Plasma 0.9 MG/DL 0.7 - 1.5 [facility] BUN/CREAT 16 8 - 27 [facility] al Protein [Mass/volume] in Serum or Plasma 6.6 G/DL 6.3 - 8.2 [facility] Albumin [Mass/volume] in Serum or Plasma 4.0 G/DL 3.9 - 5.0 [facility] Globulin [Mass/volume] in Serum by calculation 2.6 GM/DL 2.4 - 3.2 [facility] A/G RATIO 1.5 0.8 - 2.0 [facility] Calcium [Mass/volume] in Serum or Plasma 9.7 MG/DL 8.4 - 10.2 [facility] Bilirubin.total [Mass/volume] in Serum or Plasma <0.7 MG/DL 0.2 - 1.3 [facility] Alkaline phosphatase [Enzymatic activity/volume] in Serum or Plasma 100 U/L 38 - 126 [facility] Aspartate aminotransferase [Enzymatic activity/volume] in Serum or Plasma 25 U/L 5 - 40 [facility] Alanine aminotransferase [Enzymatic activity/volume] in Seru m or Plasma 19 U/L 7 - 56 [facility] Anion gap 3 in Serum or Plasma 9.0 mmol/L 8.0 - 16.0 [facility] AGE 80 yrs [facility] NON-AA GFR >60 mL/min [facility] ital AFR AMER GFR >60 [facility] Male GFR In terprentation 20-49 yrs >60 mL/min Normal 50-59 yrs >56 mL/min Normal 60-69 yrs >49 mL/min Normal 70-79yrs >42 mL/min Normal 80 and above >35 mL/min Normal Female GFR Interpretation 20-39 yrs >60 mL/min Normal 40-49 yrs >58 mL/min Normal 50-59 yrs >51 mL/min Normal 60-69 yrs >45 mL/min Normal 70-79 yrs >39 mL/min Normal 80 and above >32 mL/min Normal ID Date Data Source [id number] 03/14/2020 07:28:00 PM EST [facility] Name Value Range Interpretation Code Description Data Josephine rce(s) Supporting Document(s) BNP 75 PG/ML 0 - 450 [facility] ID Date Data Source [id number] 03/14/2020 07:28:00 PM [facility] Name Value Range Interpretation Code Description Data Josephine rce(s) Supporting Document(s) Thyrotropin [Units/volume] in Serum or Plasma by Detec tion limit <= 0.05 mIU/L 1.66 uIU/mL 0.47 - 5.01 [facility] ID Date Data Source [id number] 03/14/2020 07:28:00 PM [facility] Name Value Range Interpretation Code Description Data Josephine rce(s) Supporting Document(s) Magnesium [Mass/volume] in Serum or Plasma 2.2 MG/DL 1.7 - 2.2 [facility] ID Date Data Source [id number] 03/14/2020 07:14:00 PM [facility] Name Value Range Interpretation Code Description Data Josephine rce(s) Supporting Document(s) TROPONIN T <0.01 NG/ML 0.00 - 0.10 [facility] TROPONIN T0.1 ng/ml Recommended as the c linical threshold value forTroponin T. ID Date Data Source [id number] 03/14/2020 07:13:00 PM [facility] Name Value Range Interpretation Code Description Data Josephine rce(s) Supporting Document(s) CBC W/AUTOMATED DIFF [facility] COMPLETE BLOOD COUNT Leukocytes [#/volume] in Blood by Automated count 7.3 10^3/uL 4.2 - 1 1.0 [facility] Erythrocytes [#/volume] in Blood by Automated count 5.26 10^6/uL 4. 20 - 5.40 [facility] Hemoglobin [Mass/volume] in Blood 13.9 g/dL 12.0 - 16.0 [facility] Hematocrit [Volume Fraction] of Blood by Automated count 42.8 % 3 7.0 - 47.0 [facility] Erythrocyte mean corpuscular volume [Entitic volume] by Auto mated count 81.4 fL 81.0 - 101 [facility] Erythrocyte mean corpuscular hemoglobin [Entitic mass] by Automated count 26.4 pg 27.0 - 34.0 L [facility] Erythrocyte mean corpuscular hemoglobin concentration [Mass/volume] by Automated count 32.5 g/dL 31.0 - 36.0 [facility] Erythrocyte distribution width [Ratio] by Automated count 15.0 % 11.5 - 14.5 H [facility] Platelets [#/volume] in Blood by Automated count 192 10^3/uL 150 - 45 0 [facility] Platelet mean volume [Entitic volume] in Blood by Automated count 13.1 fL 7.4 - 10.4 H [facility] Neutrophils/100 leukocytes in Blood by Automated count 67.3 % 37. 0 - 80.0 [facility] Lymphocytes/100 leukocytes in Blood by Manual count 23.9 % 25.0 - 40.0 L [facility] Monocytes/100 leukocytes in Blood by Automated count 6.3 % 3.0 - 8.0 [facility] Eosinophils/100 leukocytes in Blood by Automated count 1.9 % 0.0 - 7.0 [facility] Basophils/100 leukocytes in Blood by Automated count 0.5 % 0.0 - 2.5 [facility] %IG 0.1 % 0.0 - 0.0 [facility] %NR[facility] 0.0 % 0.0 - 0.0 [facility] al Neutrophils [#/volume] in Blood by Automated count 4.92 10^3/uL 2.00 - 6.90 [facility] Lymphocytes [#/volume] in Blood by Automated count 1.75 10^3/uL 0.60 - 3.40 [facility] Monocytes [#/volume] in Blood by Automated count 0.46 10^3/uL 0.00 - 0.90 [facility] Eosinophils [#/volume] in Blood by Automated count 0.14 10^3/uL 0.00 - 0.70 [facility] Basophils [#/volume] in Blood by Automated count 0.04 10^3/uL 0.00 - 0.20 [facility] #IG 0.01 10^3/uL 0.00 - 0.10 [facility] #NRBC 0.00 10^3/uL 0.00 - 0.00 [facility] MANUAL DIFF NOT INDICATED [facility] RBC MORPH NOT INDICATED [facility] ID Date Data Source [id number] 03/14/2020 06:00:00 PM EST [facility] ([facility] Name Value Range Interpretation Code Description Data Josephine rce(s) Supporting Document(s) Culture Urine Laboratory test result [facility] ([facility] SOURCE: Clean Catch ID Date Data Source [id number] 03/14/2020 06:00:00 PM EST [facility] ([facility] Name Value Range Interpretation Code Description Data Josephine rce(s) Supporting Document(s) Urinalysis Laboratory test result ME DENT ([facility] SOURCE: Clean Catch Source Laboratory test result [facility] ([facility] SOURCE: Clean Catch Color Laboratory test result [facility] ([facility] SOURCE: Clean Catch Clarity Laboratory test result [facility] ([facility] SOURCE: Clean Catch Spec [place] 1.010 1.001-1.030 [facility] ([facility] SOURCE: Clean Catch pH 7 5-9 [facility] SOURCE: Clean Catch Glucose Laboratory test result [facility] ([facility] SOURCE: Clean Catch Bilirubin Laboratory test result ME D[facility] ([facility] SOURCE: Clean Catch Ketone Laboratory test result [facility] ([facility] SOURCE: Clean Catch Protein 15 [facility] ([facility] SOURCE: Clean Catch Nitrite Laboratory test result [facility] ([facility] SOURCE: Clean Catch Blood 50 Abnormal (applies to non-numeric res ults) [facility] ([facility] SOURCE: Clean Catch Urobilinogen Laboratory test result [facility] ([facility] SOURCE: Clean Catch Leuk Est 500 Abnormal (applies to non-numeric res ults) [facility] ([facility] SOURCE: Clean Catch WBC Laboratory test result Abnormal (applies to non -numeric results) [facility] ([facility] SOURCE: Clean Catch Microscopic Laboratory test result M EDENT ([facility] SOURCE: Clean Catch RBC Laboratory test result Abnormal (applies to non -numeric results) [facility] ([facility] SOURCE: Clean Catch Bacteria Laboratory test result Abnormal (applies to non -numeric results) [facility] ([facility] SOURCE: Clean Catch Epithelial Laboratory test result ME DENT ([facility] SOURCE: Clean Catch ID Date Data Source [id number] 03/18/2020 08:29:00 PM EST [facility] Name Value Range Interpretation Code Description Data Josephine rce(s) Supporting Document(s) CULTURE URINE [facility] _CULTURE URINE_$$[id number]$$[id number]$$[id number]$$[id number]$$[id number]$$[id number]$$[id number]$$[id number]$$196362$$ 246246$$348164$$629884$$542639$$[id number]$$[id number]$$616119$$479009$$036388$$[id number]$$ 493723$$075628$$526634$$994175$$799425$$094590$$[id number]$$[id number] -- Continued on next page --Patient: PJ JUDITH Order: [id number] Page 2Culture: CULTURE URINE Status: Final ==== -- Continued on next page --Patient: PJ BRAGG Order: [id number] Page 2Culture: CULTURE URINE Status: Prelim =====$$[id number]$$[id number] DATE/TIME: 03/18/2020 15:06Culture: CULTURE URINE Status: FinalIsolate 1 Staphylococcus epidermidis Flag: A . . . . . . .650,000-100,000 colony forming units per mLBased on resistance to oxacillin this isolate would be resistant toall currently available beta-lactam antimicrobial agents, with theexception of the newer cephalosporins with anti-MRSA activity, such asCeftaroline Previous result entered on 03/17/2020 07:11 ET Microbiological testing to rule out the presence of possible pathogensis in progress.Urine Culture,Comprehensive: N5Cechpyowthlbqp epidermidis Flag: APatient: PJ BRAGG Order: [id number] Page 3Culture: CULTURE URINE Status: Final ISOLATE 1 Staphylococcus epidermidis Isolate 1Antibiotic KAREN IntUnits ug /mL --Ciprofloxacin R R . . . . . .185-9Gentamicin S S . . . . . .267-5Levofloxacin R R . . . . . .58923-6Ccedzaunu S S . . . . . .58894-6Fwwekxuxlpfxyk S S . . . . . .363-2Oxacillin R R . . . . . .383-0Penicillin R R . . . . . .6932-8Quinupristin/Dalfopristin S S . . . . . .25565-8Dxijteui S S . . . . . .428-3Tetracycline S S . . . . . .496- 0Trimethoprim/Sulfa S S . . . . . .516-5Vancomycin S S . . . . . .524-9P1 Test performed by: [facility] #: [id number] [address] [id number] [facility] [id number] Director : Te Hua MD NPI #:Ship Boss : 03/17/20.36.XMT.SENT REF 03/18/20.XMT.SENT REF ID Date Data Source [id number] 03/14/2020 06:25:00 PM EST [facility] Name Value Range Interpretation Code Description Data Josephine rce(s) Supporting Document(s) URINALYSIS [facility] UR[facility]ALYSIS [facility] COL[facility] yellow NORMAL: Yellow [facility] CLARITY cloudy NORMAL: Clear [facility] Specific gravity of Urine by Test strip 1.010 1.001 - 1.030 [facility] pH 7 5 - 9 [facility] Glucose [Mass/volume] in Urine by Test strip NORM NORMAL: Negat [facility] Bilirubin.total [Presence] in Urine by Test strip NEG NORMAL: Negative [facility] Ketones [Presence] in Urine by Test strip NEG NORMAL: Negative [facility] Protein [Mass/volume] in Urine by Test strip 15 NORMAL: Negat [facility] Nitrite [Presence] in Urine by Test strip POS NORMAL: Negative [facility] BLOOD 50 NORMAL: Negative [facility] Leukocyte esterase [Presence] in Urine by Test strip 500 AMINA L: Negative [facility] Urobilinogen [Mass/volume] in Urine by Test strip NOR less wil n 1.0 mg/dL [facility] MICROSCOPIC See Below [facility] ital WBC 30 - 40 NORMAL: NONE SEEN A [facility] Erythrocytes [#/volume] in Urine by Test strip 5 - 7 NORMAL: NON E SEEN A [facility] EPITHELIAL FEW NORMAL: NONE SEEN [facility] Bacteria [Presence] in Urine sediment by Light microscopy 3+ LARGE NORMAL: NONE SEEN A [facility] ID Date Data Source [id number] 03/12/2020 11:49:26 PM EST [facility] Name Value Range Interpretation Code Description Data Josephine rce(s) Supporting Document(s) *Follow Up Visit ANGELO v1 [facility] [id number]D4wSIaE3CskOAne9mXMh9OsWJ9XMFWtiRcTGTe 1dH [file] DMMWYOMHOAE+bNcBVIRTLxDOgVBTTCkWrIMFI6LChYQZQIoSyXDPKQF3PVtaZHuiRZQILXY+qAmWXMLG JrIQsVKUYNhSvEsRJDqFCwveNlnLjDuQVBaXHyumRYKKZvU98oK6LGFtLUZMXhSLgVZUKRwGlTeVUMdX EqoqRjfDpGiDETtT23NlLl7kOvQvT7G9BkT6CuU4lI bTMqsndZlh0gLN9cnEcEbGz/KT4ehdYlTY+e6wFbjSOTx1+VBQyVlKwv1zkWrITMAs0BJYAvN6Mye+rf ecbN2YJuVOVixqu41nzm6Vzg1UTRsY6Pss88y9UjMSahmO3LfJrJh3eZHgYJAyIRTsRBMkRWBQp0gNg2 gXxjBh0p83UA4fUSH4e6MFXtNpLM0WVLB7hfUPkfrJ EvfKinPQlbuBhEVxlWJx1rl6DLX8wMF1qaW+WPGrg4uC7VZhlSUVJPuiDBuN3INgTtJtLnEvrnClfzVO HxBkgm8HR9ZSHGAoxGNqIRjuCXFqVNUFZBK+fDqGFKKRESKKrrYCmUrVECloSV7rTR0oSVofUQDnUPMM 6eI3mHXMRQrBJfMDeJ9reSMQzhJkpWpkQxKcKuHWD3 /GqrORZQoKk4GSweWU1cj+TpaEYkLyW4L4Fmc9jAObV9xdUVJKG4XWO2cpf11XoyVfUEqYIaU1rCbUOn qdeq/lYuKsW6aUdHaoBy+LaWP2SYrAhIAjsCezW3MiYE7YKZrDJFhO3GnSne1BtM37JLrjt9RLd7ywRy OyHLJRCVXlPrPHXSiJqACdbAZqDoUXBLONU80DC1LS RvDXPATCTUfTTcOQAKaRBDXGRMQkVoLAUJnNhIUDVCrHIiRkQYaB3CscLMhMZtOxAIhNDTpvXiKAUwjC XMLOCEOmBmGTMLmFnACXXAzDJmFjCzgBPqgJllzCxgJhOdKATpgJllzGQCFOmAE+qAWZIAySIDmBnACX QUmXBtVxYzwPZeaXmxwUeqQcHf6HYv+73MLun2zZwV YT11NBtt9cSw3OqNetTwKTwlllW/SKPxXEvE6zsaCuX3L9Yxn6vBZzCzLF12QJaHpDLheDK41yos14iM SHJuIaeRisBo1Fgnhjp/STdKIZ7iUPJvLIj+MsUF0RYky/EOJnIuKa9E5NU9HURdpcYOoE9RoIW1UQKf 3WLc9QSm0HKRMVAQqqVFuhQCW2OyUJSBV+qAmWfMPG FzGRoYCRVUjPPJK0udgATpNUdYMQSXwKdUzUEEnKtp2wNaVebrUte3kqtKHv4iRy8jx7rZB1dj3WH9FR YYs+qAM4lMLyzJOeqOImGFAHNRZ+oGkTVHBQStXKsQDVSHvScLwJVPfMXkciDwsDlVxZAFySqqLw79ZR WPKHJQOV0oFMFOWdIsDb5fP0aKCegQ9TH1ZLOcMkv/ 1//gz8Py3V19/4eXv/3Nd9//fPr9T2++/v4///zbxbc//Pvilz+/OAfdgh7JnWABe/pqqbR4+ 6gDD5KqWzD64/PrH3pIjSR3Lt5EJzJsNoNBzYWdmHfBuLSu/rSeweWsDi1gp6/3F4uW/hv32CayHBi03 6ITD/ud51VSC5qUw6+Vc9JkbeHBDWQ559U/YOsFDXQ yPSrXU0AP4skq/k8YYgvO9w0jq0rubd9RFmc3ysvZT1lLAFDDoB5CcBnP+MI2CV9FNldSP35PzrRzWRT 6hIkBBExom4KKwfcG+dRAL9MG8/OaBJKvgT589/xW9QL8aL8508jOK2UgU5+L0eh+aF671c6ey2lUjTA ETwhR3G+9rGEnv5c5QRnx//jV8IBm6KOaiFi2ivb+h x+ChNE0aE/kyjF+YcjanDI1LHDV2UbPYoXjTLDi+VnEU1Qzyjh7lPEGKNuWXgs6dgpmglyeq46dji0fg Iván+/MrQ4vtHI+bopWqG0wqc9Bpq9LGwsHYXG+T+C+bVhCH4BJs2SHRejAVi9sq28jNO43esZUCperUhq [file] 3cVf9bbc1jnLq8JfHtjIDskhdS8SuCQtPNJ+Xd5V7Rri+EaBgKY9wHscPy9Om4Id1f3r5G0Nk/josé luis/1C [file] aU+QMm0NTfA8cf/rGlMUd7lU3nbZnFKygIfFQ70KJl/mb7jOw1JQepfjwCg0aQtQLveK9dANyimhG+MANAGER STERILE [file] mEOzlCleXGGAEsL9MuV7BH0DYYXVX1WRDs== ID Date Data Source [id number] 03/04/2020 10:55:00 AM EST [facility] ([facility] Name Value Range Interpretation Code Description Data Josephine rce(s) Supporting Document(s) Urine Culture, Routine Laboratory test result [facility] ([facility] SRC:VOIDED Bacteria identified in Urine by Culture Laboratory test result [facility] ([facility] SRC:VOIDED ID Date Data Source [id number] 03/04/2020 10:06:00 AM EST [facility] ([facility] Name Value Range Interpretation Code Description Data Josephine rce(s) Supporting Document(s) Color Laboratory test result [facility] ([facility] Clarity Laboratory test result [facility] ([facility] Bilirubin,Urine Laboratory test result [facility] ([facility] Glucose-Ua Laboratory test result ME D[facility] ([facility] Ketone Laboratory test result [facility] ([facility] Blood - Ua Laboratory test result ME [facility] ([facility] Creatine kinase [Enzymatic activity/volume] in Serum or Plas ma 1.010 # 1.000-1.030 [facility] Protein Laboratory test result [facility] ([facility] pH 7.0 # 5.0-8.0 [facility] ([facility] Urobilinogen 0.2 NA 0.2-1.0 [facility] ([facility] Leukocyte Laboratory test result Abnormal (applies to non -numeric results) [facility] ([facility] Nitrite Laboratory test result [facility] ([facility] RBC-Ua Laboratory test result 0-3 Abnormal (applies to non -numeric results) [facility] ([facility] Bacteria - Ua Laboratory test result Abnormal (applies to non-numeric results) [facility] ([facility] Epithelial Cells - Ua Laboratory test result [facility] ([facility] WBC-Ua Laboratory test result 0-5 Abnormal (applies to non -numeric results) [facility] ([facility] Renal Epithelial Cells Laboratory test result Ab normal (applies to non-numeric results) [facility] ([facility] ) ID Date Data Source [id number] 02/25/2020 09:29:00 AM EST [facility] ([facility] Name Value Range Interpretation Code Description Data Josephine rce(s) Supporting Document(s) Color Laboratory test result [facility] ([facility] Bilirubin,Urine Laboratory test result Abnormal (applies to non-numeric results) [facility] ([facility] ) Clarity Laboratory test result [facility] ([facility] Glucose-Ua Laboratory test result ME [facility] ([facility] Creatine kinase [Enzymatic activity/volume] in Serum o r Plasma Laboratory test result 1.000-1.030 Abnormal (applies to non-numeric results) [facility] ([facility] Blood - Ua Laboratory test result Abnormal (applies to non -numeric results) [facility] ([facility] Ketone Laboratory test result [facility] ([facility] Protein Laboratory test result Abnormal (applies to non -numeric results) [facility] ([facility] pH 6.5 # 5.0-8.0 [facility] ([facility] Urobilinogen 1.0 NA 0.2-1.0 [facility] ([facility] RBC-Ua Laboratory test result 0-3 Abnormal (applies to non -numeric results) [facility] ([facility] Nitrite Laboratory test result Abnormal (applies to non -numeric results) [facility] ([facility] Leukocyte Laboratory test result Abnormal (applies to non -numeric results) [facility] ([facility] Epithelial Cells - Ua Laboratory test result [facility] ([facility] Bacteria - Ua Laboratory test result Abnormal (applies to non-numeric results) [facility] ([facility] WBC-Ua Laboratory test result 0-5 Abnormal (applies to non -numeric results) [facility] ([facility] Comment Laboratory test result [facility] ([facility] ID Date Data Source [id number] 02/13/2020 11:15:00 AM EST [facility] ([facility] Name Value Range Interpretation Code Description Data Josephine rce(s) Supporting Document(s) Color Urine Laboratory test result M [facility] ([facility] Appearance of Urine Laboratory test result [facility] ([facility] Specific [place] 1.015 1.00-1.03 [facility] ([facility] PH Urine 6.5 5.0-8.0 [facility] ([facility] Glucose Urine Laboratory test result [facility] ([facility] Ketones Laboratory test result [facility] ([facility] Bilirubin.total [Presence] in Urine by Test strip Laboratory test res ult [facility] ([facility] Blood Urine Laboratory test result M [facility] ([facility] Urobilinogen 0.2 EU/dl 0.2-1.0 [facility] Protein Urine Laboratory test result [facility] ([facility] Nitrite Laboratory test result [facility] ([facility] Leukocytes Laboratory test result [facility] ([facility] ID Date Data Source [id number] 02/05/2020 05:20:00 PM EDT [facility] ([facility] Name Value Range Interpretation Code Description Data Josephine rce(s) Supporting Document(s) Natriuretic peptide.B prohormone N-Terminal [Mass/volu me] in Serum or Plasma 77 pg/mL Normal (applies to non-numeric results) [facility] ([facility] ID Date Data Source [id number] 02/05/2020 05:20:00 PM EDT [facility] ([facility] Name Value Range Interpretation Code Description Data Josephine rce(s) Supporting Document(s) Glucose, Fasting 70 mg/dL 70-100 Normal (applies to non-numeric results) [facility] ([facility] Creatinine For GFR 0.98 mg/dL 0.55-1.30 Normal (applies to non -numeric results) [facility] ([facility] Blood Urea Nitrogen 11 mg/dL 7-18 Normal (applies to non-nume [place] results) [facility] ([facility] Glomerular Filtration Rate 58.3 Normal (applies to n on-numeric results) [facility] ([facility] <content>Units are mL/min/1.73 m2</content>
<content></content>
<content>Chronic Kidney Disease Staging per NKF:</content>
<content></content>
<content>Stage I & II GFR >=60 Normal to Mildly Decreased</content>
<content>Stage III GFR 30- 59 Moderately Decreased</content>
<content>Stage IV GFR 15-29 Severely Decreased</content>
<content>Stage V GFR <15 Very Little GFR Left</content>
<content>ESRD GFR <15 on BUSINESS PERFORMANCE ANALYST</content>
<content></content> Chloride Level 106 meq/L 98-107 Normal (applies to non-numeric r esults) [facility] ([facility] Sodium Level 140 meq/L 136-145 Normal (applies to non-numeric res ults) [facility] ([facility] Potassium Serum 3.8 meq/L 3.5-5.1 Normal (applies to non-numeric results) [facility] ([facility] Calcium Level 9.2 mg/dL 8.8-10.2 Normal (applies to non-numeric re sults) [facility] ([facility] Carbon Dioxide Level 26 meq/L 21-32 Normal (applies to non-num richi results) [facility] ([facility] Anion Gap 8 meq/L 8-16 Normal (applies to non-numeric resul ts) [facility] ([facility] Albumin 3.7 GM/DL 3.2-5.2 Normal (applies to non-numeric resul ts) [facility] ([facility] Phosphorus Level 3.7 mg/dL 2.5-4.9 Normal (applies to non-numeric results) [facility] ([facility] ID Date Data Source [id number] 02/05/2020 05:20:00 PM EDT [facility] ([facility] Name Value Range Interpretation Code Description Data Josephine rce(s) Supporting Document(s) White Blood Count 8.7 10 4.0-10.0 Normal (applies to non-numeri c results) [facility] ([facility] Hemoglobin 13.7 g/dL 12.0-15.5 Normal (applies to non-numeric resul ts) [facility] ([facility] Hematocrit 44.2 % 36.0-47.0 Normal (applies to non-numeric resul ts) [facility] ([facility] Red Blood Count 5.33 10 4.00-5.40 Normal (applies to non-numeric results) [facility] ([facility] Mean Corpuscular Volume 82.9 fl 80.0-96.0 Normal ( applies to non-numeric results) [facility] ([facility] ) Mean Corpuscular HGB Conc 31.0 g/dL 32.0-36.5 Below low normal [facility] ([facility] Mean Corpuscular Hemoglobin 25.7 pg 27.0-33.0 Below low normal [facility] ([facility] Platelet Count, Automated 183 10 150-450 Normal (applies to non-numeric results) [facility] ([facility] ) Neutrophils % 63.4 % 36.0-66.0 Normal (applies to non-numeric re sults) [facility] ([facility] Red Cell Distribution Width 14.6 % 11.5-14.5 Above high normal [facility] ([facility] Van Zandt % 7.0 % 0.0-5.0 Above high normal [facility] ([facility] Lymph % 26.9 % 24.0-44.0 Normal (applies to non-numeric resul ts) [facility] ([facility] Eos % 1.8 % 0.0-3.0 Normal (applies to non-numeric resul ts) [facility] ([facility] Immature Granulocyte % 0.3 % 0-3.0 Normal (applies to non-n umeric results) [facility] ([facility] Nucleated Red Blood Cell % 0.0 % 0-0 Normal (applies to n on-numeric results) [facility] ([facility] Baso % 0.6 % 0.0-1.0 Normal (applies to non-numeric resul ts) [facility] ([facility] Neutrophils # 5.5 10 1.5-8.5 Normal (applies to non-numeric re sults) [facility] ([facility] Van [place]andt # 0.6 10 0.0-0.8 Normal (applies to non-numeric resul ts) [facility] ([facility] Lymph # 2.4 10 1.5-5.0 Normal (applies to non-numeric resul ts) [facility] ([facility] Eos # 0.2 10 0.0-0.5 Normal (applies to non-numeric resul ts) [facility] ([facility] Baso # 0.1 10 0.0-0.2 Normal (applies to non-numeric resul ts) [facility] ([facility] ID Date Data Source [id number] 02/05/2020 05:20:00 PM EDT [facility] Name Value Range Interpretation Code Description Data Josephine rce(s) Supporting Document(s) Natriuretic peptide.B prohormone N-Terminal [Mass/volu me] in Serum or Plasma 77 pg/mL [facility] ([employer] [facility]) ID Date Data Source [id number] 02/05/2020 05:20:00 PM EDT [facility] Name Value Range Interpretation Code Description Data Josephine rce(s) Supporting Document(s) Blood Urea Nitrogen 11 mg/dL 7-18 [facility] ([facility]) Glucose, Fasting 70 mg/dL 70-100 [facility] ([facility]i [facility]y [facility]) Creatinine For GFR 0.98 mg/dL 0.55-1.30 [facility] ([facility]) Sodium Level 140 meq/L 136-145 [facility] ([facility]iolog [facility]) Glomerular Filtration Rate 58.3 MED ENT ([facility]) <content>Units are mL/min/1.73 m2</content>
<content></content>
<content>Chronic Kidney Disease Staging per NKF:</content>
<content></content>
<content>Stage I & II GFR >=60 Normal to Mildly Decreased</content>
<content>Stage III GFR 30- 59 Moderately Decreased</content>
<content>Stage IV GFR 15-29 Severely Decreased</content>
<content>Stage V GFR <15 Very Little GFR Left</content>
<content>ESRD GFR <15 on BUSINESS PERFORMANCE ANALYST</content>
<content></content> Chloride Level 106 meq/L 98-107 [facility] ([facility]iol [facility]gy [facility]) Anion Gap 8 meq/L 8-16 [facility] Carbon Dioxide Level 26 meq/L 21-32 [facility] (C ardi[facility]) Potassium Serum 3.8 meq/L 3.5-5.1 [facility] ([facility]io [facility]y [facility]) Calcium Level 9.2 mg/dL 8.8-10.2 [facility] ([facility]iolo gy [facility]) Phosphorus Level 3.7 mg/dL 2.5-4.9 [facility] ([facility]i [facility]y [facility]) Albumin 3.7 GM/DL 3.2-5.2 [facility] ID Date Data Source [id number] 02/05/2020 05:20:00 PM EDT [facility] ([facility]) Name Value Range Interpretation Code Description Data Josephine rce(s) Supporting Document(s) White Blood Count 8.7 10 4.0-10.0 [facility] Mean Corpuscular Volume 82.9 fl 80.0-96.0 M ED[facility] ([facility]) Hemoglobin 13.7 g/dL 12.0-15.5 [facility] ([facility]) Hematocrit 44.2 % 36.0-47.0 [facility] ([facility]) Red Blood Count 5.33 10 4.00-5.40 [facility] [place] Mean Corpuscular Hemoglobin 25.7 pg 27.0-33.0 [facility] ([facility]) Red Cell Distribution Width 14.6 % 11.5-14.5 [facility] ([facility]) Mean Corpuscular HGB Conc 31.0 g/dL 32.0-36.5 [facility] ([facility]) Lymph % 26.9 % 24.0-44.0 [facility] [place] Platelet Count, Automated 183 10 150-450 [facility] ([facility]) Neutrophils % 63.4 % 36.0-66.0 [facility] ([facility] [place]) [place]andt % 7.0 % 0.0-5.0 [facility] [place] Baso % 0.6 % 0.0-1.0 [facility] [place] Eos % 1.8 % 0.0-3.0 [facility] [place] Neutrophils # 5.5 10 1.5-8.5 [facility] ([facility] [place] Immature Granulocyte % 0.3 % 0-3.0 [facility] ([facility]) Lymph # 2.4 10 1.5-5.0 [facility] [place] Nucleated Red Blood Cell % 0.0 % 0-0 MED [facility] ([facility]) Eos # 0.2 10 0.0-0.5 [facility] [place] [place] # 0.6 10 0.0-0.8 [facility] [place] Baso # 0.1 10 0.0-0.2 [facility] ([facility]) ID Date Data Source [id number] 02/04/2020 10:21:00 AM EDT [facility] ([facility] Name Value Range Interpretation Code Description Data Josephine rce(s) Supporting Document(s) Urine Culture, Routine Laboratory test result Ab normal (applies to non-numeric results) [facility] ) Source of Specimen: VOIDED Bacteria identified in Urine by Culture Laboratory test result Abnormal (applies to non-numeric results) [facility] <content>Escherichia coli</content>
<content>Source of Specimen: VOIDED</content>
<content>Greater than 100,000 colony forming units per mL</content>
<content>Cefazolin <=4 ug/mL</content>
<content>Cefazolin with an KAREN <=16 predicts susceptibility to the oral agents</content>
<content>cefaclor, cefdinir, cefpodoxime, cefprozil, cefuroxime, cephalexin,</content>
<content>and loracarbef when used for therapy of uncomplicated urinary tract</content>
<content>infections due to E. coli, Klebsiella pneumoniae, and Proteus</content>
<content>mirabilis.</content>
<content></content> Antimicrobial Susceptibility Laboratory test result [facility] ([facility] Source of Specimen: VOIDED S = Susceptible; [...] S Tetracycline S Tobramycin S Trimethoprim/Sulfa S ID Date Data Source [id number] 02/04/2020 09:33:00 AM EDT [facility] ([facility] Name Value Range Interpretation Code Description Data Josephine rce(s) Supporting Document(s) Color Laboratory test result [facility] ([facility] Clarity Laboratory test result [facility] ([facility] Glucose-Ua Laboratory test result ME DENT ([facility] Creatine kinase [Enzymatic activity/volume] in Serum or Plas ma 1.020 # 1.000-1.030 [facility] ([facility] Ketone Laboratory test result [facility] ([facility] Bilirubin,Urine Laboratory test result Abnormal (applies to non-numeric results) [facility] ([facility] ) pH 7.0 # 5.0-8.0 [facility] Blood - Ua Laboratory test result Abnormal (applies to non -numeric results) [facility] ([facility] Protein 100 mg/dL Abnormal (applies to non-numeric res ults) [facility] ([facility] Urobilinogen 1.0 NA 0.2-1.0 [facility] ([facility] Leukocyte Laboratory test result Abnormal (applies to non -numeric results) [facility] ([facility] Nitrite Laboratory test result [facility] ([facility] Bacteria - Ua Laboratory test result Abnormal (applies to non-numeric results) [facility] ([facility] ) WBC-Ua Laboratory test result 0-5 Abnormal (applies to non -numeric results) [facility] ([facility] RBC-Ua Laboratory test result 0-3 Abnormal (applies to non -numeric results) [facility] ([facility] Comment Laboratory test result [facility] ([facility] ID Date Data Source [id number] 01/09/2020 09:57:00 AM EDT [facility] ([facility] Name Value Range Interpretation Code Description Data Josephine rce(s) Supporting Document(s) Color Laboratory test result [facility] ([facility] NORMAL RANGES Age WBC RBC HGB HCT [...] HCT IS 5% LESS SOURCE FOR DATA: [employer] 1800 OPERATION MANUAL( AUTOMATED BLOOD COUNTS AND [...] Normal 80 and above >32 mL/min Normal Clarity Laboratory test result JODI ([facility] NORMAL RANGES Age WBC RBC HGB HCT [...] HCT IS 5% LESS SOURCE FOR DATA: [employer] 1800 OPERATION MANUAL( AUTOMATED BLOOD COUNTS AND [...] Normal 80 and above >32 mL/min Normal Glucose-Ua Laboratory test result ME HOLLY ([facility] NORMAL RANGES Age WBC RBC HGB HCT [...] HCT IS 5% LESS SOURCE FOR DATA: [employer] 1800 OPERATION MANUAL( AUTOMATED BLOOD COUNTS AND [...] Normal 80 and above >32 mL/min Normal Ketone Laboratory test result [facility] ([facility] NORMAL RANGES Age WBC RBC HGB HCT [...] HCT IS 5% LESS SOURCE FOR DATA: [employer] 1800 OPERATION MANUAL( AUTOMATED BLOOD COUNTS AND [...] Normal 80 and above >32 mL/min Normal Creatine kinase [Enzymatic activity/volume] in Serum or Plas ma 1.020 # 1.000-1.030 [facility] ([facility] NORMAL RANGES Age WBC RBC HGB HCT [...] Normal 80 and above >32 mL/min Normal Bilirubin,Urine Laboratory test result [facility] ([facility] NORMAL RANGES Age WBC RBC HGB HCT [...] HCT IS 5% LESS SOURCE FOR DATA: [employer] 1800 OPERATION MANUAL( AUTOMATED BLOOD COUNTS AND [...] Normal 80 and above >32 mL/min Normal Protein Laboratory test result [facility] ([facility] NORMAL RANGES Age WBC RBC HGB HCT [...] HCT IS 5% LESS SOURCE FOR DATA: [employer] 1800 OPERATION MANUAL( AUTOMATED BLOOD COUNTS AND [...] Normal 80 and above >32 mL/min Normal pH 7.0 # 5.0-8.0 [facility] ([facility] NORMAL RANGES Age WBC RBC HGB HCT [...] HCT IS 5% LESS SOURCE FOR DATA: [employer] 1800 OPERATION MANUAL( AUTOMATED BLOOD COUNTS AND [...] Normal 80 and above >32 mL/min Normal Blood - Ua Laboratory test result Abnormal (applies to non -numeric results) JODI ([facility] NORMAL RANGES Age WBC RBC HGB HCT [...] HCT IS 5% LESS SOURCE FOR DATA: [employer] 1800 OPERATION MANUAL( AUTOMATED BLOOD COUNTS AND [...] Normal 80 and above >32 mL/min Normal Nitrite Laboratory test result [facility] ([facility] NORMAL RANGES Age WBC RBC HGB HCT [...] HCT IS 5% LESS SOURCE FOR DATA: [employer] 1800 OPERATION MANUAL( AUTOMATED BLOOD COUNTS AND [...] Normal 80 and above >32 mL/min Normal Leukocyte Laboratory test result Abnormal (applies to non -numeric results) JODI ([facility] NORMAL RANGES Age WBC RBC HGB HCT [...] HCT IS 5% LESS SOURCE FOR DATA: [employer] 1800 OPERATION MANUAL( AUTOMATED BLOOD COUNTS AND [...] Normal 80 and above >32 mL/min Normal Urobilinogen 0.2 NA 0.2-1.0 [email or web address] ([facility] NORMAL RANGES Age WBC RBC HGB HCT [...] HCT IS 5% LESS SOURCE FOR DATA: [employer] 1800 OPERATION MANUAL( AUTOMATED BLOOD COUNTS AND [...] Normal 80 and above >32 mL/min Normal RBC-Ua Laboratory test result 0-3 [facility] ([facility] NORMAL RANGES Age WBC RBC HGB HCT [...] HCT IS 5% LESS SOURCE FOR DATA: [employer] 1800 OPERATION MANUAL( AUTOMATED BLOOD COUNTS AND [...] Normal 80 and above >32 mL/min Normal Bacteria - Ua Laboratory test result Abnormal (applies to non-numeric results) [facility] ([facility] ) NORMAL RANGES Age WBC RBC HGB HCT [...] HCT IS 5% LESS SOURCE FOR DATA: [employer] 1800 OPERATION MANUAL( AUTOMATED BLOOD COUNTS AND [...] Normal 80 and above >32 mL/min Normal Epithelial Cells - Ua Laboratory test result Above high no al [facility] ([facility] NORMAL RANGES Age WBC RBC HGB HCT [...] HCT IS 5% LESS SOURCE FOR DATA: [employer] D[employer] 1800 OPERATION MANUAL( AUTOMATED BLOOD COUNTS [...] Normal 80 and above >32 mL/min Normal WBC-Ua Laboratory test result 0-5 Abnormal (applies to non -numeric results) [facility] NORMAL RANGES Age WBC RBC HGB HCT [...] HCT IS 5% LESS SOURCE FOR DATA: [employer] 1800 OPERATION MANUAL( AUTOMATED BLOOD COUNTS AND [...] Normal 80 and above >32 mL/min Normal Renal Epithelial Cells Laboratory test result Ab normal (applies to non-numeric results) [facility] NORMAL RANGES Age WBC RBC HGB HCT [...] HCT IS 5% LESS SOURCE FOR DATA: [employer] 1800 OPERATION MANUAL( AUTOMATED BLOOD COUNTS AND [...] Normal 80 and above >32 mL/min Normal Crystals Laboratory test result [facility] ([facility] NORMAL RANGES Age WBC RBC HGB HCT [...] HCT IS 5% LESS SOURCE FOR DATA: [employer] 1800 OPERATION MANUAL( AUTOMATED BLOOD COUNTS AND [...] Normal 80 and above >32 mL/min Normal ID Date Data Source [id number] 01/09/2020 09:57:00 AM RAJESH ZAPATA ([facility] Name Value Range Interpretation Code Description Data Josephine rce(s) Supporting Document(s) BUN 9 mg/dL 8- JODI ([facility] NORMAL RANGES Age WBC RBC HGB HCT [...] HCT IS 5% LESS SOURCE FOR DATA: [employer] 1800 OPERATION MANUAL( AUTOMATED BLOOD COUNTS AND [...] Normal 80 and above >32 mL/min Normal Glu 102 mg/dL 70-110 [facility] ([facility] NORMAL RANGES Age WBC RBC HGB HCT [...] HCT IS 5% LESS SOURCE FOR DATA: [employer] 1800 OPERATION MANUAL( AUTOMATED BLOOD COUNTS AND [...] Normal 80 and above >32 mL/min Normal BUN/Creatinine Ratio 11.7 [facility] ([facility] NORMAL RANGES Age WBC RBC HGB HCT [...] HCT IS 5% LESS SOURCE FOR DATA: [employer] 1800 OPERATION MANUAL( AUTOMATED BLOOD COUNTS AND [...] Normal 80 and above >32 mL/min Normal Creat 0.8 mg/dL 0.5-1.0 JODI ([facility] NORMAL RANGES Age WBC RBC HGB HCT [...] HCT IS 5% LESS SOURCE FOR DATA: [employer] 1800 OPERATION MANUAL( AUTOMATED BLOOD COUNTS AND [...] Normal 80 and above >32 mL/min Normal Na 136 mmol/L 136-145 [facility] ([facility] NORMAL RANGES Age WBC RBC HGB HCT [...] HCT IS 5% LESS SOURCE FOR DATA: [employer] 1800 OPERATION MANUAL( AUTOMATED BLOOD COUNTS AND [...] Normal 80 and above >32 mL/min Normal Co2 25.7 mmol/L 22.0-29.0 [facility] NORMAL RANGES Age WBC RBC HGB HCT [...] Normal 80 and above >32 mL/min Normal K 4.0 mmol/L 3.5-5.1 [facility] ([facility] NORMAL RANGES Age WBC RBC HGB HCT [...] HCT IS 5% LESS SOURCE FOR DATA: [employer] 1800 OPERATION MANUAL( AUTOMATED BLOOD COUNTS AND [...] Normal 80 and above >32 mL/min Normal CL 100.6 mmol/L 98.0-107.0 [facility] ([facility] NORMAL RANGES Age WBC RBC HGB HCT [...] HCT IS 5% LESS SOURCE FOR DATA: [employer] 1800 OPERATION MANUAL( AUTOMATED BLOOD COUNTS AND [...] Normal 80 and above >32 mL/min Normal CA 9.3 mg/dL 8.6-10.2 [facility] NORMAL RANGES Age WBC RBC HGB HCT [...] HCT IS 5% LESS SOURCE FOR DATA: [employer] 1800 OPERATION MANUAL( AUTOMATED BLOOD COUNTS AND [...] Normal 80 and above >32 mL/min Normal TP 6.4 g/dL 6.6-8.7 Below low normal [facility] ( [facility] NORMAL RANGES Age WBC RBC HGB HCT [...] HCT IS 5% LESS SOURCE FOR DATA: [employer] 1800 OPERATION MANUAL( AUTOMATED BLOOD COUNTS AND [...] Normal 80 and above >32 mL/min Normal A/G Ratio 1.9 CALC MEDMYRANDA ([facility] NORMAL RANGES Age WBC RBC HGB HCT [...] HCT IS 5% LESS SOURCE FOR DATA: [employer] 1800 OPERATION MANUAL( AUTOMATED BLOOD COUNTS AND [...] Normal 80 and above >32 mL/min Normal Globulin 2.2 CALC [facility] ([facility] NORMAL RANGES Age WBC RBC HGB HCT [...] HCT IS 5% LESS SOURCE FOR DATA: [employer] 1800 OPERATION MANUAL( AUTOMATED BLOOD COUNTS AND [...] Normal 80 and above >32 mL/min Normal Alb 4.2 g/dL 3.4-4.8 [facility] ([facility] NORMAL RANGES Age WBC RBC HGB HCT [...] HCT IS 5% LESS SOURCE FOR DATA: [employer] 1800 OPERATION MANUAL( AUTOMATED BLOOD COUNTS AND [...] Normal 80 and above >32 mL/min Normal Ast (Sgot) 27 U/L 0-40 [facility] ([facility] NORMAL RANGES Age WBC RBC HGB HCT [...] HCT IS 5% LESS SOURCE FOR DATA: [employer] 1800 OPERATION MANUAL( AUTOMATED BLOOD COUNTS AND [...] Normal 80 and above >32 mL/min Normal Alt (SGPT) 22 U/L 0-41 [facility] ([facility] NORMAL RANGES Age WBC RBC HGB HCT [...] Normal 80 and above >32 mL/min Normal Alp 101.1 U/L 35-129 [facility] ([facility] NORMAL RANGES Age WBC RBC HGB HCT [...] HCT IS 5% LESS SOURCE FOR DATA: [employer] 1800 OPERATION MANUAL( AUTOMATED BLOOD COUNTS AND [...] Normal 80 and above >32 mL/min Normal Osmolality-Calculated 270.8 CALC MED [facility] ([facility] NORMAL RANGES Age WBC RBC HGB HCT [...] HCT IS 5% LESS SOURCE FOR DATA: [employer] 1800 OPERATION MANUAL( AUTOMATED BLOOD COUNTS AND [...] Normal 80 and above >32 mL/min Normal Anion Gap 14 mmol/L [facility] ([facility] NORMAL RANGES Age WBC RBC HGB HCT [...] HCT IS 5% LESS SOURCE FOR DATA: [employer] 1800 OPERATION MANUAL( AUTOMATED BLOOD COUNTS AND [...] Normal 80 and above >32 mL/min Normal Tbili 0.55 mg/dL 0.0-1.2 [facility] ([facility] NORMAL RANGES Age WBC RBC HGB HCT [...] HCT IS 5% LESS SOURCE FOR DATA: [employer] 1800 OPERATION MANUAL( AUTOMATED BLOOD COUNTS AND [...] Normal 80 and above >32 mL/min Normal eGFR Non-Afr. Canadian 70 # [facility] ([facility] NORMAL RANGES Age WBC RBC HGB HCT [...] HCT IS 5% LESS SOURCE FOR DATA: [employer] 1800 OPERATION MANUAL( AUTOMATED BLOOD COUNTS AND [...] Normal 80 and above >32 mL/min Normal eGFR 81 # [facility] ( [facility] NORMAL RANGES Age WBC RBC HGB HCT [...] HCT IS 5% LESS SOURCE FOR DATA: [employer] 1800 OPERATION MANUAL( AUTOMATED BLOOD COUNTS AND [...] Normal 80 and above >32 mL/min Normal ID Date Data Source [id number] 01/09/2020 09:57:00 AM RAJESH ZAPATA ([facility] Name Value Range Interpretation Code Description Data Josephine rce(s) Supporting Document(s) WBC 5.5 10E3/uL 4.1-10.9 JODI ([facility] NORMAL RANGES Age WBC RBC HGB HCT [...] HCT IS 5% LESS SOURCE FOR DATA: [employer] 1800 OPERATION MANUAL( AUTOMATED BLOOD COUNTS AND [...] Normal 80 and above >32 mL/min Normal RBC 5.16 10E6/uL 4.20-6.30 DAKOTAHMYRANDA ([facility] NORMAL RANGES Age WBC RBC HGB HCT [...] HCT IS 5% LESS SOURCE FOR DATA: [employer] 1800 OPERATION MANUAL( AUTOMATED BLOOD COUNTS AND [...] Normal 80 and above >32 mL/min Normal HCT 41.8 % 37.0-51.0 [facility] ([facility] NORMAL RANGES Age WBC RBC HGB HCT [...] HCT IS 5% LESS SOURCE FOR DATA: [facility] DYN 1800 OPERATION MANUAL( AUTOMATED BLOOD COUNTS [...] Normal 80 and above >32 mL/min Normal HGB 13.6 g/dL 12.0-18.0 [facility] ([facility] NORMAL RANGES Age WBC RBC HGB HCT [...] HCT IS 5% LESS SOURCE FOR DATA: [employer] 1800 OPERATION MANUAL( AUTOMATED BLOOD COUNTS AND [...] Normal 80 and above >32 mL/min Normal MCV 81.0 fL 80.0-97.0 [facility] ([facility] NORMAL RANGES Age WBC RBC HGB HCT [...] HCT IS 5% LESS SOURCE FOR DATA: [employer] 1800 OPERATION MANUAL( AUTOMATED BLOOD COUNTS AND [...] Normal 80 and above >32 mL/min Normal MCHC 32.5 g/dL 31.0-36.0 [facility] ([facility] NORMAL RANGES Age WBC RBC HGB HCT [...] HCT IS 5% LESS SOURCE FOR DATA: [employer] 1800 OPERATION MANUAL( AUTOMATED BLOOD COUNTS AND [...] Normal 80 and above >32 mL/min Normal MCH 26.4 pg 26.0-32.0 [facility] ([facility] NORMAL RANGES Age WBC RBC HGB HCT [...] HCT IS 5% LESS SOURCE FOR DATA: [employer] 1800 OPERATION MANUAL( AUTOMATED BLOOD COUNTS AND [...] Normal 80 and above >32 mL/min Normal RDW-CV 14.2 % 11.5-14.5 [facility] ([facility] NORMAL RANGES Age WBC RBC HGB HCT [...] HCT IS 5% LESS SOURCE FOR DATA: [employer] 1800 OPERATION MANUAL( AUTOMATED BLOOD COUNTS AND [...] Normal 80 and above >32 mL/min Normal Lym% 26.7 % 10.0-58.5 [facility] ([facility] NORMAL RANGES Age WBC RBC HGB HCT [...] HCT IS 5% LESS SOURCE FOR DATA: [employer] 1800 OPERATION MANUAL( AUTOMATED BLOOD COUNTS AND [...] Normal 80 and above >32 mL/min Normal PLT 154 10E3/uL 140-440 [facility] ([facility] NORMAL RANGES Age WBC RBC HGB HCT [...] HCT IS 5% LESS SOURCE FOR DATA: [employer] 1800 OPERATION MANUAL( AUTOMATED BLOOD COUNTS AND [...] Normal 80 and above >32 mL/min Normal MXD% 9.2 % 0.1-24.0 [facility] ([facility] NORMAL RANGES Age WBC RBC HGB HCT [...] HCT IS 5% LESS SOURCE FOR DATA: [employer] 1800 OPERATION MANUAL( AUTOMATED BLOOD COUNTS AND [...] Normal 80 and above >32 mL/min Normal Neut% 64.1 % 37.0-92.0 [facility] ([facility] NORMAL RANGES Age WBC RBC HGB HCT [...] HCT IS 5% LESS SOURCE FOR DATA: [employer] 1800 OPERATION MANUAL( AUTOMATED BLOOD COUNTS AND [...] Normal 80 and above >32 mL/min Normal Lym# 1.5 10E3/uL 0.6-4.1 [employer] ([facility] NORMAL RANGES Age WBC RBC HGB HCT [...] Normal 80 and above >32 mL/min Normal Neut# 3.5 % 2.0-7.8 [facility] ([facility] NORMAL RANGES Age WBC RBC HGB HCT [...] HCT IS 5% LESS SOURCE FOR DATA: [employer] 1800 OPERATION MANUAL( AUTOMATED BLOOD COUNTS AND [...] Normal 80 and above >32 mL/min Normal MXD# 0.5 10E3/uL 0.0-1.8 [facility] ([facility] NORMAL RANGES Age WBC RBC HGB HCT [...] HCT IS 5% LESS SOURCE FOR DATA: [employer] 1800 OPERATION MANUAL( AUTOMATED BLOOD COUNTS AND [...] Normal 80 and above >32 mL/min Normal MPV 12.6 fL 9.0-13.0 [facility] ([facility] NORMAL RANGES Age WBC RBC HGB HCT [...] HCT IS 5% LESS SOURCE FOR DATA: [employer] 1800 OPERATION MANUAL( AUTOMATED BLOOD COUNTS AND [...] Normal 80 and above >32 mL/min Normal ID Date Data Source [id number] 01/09/2020 09:57:00 AM EDT [facility] ([facility], ) Name Value Range Interpretation Code Description Data Josephine rce(s) Supporting Document(s) WBC 5.5 10E3/uL 4.1-10.9 [facility] ([facility], ) NORMAL RANGES Age WBC RBC HGB HCT [...] HCT IS 5% LESS SOURCE FOR DATA: [employer] 1800 OPERATION MANUAL( AUTOMATED BLOOD COUNTS AND [...] Normal 80 and above >32 mL/min Normal RBC 5.16 10E6/uL 4.20-6.30 [facility], ) NORMAL RANGES Age WBC RBC HGB HCT [...] HCT IS 5% LESS SOURCE FOR DATA: [employer] 1800 OPERATION MANUAL( AUTOMATED BLOOD COUNTS AND [...] Normal 80 and above >32 mL/min Normal HCT 41.8 % 37.0-51.0 [facility] ([facility], ) NORMAL RANGES Age WBC RBC HGB HCT [...] HCT IS 5% LESS SOURCE FOR DATA: [employer] 1800 OPERATION MANUAL( AUTOMATED BLOOD COUNTS AND [...] Normal 80 and above >32 mL/min Normal HGB 13.6 g/dL 12.0-18.0 [facility] ([facility], ) NORMAL RANGES Age WBC RBC HGB HCT [...] HCT IS 5% LESS SOURCE FOR DATA: [employer] 1800 OPERATION MANUAL( AUTOMATED BLOOD COUNTS AND [...] Normal 80 and above >32 mL/min Normal MCV 81.0 fL 80.0-97.0 [facility], ) NORMAL RANGES Age WBC RBC HGB HCT [...] HCT IS 5% LESS SOURCE FOR DATA: [employer] 1800 OPERATION MANUAL( AUTOMATED BLOOD COUNTS AND [...] Normal 80 and above >32 mL/min Normal MCH 26.4 pg 26.0-32.0 [facility] ([facility], ) NORMAL RANGES Age WBC RBC HGB HCT [...] Normal 80 and above >32 mL/min Normal PLT 154 10E3/uL 140-440 [facility], ) NORMAL RANGES Age WBC RBC HGB HCT [...] HCT IS 5% LESS SOURCE FOR DATA: [employer] 1800 OPERATION MANUAL( AUTOMATED BLOOD COUNTS AND [...] Normal 80 and above >32 mL/min Normal MCHC 32.5 g/dL 31.0-36.0 [facility] ([facility], ) NORMAL RANGES Age WBC RBC HGB HCT [...] HCT IS 5% LESS SOURCE FOR DATA: [employer] 1800 OPERATION MANUAL( AUTOMATED BLOOD COUNTS AND [...] Normal 80 and above >32 mL/min Normal Laboratory test finding (navigational concept) 14.2 % 11.5-14.5 [facility] ([facility], ) NORMAL RANGES Age WBC RBC HGB HCT [...] HCT IS 5% LESS SOURCE FOR DATA: [employer] 1800 OPERATION MANUAL( AUTOMATED BLOOD COUNTS AND [...] Normal 80 and above >32 mL/min Normal Laboratory test finding (navigational concept) 64.1 % 37.0-92.0 [facility] ([facility], ) NORMAL RANGES Age WBC RBC HGB HCT [...] HCT IS 5% LESS SOURCE FOR DATA: [employer] 1800 OPERATION MANUAL( AUTOMATED BLOOD COUNTS AND [...] Normal 80 and above >32 mL/min Normal Laboratory test finding (navigational concept) 26.7 % 10.0-58.5 [facility] ([facility], ) NORMAL RANGES Age WBC RBC HGB HCT [...] HCT IS 5% LESS SOURCE FOR DATA: [employer] 1800 OPERATION MANUAL( AUTOMATED BLOOD COUNTS AND [...] Normal 80 and above >32 mL/min Normal Neutrophils [#/volume] in Semen by Manual count 3.5 % 2.0-7.8 [facility] ([facility], ) NORMAL RANGES Age WBC RBC HGB HCT [...] HCT IS 5% LESS SOURCE FOR DATA: [employer] 1800 OPERATION MANUAL( AUTOMATED BLOOD COUNTS AND [...] Normal 80 and above >32 mL/min Normal Laboratory test finding (navigational concept) 9.2 % 0.1-24.0 [facility] ([facility], ) NORMAL RANGES Age WBC RBC HGB HCT [...] HCT IS 5% LESS SOURCE FOR DATA: [employer] 1800 OPERATION MANUAL( AUTOMATED BLOOD COUNTS AND [...] Normal 80 and above >32 mL/min Normal Laboratory test finding (navigational concept) 1.5 10E3/uL 0.6-4.1 [facility] ([facility], ) NORMAL RANGES Age WBC RBC HGB HCT [...] HCT IS 5% LESS SOURCE FOR DATA: [employer] 1800 OPERATION MANUAL( AUTOMATED BLOOD COUNTS AND [...] Normal 80 and above >32 mL/min Normal Glu 102 mg/dL 70-110 [facility], ) NORMAL RANGES Age WBC RBC HGB HCT [...] Normal 80 and above >32 mL/min Normal Platelet mean volume [Entitic volume] in Blood by Maninder 12.6 f L 9.0-13.0 [facility] ([facility], ) NORMAL RANGES Age WBC RBC HGB HCT [...] HCT IS 5% LESS SOURCE FOR DATA: [employer] DYN 1800 OPERATION MANUAL( AUTOMATED BLOOD COUNTS [...] Normal 80 and above >32 mL/min Normal Laboratory test finding (navigational concept) 0.5 10E3/uL 0.0-1.8 [facility] ([facility], ) NORMAL RANGES Age WBC RBC HGB HCT [...] HCT IS 5% LESS SOURCE FOR DATA: [employer] 1800 OPERATION MANUAL( AUTOMATED BLOOD COUNTS AND [...] Normal 80 and above >32 mL/min Normal Laboratory test finding (navigational concept) 0.8 mg/dL 0.5-1.0 [facility] ([facility], ) NORMAL RANGES Age WBC RBC HGB HCT [...] HCT IS 5% LESS SOURCE FOR DATA: [employer] 1800 OPERATION MANUAL( AUTOMATED BLOOD COUNTS AND [...] Normal 80 and above >32 mL/min Normal Urea nitrogen/Creatinine [Mass Ratio] in Serum or Plasma 11.7 CALC [facility] ([facility], ) NORMAL RANGES Age WBC RBC HGB HCT [...] HCT IS 5% LESS SOURCE FOR DATA: [employer] 1800 OPERATION MANUAL( AUTOMATED BLOOD COUNTS AND [...] Normal 80 and above >32 mL/min Normal BUN 9 mg/dL 8- [facility] ([facility], ) NORMAL RANGES Age WBC RBC HGB HCT [...] HCT IS 5% LESS SOURCE FOR DATA: [employer] 1800 OPERATION MANUAL( AUTOMATED BLOOD COUNTS AND [...] Normal 80 and above >32 mL/min Normal CL 100.6 mmol/L 98.0-107.0 [facility], ) NORMAL RANGES Age WBC RBC HGB HCT [...] HCT IS 5% LESS SOURCE FOR DATA: [employer] 1800 OPERATION MANUAL( AUTOMATED BLOOD COUNTS AND [...] Normal 80 and above >32 mL/min Normal Potassium [Moles/volume] in Serum or Plasma 4.0 mmol/L 3.5-5.1 [facility] ([facility], ) NORMAL RANGES Age WBC RBC HGB HCT [...] HCT IS 5% LESS SOURCE FOR DATA: [employer] 1800 OPERATION MANUAL( AUTOMATED BLOOD COUNTS AND [...] Normal 80 and above >32 mL/min Normal Na 136 mmol/L 136-145 [facility], ) NORMAL RANGES Age WBC RBC HGB HCT [...] HCT IS 5% LESS SOURCE FOR DATA: [employer] 1800 OPERATION MANUAL( AUTOMATED BLOOD COUNTS AND [...] Normal 80 and above >32 mL/min Normal TP 6.4 g/dL 6.6-8.7 [facility], ) NORMAL RANGES Age WBC RBC HGB HCT [...] HCT IS 5% LESS SOURCE FOR DATA: [employer] 1800 OPERATION MANUAL( AUTOMATED BLOOD COUNTS AND [...] Normal 80 and above >32 mL/min Normal Co2 25.7 mmol/L 22.0-29.0 [facility], ) NORMAL RANGES Age WBC RBC HGB HCT MCV PLT Adult M 4.1-10.9 4.20-6.30 12.0-18.0 37.0-51.0 80-97 140-440 Adult F 4.1-10.9 4.04-5.48 12.0-18.0 37.0-51.0 80- 140-440 0 -1 Yr 5.0-20.0 3.9-5.9 15-18 [...] Normal 80 and above >32 mL/min Normal CA 9.3 mg/dL 8.6-10.2 [facility], ) NORMAL RANGES Age WBC RBC HGB HCT [...] HCT IS 5% LESS SOURCE FOR DATA: [employer] 1800 OPERATION MANUAL( AUTOMATED BLOOD COUNTS AND [...] Normal 80 and above >32 mL/min Normal Alb 4.2 g/dL 3.4-4.8 [facility] ([facility], ) NORMAL RANGES Age WBC RBC HGB HCT [...] HCT IS 5% LESS SOURCE FOR DATA: [employer] 1800 OPERATION MANUAL( AUTOMATED BLOOD COUNTS AND [...] Normal 80 and above >32 mL/min Normal Albumin/Globulin [Mass Ratio] in Serum or Plasma 1.9 CALC [facility] ([facility], ) NORMAL RANGES Age WBC RBC HGB HCT [...] HCT IS 5% LESS SOURCE FOR DATA: [employer] 1800 OPERATION MANUAL( AUTOMATED BLOOD COUNTS AND [...] Normal 80 and above >32 mL/min Normal Globulin [Mass/volume] in Serum by calculation 2.2 CALC [facility] ([facility], ) NORMAL RANGES Age WBC RBC HGB HCT [...] HCT IS 5% LESS SOURCE FOR DATA: [employer] 1800 OPERATION MANUAL( AUTOMATED BLOOD COUNTS AND [...] Normal 80 and above >32 mL/min Normal Laboratory test finding (navigational concept) 27 U/L 0-40 [facility] ([facility], ) NORMAL RANGES Age WBC RBC HGB HCT [...] HCT IS 5% LESS SOURCE FOR DATA: [employer] 1800 OPERATION MANUAL( AUTOMATED BLOOD COUNTS AND [...] Normal 80 and above >32 mL/min Normal Laboratory test finding (navigational concept) 22 U/L 0-41 [facility] ([facility], ) NORMAL RANGES Age WBC RBC HGB HCT [...] HCT IS 5% LESS SOURCE FOR DATA: [employer] 1800 OPERATION MANUAL( AUTOMATED BLOOD COUNTS AND [...] Normal 80 and above >32 mL/min Normal Laboratory test finding (navigational concept) 101.1 U/L 35-129 [facility] ([facility], ) NORMAL RANGES Age WBC RBC HGB HCT [...] HCT IS 5% LESS SOURCE FOR DATA: [employer] 1800 OPERATION MANUAL( AUTOMATED BLOOD COUNTS AND [...] Normal 80 and above >32 mL/min Normal Anion Gap 14 mmol/L [facility] ([facility], ) NORMAL RANGES Age WBC RBC HGB HCT [...] HCT IS 5% LESS SOURCE FOR DATA: [employer] 1800 OPERATION MANUAL( AUTOMATED BLOOD COUNTS AND [...] Normal 80 and above >32 mL/min Normal Tbili 0.55 mg/dL 0.0-1.2 [facility], ) NORMAL RANGES Age WBC RBC HGB HCT [...] HCT IS 5% LESS SOURCE FOR DATA: [employer] 1800 OPERATION MANUAL( AUTOMATED BLOOD COUNTS AND [...] Normal 80 and above >32 mL/min Normal Laboratory test finding (navigational concept) 270.8 CALC [facility] ([facility], ) NORMAL RANGES Age WBC RBC HGB HCT [...] Normal 80 and above >32 mL/min Normal Laboratory test finding (navigational concept) 81 # [facility] ([facility], ) NORMAL RANGES Age WBC RBC HGB HCT [...] HCT IS 5% LESS SOURCE FOR DATA: [employer] DYN 1800 OPERATION MANUAL( AUTOMATED BLOOD COUNTS [...] Normal 80 and above >32 mL/min Normal Laboratory test finding (navigational concept) 70 # [facility] ([facility], ) NORMAL RANGES Age WBC RBC HGB HCT [...] HCT IS 5% LESS SOURCE FOR DATA: [employer] 1800 OPERATION MANUAL( AUTOMATED BLOOD COUNTS AND [...] Normal 80 and above >32 mL/min Normal Laboratory test finding (navigational concept) Laboratory test result [facility], ) NORMAL RANGES Age WBC RBC HGB HCT [...] HCT IS 5% LESS SOURCE FOR DATA: [employer] 1800 OPERATION MANUAL( AUTOMATED BLOOD COUNTS AND [...] Normal 80 and above >32 mL/min Normal Color Laboratory test result [facility], ) NORMAL RANGES Age WBC RBC HGB HCT [...] HCT IS 5% LESS SOURCE FOR DATA: [employer] 1800 OPERATION MANUAL( AUTOMATED BLOOD COUNTS AND [...] Normal 80 and above >32 mL/min Normal Clarity Laboratory test result [facility] ([facility], ) NORMAL RANGES Age WBC RBC HGB HCT [...] HCT IS 5% LESS SOURCE FOR DATA: [employer] 1800 OPERATION MANUAL( AUTOMATED BLOOD COUNTS AND [...] Normal 80 and above >32 mL/min Normal Laboratory test finding (navigational concept) Laboratory test result [facility] ([facility], ) NORMAL RANGES Age WBC RBC HGB HCT [...] HCT IS 5% LESS SOURCE FOR DATA: [employer] 1800 OPERATION MANUAL( AUTOMATED BLOOD COUNTS AND [...] Normal 80 and above >32 mL/min Normal Ketone Laboratory test result [facility] ([facility], ) NORMAL RANGES Age WBC RBC HGB HCT [...] HCT IS 5% LESS SOURCE FOR DATA: [employer] 1800 OPERATION MANUAL( AUTOMATED BLOOD COUNTS AND [...] Normal 80 and above >32 mL/min Normal Creatine kinase [Enzymatic activity/volume] in Serum or Plas ma 1.020 # 1.000-1.030 [facility] ([facility], ) NORMAL RANGES Age WBC RBC HGB HCT [...] HCT IS 5% LESS SOURCE FOR DATA: [employer] 1800 OPERATION MANUAL( AUTOMATED BLOOD COUNTS AND [...] Normal 80 and above >32 mL/min Normal Laboratory test finding (navigational concept) Laboratory test r esult Abnormal (applies to non-numeric results) [facility] ([facility], ) NORMAL RANGES Age WBC RBC HGB HCT [...] HCT IS 5% LESS SOURCE FOR DATA: [employer] 1800 OPERATION MANUAL( AUTOMATED BLOOD COUNTS AND [...] Normal 80 and above >32 mL/min Normal pH 7.0 # 5.0-8.0 [facility], ) NORMAL RANGES Age WBC RBC HGB HCT [...] HCT IS 5% LESS SOURCE FOR DATA: [employer] 1800 OPERATION MANUAL( AUTOMATED BLOOD COUNTS AND [...] Normal 80 and above >32 mL/min Normal Protein Laboratory test result [facility] ([facility], ) NORMAL RANGES Age WBC RBC HGB HCT [...] Normal 80 and above >32 mL/min Normal Urobilinogen 0.2 NA 0.2-1.0 [facility], ) NORMAL RANGES Age WBC RBC HGB HCT [...] HCT IS 5% LESS SOURCE FOR DATA: [employer] 1800 OPERATION MANUAL( AUTOMATED BLOOD COUNTS AND [...] Normal 80 and above >32 mL/min Normal Laboratory test finding (navigational concept) Laboratory test r esult Abnormal (applies to non-numeric results) [facility] ([facility], ) NORMAL RANGES Age WBC RBC HGB HCT [...] HCT IS 5% LESS SOURCE FOR DATA: [employer] 1800 OPERATION MANUAL( AUTOMATED BLOOD COUNTS AND [...] Normal 80 and above >32 mL/min Normal Nitrite Laboratory test result [facility] ([facility], ) NORMAL RANGES Age WBC RBC HGB HCT [...] HCT IS 5% LESS SOURCE FOR DATA: [employer] 1800 OPERATION MANUAL( AUTOMATED BLOOD COUNTS AND [...] Normal 80 and above >32 mL/min Normal Laboratory test finding (navigational concept) Laboratory test result [facility], ) NORMAL RANGES Age WBC RBC HGB HCT [...] HCT IS 5% LESS SOURCE FOR DATA: [employer] 1800 OPERATION MANUAL( AUTOMATED BLOOD COUNTS AND [...] Normal 80 and above >32 mL/min Normal Laboratory test finding (navigational concept) Laboratory test result 0-3 [facility] ([facility], ) NORMAL RANGES Age WBC RBC HGB HCT [...] HCT IS 5% LESS SOURCE FOR DATA: [employer] 1800 OPERATION MANUAL( AUTOMATED BLOOD COUNTS AND [...] Normal 80 and above >32 mL/min Normal Laboratory test finding (navigational concept) Laboratory test r esult Abnormal (applies to non-numeric results) [facility] NORMAL RANGES Age WBC RBC HGB HCT [...] HCT IS 5% LESS SOURCE FOR DATA: [employer] 1800 OPERATION MANUAL( AUTOMATED BLOOD COUNTS AND [...] Normal 80 and above >32 mL/min Normal Laboratory test finding (navigational concept) Laboratory test r esult 0-5 Abnormal (applies to non-numeric results) [facility] ([facility], ) NORMAL RANGES Age WBC RBC HGB HCT [...] HCT IS 5% LESS SOURCE FOR DATA: [employer] 1800 OPERATION MANUAL( AUTOMATED BLOOD COUNTS AND [...] Normal 80 and above >32 mL/min Normal Laboratory test finding (navigational concept) Laboratory test r esult Abnormal (applies to non-numeric results) [facility] ([facility], ) NORMAL RANGES Age WBC RBC HGB HCT [...] HCT IS 5% LESS SOURCE FOR DATA: [employer] 1800 OPERATION MANUAL( AUTOMATED BLOOD COUNTS AND [...] Normal 80 and above >32 mL/min Normal Laboratory test finding (navigational concept) Laboratory test result [facility] ([facility], ) NORMAL RANGES Age WBC RBC HGB HCT [...] HCT IS 5% LESS SOURCE FOR DATA: [employer] DYN 1800 OPERATION MANUAL( AUTOMATED BLOOD COUNTS [...] Normal 80 and above >32 mL/min Normal ID Date Data Source [id number] 10/19/2019 10:13:00 AM EDT [facility] ([facility] Name Value Range Interpretation Code Description Data Josephine rce(s) Supporting Document(s) Glucose-Ua Laboratory test result [facility] ([facility] Color Laboratory test result [facility] ([facility] Clarity Laboratory test result [facility] ([facility] Bilirubin,Urine Laboratory test result [facility] ([facility] Ketone Laboratory test result [facility] ([facility] Blood - Ua Laboratory test result [facility] ([facility] Creatine kinase [Enzymatic activity/volume] in Serum or Plas ma 1.015 # 1.000-1.030 [facility] ([facility] Protein Laboratory test result [facility] ([facility] Urobilinogen 0.2 NA 0.2-1.0 [facility] ([facility] pH 6.5 # 5.0-8.0 [facility] ([facility] Nitrite Laboratory test result [facility] ([facility] Leukocyte Laboratory test result Abnormal (applies to non -numeric results) [facility] ([facility] RBC-Ua Laboratory test result 0-3 [facility] ([facility] Epithelial Cells - Ua Laboratory test result [facility] ([facility] Bacteria - Ua Laboratory test result Abnormal (applies to non-numeric results) [facility] ([facility] WBC-Ua Laboratory test result 0-5 [facility] ([facility] ID Date Data Source [id number] 10/17/2019 12:24:34 PM EDT [facility] NT INFORMATIONPatient MRN Name Date of Age Gend*PT [id number] Judith Zavala 1940 79 years F ---PT Location Admission Date/Time Visit ID Attending Provider --- --- --- --- EPI ID CSN Admitting Provider [id number] ---Breast cancer surveillance and follow-upDolores returns today with her very nice . Unfortunately she was over inour imaging facility for quite a while as they were running far behind. Shecomes today with no concerning constitutional symptoms her only complaint isthat of vertigo it is been a complaint for a while she suffers terribly with itand cannot seem to find anyone to help her. 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 Last clinical breast exam: One year ago. COMPARISON: 08/02/2016, 08/05/2017, and 08/08/2018 TECHNIQUE: Standard digital views of each breast with CAD review. Digitalbreast tomosynthesis was also performed bilaterally and reviewed. FINDINGS: Breast parenchyma is scattered fibroglandular density. Stable postsurgical scarring and distortion is noted in the upper outer rightbreast. There are surgical clips in the right axilla.No dominant masses areseen. Benign appearing calcifications are noted with no new suspiciousclusteredmicrocalcifications. Overall parenchymal pattern appears stable. IMPRESSION: Stable postsurgical changes on the right.No mammographic evidence of malignancy bilaterally. CLASSIFICATION: BI-RADS 2 - BENIGN FINDINGS. ACR Breast Density: B- Scattered fibroglandular density ResultCode: BR 2 BPertinent History:Judith was found to have a right breast 1.5 cm spiculated suspicous mass inOctober 2013 on routine annual screening mammogram. It was not there in 2012,and diagnostic workup is noted: 02/22/14 diagnostic right breast mammo/sonogram:0.9 cm hypodense mass with acoustic shadowing and irregular borders 0.9 cm,deemed suspicious, 04/09/14 bilateral diagnostic mammogram: irregular spiculatedmass with associated calcifications right lateral breast, 1.7 cm, suspicious,core biopsy recommended. On 04/09/14 RIGHT breast core biopsy revealed grade 3 invasive ductal carcinoma,ER/LA+, H2N 2+, FISH negative, [id number], Stage I. She underwent lumpectomy withaxillary sentinel node biopsy which was performed by Dr Guillory. 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, grade 3 DCIS, axillarynode biopsy +0/1, ER/LA+, H2N negative, [id number], Stage I Treatment:Lumpectomy with negative axillary sentinel node biopsy 05/13/14, Dr Montanoation therapy 6460 cGy/35 fractions completed 08/06/14, Dr DiazAnastrozole started, did not tolerate, switched to tamoxifen had side effects,changed to exemestane, then to letrozole, none of them were tolerated, now on nohormonal therapy, Dr Vann, now Dr Womack Menstrual/ History: Menarche 13, 1st parity 18, , partialhysterectomy in 1978, she still has her ovaries, she is HRT for few years Social History: , ETOH: no, Smoking: no Family Cancer History: P aunt: breast?, Daughter: saliva gland, sister: kidneyage 78Past Medical History:Diagnosis Date Acid reflux (aortic stenosis) , cardiology Complication of anesthesia blood pressure dropped after gallbladder surgery with complications Depression GERD (gastroesophageal reflux disease) Hypertension Insomnia RIGHT breast grade 3 invasive ductal carcinoma 1.8 cm, grade 3 DCIS, axillarynode biopsy +0/1, ER/LA+, H2N negative, [id number], Stage I 04/15/2014 S/P radiation therapy to right breast, Dr Diaz 11/22/2016 VertigoPast Surgical History:Procedure Laterality Date ABDOMINAL HYSTERECTOMY 1978 partial bladder suspension BLADDER SUSPENSION BREAST LUMPECTOMY Right 2014 w lumph nodes BREAST SURGERY Right 05/03/2014 Procedure: EXCISION BREAST W MAMMO NEEDLE LOCAL SENTINEL NODE INJECT RIGHTLUMPECTOMY ; Surgeon: Dali Guillory MD; Location: [facility];Service: General; Laterality: Right; CARDIAC VALVE REPLACEMENT CARDIAC VALVE SURGERY N/A 12/19/2015 Procedure: THORACOTOMY VIA RIGHT HEARTPORT, REPLACEMENT AORTIC VALVE WITHMAGNA EASE 23 MM AND BUD ; Surgeon: Miryam Call MD; Location: [facility];Service: Cardiac/Open Heart; Laterality: N/A; CHOLECYSTECTOMY septic gallbladder COLONOSCOPY COLONOSCOPY DILATION AND CURETTAGE OF UTERUS TUBAL LIGATION UPPER GASTROINTESTINAL ENDOSCOPY UPPER GASTROINTESTINAL ENDOSCOPYCurrent Outpatient Medications: acetaminophen (TYLENOL) 325 MG tablet, , Disp: , Rfl: aspirin EC 81 MG EC tablet, Take 1 tablet (81 mg total) by mouth daily, Disp:, Rfl: cephalexin (KEFLEX) 500 MG capsule, TAKE 1 CAPSULE BY MOUTH THREE TIMES DAILYFOR 10 DAYS, Disp: , Rfl: clotrimazole-betamethasone (LOTRISONE) cream, APPLY TOPICALLY TO VULVA CELESTINO BDOMEN TWICE DAILY FOR 2 WEEKS FOR YEAST INFECTION, Disp: , Rfl: diltiazem (CARDIZEM) 60 MG tablet, Take 0.5 tablets (30 mg total) by mouth 2(two) times a day, Disp: 30 tablet, Rfl: 0 fluconazole (DIFLUCAN) 150 MG tablet, TAKE 1 TABLET BY MOUTH NOW AND 1 TABLETBY MOUTH IN 10 DAYS, Disp: , Rfl: meclizine (ANTIVERT) 25 MG tablet, , Disp: , Rfl: metoprolol (LOPRESSOR) 50 MG tablet, Take 50 mg by mouth daily , Disp: , Rfl: pqdpmqnj-ovxzxqicq-ishhrxarzxxvkx (CORTISPORIN) otic solution, INSTILL 4DROPS INTO THE LEFT EAR TWICE A DAY FOR 7 DAYS, Disp: , Rfl: nortriptyline (PAMELOR) 75 MG capsule, Take 75 mg by mouth nightly, Disp: ,Rfl: omeprazole (PRILOSEC) 40 MG capsule, Take 40 mg by mouth daily, Disp: , Rfl: ondansetron (ZOFRAN) 4 MG tablet, Take 4 mg by mouth, Disp: , Rfl: Calcium Carb-Cholecalciferol (CALCIUM 600 + D PO), Take 1 tablet by mouth 2(two) times a day, Disp: , Rfl:Judith Zavala, a 79 years, female looks well , in NAD.Blood pressure 148/87, pulse 68, height 1.6 m (5' 3"), weight 77.1 kg (170 lb),not currently .Right breast is well healed from surgery , there is no palpable evidence oflocoregional recurrence along the scar or elsewhere in the breast . There areappropriate surgical and radiation changes to the breast itself . There is noaxillary or supraclavicular adenopathy in the upright or supine position . Sheactually has 2 scars in her breast one quite medially with a bit of deformityand then the other one out laterallyLeft breast is nl in appearance , there are no obvious masses or abnormalitieswhatsoever. The skin and nipple appear normal . There is no axillary orsupraclavicular adenopathy.Abdomen is non tender and benign , no evidence or organomegaly .Neck reveals no cervical adenopathy and no thyromegaly or obvious thyroidnodules. Assessment planDolores is a very nice 79-year-old female should be 80 in March. She isstatus post breast conservation right breast for a stage I breast cancer she wasnot able to tolerate adjuvant hormonal therapy tried multiple different regimensultimately stopped we have been following her for over 5 years she has noevidence of recurrent disease clinically or by history and her imaging currentlyis unremarkableAt this point I told her she [facility] and I be happy to see her back if anything everchanges. [facility] [place] a breast clinic up there and I urged her to gothere as they are outstandingShe is comfortable with that I am happy to see her back if anything changes Name Value Range Interpretation Code Description Data Josephine rce(s) Supporting Document(s) ID Date Data Source [id number] 10/17/2019 10:15:00 AM EDT [facility]: DIGI LEEANN MAMMOGRAM DIAG BL W CAD W TOMOSYNTHESISCLINICAL HISTORY: History of Invasive ductal carcinoma of right breast with lumpectomy 2015.Last clinical breast exam: One year ago.COMPARISON: 08/02/2016, 08/05/2017, and 08/08/2018TECHNIQUE: Standard digital views of each breast with CAD review. Digital breast tomosynthesis was also performed bilaterally and reviewed.FINDINGS: Breast parenchyma is scattered fibroglandular density.Stable postsurgical scarring and distortion is noted in the upper outer right breast. There are surgical clips in the right axilla.No dominant masses are seen. Benign appearing calcifications are noted with no new suspicious clustered microcalcifications. Overall parenchymal pattern appears stable.IMPRESSION: Stable postsurgical changes on the right.No mammographic evidence of malignancy bilaterally.CLASSIFICATION: BI-RADS 2 - BENIGN FINDINGS.ACR Breast Density: B- Scattered fibroglandular densityResultCode: BR 2 BDISCLAIMER: According to the [place] [employer] and the [place] Cancer Society, any patient with a lifetime risk assessment greater than 20% or patients with dense breasts (heterogeneously or extremely dense), may benefit from additional screening tests for breast cancer. Further screening tests for patients with dense breasts (heterogeneously or extremely dense) should be based upon the patient's breast cancer risk status. All patients, having their mammogram with [facility], with a lifetime risk assessment greater than 20% or with dense breasts, will be given the opportunity to meet with our certified breast health navigator to discuss their risk and further imaging options.Further screening tests include Ultrasound and MR (Magnetic Resonance) imaging.Dictated by: BELLA LEROY M.D. on 10/17/2019 Transcribed by: noam on <<TranscriptionDateTime1>>CDS G code: , ,CDS Modifier: , ,cc:DALI GUILLORY [id number] [place] [address] [place] [address] Name Value Range Interpretation Code Description Data Josephine rce(s) Supporting Document(s) ID Date Data Source [id number] 10/09/2019 01:17:00 PM EDT [facility] Name Value Range Interpretation Code Description Data Josephine rce(s) Supporting Document(s) Bacteria identified in Urine by Culture Laboratory test result Abnormal (applies to non-numeric results) [facility] SRC:UA VOIDED Antimicrobial Susceptibility Laboratory test result [facility] ([facility] SRC:UA VOIDED Urine Culture, Routine Laboratory test result Ab normal (applies to non-numeric results) [facility] ([facility] ) SRC:UA VOIDED ID Date Data Source [id number] 10/09/2019 01:12:00 PM EDT [facility] ([facility] Name Value Range Interpretation Code Description Data Josephine rce(s) Supporting Document(s) Clarity Laboratory test result [facility] ([facility] Color Laboratory test result [facility] ([facility] Glucose-Ua Laboratory test result [facility] ([facility] Ketone Laboratory test result [facility] ([facility] Bilirubin,Urine Laboratory test result Abnormal (applies to non-numeric results) [facility] ([facility] ) Blood - Ua Laboratory test result Abnormal (applies to non -numeric results) [facility] ([facility] pH 6.5 # 5.0-8.0 [facility] Creatine kinase [Enzymatic activity/volume] in Serum or Plas ma 1.025 # 1.000-1.030 [facility] Protein Laboratory test result Abnormal (applies to non -numeric results) [facility] ([facility] Urobilinogen 1.0 NA 0.2-1.0 [facility] ([facility] Nitrite Laboratory test result Abnormal (applies to non -numeric results) [facility] Leukocyte Laboratory test result Abnormal (applies to non -numeric results) [facility] ([facility] Bacteria - Ua Laboratory test result Abnormal (applies to non-numeric results) [facility] ([facility] ) RBC-Ua Laboratory test result 0-3 Abnormal (applies to non -numeric results) [facility] ([facility] Epithelial Cells - Ua Laboratory test result [facility] ([facility] WBC-Ua Laboratory test result 0-5 Abnormal (applies to non -numeric results) [facility] ([facility] Comment Laboratory test result Above high normal [facility] ID Date Data Source [id number] 10/03/2019 01:33:00 PM EDT [facility] ([facility]) Name Value Range Interpretation Code Description Data Josephine rce(s) Supporting Document(s) Alanine aminotransferase [Enzymatic activity/volume] in Serum or Pl asma 26 [facility] ([facility]) Albumin [Mass/volume] in Serum or Plasma 4.2 [facility] ([facility]) Calcium [Mass/volume] in Serum or Plasma 9.6 [facility] ([facility]) Chloride [Moles/volume] in Serum or Plasma 103.8 [facility] ([facility]) Carbon dioxide, total [Moles/volume] in Serum or Plasma 23.3 [facility] ([facility]) Sodium 137 [facility] ([facility]) Alkaline phosphatase [Enzymatic activity/volume] in Serum or Plasma 105.3 [facility] ([facility]) Potassium [Moles/volume] in Serum or Plasma 4.1 [facility] ([facility]) Protein [Mass/volume] in Serum or Plasma 6.9 [facility] ([facility]) Glucose 115 70-110 [facility] ([facility]) Aspartate aminotransferase [Enzymatic activity/volume] in Serum or Plasma 29 [facility] ([facility]) Urea nitrogen [Mass/volume] in Serum or Plasma 12 [facility] ([facility]) Creatinine For GFR 0.9 [facility] (Car [facility]oly [facility]) ID Date Data Source [id number] 10/03/2019 01:33:00 PM EDT [facility] ([facility]) Name Value Range Interpretation Code Description Data Josephine rce(s) Supporting Document(s) Red Blood Count 5.18 4.20-6.30 [facility] ([facility]io [facility]) Platelets 163 140-440 [facility] ([facility]) White Blood Count 6.4 4.1-10.9 [facility] ([facility]) Hematocrit 42.5 37.0-51.0 [facility] ([facility]) Hemoglobin 14.2 12.0-18.0 [facility] ([facility]) ID Date Data Source [id number] 10/03/2019 01:33:00 PM EDT [facility] ([facility]) Name Value Range Interpretation Code Description Data Josephine rce(s) Supporting Document(s) Triglycerides 195 [facility] ([facility]iolo gy [facility]) Chol/HDL Ratio 4.9 [facility] ([facility]iol [facility]) HDL 44 45-65 [facility] ([facility]) Cholesterol in LDL [Mass/volume] in Serum or Plasma by calculation 12 9 [facility] ([facility]) Cholesterol 212 0-200 [facility] ([facility]) ID Date Data Source [id number] 10/03/2019 08:59:00 AM EDT [facility] ([facility] Name Value Range Interpretation Code Description Data Josephine rce(s) Supporting Document(s) Color Laboratory test result [facility] ([facility] NORMAL RANGES Age WBC RBC HGB HCT [...] HCT IS 5% LESS SOURCE FOR DATA: [employer] 1800 [employer]PERATION MANUAL( AUTOMATED BLOOD COUNTS AND [...] DESIRABLE: <130 MG/DL <110 MG/DL BORDERLINE-HIGH RISK: 130- 159 MG/DL 110-129 MG/DL HIGH RISK: >160 MG/DL >130 MG/DL *CHILDREN AND ADOLESCENTS REPRESENTS INDIVIDUALA AGED 2-19 YEARS EXCLUSIVE. Glucose-Ua Laboratory test result [facility] ([facility] NORMAL RANGES Age WBC RBC HGB HCT [...] HCT IS 5% LESS SOURCE FOR DATA: [employer] 1800 OPERATION MANUAL( AUTOMATED BLOOD COUNTS AND [...] DESIRABLE: <130 MG/DL <110 MG/DL BORDERLINE-HIGH RISK: 130- 159 MG/DL 110-129 MG/DL HIGH RISK: >160 MG/DL >130 MG/DL *CHILDREN AND ADOLESCENTS REPRESENTS INDIVIDUALA AGED 2-19 YEARS EXCLUSIVE. Clarity Laboratory test result [facility] ([facility] NORMAL RANGES Age WBC RBC HGB HCT [...] HCT IS 5% LESS SOURCE FOR DATA: [employer] 1800 OPERATION MANUAL( AUTOMATED BLOOD COUNTS AND [...] DESIRABLE: <130 MG/DL <110 MG/DL BORDERLINE-HIGH RISK: 130- 159 MG/DL 110-129 MG/DL HIGH RISK: >160 MG/DL >130 MG/DL *CHILDREN AND ADOLESCENTS REPRESENTS INDIVIDUALA AGED 2-19 YEARS EXCLUSIVE. Bilirubin,Urine Laboratory test result [facility] NORMAL RANGES Age WBC RBC HGB HCT [...] HCT IS 5% LESS SOURCE FOR DATA: [employer] 1800 [employer]PERATION MANUAL( AUTOMATED BLOOD COUNTS AND [...] DESIRABLE: <130 MG/DL <110 MG/DL BORDERLINE-HIGH RISK: 130- 159 MG/DL 110-129 MG/DL HIGH RISK: >160 MG/DL >130 MG/DL *CHILDREN AND ADOLESCENTS REPRESENTS INDIVIDUALA AGED 2-19 YEARS EXCLUSIVE. Blood - Ua Laboratory test result [facility] ([facility] NORMAL RANGES Age WBC RBC HGB HCT [...] HCT IS 5% LESS SOURCE FOR DATA: [employer] 1800 OPERATION MANUAL( AUTOMATED BLOOD COUNTS AND [...] DESIRABLE: <130 MG/DL <110 MG/DL BORDERLINE-HIGH RISK: 130- 159 MG/DL 110-129 MG/DL HIGH RISK: >160 MG/DL >130 MG/DL *CHILDREN AND ADOLESCENTS REPRESENTS INDIVIDUALA AGED 2-19 YEARS EXCLUSIVE. pH 6.5 # 5.0-8.0 [facility] ([facility] NORMAL RANGES Age WBC RBC HGB HCT [...] HCT IS 5% LESS SOURCE FOR DATA: [employer] 1800 OPERATION MANUAL( AUTOMATED BLOOD COUNTS AND [...] DESIRABLE: <130 MG/DL <110 MG/DL BORDERLINE-HIGH RISK: 130- 159 MG/DL 110-129 MG/DL HIGH RISK: >160 MG/DL >130 MG/DL *CHILDREN AND ADOLESCENTS REPRESENTS INDIVIDUALA AGED 2-19 YEARS EXCLUSIVE. Ketone Laboratory test result [facility] ([facility] NORMAL RANGES Age WBC RBC HGB HCT [...] HCT IS 5% LESS SOURCE FOR DATA: [employer] 1800 OPERATION MANUAL( AUTOMATED BLOOD COUNTS AND [...] DESIRABLE: <130 MG/DL <110 MG/DL BORDERLINE-HIGH RISK: 130- 159 MG/DL 110-129 MG/DL HIGH RISK: >160 MG/DL >130 MG/DL *CHILDREN AND ADOLESCENTS REPRESENTS INDIVIDUALA AGED 2-19 YEARS EXCLUSIVE. Urobilinogen 0.2 NA 0.2-1.0 [facility] ([facility] NORMAL RANGES Age WBC RBC HGB HCT [...] HCT IS 5% LESS SOURCE FOR DATA: [employer] 1800 OPERATION MANUAL( AUTOMATED BLOOD COUNTS AND [...] DESIRABLE: <130 MG/DL <110 MG/DL BORDERLINE-HIGH RISK: 130- 159 MG/DL 110-129 MG/DL HIGH RISK: >160 MG/DL >130 MG/DL *CHILDREN AND ADOLESCENTS REPRESENTS INDIVIDUALA AGED 2-19 YEARS EXCLUSIVE. Protein Laboratory test result [facility] ([facility] NORMAL RANGES Age WBC RBC HGB HCT [...] HCT IS 5% LESS SOURCE FOR DATA: [employer] 1800 OPERATION MANUAL( AUTOMATED BLOOD COUNTS AND [...] DESIRABLE: <130 MG/DL <110 MG/DL BORDERLINE-HIGH RISK: 130- 159 MG/DL 110-129 MG/DL HIGH RISK: >160 MG/DL >130 MG/DL *CHILDREN AND ADOLESCENTS REPRESENTS INDIVIDUALA AGED 2-19 YEARS EXCLUSIVE. Nitrite Laboratory test result [facility] ([facility] NORMAL RANGES Age WBC RBC HGB HCT [...] HCT IS 5% LESS SOURCE FOR DATA: [employer] 1800 OPERATION MANUAL( AUTOMATED BLOOD COUNTS AND [...] DESIRABLE: <130 MG/DL <110 MG/DL BORDERLINE-HIGH RISK: 130- 159 MG/DL 110-129 MG/DL HIGH RISK: >160 MG/DL >130 MG/DL *CHILDREN AND ADOLESCENTS REPRESENTS INDIVIDUALA AGED 2-19 YEARS EXCLUSIVE. Leukocyte Laboratory test result [facility] ([facility] NORMAL RANGES Age WBC RBC HGB HCT [...] HCT IS 5% LESS SOURCE FOR DATA: [employer] 1800 OPERATION MANUAL( AUTOMATED BLOOD COUNTS AND [...] DESIRABLE: <130 MG/DL <110 MG/DL BORDERLINE-HIGH RISK: 130- 159 MG/DL 110-129 MG/DL HIGH RISK: >160 MG/DL >130 MG/DL *CHILDREN AND ADOLESCENTS REPRESENTS INDIVIDUALA AGED 2-19 YEARS EXCLUSIVE. ID Date Data Source [id number] 10/03/2019 08:59:00 AM EDT [facility] ([facility] Name Value Range Interpretation Code Description Data Josephine rce(s) Supporting Document(s) Chol 212 mg/dL 0-200 Above high normal [facility] ([facility] NORMAL RANGES Age WBC RBC HGB HCT [...] HCT IS 5% LESS SOURCE FOR DATA: [employer] 1800 OPERATION MANUAL( AUTOMATED BLOOD COUNTS AND [...] DESIRABLE: <130 MG/DL <110 MG/DL BORDERLINE-HIGH RISK: 130- 159 MG/DL 110-129 MG/DL HIGH RISK: >160 MG/DL >130 MG/DL *CHILDREN AND ADOLESCENTS REPRESENTS INDIVIDUALA AGED 2-19 YEARS EXCLUSIVE. LDL_C 129 Calc 75-129 [facility] ([facility] NORMAL RANGES Age WBC RBC HGB HCT [...] HCT IS 5% LESS SOURCE FOR DATA: [employer] 1800 OPERATION MANUAL( AUTOMATED BLOOD COUNTS AND [...] DESIRABLE: <130 MG/DL <110 MG/DL BORDERLINE-HIGH RISK: 130- 159 MG/DL 110-129 MG/DL HIGH RISK: >160 MG/DL >130 MG/DL *CHILDREN AND ADOLESCENTS REPRESENTS INDIVIDUALA AGED 2-19 YEARS EXCLUSIVE. Cholesterol in HDL [Mass/volume] in Serum or Plasma 44 mg/dL 45-65 Below low normal [facility] ([facility] ) NORMAL RANGES Age WBC RBC HGB HCT [...] HCT IS 5% LESS SOURCE FOR DATA: [employer] 1800 OPERATION MANUAL( AUTOMATED BLOOD COUNTS AND [...] DESIRABLE: <130 MG/DL <110 MG/DL BORDERLINE-HIGH RISK: 130- 159 MG/DL 110-129 MG/DL HIGH RISK: >160 MG/DL >130 MG/DL *CHILDREN AND ADOLESCENTS REPRESENTS INDIVIDUALA AGED 2-19 YEARS EXCLUSIVE. Trig 195 mg/dL 40-200 [facility] ([facility] NORMAL RANGES Age WBC RBC HGB HCT [...] HCT IS 5% LESS SOURCE FOR DATA: [employer] 1800 OPERATION MANUAL( AUTOMATED BLOOD COUNTS AND [...] DESIRABLE: <130 MG/DL <110 MG/DL BORDERLINE-HIGH RISK: 130- 159 MG/DL 110-129 MG/DL HIGH RISK: >160 MG/DL >130 MG/DL *CHILDREN AND ADOLESCENTS REPRESENTS INDIVIDUALA AGED 2-19 YEARS EXCLUSIVE. Cho/HDL Ratio 4.9 CALC [facility] ([facility] NORMAL RANGES Age WBC RBC HGB HCT [...] HCT IS 5% LESS SOURCE FOR DATA: [employer] 1800 OPERATION MANUAL( AUTOMATED BLOOD COUNTS AND [...] DESIRABLE: <130 MG/DL <110 MG/DL BORDERLINE-HIGH RISK: 130- 159 MG/DL 110-129 MG/DL HIGH RISK: >160 MG/DL >130 MG/DL *CHILDREN AND ADOLESCENTS REPRESENTS INDIVIDUALA AGED 2-19 YEARS EXCLUSIVE. ID Date Data Source [id number] 10/03/2019 08:59:00 AM EDT [facility] ([facility] Name Value Range Interpretation Code Description Data Josephine rce(s) Supporting Document(s) Creatine kinase [Enzymatic activity/volume] in Serum or Plasma 48 U /L 26-192 [facility] ([facility] NORMAL RANGES Age WBC RBC HGB HCT [...] HCT IS 5% LESS SOURCE FOR DATA: [employer] 1800 OPERATION MANUAL( AUTOMATED BLOOD COUNTS AND [...] ADOLESCENTS REPRESENTS INDIVIDUALA AGED 2-19 YEARS EXCLUSIVE. ID Date Data Source [id number] 10/03/2019 08:59:00 AM EDT [facility] ([facility] Name Value Range Interpretation Code Description Data Josephine rce(s) Supporting Document(s) Glu 115 mg/dL 70-110 Above high normal [facility] ([facility] NORMAL RANGES Age WBC RBC HGB HCT [...] HCT IS 5% LESS SOURCE FOR DATA: [employer] 1800 OPERATION MANUAL( AUTOMATED BLOOD COUNTS AND [...] ADOLESCENTS REPRESENTS INDIVIDUALA AGED 2-19 YEARS EXCLUSIVE. BUN/Creatinine Ratio 14.1 CALC [facility] ([facility] NORMAL RANGES Age WBC RBC HGB HCT [...] HCT IS 5% LESS SOURCE FOR DATA: [employer] 1800 OPERATION MANUAL( AUTOMATED BLOOD COUNTS AND [...] ADOLESCENTS REPRESENTS INDIVIDUALA AGED 2-19 YEARS EXCLUSIVE. BUN 12 mg/dL 8-23 [facility] ([facility] NORMAL RANGES Age WBC RBC HGB HCT [...] HCT IS 5% LESS SOURCE FOR DATA: [employer] 1800 OPERATION MANUAL( AUTOMATED BLOOD COUNTS [...] ADOLESCENTS REPRESENTS INDIVIDUALA AGED 2-19 YEARS EXCLUSIVE. Creat 0.9 mg/dL 0.5-1.0 [facility] ([facility] NORMAL RANGES Age WBC RBC HGB HCT [...] HCT IS 5% LESS SOURCE FOR DATA: [employer] 1800 OPERATION MANUAL( AUTOMATED BLOOD COUNTS AND [...] ADOLESCENTS REPRESENTS INDIVIDUALA AGED 2-19 YEARS EXCLUSIVE. Na 137 mmol/L 136-145 [facility] ([facility] NORMAL RANGES Age WBC RBC HGB HCT [...] HCT IS 5% LESS SOURCE FOR DATA: [employer] 1800 OPERATION MANUAL( AUTOMATED BLOOD COUNTS AND [...] ADOLESCENTS REPRESENTS INDIVIDUALA AGED 2-19 YEARS EXCLUSIVE. K 4.1 mmol/L 3.5-5.1 [facility] NORMAL RANGES Age WBC RBC HGB HCT [...] HCT IS 5% LESS SOURCE FOR DATA: [employer] 1800 OPERATION MANUAL( AUTOMATED BLOOD COUNTS AND [...] ADOLESCENTS REPRESENTS INDIVIDUALA AGED 2-19 YEARS EXCLUSIVE. CL 103.8 mmol/L 98.0-107.0 [facility] ([facility] NORMAL RANGES Age WBC RBC HGB HCT [...] HCT IS 5% LESS SOURCE FOR DATA: [employer] 1800 OPERATION MANUAL( AUTOMATED BLOOD COUNTS AND [...] ADOLESCENTS REPRESENTS INDIVIDUALA AGED 2-19 YEARS EXCLUSIVE. CA 9.6 mg/dL 8.6-10.2 [facility] ([facility] NORMAL RANGES Age WBC RBC HGB HCT [...] HCT IS 5% LESS SOURCE FOR DATA: [employer] 1800 OPERATION MANUAL( AUTOMATED BLOOD COUNTS AND [...] ADOLESCENTS REPRESENTS INDIVIDUALA AGED 2-19 YEARS EXCLUSIVE. TP 6.9 g/dL 6.6-8.7 [facility] NORMAL RANGES Age WBC RBC HGB HCT [...] HCT IS 5% LESS SOURCE FOR DATA: [employer] 1800 OPERATION MANUAL( AUTOMATED BLOOD COUNTS AND [...] ADOLESCENTS REPRESENTS INDIVIDUALA AGED 2-19 YEARS EXCLUSIVE. Co2 23.3 mmol/L 22.0-29.0 [facility] ([facility] NORMAL RANGES Age WBC RBC HGB HCT [...] HCT IS 5% LESS SOURCE FOR DATA: [employer] 1800 OPERATION MANUAL( AUTOMATED BLOOD COUNTS AND [...] ADOLESCENTS REPRESENTS INDIVIDUALA AGED 2-19 YEARS EXCLUSIVE. Alb 4.2 g/dL 3.4-4.8 J[facility] ([facility] NORMAL RANGES Age WBC RBC HGB HCT [...] HCT IS 5% LESS SOURCE FOR DATA: [employer] 1800 OPERATION MANUAL( AUTOMATED BLOOD COUNTS AND [...] ADOLESCENTS REPRESENTS INDIVIDUALA AGED 2-19 YEARS EXCLUSIVE. Alp 105.3 U/L 35-129 [facility] ([facility] NORMAL RANGES Age WBC RBC HGB HCT [...] HCT IS 5% LESS SOURCE FOR DATA: [employer] 1800 OPERATION MANUAL( AUTOMATED BLOOD COUNTS AND [...] ADOLESCENTS REPRESENTS INDIVIDUALA AGED 2-19 YEARS EXCLUSIVE. Globulin 2.6 CALC [facility] ([facility] NORMAL RANGES Age WBC RBC HGB HCT [...] HCT IS 5% LESS SOURCE FOR DATA: [employer] 1800 OPERATION MANUAL( AUTOMATED BLOOD COUNTS AND [...] ADOLESCENTS REPRESENTS INDIVIDUALA AGED 2-19 YEARS EXCLUSIVE. A/G Ratio 1.6 CALC [facility] ([facility] NORMAL RANGES Age WBC RBC HGB HCT [...] HCT IS 5% LESS SOURCE FOR DATA: [employer] 1800 OPERATION MANUAL( AUTOMATED BLOOD COUNTS AND [...] ADOLESCENTS REPRESENTS INDIVIDUALA AGED 2-19 YEARS EXCLUSIVE. Tbili 0.53 mg/dL 0.0-1.2 [facility] ([facility] NORMAL RANGES Age WBC RBC HGB HCT [...] HCT IS 5% LESS SOURCE FOR DATA: [employer] 1800 OPERATION MANUAL( AUTOMATED BLOOD COUNTS AND [...] ADOLESCENTS REPRESENTS INDIVIDUALA AGED 2-19 YEARS EXCLUSIVE. Ast (Sgot) 29 U/L 0-40 [facility] ([facility] NORMAL RANGES Age WBC RBC HGB HCT [...] HCT IS 5% LESS SOURCE FOR DATA: [employer] 1800 OPERATION MANUAL( AUTOMATED BLOOD COUNTS AND [...] ADOLESCENTS REPRESENTS INDIVIDUALA AGED 2-19 YEARS EXCLUSIVE. Alt (SGPT) 26 U/L 0-41 [facility] ([facility] NORMAL RANGES Age WBC RBC HGB HCT [...] HCT IS 5% LESS SOURCE FOR DATA: [employer] 1800 OPERATION MANUAL( AUTOMATED BLOOD COUNTS AND [...] ADOLESCENTS REPRESENTS INDIVIDUALA AGED 2-19 YEARS EXCLUSIVE. eGFR 70 # [facility] ( [facility] NORMAL RANGES Age WBC RBC HGB HCT [...] HCT IS 5% LESS SOURCE FOR DATA: [employer] 1800 OPERATION MANUAL( AUTOMATED BLOOD COUNTS AND [...] ADOLESCENTS REPRESENTS INDIVIDUALA AGED 2-19 YEARS EXCLUSIVE. Osmolality-Calculated 274.6 [facility] ([facility] NORMAL RANGES Age WBC RBC HGB HCT [...] HCT IS 5% LESS SOURCE FOR DATA: [employer] 1800 OPERATION MANUAL( AUTOMATED BLOOD COUNTS AND [...] ADOLESCENTS REPRESENTS INDIVIDUALA AGED 2-19 YEARS EXCLUSIVE. Anion Gap 14 mmol/L [facility] ([facility] NORMAL RANGES Age WBC RBC HGB HCT [...] HCT IS 5% LESS SOURCE FOR DATA: [employer] 1800 OPERATION MANUAL( AUTOMATED BLOOD COUNTS AND [...] ADOLESCENTS REPRESENTS INDIVIDUALA AGED 2-19 YEARS EXCLUSIVE. eGFR Non-Afr. Canadian 60 # [facility] ([facility] NORMAL RANGES Age WBC RBC HGB HCT [...] HCT IS 5% LESS SOURCE FOR DATA: [employer] 1800 OPERATION MANUAL( AUTOMATED BLOOD COUNTS AND [...] ADOLESCENTS REPRESENTS INDIVIDUALA AGED 2-19 YEARS EXCLUSIVE. ID Date Data Source [id number] 10/03/2019 08:59:00 AM EDT [facility] ([facility] Name Value Range Interpretation Code Description Data Josephine rce(s) Supporting Document(s) WBC 6.4 10E3/uL 4.1-10.9 [facility] ([facility] NORMAL RANGES Age WBC RBC HGB HCT [...] HCT IS 5% LESS SOURCE FOR DATA: [employer] 1800 OPERATION MANUAL( AUTOMATED BLOOD COUNTS AND [...] ADOLESCENTS REPRESENTS INDIVIDUALA AGED 2-19 YEARS EXCLUSIVE. RBC 5.18 10E6/uL 4.-6 [employer] ([facility] NORMAL RANGES Age WBC RBC HGB HCT [...] HCT IS 5% LESS SOURCE FOR DATA: [employer] 1800 OPERATION MANUAL( AUTOMATED BLOOD COUNTS AND [...] ADOLESCENTS REPRESENTS INDIVIDUALA AGED 2-19 YEARS EXCLUSIVE. HGB 14.2 g/dL 12.0-18.0 [facility] ([facility] NORMAL RANGES Age WBC RBC HGB HCT [...] HCT IS 5% LESS SOURCE FOR DATA: [employer] 1800 OPERATION MANUAL( AUTOMATED BLOOD COUNTS AND [...] ADOLESCENTS REPRESENTS INDIVIDUALA AGED 2-19 YEARS EXCLUSIVE. HCT 42.5 % 37.0-51.0 [facility] ([facility] NORMAL RANGES Age WBC RBC HGB HCT [...] HCT IS 5% LESS SOURCE FOR DATA: [employer] 1800 OPERATION MANUAL( AUTOMATED BLOOD COUNTS AND [...] ADOLESCENTS REPRESENTS INDIVIDUALA AGED 2-19 YEARS EXCLUSIVE. MCV 82.0 fL 80.0-97.0 [facility] ([facility] NORMAL RANGES Age WBC RBC HGB HCT [...] HCT IS 5% LESS SOURCE FOR DATA: [employer] DYN 1800 OPERATION MANUAL( AUTOMATED BLOOD COUNTS [...] ADOLESCENTS REPRESENTS INDIVIDUALA AGED 2-19 YEARS EXCLUSIVE. MCHC 33.4 g/dL 31.0-36.0 [facility] ([facility] NORMAL RANGES Age WBC RBC HGB HCT [...] HCT IS 5% LESS SOURCE FOR DATA: [employer] 1800 OPERATION MANUAL( AUTOMATED BLOOD COUNTS AND [...] ADOLESCENTS REPRESENTS INDIVIDUALA AGED 2-19 YEARS EXCLUSIVE. MCH 27.4 pg 26.0-32.0 [facility] ([facility] NORMAL RANGES Age WBC RBC HGB HCT [...] HCT IS 5% LESS SOURCE FOR DATA: [employer] 1800 OPERATION MANUAL( AUTOMATED BLOOD COUNTS AND [...] ADOLESCENTS REPRESENTS INDIVIDUALA AGED 2-19 YEARS EXCLUSIVE. PLT 163 10E3/uL 140-440 [facility] ([facility] NORMAL RANGES Age WBC RBC HGB HCT [...] HCT IS 5% LESS SOURCE FOR DATA: [employer] 1800 OPERATION MANUAL( AUTOMATED BLOOD COUNTS AND [...] ADOLESCENTS REPRESENTS INDIVIDUALA AGED 2-19 YEARS EXCLUSIVE. Lym% 23.1 % 10.0-58.5 [facility] ([facility] NORMAL RANGES Age WBC RBC HGB HCT [...] HCT IS 5% LESS SOURCE FOR DATA: [employer] 1800 OPERATION MANUAL( AUTOMATED BLOOD COUNTS AND [...] ADOLESCENTS REPRESENTS INDIVIDUALA AGED 2-19 YEARS EXCLUSIVE. RDW-CV 14.3 % 11.5-14.5 [facility] ([facility] NORMAL RANGES Age WBC RBC HGB HCT [...] HCT IS 5% LESS SOURCE FOR DATA: [employer] 1800 OPERATION MANUAL( AUTOMATED BLOOD COUNTS AND [...] ADOLESCENTS REPRESENTS INDIVIDUALA AGED 2-19 YEARS EXCLUSIVE. Neut% 69.3 % 37.0-92.0 [facility] ([facility] NORMAL RANGES Age WBC RBC HGB HCT [...] HCT IS 5% LESS SOURCE FOR DATA: [employer] 1800 OPERATION MANUAL( AUTOMATED BLOOD COUNTS AND [...] ADOLESCENTS REPRESENTS INDIVIDUALA AGED 2-19 YEARS EXCLUSIVE. MXD% 7.6 % 0.1-24.0 [facility] ([facility] NORMAL RANGES Age WBC RBC HGB HCT [...] HCT IS 5% LESS SOURCE FOR DATA: [employer] 1800 OPERATION MANUAL( AUTOMATED BLOOD COUNTS AND [...] ADOLESCENTS REPRESENTS INDIVIDUALA AGED 2-19 YEARS EXCLUSIVE. Neut# 4.4 % 2.0-7.8 [facility] ([facility] NORMAL RANGES Age WBC RBC HGB HCT [...] ADOLESCENTS REPRESENTS INDIVIDUALA AGED 2-19 YEARS EXCLUSIVE. Lym# 1.5 10E3/uL 0.6-4.1 [facility] ([facility] NORMAL RANGES Age WBC RBC HGB HCT [...] HCT IS 5% LESS SOURCE FOR DATA: [employer] 1800 OPERATION MANUAL( AUTOMATED BLOOD COUNTS AND [...] ADOLESCENTS REPRESENTS INDIVIDUALA AGED 2-19 YEARS EXCLUSIVE. MXD# 0.5 10E3/uL 0.0-1.8 [facility] ([facility] NORMAL RANGES Age WBC RBC HGB HCT [...] HCT IS 5% LESS SOURCE FOR DATA: [employer] 1800 OPERATION MANUAL( AUTOMATED BLOOD COUNTS AND [...] ADOLESCENTS REPRESENTS INDIVIDUALA AGED 2-19 YEARS EXCLUSIVE. MPV 12.5 fL 9.0-13.0 [facility] ([facility] NORMAL RANGES Age WBC RBC HGB HCT [...] ADOLESCENTS REPRESENTS INDIVIDUALA AGED 2-19 YEARS EXCLUSIVE. ID Date Data Source [id number] 08/14/2019 03:31:00 PM EDT [facility] Patient Name: JUDITH ZAVALA : 1940 Sex: F Pt Unit #: [id number] Location:[facility] Provider: Visit Date/Time: 08/14/19 Primary Insurance: [facility] Secondary Insurance: Self Pay Intake Vital Signs 08/14/19 15:34 Current Weight 162 lb 4 oz Weight Measurement Method Standing Scale BP 162/90 Blood Pressure Location Lt brachial Position Sitting Respiration 18 Pulse 90 Pulse Strength Normal Pulse Source Pulse Oximeter Temp 98.1 F Temp Source Tympanic Pulse Oximetry (%) 96 Oxygen Delivery Method room air Intake Visit Reasons: sore on old incision Nurse Note: 79 year old here today with c/o of a rash in the abd fold near her hysterectomy incision. She had a hysterectomy in 1978. She has a hx. of breast cancer with lumpectomy and 5 lymph nodes removed. She had 35 radiation treatments. 2015. No chemo. 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 1. Little interest or pleasure in doing things: not at all 2. Feeling down, depressed, or hopeless: not at all Total score: 0 If you checked off any problems, how difficult have these problems made it for you to do your work, take care of things at home, or get along with other people?: not difficult at all Source: Developed by Drs. Ivan Zuniga, Santa Allison, Yassine Grady and colleagues, with an educational mauricio from [employer]. [employer] Annual Questionn aire Are you currently in recovery for alcohol or substance use?: No How many times in the past year have you had 4 or more drinks in a day?: None How many times in the past year have you used a recreational drug or used a prescription medication for nonmedical reasons?: None Coronavirus Screening Screening Have you traveled outside of [facility] or [facility] in the last 14 days.: Yes Has patient experienced coronavirus symptoms: No [facility] Social History Does the Patient have a Healthcare Proxy: Yes Does Patient have a DNR?: No Does Patient have a Living Will?: No adopted: No household members: spouse housing: house lives independently: Yes number of children: 2 highest education level completed: high school graduate service: No current occupational status: retired 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 current occupational exposures/hazards: No sexually active: Yes how many partners: 5 do you think of yourself as: straight/heterosexual current gender identity: female alcohol intake: never substance use type: does not use agree to transfusion: Yes seatbelt use: always 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 water heater temp set < 120 deg: Yes working smoke detector in home: Yes fire extinguisher in home: Yes carbon monox detector in home: Yes firearms in home: Yes firearms unloaded and locked: Yes do you feel safe at home: Yes victim of physical abuse: No victim of emotional abuse: No victim of sexual abuse: No Female Reproductive History Menstrual Age of Menarche: 12 control method: none Menopause type: surgical Date of menopause: hyster 1978 Total pregnancies: 9 Full term: 7 Premature: 0 Ab induced: 0 Ab spontaneous: 2 Ectopics: 0 Multiple births: 0 HPI Additional HPI HPI Details: 79 year old here today with c/o of a rash in the abdominal pannus near her hysterectomy incision. She had a hysterectomy in 1978. She has a hx. of breast cancer with lumpectomy and 5 lymph nodes removed. She had 35 radiation treatments. 2015. No chemo. Review of Systems Const Reports system reviewed and no additional complaints, except as documented and Denies headache(s) Eyes Denies loss of vision ENT Denies headache(s) Card Denies chest pain, Denies syncope, Denies leg edema, Denies lightheadedness, Denies palpitations andDenies dyspnea Resp Denies chest congestion, Denies cough and Denies dyspnea GI Denies abdominal pain, Denies bloating, Denies change in bowel habits and Denies heartburn Denies nipple discharge, Denies dyspareunia, Denies dysmenorrhea, Denies pelvic pain, Denies flank pain, Denies urinary urgency, Denies vaginal discharge and Denies vaginal odor Musc Reports system reviewed and no additional complaints, except as documented Skin/Breast Denies nipple discharge Neuro Denies syncope, Denies headache(s) and Denies loss of vision Psych Denies depression Endo Reports system reviewed and no additional complaints, except as documented and Denies palpitations Louis/Lymph Denies easy bruising and Denies lymphadenopathy Ex am Const General: cooperative and healthy appearing Orientation: alert, awake and oriented x3 Resp Effort Inspection: normal respiratory effort and able to speak in complete sentences GI Inspection: Yes other (area of erythema under pannus at hysterectomy scar- consis. with intertrigo) Neuro General: patient alert, patient awake, patient oriented x3 and moves all extremities Psych Appearance: grossly normal and well kempt Speech and Movement: speech and movement normal Assessment Plan Assessment Plan (1) Intertriginous dermatitis associated with moisture: Status: Acute Comment: Lotrisone cream ordered, discussed changes to keep area dry to prevent this in the future. Code(s): L30.4 - Erythema intertrigo SNOMED Code(s): 108976415 Category: Medical Orders Other Medications: New: clotrimazole-betamethasone 1-0.05 % (Lotrisone) Apply small amount topically BID to affected areas-on abdomen and vulva for yeast infection for 2weeks. 1 applic topical BID 2 weeks 45 grams 0RF Electronically Signed By: <Electronically signed by Marine Noonan DO> Date/Time Signed: 09/24/19 0629 Name Value Range Interpretation Code Description Data Josephine rce(s) Supporting Document(s) Procedure Social History Code Duration Value Status Description Data Source(s ) Smoking 03/04/2020 12:00:00 AM EST Patient has never smoked co mpleted Patient has never smoked [facility] ([facility] ) Smoking 01/31/2020 12:00:00 AM EDT Patient has never smoked co mpleted Patient has never smoked [facility] ([facility]) Vital Signs ID Date Data Source UNK Name Value Range Interpretation Code Description Data Source(s) Oxygen saturation in Arterial blood by Pulse oximetry 98 % 98 % [facility] ([facility] Body mass index (BMI) [Ratio] 28.6 kg/m2 28.6 k g/m2 [facility] ([facility] Alpine body weight 110 [lb_av] 110 [lb_av] MED[facility] T ([facility] Body weight 159.00 [lb_av] 159.00 [lb_av] MED[facility] T ([facility] Body height 62.50 [in_i] 62.50 [in_i] [facility] ([facility] 5'2.50" Respiratory rate 16 /min 16 /min [facility] ( [facility] Heart rate 81 /min 81 /min [facility] ([facility] Body temperature 96.8 [degF] 96.8 [degF] [facility] ([facility] Diastolic blood pressure 74 mm[Hg] 74 mm[Hg] [facility] ([facility] Systolic blood pressure 110 mm[Hg] 110 mm[Hg] M EDENT ([facility] Oxygen saturation in Arterial blood by Pulse oximetry 99 % 99 % MED[facility] ([facility] (AT Rest), (Room Air) Body mass index (BMI) [Ratio] 28.6 kg/m2 28.6 k g/m2 [facility] ([facility] Alpine body weight 110 [lb_av] 110 [lb_av] MED[facility] T ([facility] Body weight 159.00 [lb_av] 159.00 [lb_av] MED[facility] T ([facility] Body height 62.50 [in_i] 62.50 [in_i] [facility] ([facility] 5'2.50" Respiratory rate 16 /min 16 /min [facility] ( [facility] Heart rate 76 /min 76 /min [facility] ([facility] Body temperature 96.9 [degF] 96.9 [degF] [facility] ([facility] Diastolic blood pressure 70 mm[Hg] 70 mm[Hg] [facility] ([facility] Systolic blood pressure 106 mm[Hg] 106 mm[Hg] M EDENT ([facility] Oxygen saturation in Arterial blood by Pulse oximetry 98 % 98 % [facility] ([facility] Body mass index (BMI) [Ratio] 28.8 kg/m2 28.8 k g/m2 [facility] ([facility] Alpine body weight 110 [lb_av] 110 [lb_av] MED[facility] T ([facility] Body weight 160.00 [lb_av] 160.00 [lb_av] [facility] T ([facility] Body height 62.50 [in_i] 62.50 [in_i] [facility] ([facility] 5'2.50" Respiratory rate 16 /min 16 /min [facility] ( [facility] Heart rate 66 /min 66 /min [facility] ([facility] Body temperature 97.5 [degF] 97.5 [degF] [facility] ([facility] Diastolic blood pressure 82 mm[Hg] 82 mm[Hg] [facility] ([facility] Systolic blood pressure 118 mm[Hg] 118 mm[Hg] M EDENT ([facility] Oxygen saturation in Arterial blood by Pulse oximetry 98 % 98 % [facility] ([facility] (AT Rest), (Room Air) Body mass index (BMI) [Ratio] 28.6 kg/m2 28.6 k g/m2 [facility] ([facility] Alpine body weight 110 [lb_av] 110 [lb_av] MED[facility] T ([facility] Body weight 159.00 [lb_av] 159.00 [lb_av] MED[facility] T ([facility] Body height 62.50 [in_i] 62.50 [in_i] [facility] ([facility] 5'2.50" Respiratory rate 17 /min 17 /min [facility] ( [facility] Heart rate 86 /min 86 /min [facility] ([facility] Body temperature 97.1 [degF] 97.1 [degF] [facility] ([facility] Diastolic blood pressure 78 mm[Hg] 78 mm[Hg] [facility] ([facility] Systolic blood pressure 122 mm[Hg] 122 mm[Hg] M EDENT ([facility] Oxygen saturation in Arterial blood by Pulse oximetry 99 % 99 % [facility] ([facility] Body mass index (BMI) [Ratio] 28.8 kg/m2 28.8 k g/m2 [facility] ([facility] Alpine body weight 110 [lb_av] 110 [lb_av] MED[facility] T ([facility] Body weight 160.00 [lb_av] 160.00 [lb_av] MED[facility] T ([facility] Body height 62.50 [in_i] 62.50 [in_i] [facility] ([facility] 5'2.50" Respiratory rate 16 /min 16 /min [facility] ( [facility] Heart rate 80 /min 80 /min [facility] ([facility] Body temperature 98.1 [degF] 98.1 [degF] [facility] ([facility] Diastolic blood pressure 80 mm[Hg] 80 mm[Hg] [facility] ([facility] Systolic blood pressure 116 mm[Hg] 116 mm[Hg] M EDENT ([facility] Body mass index (BMI) [Ratio] 28.3 kg/m2 28.3 k g/m2 [facility] ([facility], ) Body weight 160.00 [lb_av] 160.00 [lb_av] MEDEN T ([facility], ) Body height 63 [in_i] 63 [in_i] [facility] ([facility], ) 5'3" Respiratory rate 12 /min 12 /min [facility] ( [facility], ) Heart rate 72 /min 72 /min [facility] ([facility], ) Diastolic blood pressure 78 mm[Hg] 78 mm[Hg] [facility] ([facility], ) Systolic blood pressure 120 mm[Hg] 120 mm[Hg] EDENT ([facility], ) Alpine body weight 115 [lb_av] 115 [lb_av] MEDEN T ([facility], ) Oxygen saturation in Arterial blood by Pulse oximetry 98 % 98 % [facility] ([facility] Body mass index (BMI) [Ratio] 29.2 kg/m2 29.2 k g/m2 [facility] ([facility] Alpine body weight 110 [lb_av] 110 [lb_av] MED[facility] T ([facility] Body weight 162.00 [lb_av] 162.00 [lb_av] MED[facility] T ([facility] Body height 62.50 [in_i] 62.50 [in_i] [facility] ([facility] 5'2.50" Respiratory rate 16 /min 16 /min [facility] ( [facility] Heart rate 74 /min 74 /min [facility] ([facility] Body temperature 97.0 [degF] 97.0 [degF] [facility] ([facility] Diastolic blood pressure 68 mm[Hg] 68 mm[Hg] [facility] ([facility] Systolic blood pressure 128 mm[Hg] 128 mm[Hg] M EDENT ([facility] Oxygen saturation in Arterial blood by Pulse oximetry 98 % 98 % [facility] ([facility] (AT Rest), (Room Air) Body mass index (BMI) [Ratio] 29.3 kg/m2 29.3 k g/m2 [facility] ([facility] Alpine body weight 110 [lb_av] 110 [lb_av] MED[facility] T ([facility] Body weight 163.00 [lb_av] 163.00 [lb_av] MED[facility] T ([facility] Body height 62.50 [in_i] 62.50 [in_i] [facility] ([facility] 5'2.50" Respiratory rate 16 /min 16 /min [facility] ( [facility] Heart rate 81 /min 81 /min [facility] ([facility] Body temperature 96.9 [degF] 96.9 [degF] [facility] ([facility] Diastolic blood pressure 64 mm[Hg] 64 mm[Hg] [facility] ([facility] Systolic blood pressure 108 mm[Hg] 108 mm[Hg] M EDENT ([facility] Diastolic blood pressure--sitting 74 mm[Hg] 74 mm[Hg] [facility] ([facility]) large cuff, Ra Systolic blood pressure--sitting 114 mm[Hg] 114 mm[Hg] [facility] ([facility]) large cuff, Ra Heart rate 96 /min 96 /min [facility] ([facility]) regular Body mass index (BMI) [Ratio] 27.8 kg/m2 27.8 k g/m2 [facility] ([facility]) Body height 63 [in_i] 63 [in_i] [facility] Center) 5'3" Body weight 157.00 [lb_av] 157.00 [lb_av] MEDEN T ([facility]) [place] body weight 115 [lb_av] 115 [lb_av] MEDEN T ([facility]) Body mass index (BMI) [Ratio] 28.3 kg/m2 28.3 k g/m2 MEDENT ([facility]) Body weight 160.00 [lb_av] 160.00 [lb_av] MEDEN T ([facility]) Body height 63 [in_i] 63 [in_i] MEDENT ([facility]) 5'3" Respiratory rate 12 /min 12 /min MEDENT ( [facility]) Body weight 72.576 kg 72.576 kg MEDENT ([facility]) [place] body weight 115 [lb_av] 115 [lb_av] MEDEN T ([facility]) Body mass index (BMI) [Ratio] 28.3 kg/m2 28.3 k g/m2 MEDENT ([facility]) Body weight 160.00 [lb_av] 160.00 [lb_av] MEDEN T ([facility]) Body height 63 [in_i] 63 [in_i] MEDENT ([facility]) 5'3" Diastolic blood pressure--sitting 76 mm[Hg] 76 mm[Hg] MEDENT ([facility]) large cuff, [place] Systolic blood pressure--sitting 122 mm[Hg] 122 mm[Hg] MEDENT ([facility]) large cuff, [place] Heart rate 72 /min 72 /min MEDENT ([facility]) Body mass index (BMI) [Ratio] 28.3 kg/m2 28.3 k g/m2 MEDENT ([facility]) Body height 63 [in_i] 63 [in_i] MEDENT ([facility]) 5'3" Body weight 160.00 [lb_av] 160.00 [lb_av] MEDEN T ([facility]) Oxygen saturation in Arterial blood by Pulse oximetry 96 % 96 % MEDENT ([facility], ) Body mass index (BMI) [Ratio] 28.8 kg/m2 28.8 k g/m2 MEDENT ([facility]) Body weight 160.00 [lb_av] 160.00 [lb_av] MEDEN T ([facility], ) Body height 62.50 [in_i] 62.50 [in_i] MEDENT ([facility], ) Respiratory rate 16 /min 16 /min MEDENT ( [facility], ) Body temperature 98.3 [degF] 98.3 [degF] [facility] Heart rate 84 /min 84 /min MEDENT ([facility], ) Diastolic blood pressure 84 mm[Hg] 84 mm[Hg] MEDENT ([facility], ) Systolic blood pressure 128 mm[Hg] 128 mm[Hg] M EDENT ([facility], ) Oxygen saturation in Arterial blood by Pulse oximetry 96 % 96 % MEDENT ([facility] Body mass index (BMI) [Ratio] 28.8 kg/m2 28.8 k g/m2 MEDENT ([facility] [place] body weight 110 [lb_av] 110 [lb_av] MEDEN T ([facility] Body weight 160.00 [lb_av] 160.00 [lb_av] MEDEN T ([facility] Body height 62.50 [in_i] 62.50 [in_i] MEDENT ([facility] 5'2.50" Respiratory rate 16 /min 16 /min MEDENT ( [facility] Heart rate 84 /min 84 /min MEDENT ([facility] Body temperature 98.3 [degF] 98.3 [degF] MEDENT ([facility] Diastolic blood pressure 84 mm[Hg] 84 mm[Hg] MEDENT ([facility] Systolic blood pressure 128 mm[Hg] 128 mm[Hg] M EDENT ([facility] Oxygen saturation in Arterial blood by Pulse oximetry 98 % 98 % MEDMYRANDA ([facility] ([place]), ([facility]) Body mass index (BMI) [Ratio] 29.7 kg/m2 29.7 k g/m2 MEDENT ([facility] [place] body weight 110 [lb_av] 110 [lb_av] MEDEN T ([facility] Body weight 165.00 [lb_av] 165.00 [lb_av] MEDEN T ([facility] Body height 62.50 [in_i] 62.50 [in_i] MEDENT ([facility] 5'2.50" Respiratory rate 16 /min 16 /min MEDENT ( [facility] Heart rate 75 /min 75 /min MEDENT ([facility] Body temperature 97.5 [degF] 97.5 [degF] MEDENT ([facility] Diastolic blood pressure 76 mm[Hg] 76 mm[Hg] MEDENT ([facility] Systolic blood pressure 110 mm[Hg] 110 mm[Hg] M EDENT ([facility] Oxygen saturation in Arterial blood by Pulse oximetry 95 % 95 % MEDMYRANDA ([facility] ([place]), (Room Air) Body mass index (BMI) [Ratio] 29.3 kg/m2 29.3 k g/m2 MEDENT ([facility] Body weight 163.00 [lb_av] 163.00 [lb_av] MEDEN T ([facility] Body height 62.50 [in_i] 62.50 [in_i] MEDENT ([facility] 5'2.50" Respiratory rate 16 /min 16 /min MEDENT ( [facility] Heart rate 86 /min 86 /min MEDENT ([facility] Body temperature 97.5 [degF] 97.5 [degF] MEDENT ([facility] Diastolic blood pressure 80 mm[Hg] 80 mm[Hg] MEDENT ([facility] Systolic blood pressure 130 mm[Hg] 130 mm[Hg] M EDENT ([facility] Oxygen saturation in Arterial blood by Pulse oximetry 97 % 97 % MEDENT ([facility] Body mass index (BMI) [Ratio] 29.2 kg/m2 29.2 k g/m2 MEDENT ([facility] Body weight 162.00 [lb_av] 162.00 [lb_av] MEDEN T ([facility] Body height 62.50 [in_i] 62.50 [in_i] MEDENT ([facility] 5'2.50" Respiratory rate 18 /min 18 /min MEDENT ( [facility] Heart rate 86 /min 86 /min MEDENT ([facility] Body temperature 96.5 [degF] 96.5 [degF] MEDENT ([facility] Diastolic blood pressure 84 mm[Hg] 84 mm[Hg] MEDENT ([facility] Systolic blood pressure 134 mm[Hg] 134 mm[Hg] M EDENT ([facility] Oxygen saturation in Arterial blood by Pulse oximetry 96 % 96 % MEDENT ([facility] Body mass index (BMI) [Ratio] 29.2 kg/m2 29.2 k g/m2 MEDENT ([facility] Body weight 162.00 [lb_av] 162.00 [lb_av] MEDEN T ([facility] Body height 62.50 [in_i] 62.50 [in_i] MEDENT ([facility] 5'2.50" Respiratory rate 16 /min 16 /min MEDENT ( [facility] Heart rate 82 /min 82 /min MEDENT ([facility] Body temperature 97.6 [degF] 97.6 [degF] DAKOTAHENT ([facility] Diastolic blood pressure 64 mm[Hg] 64 mm[Hg] JODI ([facility] Systolic blood pressure 108 mm[Hg] 108 mm[Hg] Chuy ANGULO ([facility] Oxygen saturation in Arterial blood by Pulse oximetry 95 % 95 % JODI ([facility] Body mass index (BMI) [Ratio] 29.2 kg/m2 29.2 k g/m2 JODI ([facility] Body weight 162.00 [lb_av] 162.00 [lb_av] MEDEN T ([facility] Body height 62.50 [in_i] 62.50 [in_i] DAKOTAHENT ([facility] 5'2.50" Respiratory rate 16 /min 16 /min JODI ( [facility] Heart rate 83 /min 83 /min JODI ([facility] Body temperature 97.2 [degF] 97.2 [degF] JODI ([facility] Diastolic blood pressure 78 mm[Hg] 78 mm[Hg] JODI ([facility] Systolic blood pressure 118 mm[Hg] 118 mm[Hg] Chuy ANGULO ([facility]
[2020-04-30 20:18] LABS: BASO % 0.2 % (0.0-1.0); EOS % 0.2 % (0.0-3.0); HEMATOCRIT 40.9 % (36.0-47.0); HEMOGLOBIN 13.2 g/dl (12.0-15.5); LYMPH # 1.1 10^3/uL (1.5-5.0); LYMPH % 24.7 % (24.0-44.0); MEAN CORPUSCULAR HEMOGLOBIN 25.8 pg (27.0-33.0); MEAN CORPUSCULAR HGB CONC 32.3 g/dl (32.0-36.5); MONO # 0.5 10^3/uL (0.0-0.8); MONO % 11.2 % (0.0-5.0); NEUTROPHILS # 2.9 10^3/uL (1.5-8.5); NEUTROPHILS % 63.3 % (36.0-66.0); PLATELET COUNT, AUTOMATED 116 10^3/uL (150-450); RED BLOOD COUNT 5.11 10^6/uL (4.00-5.40); WHITE BLOOD COUNT 4.5 10^3/uL (4.0-10.0)
[2020-04-30 20:20] LABS: INR 1.01; PROTHROMBIN TIME 13.5 SECONDS (12.5-14.3)
[2020-04-30 20:21] LABS: PARTIAL THROMBOPLASTIN TIME 35.6 SECONDS (24.2-38.5)
[2020-04-30 20:24] LABS: D-DIMER QUANT 1218.45 ng/ml (<500)
[2020-04-30 20:29] LABS: ALBUMIN 3.1 GM/DL (3.2-5.2); ALT/SGPT 26 U/L (12-78); BILIRUBIN,TOTAL 0.4 MG/DL (0.2-1.0); BLOOD UREA NITROGEN 15 MG/DL (7-18); C REACTIVE PROTEIN QUANTITATIV 4.61 MG/DL (0.00-0.30); CALCIUM LEVEL 8.8 MG/DL (8.8-10.2); CARBON DIOXIDE LEVEL 28 MEQ/L (21-32); CHLORIDE LEVEL 102 MEQ/L (98-107); CK-MB VALUE MASS < 1.0 NG/ML (<3.6); CPK CREATINE PHOSPHOKINASE 49 U/L (26-192); CREATININE FOR GFR 0.69 MG/DL (0.55-1.30); FERRITIN 209 NG/ML (8-252); GLOMERULAR FILTRATION RATE > 60.0 (>32); GLUCOSE, FASTING 84 MG/DL (70-100); LDH LACTATE DEHYDROGENASE 305 U/L (84-246); MB/CK RELATIVE INDEX 2.04 (< OR =4); POTASSIUM SERUM 3.6 MEQ/L (3.5-5.1); SODIUM LEVEL 135 MEQ/L (136-145); TOTAL PROTEIN 6.7 GM/DL (6.4-8.2); TROPONIN I < 0.02 NG/ML (< 0.10)
--- NOTE | 2020-04-30 21:01 | ECGEPIP ---
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
--- NOTE | 2020-04-30 21:33 | REPVR ---
PROCEDURE INFORMATION: Exam: XR Chest, 1 View Exam date and time: 04/30/2020 8:59 PM Age: 80 years old Clinical indication: Other: Coronavirus workup TECHNIQUE: Imaging protocol: XR of the chest Views: 1 view. COMPARISON: CR CHEST 2 VIEW 02/05/2020 5:31 PM FINDINGS: Lungs: Degree of lung inflation is normal. No evidence of pulmonary edema. Peripheral ill-defined opacity, left perihilar, infrahilar and right lung base. Pleural space: No pleural effusion or pneumothorax. Heart/Mediastinum: Cardiac silhouette appears normal. No adenopathy or hilar mass. Bones/joints: Osseous structures show no concerning abnormality. IMPRESSION: Concern for ill-defined peripheral multifocal pneumonia, the pattern of which could be consistent with COVID-19 pneumonia Electronically signed by: Tato Snow On 04/30/2020 21:33:21 PM
[2020-04-30] MEDS ORDERED: ISOVUE-370 76% 100ML VIAL As Ordered ONE (21:54)
[2020-05-01] VITALS (8 sets, daily range): BP systolic 126–154; BP diastolic 77–83; O2SAT 93–95
--- NOTE | 2020-05-01 | REPVR ---
PROCEDURE INFORMATION: Exam: CT Angiography Chest with Contrast Exam date and time: 04/30/20 (10:58pm) Age: 80 years old Clinical indication: SOB and chest pain. Covid. D-dimer. TECHNIQUE: Imaging protocol: Computed tomographic angiography of the chest with intravenous contrast. 3D rendering (Not supervised by radiologist): MIP and/or 3D reconstructed images were created by the technologist. Radiation optimization: All CT scans at this facility use at least one of these dose optimization techniques: automated exposure control; mA and/or kV adjustment per patient size (includes targeted exams where dose is matched to clinical indication); or iterative reconstruction. Contrast material: Isovue 370 Contrast volume: 75 ml Contrast route: IV COMPARISON: Portable CXR of 04/30/20 FINDINGS: Small irregular density (7 mm size) at the left lung apex. Scattered bilateral hazy ground glass opacities, predominantly in the mid and upper lung zones. Many are peripheral in location. No significant pleural effusions. Cardiomegaly. Previous aortic valve surgery. A few small clips in the right parasternal region. No filling defects suspicious for pulmonary emboli are seen. There is no CT evidence of aortic dissection nor leakage. No aortic aneurysm is appreciated. No acute upper abdominal pathology. S/P cholecystectomy. Multilevel degenerative thoracic spine changes. IMPRESSION: Scattered bilateral ground glass opacities. No pleural effusions. Findings are compatible with bilateral Covid pneumonia. Cardiomegaly. Previous aortic valve surgery. No filling defects suspicious for pulmonary emboli are seen. There is no CT evidence of aortic dissection nor leakage. No aortic aneurysm is appreciated. Small irregular indeterminate focal density (7 mm size) at the left lung apex -- perhaps old scarring. Cannot exclude a small stellate ROSALINA lesion. Comparison with prior CT scans is suggested, if available. Electronically signed by: Stacey Coker On 04/30/2020 23:59:56 PM
[2020-05-01] MEDS ORDERED: OMEP-221 PO (00:25)
[2020-05-01] MEDS ORDERED: METO50TA7 PO (00:25)
[2020-05-01] MEDS ORDERED: MECL-86 PO (00:25)
[2020-05-01] MEDS ORDERED: CARD40TA PO (00:25)
[2020-05-01] MEDS ORDERED: NORT75CA2 PO (00:25)
[2020-05-01] MEDS ORDERED: CALC500T44 PO (00:25)
[2020-05-01] MEDS ORDERED: MAALOX 30 ML SUSP *UDC PO PRN (00:45)
[2020-05-01] MEDS ORDERED: ACETAMINOPHEN TAB 650MG DOSE (2X325MG) PO PRN (00:45)
[2020-05-01] MEDS ORDERED: MOM 30ML SUSPENSION UDC PO PRN (00:45)
--- NOTE | 2020-05-01 00:48 | HPEPDOC ---
[facility] Medical History & Physical Date of Admission May 01, 2020 Date of Service: May 01, 2020 Primary Care Physician: Shahbaz Aldana MD Attending Physician: TREASURE VAZQUEZ MD History and Physical TIME OF SERVICE: 1:22 AM CHIEF COMPLAINT: Fatigue HISTORY OF PRESENT ILLNESS: This 80-year-old female presented with complaints of fatigue, weakness and shortness of breath. She was diagnosed with COVID 19 about 9 days ago and was concerned about her symptoms therefore, she decided to come to the hospital for evaluation. Per discussion with Dr. Kenyon, her O2 sats were as low as 92%; and dropped by 3% when they attempted to have her ambulate. REVIEW OF SYSTEMS: 12 point review of systems negative except as listed in HPI PAST MEDICAL/ SURGICAL HISTORY: Hypertension Diverticulosis CVA SOCIAL HISTORY: She doesn't drink alcohol or use recreational drugs FAMILY HISTORY: n/a ALLERGIES: Please see below. HOME MEDICATIONS: Please see below. PHYSICAL EXAMINATION: Vital Signs Date Time Temp Pulse Resp B/P (MAP) Pulse Ox O2 Delivery O2 Flow Rate FiO2 04/30/20 19:00 86 19 146/81 (102) 95 Room Air 04/30/20 19:07 98.5 05/01/20 06:30 2.0 GEN: well-nourished / well developed/ NAD HEENT: EOMI / mask covering lower face CVS: RRR/NMRG/ radial pulses intact / no lower extremity edema LUNGS: lungs are clear to auscultation bilaterally on room air ABDOMEN: soft & not tender with palpation MSK/EXTREMITIES: range of motion intact in all 4 extremities NEURO: CN 2-12 are grossly intact / speech is not dysarthric PSYCH: alert and oriented to person place and time/ able to understand and follow all commands LABORATORY DATA: See below. EKG Rate 80 QTc 448 IMAGING: Chest xray "Concern for ill-defined peripheral multifocal pneumonia, the pattern of which could be consistent with COVID-19 pneumonia" CTchest "IMPRESSION: Scattered bilateral ground glass opacities. No pleural effusions. Findings are compatible with bilateral Covid pneumonia. Cardiomegaly. Previous aortic valve surgery. No filling defects suspicious for pulmonary emboli are seen. There is no CT evidence of aortic dissection nor leakage. No aortic aneurysm is appreciated. Small irregular indeterminate focal density (7 mm size) at the left lung apex -- perhaps old scarring. Cannot exclude a small stellate ROSALINA lesion. Comparison with prior CT scans is suggested, if available." MICROBIOLOGY: Please see below. ASSESSMENT: Ms. Zavala is an 80-year-old [id number] with history of hypertension and diverticulosis who will be admitted for management of hypoxia 2/2 Covid 19. PLAN: 1. COVID-19 qCSI score = 2 points = low risk Plan: admit to Medical floor / continuous pulse ox / supplemental O2 / contact & air borne precautions / f/u repeat plts (if low indicates bad prognosis), CRP (if high indicates bad prognosis), INR, BMP, fibrinogen, INR, D-dimer, PT, PTT (if patient has DIC indicates bad prognosis), ferritin, LDH, procalcitonin (if elevated will help rule out bacterial PNA), troponins / VBG to assess for hypoxia / supplemental O2 up to 3L with target O2 sats between 92-95% / she doesn't have an infiltrate so I won't order procalcitonin, sputum cx, strep pneumo, legionella & mycoplasma, MRSA to r/o bacterial PNA / since her O2 sats have dropped will start IV dexamethasone / because her infection was diagnosed 9 days ago she may not be a candidate for Remdesivir, the day time team can call ID to confirm 2. 7mm ROSALINA lesion Plan: f/u w PCP for surveillance imaging 3. Hypertension Plan: Diltiazem and metoprolol DVT PROPHYLAXIS: lovenox & ASA DISPOSITION: home after more than 2 midnight's stay Laboratory Data Labs 24H Laboratory Tests 2 04/30/20 18:54: Immature Granulocyte % (Auto) 0.4, Neutrophils (%) (Auto) 63.3, Lymphocytes (%) (Auto) 24.7, Monocytes (%) (Auto) 11.2H, Eosinophils (%) (Auto) 0.2, Basophils (%) (Auto) 0.2, Neutrophils # (Auto) 2.9, Lymphocytes # (Auto) 1.1L, Monocytes # (Auto) 0.5, Eosinophils # (Auto) 0.0, Basophils # (Auto) 0.0, Nucleated Red Blood Cells % (auto) 0.0, Prothrombin Time 13.5, Prothromb Time International Ratio 1.01, Activated Partial Thromboplast Time 35.6, Fibrinogen 557H, D-Dimer, Quantitative 1218.45H, Anion Gap 5L, Glomerular Filtration Rate > 60.0, Lactic Acid Level 1.0, Calcium Level 8.8, Ferritin 209, Total Bilirubin 0.4, Aspartate Amino Transf (AST/SGOT) 30, Alanine Aminotransferase (ALT/SGPT) 26, Alkaline Phosphatase 97, Lactate Dehydrogenase 305H, Total Creatine Kinase 49, Creatine Kinase MB < 1.0, Creatine Kinase MB Relative Index 2.04, Troponin I < 0.02, C- Reactive Protein, Quantitative 4.61H, Total Protein 6.7, Albumin 3.1L, Albumin/Globulin Ratio 0.9L CBC/BMP Laboratory Tests 04/30/20 18:54 Home Medications Scheduled Amoxicillin/Potassium Clav (Augmentin 875-125 Tablet) 1 Each Tablet, 875 MG PO BID Ascorbic Acid (Vitamin C) 500 Mg Capsule, 1 CAP PO DAILY Calcium Carbonate/Vitamin D3 (Calcium 500-Vit D3 200 Tablet) 1 Each Tablet, 1 TAB PO BID Dexamethasone (Dexamethasone) 2 Mg Tablet, 2 MG PO DAILY Diltiazem HCl (Cardizem) 30 Mg Tablet, 30 MG PO BID Meclizine HCl (Meclizine HCl) 25 Mg Tablet, 25 MG PO BID Metoprolol Tartrate (Metoprolol Tartrate) 50 Mg Tablet, 50 MG PO BID Nortriptyline HCl (Nortriptyline HCl) 75 Mg Capsule, 75 MG PO QPM TAKES AT DINNERTIME Omeprazole (Omeprazole) 40 Mg Capsule.dr, 40 MG PO QPM TAKES AT DINNERTIME Zinc (Zinc) 50 Mg Tablet, 1 TAB PO DAILY Scheduled PRN Albuterol Sulfate (Ventolin Hfa) 18 Gm Hfa.aer.ad, 2 PUFF INH Q4-6HP PRN for wheezing Allergies Coded Allergies: No Known Allergies (Verified Allergy, Unknown, 05/01/20) A-FIB/CHADSVASC A-FIB History Current/History of A-Fib/PAF?: No Current PO Anticoag Therapy: No TREASURE VAZQUEZ MD May 01, 2020 00:48
--- OUTSIDE RECORDS SUMMARY | 2020-05-01 00:58 | CCD ---
Author Author [facility] Organization [facility] Address Unknown Phone Unavailable Care Team Providers Care Urban Design Consultant Name Role Phone Barraclough, Ivanna PA Unavailable [...] C DALI MD Unavailable Unavailable KORT, C DLAI MD Unavailable Unavailable KORT, C DALI MD [...] Womack MD Unavailable Unavailable CICO, A LUZ SENIOR MEDIA BUYER Unavailable Unavailable CICO, A LUZ SENIOR MEDIA BUYER Unavailable Unavailable CICO, A LUZ SENIOR MEDIA BUYER Unavailable Unavailable CICO, A LUZ SENIOR MEDIA BUYER Unavailable Unavailable CICO, A LUZ SENIOR MEDIA BUYER Unavailable Unavailable CICO, A LUZ SENIOR MEDIA BUYER Unavailable Unavailable CICO, A LUZ SENIOR MEDIA BUYER Unavailable Unavailable CICO, A LUZ SENIOR MEDIA BUYER Unavailable Unavailable CICO, A LUZ SENIOR MEDIA BUYER Unavailable Unavailable CICO, A LUZ SENIOR MEDIA BUYER Unavailable Unavailable CICO, A LUZ SENIOR MEDIA BUYER Unavailable Unavailable CICO, A LUZ SENIOR MEDIA BUYER Unavailable Unavailable CICO, A LUZ SENIOR MEDIA BUYER Unavailable Unavailable CICO, A LUZ SENIOR MEDIA BUYER Unavailable Unavailable CICO, A LUZ SENIOR MEDIA BUYER Unavailable Unavailable CICO, A LUZ SENIOR MEDIA BUYER Unavailable Unavailable CICO, A LUZ SENIOR MEDIA BUYER Unavailable Unavailable CICO, A LUZ SENIOR MEDIA BUYER Unavailable Unavailable CICO, A LUZ SENIOR MEDIA BUYER Unavailable Unavailable CICO, A LUZ SENIOR MEDIA BUYER Unavailable Unavailable CICO, A LUZ SENIOR MEDIA BUYER Unavailable Unavailable CICO, A LUZ SENIOR MEDIA BUYER Unavailable Unavailable CICO, A LUZ SENIOR MEDIA BUYER Unavailable Unavailable CICO, A LUZ SENIOR MEDIA BUYER Unavailable Unavailable CICO, A LUZ SENIOR MEDIA BUYER Unavailable Unavailable CICO, A LUZ SENIOR MEDIA BUYER Unavailable Unavailable CICO, A LUZ SENIOR MEDIA BUYER Unavailable Unavailable CICO, A LUZ SENIOR MEDIA BUYER Unavailable Unavailable CICO, A LUZ SENIOR MEDIA BUYER Unavailable Unavailable CICO, A LUZ SENIOR MEDIA BUYER Unavailable Unavailable CICO, A LUZ SENIOR MEDIA BUYER Unavailable Unavailable CICO, A LUZ SENIOR MEDIA BUYER Unavailable Unavailable CICO, A LUZ SENIOR MEDIA BUYER Unavailable Unavailable CICO, A LUZ SENIOR MEDIA BUYER Unavailable Unavailable CICO, A LUZ SENIOR MEDIA BUYER Unavailable Unavailable CICO, A LUZ SENIOR MEDIA BUYER Unavailable Unavailable CICO, A LUZ SENIOR MEDIA BUYER Unavailable Unavailable CICO, A LUZ SENIOR MEDIA BUYER Unavailable Unavailable CICO, A LUZ SENIOR MEDIA BUYER Unavailable Unavailable CICO, A LUZ SENIOR MEDIA BUYER Unavailable Unavailable CICO, A LUZ SENIOR MEDIA BUYER Unavailable Unavailable CICO, A LUZ SENIOR MEDIA BUYER Unavailable Unavailable CICO, A LUZ SENIOR MEDIA BUYER Unavailable Unavailable CICO, A LUZ SENIOR MEDIA BUYER Unavailable Unavailable CICO, A LUZ SENIOR MEDIA BUYER Unavailable Unavailable CICO, A LUZ SENIOR MEDIA BUYER Unavailable Unavailable CICO, A LUZ SENIOR MEDIA BUYER Unavailable Unavailable CICO, A LUZ SENIOR MEDIA BUYER Unavailable Unavailable CICO, A LUZ SENIOR MEDIA BUYER Unavailable Unavailable CICO, A LUZ SENIOR MEDIA BUYER Unavailable Unavailable CICO, A LUZ SENIOR MEDIA BUYER Unavailable Unavailable Fish, J Shahbaz Unavailable Unavailable [...] Fish, J Shahbaz Unavailable Unavailable Fish, J Shhabaz Unavailable Unavailable Fish, J Shahbaz Unavailable Unavailable [...] Fish, J Shahbaz Unavailable Unavailable Fish, J Shahbza Unavailable Unavailable Fish, J Shahbaz Unavailable Unavailable [...] Unavailable Unavailable Linda Bhatia MD Unavailable Unavailable Lidna Bhatia MD Unavailable Unavailable Linda Bhatia MD [...] R Marine DO Unavailable Unavailable Birchenough, R Marnie DO Unavailable Unavailable Birchenough, R Marine DO [...] is protected by Article 27-F of the [facility] Public Health law. If you continue you may have access to information: Regarding HIV / AIDS; Provided by facilities licensed or operated by the [facility] Office of Mental Health; or Provided by the [facility] Office for People With Developmental Disabilities. If such information is present, then the following [facility] mandated warning applies: This information has been [...] law may result in a fine or mcc sentence or both. A general authorization for the release of medical or other information is NOT sufficient authorization for further disc losure. Allergies and Adverse Reactions Type Description Substance Reaction Status Data Source(s ) CLASS SULFA (sulfonamide) SULFA (sulfonamide) [facility] Drug Allergy Drug Allergy NKDA [facility] ([facility], ) Family History Family Member Name Family Member Gender Family Member Status Date o f Status Description Data Source(s) Unknown Condition [facility] Unknown Condition [facility] Unknown Unknown Problem [facility] Unknown Male Problem [facility] ([facility] Encounters Encounter Providers Location Date Indications Data Source(s ) Outpatient Attender: Eduard Womack MDReferrer: DALI GUILLORY MD LH _[id number] 04/14/2020 01:00:18 PM EST [facility] Outpatient Attender: Shahbaz Aldana [facility] 04/09/2020 09:30:0 0 AM EST [facility] ([facility] Outpatient Attender: Ivanna PRINGLE [facility] 03/27/2020 09:40:00 AM EST [facility] Out[facility] Attender: Ivanna PRINGLE [facility] 03/17/2020 09:40:00 AM EST [facility] Emergency Attender: AMINA RAVI MDConsultant: Shahbaz Overton 03/14/2020 04:53:00 PM EST - 03/14/2020 10:10:00 PM EST [facility] Patient discharged. Outpatient Attender: Eduardedvin Womack [...] [facility] Outpatient Attender: [facility] 03/04/2020 09:00:0 0 AM EST [facility] ([facility] Outpatient Attender: Ivanna PRINGLE [facility] 02/25/2020 08:15:00 AM EST [facility]22[facility]2020 09:30:0 0 AM EST [facility] ([facility] Outpatient Attender: Emanuel Bhatia [facility] 02/21/2020 12:30:00 PM EST MED[facility] ([facility] sean ) Outpatient Attender: Ivanna PRINGLE [facility] 02/13/2020 09:20:00 AM EST [facility] ([facility] Outpatient Attender: Eduard Womack MDReferrer: DALI GUILLORY MD _[id number] 02/11/2020 04:38:20 AM EST [facility] Outpatient Attender: Ivanna PRINGLE [place] [facility] 02/04/2020 09:30:00 AM EDT [facility] ([facility] Outpatient Attender: Delmy PRINGLE Main Office 01/31/2020 10:15:0 0 AM EDT [facility] ([facility]) Outpatient Attender: Emnauel Bhatia MD Main office [facility] 01/29/2020 08:30:00 AM EDT [facility] ([facility] og, ) Outpatient Attender: Delmy PRINGLE Main Office 01/17/2020 08:45:0 0 AM EDT [facility] ([facility]) Outpatient Attender: Shahbaz Aldana [facility] 01/09/2020 09:20:0 0 AM EDT [facility] ([facility] Outpatient Attender: Ivanna PRINGLE [place] [facility] 10/19/2019 10:20:00 AM EDT [facility] ([facility] Outpatient Attender: DALI GUILLORY MD [facility] 0 12:00:00 AM EDT - 10/17/2019 11:10:02 AM EDT [facility] Outpatient Attender: Ivanna PRINGLE [place] [facility] 10/09/2019 01:15:00 PM EDT [facility] ([facility] Outpatient Attender: Shahbaz Aldana [facility] 10/03/2019 08:45:0 0 AM EDT [facility] ([facility] Outpatient Attender: Ivanna PRINGLE [place] [facility] 09/21/2019 10:00:00 AM EDT [facility] ([facility] Outpatient Attender: Ivanna jacobs 09/13/2019 10:00:00 AM EDT [facility] ([facility] Outpatient Attender: Marine Gundersonerrer: Shahbaz Aldana 08/14/2019 03:15:00 PM EDT - 08/14/2019 03:52:[address] [facility] Outpatient Referrer: LUZ CARMICHAEL NPConsultant: DALI GUILLORY MD 07/31/2019 10:53:26 AM EDT [facility] Outpatient Referrer: LUZ CARMICHAEL SENIOR MEDIA BUYER 07/05/2019 03:10:04 PM E DT [facility] Outpatient Referrer: LUZ CARMICHAEL NP 08/08/2018 04:12:47 PM E DT [facility] Immunizations Vaccine Date Status Description Data Source(s) New in 2012. IIV4 01/09/2020 09:31:00 AM EDT completed [facility] ([facility] Medications Medication Brand Name Start Date Product Form Dose Route Admi nistrative Instructions Pharmacy Instructions Status Indications Reaction Description Data Source(s) Cephalexin 500 MG Oral Capsule [Keflex] Keflex 04/12/2020 12:00:0 0 AM EST ORAL active [facility] ([facility] Fluconazole 150 MG Oral Tablet [Diflucan] Diflucan 03/17/2020 1 2:00:00 AM EST ORAL completed [facility] ([facility] Cephalexin 500 MG Oral Capsule [Keflex] Keflex 03/17/2020 12:00:0 0 AM EST ORAL completed [facility] ([facility] Ciprofloxacin 500 MG Oral Tablet [Cipro] Cipro 02/25/2020 12:00: 00 AM EST ORAL completed [facility] ([facility] Fluconazole 150 MG Oral Tablet [Diflucan] Diflucan 02/25/2020 1 2:00:00 AM EST ORAL completed [facility] ([facility] Aspirin 325 MG Oral Tablet Aspirin Adult 02/18/2020 12:00:00 AM EST active [facility] ([facility] Fluconazole 150 MG Oral Tablet [Diflucan] Diflucan 02/04/2020 1 2:00:00 AM EDT completed [facility] ([facility] Cephalexin 500 MG Oral Capsule [Keflex] Keflex 02/04/2020 12:00:0 0 AM EDT ORAL completed [facility] ([facility] topiramate 100 MG Oral Tablet Topiramate 01/29/2020 12:00:00 AM EDT ORAL active [facility] ([facility] ) topiramate 25 MG Oral Tablet Topiramate 01/29/2020 12:00:00 AM EDT active [facility] ([facility] ) Hydrochlorothiazide 25 MG / Spironolactone 25 MG Oral Tablet [Aldactazide] Aldactazide 01/27/2020 12:00:00 AM EDT ORAL completed [facility] ([facility]) Hydrocortisone 10 MG/ML / Neomycin 3.5 M G/ML / Polymyxin B 24067 UNT/ML Otic Solution Neomycin/Polymyxin/Hydrocortisone (Otic) 01/16/2020 12:00:00 AM EDT AURICULAR completed [facility] ([facility]) Cephalexin 500 MG Oral Capsule [Keflex] Keflex 10/09/2019 12:00:0 0 AM EDT ORAL completed [facility] ([facility] Fluconazole 150 MG Oral Tablet [Diflucan] Diflucan 10/09/2019 1 2:00:00 AM EDT completed [facility] ([facility] Hydrocortisone 10 MG/ML / Neomycin 3.5 M G/ML / Polymyxin B 93434 UNT/ML Otic Solution Hgwxthok-Dlrllzbet-FK 09/13/2019 12:00:00 AM EDT completed [facility] ([facility] Ciprofloxacin 3 MG/ML / Dexamethasone 1 MG/ML Otic Corrina pension [Ciprodex] Ciprodex 09/13/2019 12:00:00 AM EDT AURICULAR completed [facility] ([facility] Metronidazole 0.0075 MG/MG Vaginal Gel Metronidazole 8 03:05:00 PM EDT 1 APPLIC completed [facility] Diphenhydramine Hydrochloride 25 MG Oral Capsule Diphe nhydramine Hcl Diphenhydramine Hcl 11/29/2016 10:38:00 AM EDT 25 MG [facility] Insurance Providers Payer name Policy type / Coverage type Policy ID Covered republican ID Covered republican's relationship to zaidi Policy Zaidi Plan Information MEDICARE COMPLETE [id number] SP [id number] [employer] OPTIONS [id number] SP [id number] MEDICARE COMPLETE [id number] SP [id number] [facility] MCRHMO [id number] SP [id number] [facility] Medicare Complete Primary [id number] MEDICARE COMPLETE-UH P [id number] S [id number] [employer] MEDICARE O/P [id number] 18 [id number] [employer] MEDICARE O/P [id number] 18 [id number] AARP S [id number] S [id number] MEDICARE P [id number] S [id number] A MEDICARE [id number] SP [id number] MEDICARE [id number] SP [id number] A [facility] [id number] SP [id number] [facility] MEDICARE [id number] Lizzy [id number] StandardNine [id number] Self [id number] [facility] MEDICARE [id number] Lizzy [id number] BCBS Medicare Blue U/W Commercial [id number] Self [id number] Today's Options PFFS Commercial [id number] Self [id number] Medicare (Part B) Medicare Primary [id number] Self [id number] [facility]-Medicare Solutions Commercial [id number] Self [id number] [facility] Commercial [id number] Self [id number] BCBS Medicare Blue U/W Commercial [id number] Self [id number] Today's Options PFFS Commercial [id number] Self [id number] Medicare (Part B) Medicare Primary [id number] Self [id number] [facility]-Medicare Solutions Commercial [id number] Self [id number] MEDICARE COMPLETE-[facility] O [id number] S [id number] BCBS Medicare Blue U/W Commercial [id number] Self [id number] Today's Options PFFS Commercial [id number] Self [id number] Medicare (Part B) Medicare Primary [id number] Self [id number] [employer]icare [employer] Commercial [id number] Self [id number] BCBS Medicare Blue U/W Commercial [id number] Self [id number] Today's Options PFFS Commercial [id number] Self [id number] Medicare (Part B) Medicare Primary [id number] Self [id number] [employer]-Medicare Feedback-[employer] Commercial [id number] Self [id number] BCBS Medicare Blue U/W Commercial [id number] Self [id number] Today's Options PFFS Commercial [id number] Self [id number] Medicare (Part B) Medicare Primary [id number] Self [id number] [employer]-Medicare Feed[employer] Commercial [id number] Self [id number] BCBS Medicare Blue U/W Commercial [id number] Self [id number] Today's Options PFFS Commercial [id number] Self [id number] Medicare (Part B) Medicare Primary [id number] Self [id number] [employer]-Medicare Feedback-Machine Commercial [id number] Self [id number] BCBS Medicare Blue U/W Commercial [id number] Self [id number] Today's Options PFFS Commercial [id number] Self [id number] Medicare (Part B) Medicare Primary [id number] Self [id number] [employer]-Medicare Feedback-Machine Commercial [id number] Self [id number] [facility] MEDICARE [id number] Lizzy [id number] [employer]-Medicare Solutions Commercial [id number] Self [id number] BCBS Medicare Blue U/W Commercial [id number] Self [id number] Today's Options PFFS Commercial [id number] Self [id number] Medicare (Part B) Medicare Primary [id number] Self [id number] [employer]-Medicare Solutions Commercial [id number] Self [id number] BCBS Medicare Blue U/W Commercial [id number] Self [id number] Today's Options PFFS Commercial [id number] Self [id number] Medicare (Part B) Medicare Primary [id number] Self [id number] [facility]-Medicare Solutions Commercial [id number] Self [id number] BS Medicare Blue U/W Commercial [id number] Self [id number] Today's Options PFFS Commercial [id number] Self [id number] Medicare (Part B) Medicare Primary [id number] Self [id number] AARP HEALTH CARE OPTIONS [id number] SP [id number] MEDICARE [id number] SP [id number] A MEDICARE [id number] Lizzy [id number] A [facility] [id number] Lizzy [id number] 911 [facility] [id number] Lizzy [id number] MEDICARE [id number] Lizzy [id number] BS Medicare Blue U/W Commercial Self Medicare (Part B) Medicare Primary Self Today's Options PFFS Commercial Self [facility] Options Medigap Part B Self [facility] Commercial Self MEDICARE PART A -O/P [id number] 18 [id number] AARP HEALTH CARE OPTIONS -O/P [id number] [id number] [facility] - Medicare Blue Ppo Commercial Self Medicare Medicare Primary Self MEDICARE [id number] Lizzy [id number] A [facility] MEDICARE [id number] Lizzy [id number] MEDICARE [id number] Lizzy [id number] A AARP S [id number] S [id number] [facility] MEDICARE [id number] Lizzy [id number] [employer]/UNHC MEDICARE-O/P [id number] 18 [id number] MEDICARE COMPLETE [id number] SP [id number] [employer]/UNHC MEDICARE-CLINIC [id number] 18 [id number] [employer]/UNHC MEDICARE-CLINIC [id number] Problems, Conditions, and Diagnoses Code Display Name Description Problem Type Effective Dates Data Source(s) 433977600 Lacunar infarction Lacunar infarction Problem 12:00:00 AM MARGARITA ZAPATA ([facility] 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 [facility] ther nursing home (current) drug therapy Diagnosis 03/14/2020 04:53:00 PM [facility] Z7982 alf (current) use of aspirin die baker (cu rrent) use of aspirin Diagnosis 03/14/2020 04:53:00 PM [facility] I10 Essential (primary) hypertension Essential (primary) h ypertension Diagnosis 03/14/2020 04:53:00 PM [facility] E785 Hyperlipidemia, unspecified Hyperlipidemia, unspecifie d Diagnosis 03/14/2020 04:53:00 PM [facility] R55 Syncope and collapse Syncope and collapse Diagnosis 03/14/2020 04:53:00 PM [facility] Surgeries/Procedures Procedure Description Date Indications Data Source(s) ECHO TTHR R-T 2D W/WOM-MODE COMPL SPEC&COLR DOP 03/10 12:00:00 AM EST [facility] ([facility]) Magnetic Resonance Angiogtaphy Head W/O Contrast Material(S) 02/14/2020 12:00:00 AM EST [facility] ([facility] [place]) Magnetic Resonance Angiogtaphy Head W/O Contrast Material(S) 02/14/2020 12:00:00 AM EST [facility] ([facility] [place], [place]) Magnetic Resonance Angiography Neck W/O Contrast Materials 02/14/2020 12:00:00 AM EST [facility] ([facility] [place]) Magnetic Resonance Angiography Neck W/O Contrast Materials 02/14/2020 12:00:00 AM EST [facility] ([facility] se[facility] ) MRI BRAIN BRAIN STEM W/O CONTRAST MATERIAL 02/14/2020 12:00:00 AM EST [facility] ([facility] ) MRI BRAIN BRAIN STEM W/O CONTRAST MATERIAL 02/14/2020 12:00:00 AM EST [facility] ([facility]) TSTG ANS FUNCJ CARDIOVAGAL INNERVAJ PARASYMP 0 12:00:00 AM EDT [facility] ([facility]) TSTG ANS FUNCJ CARDIOVAGAL INNERVAJ PARASYMP 0 12:00:00 AM EDT [facility] ([facility]) TESTING AUTONOMIC NERVOUS SYSTEM FUNCTION 02/06/2020 1 2:00:00 AM EDT [facility] ([facility] ) TESTING AUTONOMIC NERVOUS SYSTEM FUNCTION 02/06/2020 1 2:00:00 AM EDT [facility] ([facility]) ECG ROUTINE ECG W/LEAST 12 LDS W/I&R 01/17/2020 12:00: 00 AM EDT [facility] ([facility]) Results ID Date Data Source [id number] 04/22/2020 02:20:00 PM EST [facility] Name Value Range Interpretation Code Description Data Josephine rce(s) Supporting Document(s) SARS coronavirus 2 RNA Detected [facility] This lab was ordered by [facility] and reported by [facility]. ID Date Data Source [id number] 04/09/2020 11:38:00 AM EST [facility] ([facility] Name Value Range Interpretation Code Description Data Josephine rce(s) Supporting Document(s) Urine Culture, Routine Laboratory test result [facility] ([facility] SRC:VOIDED Bacteria identified in Urine by Culture Laboratory test result [facility] ([facility] SRC:VOIDED ID Date Data Source [id number] 04/09/2020 10:56:00 AM EST [facility] ([facility] Bilirubin,Urine Laboratory test result [facility] ([facility] pH 7.0 # 5.0-8.0 [facility] Urobilinogen 0.2 NA 0.2-1.0 [facility] ([facility] Blood - Ua Laboratory test result Abnormal (applies to non -numeric results) [facility] ([facility] Protein Laboratory test result [facility] ([facility] Nitrite Laboratory test result [facility] ([facility] Leukocyte Laboratory test result Abnormal (applies to non -numeric results) [facility] ([facility] RBC-Ua Laboratory test result 0-3 Abnormal (applies to non -numeric results) [facility] ([facility] Epithelial Cells - Ua Laboratory test result [facility] ([facility] WBC-Ua Laboratory test result 0-5 Abnormal (applies to non -numeric results) [facility] ([facility] Bacteria - Ua Laboratory test result Abnormal (applies to non-numeric results) [facility] ([facility] ) Renal Epithelial Cells Laboratory test result Ab normal (applies to non-numeric results) [facility] ([facility] ) ID Date Data Source [id number] 03/27/2020 10:40:00 AM EST [facility] ([facility] Name Value Range Interpretation Code Description Data Josephine rce(s) Supporting Document(s) Glucose-Ua Laboratory test result ME HOLLY ([facility] Clarity Laboratory test result [facility] ([facility] Color Laboratory test result [facility] ([facility] Bilirubin,Urine Laboratory test result [facility] ([facility] Ketone Laboratory test result [facility] ([facility] Blood - Ua Laboratory test result ME ELAYNE ([facility] Creatine kinase [Enzymatic activity/volume] in Serum or Plas ma 1.020 # 1.000-1.030 [facility] Protein Laboratory test result [facility] ([facility] pH 5.5 # 5.0-8.0 [facility] ([facility] Urobilinogen 0.2 NA 0.2-1.0 [facility] ([facility] RBC-Ua Laboratory test result 0-3 Abnormal (applies to non -numeric results) [facility] ([facility] Nitrite Laboratory test result [facility] ([facility] Leukocyte Laboratory test result Abnormal (applies to non -numeric results) [facility] ([facility] Bacteria - Ua Laboratory test result Abnormal (applies to non-numeric results) [facility] ([facility] ) Mucous - Ua Laboratory test result M EDENT ([facility] Epithelial Cells - Ua Laboratory test result Above high no rmal [facility] ([facility] WBC-Ua Laboratory test result 0-5 Abnormal (applies to non -numeric results) [facility] ([facility] Crystals Laboratory test result [facility] ([facility] Renal Epithelial Cells Laboratory test result Ab normal (applies to non-numeric results) [facility] ([facility] ) ID Date Data Source [id number] 03/19/2020 12:51:00 [place] [address] PHONE: [phone] FAX: [phone] Name .................. : PJ BRAGG Acct Number.................. : [id number] ROOM. ................. : TR-07 MR Number ................... : [id number] Stay type ............. : E/R Discharge Date......... ... : 03/14/20 Admit Date ....... .. : 03/14/20 Admit Phys .................... : COONEYNORM Date of ....... : 1940 Family Phys ................... : SOHAN ALMEIDA Phone .................. : [phone] Age ................................ : 80 Film# .................. .:[id number] Sex ................................. : F Unsigned transcriptions are preliminary reports and do not represent a medical or legal document CHEST PORTABLE [id number] COMPLETE:03/14/20 17:53 DOMENICO [id number] Reason(s): syncope PORTABLE CHEST X-RAY: COMPARISON: 09/21/09 [...] rce(s) Supporting Document(s) ID Date Data Source [id number] 03/17/2020 12:05:00 PM EST [facility] [address] [place] [address] PHONE: [phone] FAX: [phone] Name .................. : PJ BRAGG Acct Number.................. : [id number] ROOM. ................. : -07 MR Number ................... : [id number] Stay type ............. : E/R Discharge Date......... ... : 03/14/20 Admit Date ....... .. : 03/14/20 Admit Phys .................... : COONEYNORM Date of ....... : 1940 Family Phys ................... : [employer] Phone .................. : [phone] Age ................................ : 80 Film# .................. .:[id number] Sex ................................. : F Unsigned transcriptions are preliminary reports and do not represent a medical or legal document CT CTA NECK W CONT [facility] [address] COMPLETE:03/14/20 20:36 [place] [address] Reason(s): syncope CTA OF THE NECK WITH [...] of administration: Intravenous Page 1 of 2 [facility] [address] [place] [address] [place] [address] PHONE: [phone] FAX: [phone] Name .................. : PJ BRAGG Acct Number.................. : [id number] ROOM. ................. : TR-07 MR Number ................... : [id number] Stay type ............. : E/R Discharge Date......... ... : 03/14/20 Admit Date ......... : 03/14/20 Admit Phys .................... : COANNETTE Date of ....... : 1940 Family Phys ................... : SOHAN ALMEIDA Phone .................. : [phone] Age ................................ : 80 Film# .................. .:[id number] Sex ................................. : F Unsigned transcriptions are preliminary reports and do not represent a medical or legal document [place] [address] COMPLETE:03/14/20 20:36 BEM 03927 Reason(s): syncope Electronically Reviewed and Signed By Arnaldo Dale MD , 03/17/20 12:05, MARILYN Transcribe Initials: STEFANO , Transcribe Date: 03/15/20 02:17, Dictation Date: Copy for: SOHAN SHAHBAZ via fax Copy for: EMERGENCY DEPT via modem Copy for: 710 MED REC DISCHARGED Page 2 of 2 Name Value Range Interpretation Code Description Data Josephine rce(s) Supporting Document(s) ID Date Data Source [id number] 03/17/2020 12:05:00 [place] [address] PHONE: [phone] FAX: [phone] Name .................. : PJ JUDITH Acct Number.................. : [id number] ROOM. ................. : TR-07 MR Number ................... : [id number] Stay type ............. : E/R Discharge Date......... ... : 03/14/20 Admit Date ....... .. : 03/14/20 Admit Phys .................... : COONEYNORM Date of ....... : 1940 Family Phys ................... : SOHAN ALMEIDA Phone .................. : [phone] Age ................................ : 80 Film# .................. .:[id number] Sex ................................. : F Unsigned transcriptions are preliminary reports and do not represent a medical or legal document [place] [address] COMPLETE:03/14/20 20:35 BEM 35305 Reason(s): syncope CTA OF THE HEAD WITH [...] 03/17/20 12:05, MARILYN Page 1 of 2 [place] [address] PHONE: [phone] FAX: [phone] Name .................. : PJ BRAGG Acct Number.................. : [id number] ROOM. ................. : TR-07 MR Number ................... : [id number] Stay type ............. : E/R Discharge Date......... ... : 03/14/20 Admit Date ......... : 03/14/20 Admit Phys .................... : COONEYNORM Date of ....... : 1940 Family Phys ................... : SOHAN ALMEIDA Phon e .................. : [phone] Age ................................ : 80 Film# .................. .:[id number] Sex ................................. : F Unsigned transcriptions are preliminary reports and do not represent a medical or legal document [place] [id number] COMPLETE:03/14/20 20:35 BEM 00744 Reason(s): syncope Transcribe Initials: STEFANO , Transcribe Date: 03/15/20 02:13, Dictation Date: Copy for: SOHAN ORDOÑEZ via fax Copy for: EMERGENCY DEPT via modem Copy for: 710 MED REC DISCHARGED Page 2 of 2 Name Value Range Interpretation Code Description Data Josephine rce(s) Supporting Document(s) ID Date Data Source [id number] 03/17/2020 12:05:00 [place] [address] PHONE: [phone] FAX: [phone] Name .................. : PJ BRAGG Acct Number.................. : [id number] ROOM. ................. : TR-07 MR Number ................... : [id number] Stay type ............. : E/R Discharge Date......... ... : Admit Date ......... : 07/29 Admit Phys .................... : COONEYNORM Date of ....... : 1940 Family Phys ................... : SOHAN ALMEIDA Phone .................. : [phone] Age ................................ : 80 Film# .................. .:[id number] Sex ................................. : F Unsigned transcriptions are preliminary reports and do not represent a medical or legal document CT HEAD W/O CONTRAST [id number] COMPLETE:03/14/20 17:45 [id number] Reason(s): Syncope CT OF THE HEAD WITHOUT [...] rce(s) Supporting Document(s) ID Date Data Source [id number] 03/17/2020 10:37:00 AM EST [facility] ([facility] ID Date Data Source [id number] 03/14/2020 04:53:00 PM [facility] 1 OrderSheet [facility] Emergency Department [address] [place] [address] Phone #: ext- [phone] 03/14/2020 16:44 Patient: JUDITH ZAVALA [facility]#: [id number] Sex: F : 1940 Age: 80yWEIGHT:72.5 kg [...] Amina Ravi MD; Collin Cummings 2 OrderSheet [facility] Emergency Department [address] [place] [address] Phone #: ext- [phone] 03/14/2020 16:44 Patient: JUDITH ZAVALA Sex: F [...] rce(s) Supporting Document(s) ID Date Data Source [id number] 03/14/2020 04:53:00 PM EST [facility] 1 Medication Reconciliation Report [facility] Department [address] [place] [address] Phone #: ext- [phone] 03/14/2020 16:44 Patient: JUDITH ZAVALA Sex: F [...] rce(s) Supporting Document(s) ID Date Data Source [id number] 03/14/2020 04:53:00 PM EST [facility] 1 Medication Administration Record [facility] Department [address] [place] [address] Phone #: ext- [phone] 03/14/2020 16:44 Patient: JUDITH ZAVALA Sex: F : 1940 Age: 80yWeight: 72.5 kgHeight/Length: 63 inBMI: 28.3ALLERGIES: Doxycycline, Sulfa Antibiotics, Morphine and Related Date/Time Medication Administered Medication OrderedStart ROCEPHIN (1GM/50ML) [IVPB] Rocephin (1gm/50mL) IVPB 418449:29 03/14/2020 (CEFTRIAXONE SODIUM) mg with Dextrose 50 ml spike Collin Marcano R.N. Dose: 1000 mg IVPB (D5W)---- Rate: 100 mL/hr over 30 minute(s)Stop Dispensed: 50 mL bag22:09 03/14/2020 Site: #1 left crysCollin Vital R.N. Name Value Range Interpretation Code Description Data Josephine rce(s) Supporting Document(s) ID Date Data Source [id number] 03/14/2020 04:53:00 PM EST [facility] 1 General Instructions [facility] Department [address] [place] [address] Phone #: ext- [phone] 03/14/2020 16:44 Patient: [...] out. It occurs when 2 General Instructions [facility] [address] [place] [address] Phone #: ext- [phone] 03/14/2020 16:44 Patient: JUDITH ZAVALA Sex: F [...] head between your knees. 3 General Instructions [facility] [address] [place] [address] Phone #: ext- [phone] 03/14/2020 16:44 Patient: [...] with your healthcare provider, or as advised.Call [phone] if any of these occur: Another fainting [...] seeing Extreme drowsiness, confusion, dizziness, or fainting [id number] [employer]. [address] [place] [address]. All rights reserved. This information is not intended as asubstitute for professional medical care. Always follow your healthcare professional's instructions. You have been given the following additional information: Syncope, Unk Cause No strenuous activity. Rest. 4 General Instructions [facility] Department [address] [place] [address] Phone #: ext- [phone] 03/14/2020 16:44 --------- Patient: JUDITH ZAVALA Sex: F : 1940 Age: 80y(Electronically signed by Amina Ravi MD 03/15/2020 06:08) Name Value Range Interpretation Code Description Data Josephine rce(s) Supporting Document(s) ID Date Data Source [id number] 03/14/2020 04:53:00 PM EST [facility] 1 Clinical Report - Nurses [facility] Department [address] [place] [address] Phone #: ext- [phone] 03/14/2020 16:44 Patient: JUDITH ZAVALA Sex: F : 1940 Age: 80yTRIAGEArrived by private vehicle. Historian: patient. Accompanied by family. ( presents with c/o syncopalepisode on 03/11, states she got dizzy and passed out for couple sec. she sees neuro in [place] due tohx of stroke and instructed to go to ER. no more episodes since , does c/o slight headache over R eyeand back of head.).Triage time: 16:45 03/14/2020. Acuity: LEVEL 3.Alert. No acute distress.This occurred 3 days. 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 Sepsis Screen negative. [...] Cerebrovascular Accident. 2 Clinical Report - Nurses [facility] [address] [place] [address] Phone #: ext- [phone] 03/14/2020 16:44 Patient: [...] RN.PHYSICAL ASSESSMENT 3 Clinical Report - Nurses [facility] [address] [place] [address] Phone #: ext- [phone] 03/14/2020 16:44 Patient: [...] 70 percent of contrast was injected per salvage engineering technician. Warm compress applied to site. Pt [...] She left 4 Clinical Report - Nurses [facility] [address] [place] [address] Phone #: ext- [phone] 03/14/2020 16:44 Patient: [...] rce(s) Supporting Document(s) ID Date Data Source [id number] 03/14/2020 04:53:00 PM EST [facility] 1 Clinical Report - Physicians/Mid Levels [facility] Department [address] [place] [address] Phone #: ext- [phone] 03/14/2020 16:44 [id number] Sex: F : 1940 Age: 80y Arrived- [...] for couple sec. she sees neuro in [place] due to hx of stroke and instructed [...] Hysterectomy. 2 Clinical Report - Physicians/Mid Levels [facility] Department [address] [place] [address] Phone #: ext- [phone] 03/14/2020 16:44 Patient: JUDITH ZAVALA Sex: F [...] EKG 3 Clinical Report - Physicians/Mid Levels [facility] Department [address] [place] [address] Phone #: ext- [phone] 03/14/2020 16:44 Patient: [...] 450)CBC w Diff: (TAHMINA: 03/14/2020 18:28) ( [facility] [place]:13) Final results Test Result Flag [...] NOT INDICA TEDCMP: (TAHMINA: 03/14/2020 18:28) ( [facility] [place] 03/14/2020 19:31) Final results Test Result Flag Units (Reference) 4 Clinical Report - Physicians/Mid Levels [facility] Emergency Department [address] [place] [address] Phone #: ext- [phone] 03/14/2020 16:44 Patient: [...] GFR Interprentation 20- 49 yrs >60 mL/min Wmfucr32-31 yrs >56 mL/min Normal 60-69 yrs >49 mL/min Normal 70-79yrs>42 mL/min Normal 80 and above >35 mL/min Normal Female GFRInterpretation 20-39 yrs >60 mL/min Normal 40-49 yrs >58 mL/minNormal 50-59 yrs >51 mL/min Normal 60-69 yrs >45 mL/min Nogcae46- 79 yrs >39 mL/min Normal 80 and [...] NONE 5 Clinical Report - Physicians/Mid Levels [facility] [address] [place] [address] Phone #: ext- [phone] 03/14/2020 16:44 Patient: JUDITH ZAVALA Sex: F : 1940 Age: 80yChest Portable 1 View: (TAHMINA: 03/14/2020 17:45) ( MsgRcvd 03/14/2020 17:53) In ProgressCHEST PORTABLEReason(s): syncopeTRANSPORTATION: S IV? O2? Oxygen?(No) Room: EDCT Head W/O Cont: (TAHMINA: 03/14/2020 17:45) ( MsgRcvd 03/14/2020 20:35) In Progress Exam CT HEAD W/[place] [address] PHONE: [phone] FAX: [phone] Name .................. : PJ BRAGG Acct Number.................. : [id number] ROOM. ................. : TR-07 MR Number ................... : [id number] Stay type ............. : E/R Discharge Date......... ... : Admit Date ......... : 03/14/20 Admit Phys .................... : COONEYNORM Date of ....... : 1940 Family Phys ................... : SOHAN ALMEIDA Phone .................. : [phone] Age ................................ : 80 Film# .................. .:[id number] Sex ................................. : F Unsigned transcriptions are preliminary reports and do not represent a medical or legal document CT HEAD W/O CONTRAST [id number] COMPLETE:03/14/20 17:45 [id number] Reason(s): Syncope CT OF THE HEAD WITHOUT [...] 1 6 Clinical Report - Physicians/Mid Levels [facility] [address] [place] [address] Phone #: ext- [phone] 03/14/2020 16:44 Patient: JUDITH ZAVALA Sex: F : 1940 Age: 80y Troponin-T: (TAHMINA: 03/14/2020 18:28) ( NdgRcvd 03/14/2020 19:14) Final results Test Result Flag [...] MEDICATIONS: 7 Clinical Report - Physicians/Mid Levels [facility] Department [address] [place] [address] Phone #: ext- [phone] 03/14/2020 16:44 Patient: [...] rce(s) Supporting Document(s) ID Date Data Source [id number] 03/14/2020 06:28:00 PM EST [facility] ([facility] Name Value Range Interpretation Code Description Data [place] rce(s) Supporting Document(s) Comprehensive [facility]abo Laboratory test result [facility] COMPREHENSIVE METABOLIC PANEL Potassium 4.0 meq/L 3.6-5.0 [facility] Sodium 140 meq/L 134-153 [facility] ([facility] Chloride 106 meq/L 98-107 [facility] Glucose 92 mg/dL 65-110 [facility] Co2 25 meq/L 22-30 [facility] BUN 14 mg/dL 7-21 [facility] BUN/Creat 16 8-27 [facility] ([facility] Total Protein 6.6 g/dL 6.3-8.2 [facility] ([facility] Creatinine 0.9 mg/dL 0.7-1.5 [facility] Globulin 2.6 GM/DL 2.4-3.2 [facility] Albumin 4.0 g/dL 3.9-5.0 [facility] ([facility] A/G Ratio 1.5 0.8-2.0 [facility] Total Bili Laboratory test result 0.2-1.3 ME D[facility] ([facility] Calcium 9.7 mg/dL 8.4-10.2 [facility] Alkaline Phos 100 U/L 38-126 [facility] ([facility] Anion Gap 9.0 mmol/L 8.0-16.0 [facility] ([facility] Sgot/Ast 25 U/L 5-40 [facility] ([facility] SGPT/Alt 19 U/L 7-56 [facility] ([facility] Non-Aa GFR Laboratory test result ME [facility] ([facility] Afr Amer GFR Laboratory test result [facility] ([facility] Male GFR Interprentation 20-49 yrs >60 [...] >32 mL/min Normal Age 80 yrs [facility] ([facility] ID Date Data Source [id number] 03/14/2020 06:28:00 PM EST [facility] ([facility] Name Value Range Interpretation Code Description Data Josephine rce(s) Supporting Document(s) Troponin T.cardiac [Mass/volume] in Serum or Plasma Laborato ry test result 0.00-0.10 [facility] ([facility] TROPONIN T 0.1 ng/ml Recommended as the clinical th reshold value for Troponin T. Magnesium [Mass/volume] in Serum or Plasma 2.2 mg/dL 1.7-2.2 [facility] ([facility] Thyrotropin [Units/volume] in Serum or Plasma 1.66 uIU/mL 0.47-5.01 [facility] ([facility] Natriuretic peptide.B prohormone N-Terminal [Mass/volu me] in Serum or Plasma 75 pg/mL 0-450 [facility] ([facility] ID Date Data Source [id number] 03/14/2020 06:28:00 PM EST [facility] (Famil y [...] 37.0-80.0 [facility] [place] 6.3 % 3.0-8.0 [facility] Eos 1.9 % 0.0-7.0 [facility] Baso 0.5 % 0.0-2.5 [facility] #Lymph 1.75 10^3/uL 0.60-3.40 [facility] %Ig 0.1 % 0.0-0.0 Above high normal [facility] ([facility] #Neut 4.92 10^3/uL 2.00-6.90 [facility] ([facility] %NRBC 0.0 % 0.0-0.0 [facility] #Baso 0.04 10^3/uL 0.00-0.20 [facility] ([facility] #Eos 0.14 10^3/uL 0.00-0.70 [facility] ([facility] #[place] 0.46 10^3/uL 0.00-0.90 [facility] ([facility] Manual Diff Laboratory test result M EDENT ([facility] #NRBC 0.00 10^3/uL 0.00-0.00 [facility] ([facility] #Ig 0.01 10^3/uL 0.00-0.10 [facility] ([facility] RBC Morph Laboratory test result ME D[facility] ([facility] ID Date Data Source [id number] 03/14/2020 07:31:00 PM EST [facility] Name Value Range Interpretation Code Description Data Josephine rce(s) Supporting Document(s) COMPREHENSIVE METABOLIC PANEL [facility] COMPREHENSIVE METABOLIC PANEL Sodium [Moles/volume] in Serum or Plasma 140 mEq/L 134 - 153 [facility] Potassium [Moles/volume] in Serum or Plasma 4.0 mEq/L 3.6 - 5.0 [facility] Chloride [Moles/volume] in Serum or Plasma 106 mEq/L 98 - 107 [facility] Carbon dioxide, total [Moles/volume] in Serum or Plasma 25 MEQ/L 22 - 30 [facility] Glucose [Mass/volume] in Serum or Plasma 92 MG/DL 65 - 110 [facility] BUN 14 MG/DL 7 - 21 [facility] Creatinine [Mass/volume] in Serum or Plasma 0.9 MG/DL 0.7 - 1.5 [facility] BUN/CREAT 16 8 - 27 [facility] al Protein [Mass/volume] in Serum or Plasma 6.6 G/DL 6.3 - 8.2 [facility] Albumin [Mass/volume] in Serum or Plasma 4.0 G/DL 3.9 - 5.0 [facility] Globulin [Mass/volume] in Serum by calculation 2.6 GM/DL 2.4 - 3.2 [facility] A/G RATIO 1.5 0.8 - 2.0 [facility] Calcium [Mass/volume] in Serum or Plasma 9.7 MG/DL 8.4 - 10.2 [facility] Bilirubin.total [Mass/volume] in Serum or Plasma <0.7 MG/DL 0.2 - 1.3 [facility] Alkaline phosphatase [Enzymatic activity/volume] in Serum or Plasma 100 U/L 38 - 126 [facility] Aspartate aminotransferase [Enzymatic activity/volume] in Serum or Plasma 25 U/L 5 - 40 [facility] Alanine aminotransferase [Enzymatic activity/volume] in Seru m or Plasma 19 U/L 7 - 56 [facility] Anion gap 3 in Serum or Plasma 9.0 mmol/L 8.0 - 16.0 [facility] AGE 80 yrs [facility] NON-AA GFR >60 mL/min [facility] AFR AMER GFR >60 [facility] Male GFR In terprentation [...] >32 mL/min Normal ID Date Data Source [id number] 03/14/2020 07:28:00 PM EST [facility] Name Value Range Interpretation Code Description Data Josephine rce(s) Supporting Document(s) BNP 75 PG/ML 0 - 450 [facility] ID Date Data Source [id number] 03/14/2020 07:28:00 PM [facility] Name Value Range Interpretation Code Description Data Josephine rce(s) Supporting Document(s) Thyrotropin [Units/volume] in Serum or Plasma by Detec tion limit <= 0.05 mIU/L 1.66 uIU/mL 0.47 - 5.01 [facility] ID Date Data Source [id number] 03/14/2020 07:28:00 PM [facility] Name Value Range Interpretation Code Description Data Josephine rce(s) Supporting Document(s) Magnesium [Mass/volume] in Serum or Plasma 2.2 MG/DL 1.7 - 2.2 [facility] ID Date Data Source [id number] 03/14/2020 07:14:00 PM [facility] Name Value Range Interpretation Code Description Data Josephine rce(s) Supporting Document(s) TROPONIN T <0.01 NG/ML 0.00 - 0.10 [facility] TROPONIN T0.1 ng/ml Recommended as the c linical threshold value forTroponin T. ID Date Data Source [id number] 03/14/2020 07:13:00 PM [facility] Name Value Range Interpretation Code Description Data Josephine rce(s) Supporting Document(s) CBC W/AUTOMATED DIFF [facility] COMPLETE BLOOD COUNT Leukocytes [#/volume] in Blood by Automated count 7.3 10^3/uL 4.2 - 1 1.0 [facility] Erythrocytes [#/volume] in Blood by Automated count 5.26 10^6/uL 4. 20 - 5.40 [facility] Hemoglobin [Mass/volume] in Blood 13.9 g/dL 12.0 - 16.0 [facility] Hematocrit [Volume Fraction] of Blood by Automated count 42.8 % 3 7.0 - 47.0 [facility] Erythrocyte mean corpuscular volume [Entitic volume] by Auto mated count 81.4 fL 81.0 - 101 [facility] Erythrocyte mean corpuscular hemoglobin [Entitic mass] by Automated count 26.4 pg 27.0 - 34.0 L [facility] Erythrocyte mean corpuscular hemoglobin concentration [Mass/volume] by Automated count 32.5 g/dL 31.0 - 36.0 [facility] Erythrocyte distribution width [Ratio] by Automated count 15.0 % 11.5 - 14.5 H [facility] Platelets [#/volume] in Blood by Automated count 192 10^3/uL 150 - 45 0 [facility] Platelet mean volume [Entitic volume] in Blood by Automated count 13.1 fL 7.4 - 10.4 H [facility] Neutrophils/100 leukocytes in Blood by Automated count 67.3 % 37. 0 - 80.0 [facility] Lymphocytes/100 leukocytes in Blood by Manual count 23.9 % 25.0 - 40.0 L [facility] Monocytes/100 leukocytes in Blood by Automated count 6.3 % 3.0 - 8.0 [facility] Eosinophils/100 leukocytes in Blood by Automated count 1.9 % 0.0 - 7.0 [facility] Basophils/100 leukocytes in Blood by Automated count 0.5 % 0.0 - 2.5 [facility] %IG 0.1 % 0.0 - 0.0 [facility] %NRBC 0.0 % 0.0 - 0.0 [facility] al Neutrophils [#/volume] in Blood by Automated count 4.92 10^3/uL 2.00 - 6.90 [facility] Lymphocytes [#/volume] in Blood by Automated count 1.75 10^3/uL 0.60 - 3.40 [facility] Monocytes [#/volume] in Blood by Automated count 0.46 10^3/uL 0.00 - 0.90 [facility] Eosinophils [#/volume] in Blood by Automated count 0.14 10^3/uL 0.00 - 0.70 [facility] Basophils [#/volume] in Blood by Automated count 0.04 10^3/uL 0.00 - 0.20 [facility] #IG 0.01 10^3/uL 0.00 - 0.10 [facility] #NRBC 0.00 10^3/uL 0.00 - 0.00 [facility] MANUAL DIFF NOT INDICATED [facility] RBC MORPH NOT INDICATED [facility] ID Date Data Source [id number] 03/14/2020 06:00:00 PM EST [facility] ([facility] Name Value Range Interpretation Code Description Data Josephine rce(s) Supporting Document(s) Culture Urine Laboratory test result [facility] ([facility] SOURCE: Clean Catch ID Date Data Source [id number] 03/14/2020 06:00:00 PM EST [facility] ([facility] Name Value [...] [facility] SOURCE: Clean Catch Spec [place] 1.010 1.001-1.030 [facility] ([facility] [...] SOURCE: Clean Catch ID Date Data Source [id number] 03/18/2020 08:29:00 PM EST [facility] Name Value Range Interpretation Code Description Data Josephine rce(s) Supporting Document(s) CULTURE URINE [facility] _CULTURE URINE_$$[id number]$$[id number]$$[id number]$$[id number]$$[id number]$$613572$$619339$$408276$$[id number]$$ 176052$$469472$$809497$$158625$$992985$$485791$$533725$$448566$$473203$$418215$$ 283746$$631318$$588375$$643144$$692536$$093504$$360662$$[id number] -- Continued on next page --Patient: PJ JUDITH Order: [id number] Page 2Culture: CULTURE URINE Status: Final ==== -- Continued on next page --Patient: PJ BRAGG Order: [id number] Page 2Culture: CULTURE URINE Status: Prelim =====$$[id number] DATE/TIME: 03/18/2020 15:06Culture: CULTURE URINE Status: FinalIsolate [...] presence of possible pathogensis in progress.Urine Culture,Comprehensive: [id number] epidermidis Flag: APatient: PJ BRAGG Order: [id number] Page 3Culture: CULTURE URINE Status: Final ISOLATE 1 Staphylococcus epidermidis Isolate 1Antibiotic KAREN IntUnits ug /mL --Ciprofloxacin R R . . . . . .185-9Gentamicin S S . . . . . .267-5Levofloxacin R R . . . . . .17181-9Vmfwulsdd S S . . . . . .54614-3Skbzwjljwgpgrz S S . . . . . .363-2Oxacillin R R . . . . . .383-0Penicillin R R . . . . . .6932-8Quinupristin/Dalfopristin S S . . . . . .42107-2Dkjtwzrx S S . . . . . .428-3Tetracycline S S . . . . . .496- 0Trimethoprim/Sulfa S S . . . . . .516-5Vancomycin S S . . . . . .524-9P1 Test performed by: [facility] #: [id number] [address] [id number] [facility] [id number] Director : Te Hua MD NPI #:Oversize Load Pilot Escort : 03/17/20.36.XMT.SENT REF 03/18/20.XMT.SENT REF ID Date Data Source [id number] 03/14/2020 06:25:00 PM EST [facility] Name Value Range Interpretation Code Description Data Josephine rce(s) Supporting Document(s) URINALYSIS [facility] yellow NORMAL: Yellow [facility] CLARITY cloudy NORMAL: Clear [facility] Specific gravity of Urine by Test strip 1.010 1.001 - 1.030 [facility] pH 7 5 - 9 [facility] Glucose [Mass/volume] in Urine by Test strip NORM NORMAL: Negat [facility] Bilirubin.total [Presence] in Urine by Test strip NEG NORMAL: Negative [facility] Ketones [Presence] in Urine by Test strip NEG NORMAL: Negative [facility] Protein [Mass/volume] in Urine by Test strip 15 NORMAL: Negat [facility] Nitrite [Presence] in Urine by Test strip POS NORMAL: Negative [facility] BLOOD 50 NORMAL: Negative [facility] Leukocyte esterase [Presence] in Urine by Test strip 500 AMINA L: Negative [facility] Urobilinogen [Mass/volume] in Urine by Test strip NOR less wil n 1.0 mg/dL [facility] MICROSCOPIC See Below [facility] ital WBC 30 - 40 NORMAL: NONE SEEN A [facility] Erythrocytes [#/volume] in Urine by Test strip 5 - 7 NORMAL: NON E SEEN A [facility] EPITHELIAL FEW NORMAL: NONE SEEN [facility] Bacteria [Presence] in Urine sediment by Light microscopy 3+ LARGE NORMAL: NONE SEEN A [facility] ID Date Data Source [id number] 03/12/2020 11:49:26 PM EST [facility] Name Value Range Interpretation Code Description Data Josephine rce(s) Supporting Document(s) *Follow Up Visit ANGELO v1 [facility] TBWKTk8eRzQVDkMdt1xfEUifVSVnw1CaBId5PJ0XC1D8pYRhJ6IwiGBjt6cDGy3MjFT0JQWGqiJuNPDe 1dH [file] DMMWYOMHOAE+gKkPDNWVTtUZhQNFOAtLiQAJA3KAbSBPVGaTiXYQEFV5MLddSLneEOQGHGP+qAmWXMLG GqHNiNYIJRoGtShTMNmCVzfiCxvLfDyVCIxKCxezWXMSMxP02cB8DTKjDAXXYaUKrGMLXZoEjSmTIZoR GvnzQdnEtGsTQAxL39VmIh8dSfIiI2A1NgI8DvI7yQ yFBntpaZzy5tRI4jeTzBzIk/TI3mzsYwGU+a0aFauQBSl1+WWCsWeWvo9imPkGOOWs2OKUWpB3Jpx+rf phdM6MOjYJOknec39ijd0Trx7MLKwX7Egc87l8EeZGnirL1LtDgGs6tTWgWYXkKUIqMVJwHIRDo4eQv4 qLhiKh6m55FD3fKCP1e4VRTxHfPC5QGPM3xvDXsnnT VutWtfIZgchUkURuySLe2ot4NXP2kLZ7eqA+FTPyu0rK7CZxpHXYSIymBNsM9CMtPqLeJdMigaNeivGP GrDdqh7QB3MBSITedMWhXUmaZQCtNPBXWOT+pXrDZEGXTWCLgvHDoDvJQDecWD3dYV5lLQxbXGJdGXGD 1gB8kWWXVRfFKgOAyI3dmHMGaqKimHotXkJtTkQQU4 /KhfVSJLyMy6LYymIR9gp+LjyDTgAhF0G8Dqk5dPEcV6yhVSRJM5CZX8roc77SbjCxOUbKJyY9bKeEVf qdeq/sLxRvR4sAfThfKq+SeGY3CAzSkEVycFxjW5XmJZ0FZBdLJSyP3WrJts6YkO47RHgsx8DLq6jaOd LaLEMUNLBmRsJVAOqYoXQaeDPvByYTLIRQM43TH2HL RoAOOJGADEwOGyHJXZsAVIIQXREuSlKJLSeKyXAUTFxKMmQnGPjW4UukQVgPUuLdPVqIOKnaAhCZBvlW XMLOCEOmBmGTMLmFnACXXAzDJmFjCzgBPqgJllzCxgJhOdKATpgJllzGQCFOmAE+qAWZIAySIDmBnACX LKdIOuFzVarXNlgBswrOpeLcLt6RTg+34PGbm5oVrI TQ47QWdo8vAr7FmYprZpGOhgdpX/RKMxWHnE9idfOqL8S0Ffm7rELxPoMH85DKxCjGLyzFV15joq37dI FVYoCqrOydWb3Jpeygt/DJaCHV6bWNQmQMc+GeJQ7VLtf/BGMcDwMr2O0NK2SHAkgoBUlK7UzXV3NGOf 4UKg9TPp7CDYSDTRokZAnjQAP7EnHDTQK+qAmWfMPG AxTQnKZWHWqDCKN2ljiLImSGzYRVOKfTlVqNPWtCci3hNgLvepQpk3snmDGp3pOx9aw8tTB6et9GB4IY YYs+cFB1pGTrsQMwpYEzFQOKYBF+dSdDCGQIRhDIuSLAOKvDyAyUPWcZLjhcPnxUeMuPQSaZcsWs64VJ KUEWIIPX4xSPKXJkUvGb4nN5lNQycK9RC1EPYaEbv/ 1//as5Za5N59/4eXv/3Nd9//fPr9T2++/v4///zbxbc//Pvilz+/YMcowf4FzTANx/pqqbR4+ 8gDJ1IzSdA85/TxT6xRrIV6Uv6OItIiGiIUsKRjpDcAlIXi/oSdmaBaDb8un1/3F4uW/kg86IqqQOd08 6ITD/xf99AVU8xEc1+Bb1GbslRWHXG725V/YOsFDXQ iLZeSV2II0xmc/d4IHhkO8j1lv3lolf1JGvn7vtxEZ9kDUEGJbY9CcZaT+WS9OY2FJblOM98HqgAuXWD 7xQpSHGflg2YMiqpU+jBEM9WX2/EeEVPxnD421/gO3XW6vI0254wHT1JtD4+L0eh+oU391z7qa6nSoND WTobE7K+1fPStq6t6YPun//hW6NDi2YJywLr4dhm+h x+XkXL8mY/kyjF+AsamqZC5PCXV8LiDCiOaVMYw+ZbOV5Tlrtr8dXJZWFiKKwg2wfidnisea42fcx6lk Iván+/DjC7abPE+zkmZeC6wpi9Ykt8QBttCNLI+T+C+iYdEG7LDr5KFFrpMCf2io42wVH91qmHJRknsQsd [file] 6yHl9xfz7upBc4NnVmhHLonnbA1BhFDxNCZ+Jp0C2Dba+HvVrTM1bSocOc1Lj9Lj6t2j8P1Cx/josé luis/1C [file] aU+GZf6XGoR4wa/iCaIVa5uI4shMsDFbsXcEB74IZv/lv0bCe8GAnqboiDa3iTrJKknS4qZMzpijW+SOLE SEWER HAND [file] eYPcsAdfHZBODxN2KrZ8TT5WBBCII0GEGj== ID Date Data Source [id number] 03/04/2020 10:55:00 AM EST [facility] ([facility] Name Value Range Interpretation Code Description Data Josephine rce(s) Supporting Document(s) Urine Culture, Routine Laboratory test result [facility] ([facility] SRC:VOIDED Bacteria identified in Urine by Culture Laboratory test result [facility] ([facility] SRC:VOIDED ID Date Data Source [id number] 03/04/2020 10:06:00 AM EST [facility] ([facility] Name Value [...] [facility] pH 7.0 # 5.0-8.0 [facility] Urobilinogen 0.2 NA 0.2-1.0 [...] result Abnormal (applies to non-numeric results) [facility] ([facility] ) Epithelial Cells - Ua Laboratory test result [facility] ([facility] WBC-Ua Laboratory test result 0-5 Abnormal (applies to non -numeric results) [facility] ([facility] Renal Epithelial Cells Laboratory test result Ab normal (applies to non-numeric results) [facility] ([facility] ) ID Date Data Source [id number] 02/25/2020 09:29:00 AM EST [facility] ([facility] Name Value Range Interpretation Code Description Data Josephine rce(s) Supporting Document(s) Color Laboratory test result [facility] ([facility] Bilirubin,Urine Laboratory test result Abnormal (applies to non-numeric results) [facility] ([facility] ) Clarity Laboratory test result [facility] ([facility] Glucose-Ua Laboratory test result ME DENT ([facility] Creatine kinase [Enzymatic activity/volume] in Serum o r Plasma Laboratory test result 1.000-1.030 Abnormal (applies to non-numeric results) [facility] ([facility] Blood - Ua Laboratory test result Abnormal (applies to non -numeric results) [facility] ([facility] Ketone Laboratory test result [facility] ([facility] Protein Laboratory test result Abnormal (applies to non -numeric results) [facility] ([facility] pH 6.5 # 5.0-8.0 [facility] Urobilinogen 1.0 NA 0.2-1.0 [facility] ([facility] RBC-Ua Laboratory test result 0-3 Abnormal (applies to non -numeric results) [facility] ([facility] Nitrite Laboratory test result Abnormal (applies to non -numeric results) [facility] ([facility] Leukocyte Laboratory test result Abnormal (applies to non -numeric results) [facility] ([facility] Epithelial Cells - Ua Laboratory test result [facility] ([facility] Bacteria - Ua Laboratory test result Abnormal (applies to non-numeric results) [facility] ([facility] ) WBC-Ua Laboratory test result 0-5 Abnormal (applies to non -numeric results) [facility] ([facility] Comment Laboratory test result [facility] ([facility] ID Date Data Source [id number] 02/13/2020 11:15:00 AM EST [facility] ([facility] Name Value Range Interpretation Code Description Data Josephine rce(s) Supporting Document(s) Color Urine Laboratory test result M EDENT ([facility] Appearance of Urine Laboratory test result [facility] ([facility] Specific [place] 1.015 1.00-1.03 [facility] ([facility] PH Urine 6.5 5.0-8.0 [facility] ([facility] Glucose Urine Laboratory test result [facility] ([facility] Ketones Laboratory test result [facility] ([facility] Bilirubin.total [Presence] in Urine by Test strip Laboratory test res ult [facility] ([facility] Blood Urine Laboratory test result M EDENT ([facility] Urobilinogen 0.2 EU/dl 0.2-1.0 [facility] Protein Urine Laboratory test result [facility] ([facility] Nitrite Laboratory test result [facility] ([facility] Leukocytes Laboratory test result ME DENT ([facility] ID Date Data Source [id number] 02/05/2020 05:20:00 PM EDT [facility] ([facility] Name Value Range Interpretation Code Description Data Josephine rce(s) Supporting Document(s) Natriuretic peptide.B prohormone N-Terminal [Mass/volu me] in Serum or Plasma 77 pg/mL Normal (applies to non-numeric results) [facility] ([facility] ID Date Data Source [id number] 02/05/2020 05:20:00 PM EDT [facility] ([facility] Name Value Range Interpretation Code Description Data Josephine rce(s) Supporting Document(s) Glucose, Fasting 70 mg/dL 70-100 Normal (applies to non-numeric results) [facility] ([facility] Creatinine For GFR 0.98 mg/dL 0.55-1.30 Normal (applies to non -numeric results) [facility] ([facility] Blood Urea Nitrogen 11 mg/dL 7-18 Normal (applies to non-nume [place] results) [facility] ([facility] Glomerular Filtration Rate 58.3 Normal (applies to n on-numeric results) [facility] ([facility] <content>Units are mL/min/1.73 m2</content>
<content></content>
<content>Chronic Kidney Disease Staging per NKF:</content>
<content></content>
<content>Stage I & II GFR >=60 Normal to Mildly Decreased</content>
<content>Stage III GFR 30- 59 Moderately Decreased</content>
<content>Stage IV GFR 15-29 Severely Decreased</content>
<content>Stage V GFR <15 Very Little GFR Left</content>
<content>ESRD GFR <15 on STACK CLERK</content>
<content></content> Chloride Level 106 meq/L 98-107 Normal (applies to non-numeric r esults) [facility] ([facility] Sodium Level 140 meq/L 136-145 Normal (applies to non-numeric res ults) [facility] ([facility] Potassium Serum 3.8 meq/L 3.5-5.1 Normal (applies to non-numeric results) [facility] ([facility] Calcium Level 9.2 mg/dL 8.8-10.2 Normal (applies to non-numeric re sults) [facility] ([facility] Carbon Dioxide Level 26 meq/L 21-32 Normal (applies to non-num richi results) [facility] ([facility] Anion Gap 8 meq/L 8-16 Normal (applies to non-numeric resul ts) [facility] ([facility] Albumin 3.7 GM/DL 3.2-5.2 Normal (applies to non-numeric resul ts) [facility] ([facility] Phosphorus Level 3.7 mg/dL 2.5-4.9 Normal (applies to non-numeric results) [facility] ([facility] ID Date Data Source [id number] 02/05/2020 05:20:00 PM EDT [facility] ([facility] Name Value Range Interpretation Code Description Data Josephine rce(s) Supporting Document(s) White Blood Count 8.7 10 4.0-10.0 Normal (applies to non-numeri c results) [facility] ([facility] Hemoglobin 13.7 g/dL 12.0-15.5 Normal (applies to non-numeric resul ts) [facility] ([facility] Hematocrit 44.2 % 36.0-47.0 Normal (applies to non-numeric resul ts) [facility] ([facility] Red Blood Count 5.33 10 4.00-5.40 Normal (applies to non-numeric results) [facility] ([facility] Mean Corpuscular Volume 82.9 fl 80.0-96.0 Normal ( applies to non-numeric results) [facility] ([facility] ) Mean Corpuscular HGB Conc 31.0 g/dL 32.0-36.5 Below low normal [facility] ([facility] Mean Corpuscular Hemoglobin 25.7 pg 27.0-33.0 Below low normal [facility] ([facility] Platelet Count, Automated 183 10 150-450 Normal (applies to non-numeric results) [facility] ([facility] ) Neutrophils % 63.4 % 36.0-66.0 Normal (applies to non-numeric re sults) [facility] ([facility] Red Cell Distribution Width 14.6 % 11.5-14.5 Above high normal [facility] ([facility] [place] % 7.0 % 0.0-5.0 Above high normal [facility] ([facility] Lymph % 26.9 % 24.0-44.0 Normal (applies to non-numeric resul ts) [facility] ([facility] Eos % 1.8 % 0.0-3.0 Normal (applies to non-numeric resul ts) [facility] ([facility] Immature Granulocyte % 0.3 % 0-3.0 Normal (applies to non-n umeric results) [facility] Nucleated Red Blood Cell % 0.0 % 0-0 Normal (applies to n on-numeric results) [facility] ([facility] Baso % 0.6 % 0.0-1.0 Normal (applies to non-numeric resul ts) [facility] ([facility] Neutrophils # 5.5 10 1.5-8.5 Normal (applies to non-numeric re sults) [facility] ([facility] [place] # 0.6 10 0.0-0.8 Normal (applies to non-numeric resul ts) [facility] ([facility] Lymph # 2.4 10 1.5-5.0 Normal (applies to non-numeric resul ts) [facility] ([facility] Eos # 0.2 10 0.0-0.5 Normal (applies to non-numeric resul ts) [facility] ([facility] Baso # 0.1 10 0.0-0.2 Normal (applies to non-numeric resul ts) [facility] ([facility] ID Date Data Source [id number] 02/05/2020 05:20:00 PM EDT [facility] ([facility]) Name Value Range Interpretation Code Description Data Josephine rce(s) Supporting Document(s) Natriuretic peptide.B prohormone N-Terminal [Mass/volu me] in Serum or Plasma 77 pg/mL [facility] ([facility] [employer] [facility] [place]) ID Date Data Source [id number] 02/05/2020 05:20:00 PM EDT [facility] ([facility]) Name Value Range Interpretation Code Description Data Josephine rce(s) Supporting Document(s) Blood Urea Nitrogen 11 mg/dL 7-18 [facility] ([facility]) Glucose, Fasting 70 mg/dL 70-100 [facility] ([facility]) Creatinine For GFR 0.98 mg/dL 0.55-1.30 [facility] ([facility]) Sodium Level 140 meq/L 136-145 [facility] ([facility]) Glomerular Filtration Rate 58.3 [facility] ([facility]) <content>Units are mL/min/1.73 m2</content>
<content></content>
<content>Chronic Kidney Disease Staging per NKF:</content>
<content></content>
<content>Stage I & II GFR >=60 Normal to Mildly Decreased</content>
<content>Stage III GFR 30- 59 Moderately Decreased</content>
<content>Stage IV GFR 15-29 Severely Decreased</content>
<content>Stage V GFR <15 Very Little GFR Left</content>
<content>ESRD GFR <15 on STACK CLERK</content>
<content></content> Chloride Level 106 meq/L 98-107 [facility] ([facility]) Anion Gap 8 meq/L 8-16 [facility] Carbon Dioxide Level 26 meq/L 21-32 [facility] ([facility]) Potassium Serum 3.8 meq/L 3.5-5.1 [facility] ([facility]io [facility]) Calcium Level 9.2 mg/dL 8.8-10.2 [facility] ([facility]iol[facility]) Phosphorus Level 3.7 mg/dL 2.5-4.9 [facility] ([facility]) Albumin 3.7 GM/DL 3.2-5.2 [facility] ID Date Data Source [id number] 02/05/2020 05:20:00 PM EDT [facility] ([facility]) Name Value Range Interpretation Code Description [...] 36.0-66.0 [facility] ([facility] [place] % 7.0 % 0.0-5.0 [facility] (Cardiology A [...] 0.0-0.5 [facility] [place] # 0.6 10 0.0-0.8 [facility] Baso # 0.1 10 0.0-0.2 [facility] ([facility]) ID Date Data Source [id number] 02/04/2020 10:21:00 AM EDT [facility] ([facility] Name Value Range Interpretation Code Description Data Josephine rce(s) Supporting Document(s) Urine Culture, Routine Laboratory test result Ab normal (applies to non-numeric results) [facility] ([facility] ) Source of Specimen: VOIDED Bacteria identified in Urine by Culture Laboratory test result Abnormal (applies to non-numeric results) [facility] <content>Escherichia coli</content>
<content>Source of Specimen: VOIDED</content>
<content>Greater than 100,000 colony forming units per mL</content>
<content>Cefazolin <=4 ug/mL</content>
<content>Cefazolin with an KAREN <=16 predicts susceptibility to the oral agents</content>
<content>cefaclor, cefdinir, cefpodoxime, cefprozil, cefuroxime, cephalexin,</content>
<content>and loracarbef when used for therapy of uncomplicated urinary tract</content>
<content>infections due to E. coli, Klebsiella pneumoniae, and Proteus</content>
<content>mirabilis.</content>
<content></content> Antimicrobial Susceptibility Laboratory test result [facility] ([facility] Source of Specimen: VOIDED S [...] S Trimethoprim/Sulfa S ID Date Data Source [id number] 02/04/2020 09:33:00 AM EDT [facility] ([facility] Name Value Range Interpretation Code Description Data Josephine rce(s) Supporting Document(s) Color Laboratory test result [facility] ([facility] Clarity Laboratory test result [facility] ([facility] Glucose-Ua Laboratory test result [facility] ([facility] Creatine kinase [Enzymatic activity/volume] in Serum or Plas ma 1.020 # 1.000-1.030 [facility] ([facility] Ketone Laboratory test result [facility] ([facility] Bilirubin,Urine Laboratory test result Abnormal (applies to non-numeric results) [facility] ([facility] ) pH 7.0 # 5.0-8.0 [facility] Blood - Ua Laboratory test result Abnormal (applies to non -numeric results) [facility] ([facility] Protein 100 mg/dL Abnormal (applies to non-numeric res ults) [facility] ([facility] Urobilinogen 1.0 NA 0.2-1.0 [facility] ([facility] Leukocyte Laboratory test result Abnormal (applies to non -numeric results) [facility] ([facility] Nitrite Laboratory test result [facility] ([facility] Bacteria - Ua Laboratory test result Abnormal (applies to non-numeric results) [facility] ([facility] ) WBC-Ua Laboratory test result 0-5 Abnormal (applies to non -numeric results) [facility] ([facility] RBC-Ua Laboratory test result 0-3 Abnormal (applies to non -numeric results) [facility] ([facility] Comment Laboratory test result [facility] ([facility] ID Date Data Source [id number] 01/09/2020 09:57:00 AM EDT [facility] ([facility] Name Value Range Interpretation Code Description Data Josephine rce(s) Supporting Document(s) Color Laboratory test result [facility] ([facility] NORMAL RANGES [...] HCT IS 5% LESS SOURCE FOR DATA: [employer] 1800 OPERATION MANUAL( AUTOMATED BLOOD COUNTS AND [...] mL/min Normal Clarity Laboratory test result [facility] ([facility] NORMAL RANGES Age [...] HCT IS 5% LESS SOURCE FOR DATA: [employer] 1800 OPERATION MANUAL( AUTOMATED BLOOD COUNTS AND [...] Normal Glucose-Ua Laboratory test result [facility] ([facility] NORMAL RANGES [...] HCT IS 5% LESS SOURCE FOR DATA: [employer] 1800 OPERATION MANUAL( AUTOMATED BLOOD COUNTS AND [...] >32 mL/min Normal Ketone Laboratory test result [facility] ([facility] NORMAL RANGES Age [...] HCT IS 5% LESS SOURCE FOR DATA: [employer] 1800 OPERATION MANUAL( AUTOMATED BLOOD COUNTS AND [...] >32 mL/min Normal Bilirubin,Urine Laboratory test result [facility] ([facility] NORMAL RANGES [...] HCT IS 5% LESS SOURCE FOR DATA: [employer] 1800 OPERATION MANUAL( AUTOMATED BLOOD COUNTS AND [...] >32 mL/min Normal Protein Laboratory test result [facility] ([facility] NORMAL RANGES [...] HCT IS 5% LESS SOURCE FOR DATA: [employer] 1800 OPERATION MANUAL( AUTOMATED BLOOD COUNTS AND [...] >32 mL/min Normal pH 7.0 # 5.0-8.0 [facility] ([facility] NORMAL [...] HCT IS 5% LESS SOURCE FOR DATA: [employer] 1800 OPERATION MANUAL( AUTOMATED BLOOD COUNTS AND [...] HCT IS 5% LESS SOURCE FOR DATA: [employer] 1800 OPERATION MANUAL( AUTOMATED BLOOD COUNTS AND [...] >32 mL/min Normal Nitrite Laboratory test result [facility] ([facility] NORMAL RANGES [...] HCT IS 5% LESS SOURCE FOR DATA: [employer] 1800 OPERATION MANUAL( AUTOMATED BLOOD COUNTS AND [...] HCT IS 5% LESS SOURCE FOR DATA: [employer] 1800 OPERATION MANUAL( AUTOMATED BLOOD COUNTS AND [...] >32 mL/min Normal Urobilinogen 0.2 NA 0.2-1.0 [facility] ([facility] NORMAL RANGES Age [...] HCT IS 5% LESS SOURCE FOR DATA: [employer] 1800 OPERATION MANUAL( AUTOMATED BLOOD COUNTS AND [...] mL/min Normal RBC-Ua Laboratory test result 0-3 [facility] ([facility] NORMAL RANGES Age [...] HCT IS 5% LESS SOURCE FOR DATA: [employer] 1800 OPERATION MANUAL( AUTOMATED BLOOD COUNTS AND [...] test result Abnormal (applies to non-numeric results) [facility] ([facility] ) NORMAL [...] HCT IS 5% LESS SOURCE FOR DATA: [employer] 1800 OPERATION MANUAL( AUTOMATED BLOOD COUNTS AND [...] Laboratory test result Above high no al [facility] ([facility] NORMAL RANGES Age [...] HCT IS 5% LESS SOURCE FOR DATA: [facility] DYN 1800 OPERATION MANUAL( AUTOMATED BLOOD COUNTS [...] 0-5 Abnormal (applies to non -numeric results) [facility] ([facility] NORMAL RANGES [...] HCT IS 5% LESS SOURCE FOR DATA: [employer] 1800 OPERATION MANUAL( AUTOMATED BLOOD COUNTS AND [...] result Ab normal (applies to non-numeric results) [facility] ([facility] ) NORMAL [...] HCT IS 5% LESS SOURCE FOR DATA: [employer] 1800 OPERATION MANUAL( AUTOMATED BLOOD COUNTS AND [...] >32 mL/min Normal Crystals Laboratory test result [facility] ([facility] NORMAL RANGES [...] HCT IS 5% LESS SOURCE FOR DATA: [employer] 1800 OPERATION MANUAL( AUTOMATED BLOOD COUNTS AND [...] >32 mL/min Normal ID Date Data Source [id number] 01/09/2020 09:57:00 AM RAJESH ZAPATA ([facility] Name Value Range Interpretation Code Description Data Josephine rce(s) Supporting Document(s) BUN 9 mg/dL 8- JODI ([facility] NORMAL [...] HCT IS 5% LESS SOURCE FOR DATA: [employer] 1800 OPERATION MANUAL( AUTOMATED BLOOD COUNTS AND [...] HCT IS 5% LESS SOURCE FOR DATA: [employer] 1800 OPERATION MANUAL( AUTOMATED BLOOD COUNTS AND [...] above >32 mL/min Normal BUN/Creatinine Ratio 11.7 [facility] ([facility] NORMAL RANGES Age [...] HCT IS 5% LESS SOURCE FOR DATA: [employer] 1800 OPERATION MANUAL( AUTOMATED BLOOD COUNTS AND [...] mL/min Normal Creat 0.8 mg/dL 0.5-1.0 [facility] ([facility] NORMAL [...] HCT IS 5% LESS SOURCE FOR DATA: [employer] 1800 OPERATION MANUAL( AUTOMATED BLOOD COUNTS AND [...] >32 mL/min Normal Na 136 mmol/L 136-145 [facility] ([facility] [place] [place] NORMAL RANGES Age WBC RBC HGB [...] HCT IS 5% LESS SOURCE FOR DATA: [employer] 1800 OPERATION MANUAL( AUTOMATED BLOOD COUNTS AND [...] >32 mL/min Normal Co2 25.7 mmol/L 22.0-29.0 [employer] [facility] NORMAL RANGES Age WBC RBC HGB [...] >32 mL/min Normal K 4.0 mmol/L 3.5-5.1 [facility] ([facility] NORMAL RANGES Age WBC [...] HCT IS 5% LESS SOURCE FOR DATA: [employer] 1800 OPERATION MANUAL( AUTOMATED BLOOD COUNTS AND [...] >32 mL/min Normal CL 100.6 mmol/L 98.0-107.0 [facility] ([facility] NORMAL RANGES Age WBC RBC [...] HCT IS 5% LESS SOURCE FOR DATA: [employer] 1800 OPERATION MANUAL( AUTOMATED BLOOD COUNTS AND [...] >32 mL/min Normal CA 9.3 mg/dL 8.6-10.2 [facility] NORMAL RANGES Age WBC [...] HCT IS 5% LESS SOURCE FOR DATA: [employer] 1800 OPERATION MANUAL( AUTOMATED BLOOD COUNTS AND [...] TP 6.4 g/dL 6.6-8.7 Below low normal [facility] ( [facility] NORMAL [...] HCT IS 5% LESS SOURCE FOR DATA: [employer] 1800 OPERATION MANUAL( AUTOMATED BLOOD COUNTS AND [...] HCT IS 5% LESS SOURCE FOR DATA: [employer] 1800 OPERATION MANUAL( AUTOMATED BLOOD COUNTS AND [...] HCT IS 5% LESS SOURCE FOR DATA: [employer] 1800 OPERATION MANUAL( AUTOMATED BLOOD COUNTS AND [...] >32 mL/min Normal Alb 4.2 g/dL 3.4-4.8 [facility] ([facility] NORMAL RANGES Age WBC [...] HCT IS 5% LESS SOURCE FOR DATA: [employer] 1800 OPERATION MANUAL( AUTOMATED BLOOD COUNTS AND [...] mL/min Normal Ast (Sgot) 27 U/L 0-40 [facility] ([facility] [place] [place] NORMAL RANGES Age WBC RBC HGB [...] HCT IS 5% LESS SOURCE FOR DATA: [employer] 1800 OPERATION MANUAL( AUTOMATED BLOOD COUNTS AND [...] mL/min Normal Alt (SGPT) 22 U/L 0-41 [facility] ([facility] NORMAL RANGES Age WBC [...] >32 mL/min Normal Alp 101.1 U/L 35-129 [facility] ([facility] NORMAL [...] HCT IS 5% LESS SOURCE FOR DATA: [employer] 1800 OPERATION MANUAL( AUTOMATED BLOOD COUNTS AND [...] HCT IS 5% LESS SOURCE FOR DATA: [employer] 1800 OPERATION MANUAL( AUTOMATED BLOOD COUNTS AND [...] >32 mL/min Normal Anion Gap 14 mmol/L [facility] ([facility] NORMAL RANGES Age WBC [...] HCT IS 5% LESS SOURCE FOR DATA: [employer] 1800 OPERATION MANUAL( AUTOMATED BLOOD COUNTS AND [...] >32 mL/min Normal Tbili 0.55 mg/dL 0.0-1.2 [facility] ([facility] NORMAL RANGES Age WBC [...] HCT IS 5% LESS SOURCE FOR DATA: [employer] 1800 OPERATION MANUAL( AUTOMATED BLOOD COUNTS AND [...] and above >32 mL/min Normal eGFR Non-Afr. Djiboutian 70 # [facility] ([facility] [...] HCT IS 5% LESS SOURCE FOR DATA: [employer] 1800 OPERATION MANUAL( AUTOMATED BLOOD COUNTS AND [...] HCT IS 5% LESS SOURCE FOR DATA: [employer] 1800 OPERATION MANUAL( AUTOMATED BLOOD COUNTS AND [...] >32 mL/min Normal ID Date Data Source [id number] 01/09/2020 09:57:00 AM RAJESH ZAPATA ([facility] Name Value Range Interpretation Code Description Data Josephine rce(s) Supporting Document(s) WBC 5.5 10E3/uL 4.1-10.9 JODI ([facility] NORMAL RANGES Age [...] HCT IS 5% LESS SOURCE FOR DATA: [employer] 1800 OPERATION MANUAL( AUTOMATED BLOOD COUNTS AND [...] Normal RBC 5.16 10E6/uL 4.20-6.30 DAKOTAHMYRANDA ([facility] NORMAL RANGES Age WBC [...] HCT IS 5% LESS SOURCE FOR DATA: [employer] 1800 OPERATION MANUAL( AUTOMATED BLOOD COUNTS AND [...] >32 mL/min Normal HCT 41.8 % 37.0-51.0 [facility] ([facility] NORMAL RANGES Age WBC [...] HCT IS 5% LESS SOURCE FOR DATA: [facility] DYN 1800 OPERATION MANUAL( AUTOMATED BLOOD [...] >32 mL/min Normal HGB 13.6 g/dL 12.0-18.0 [facility] ([facility] NORMAL [...] HCT IS 5% LESS SOURCE FOR DATA: [employer] 1800 OPERATION MANUAL( AUTOMATED BLOOD COUNTS AND [...] >32 mL/min Normal MCV 81.0 fL 80.0-97.0 [facility] ([facility] NORMAL [...] HCT IS 5% LESS SOURCE FOR DATA: [employer] 1800 OPERATION MANUAL( AUTOMATED BLOOD COUNTS AND [...] >32 mL/min Normal MCHC 32.5 g/dL 31.0-36.0 [facility] ([facility] NORMAL [...] HCT IS 5% LESS SOURCE FOR DATA: [employer] 1800 OPERATION MANUAL( AUTOMATED BLOOD COUNTS AND [...] >32 mL/min Normal MCH 26.4 pg 26.0-32.0 [facility] ([facility] NORMAL [...] HCT IS 5% LESS SOURCE FOR DATA: [employer] 1800 OPERATION MANUAL( AUTOMATED BLOOD COUNTS AND [...] >32 mL/min Normal RDW-CV 14.2 % 11.5-14.5 [facility] ([facility] NORMAL [...] HCT IS 5% LESS SOURCE FOR DATA: [employer] 1800 OPERATION MANUAL( AUTOMATED BLOOD COUNTS AND [...] HCT IS 5% LESS SOURCE FOR DATA: [employer] 1800 OPERATION MANUAL( AUTOMATED BLOOD COUNTS AND [...] >32 mL/min Normal PLT 154 10E3/uL 140-440 [facility] ([facility] NORMAL RANGES Age WBC RBC [...] HCT IS 5% LESS SOURCE FOR DATA: [employer] 1800 OPERATION MANUAL( AUTOMATED BLOOD COUNTS AND [...] >32 mL/min Normal MXD% 9.2 % 0.1-24.0 [facility] ([facility] NORMAL [...] HCT IS 5% LESS SOURCE FOR DATA: [employer] 1800 OPERATION MANUAL( AUTOMATED BLOOD COUNTS AND [...] >32 mL/min Normal Neut% 64.1 % 37.0-92.0 [facility] ([facility] NORMAL [...] HCT IS 5% LESS SOURCE FOR DATA: [employer] 1800 OPERATION MANUAL( AUTOMATED BLOOD COUNTS AND [...] >32 mL/min Normal Lym# 1.5 10E3/uL 0.6-4.1 [employer] ([facility] NORMAL RANGES Age WBC RBC [...] >32 mL/min Normal Neut# 3.5 % 2.0-7.8 [facility] ([facility] NORMAL RANGES Age WBC [...] HCT IS 5% LESS SOURCE FOR DATA: [employer] 1800 OPERATION MANUAL( AUTOMATED BLOOD COUNTS AND [...] >32 mL/min Normal MXD# 0.5 10E3/uL 0.0-1.8 [facility] ([facility] NORMAL RANGES Age WBC RBC [...] HCT IS 5% LESS SOURCE FOR DATA: [employer] 1800 OPERATION MANUAL( AUTOMATED BLOOD COUNTS AND [...] >32 mL/min Normal MPV 12.6 fL 9.0-13.0 [facility] NORMAL RANGES Age WBC [...] HCT IS 5% LESS SOURCE FOR DATA: [employer] 1800 OPERATION MANUAL( AUTOMATED BLOOD COUNTS AND [...] >32 mL/min Normal ID Date Data Source [id number] 01/09/2020 09:57:00 AM EDT JODI ([facility], ) Name Value Range Interpretation Code Description Data Josephine rce(s) Supporting Document(s) WBC 5.5 10E3/uL 4.1-10.9 [facility] ([facility], ) NORMAL RANGES Age WBC [...] HCT IS 5% LESS SOURCE FOR DATA: [employer] 1800 OPERATION MANUAL( AUTOMATED BLOOD COUNTS AND [...] >32 mL/min Normal RBC 5.16 10E6/uL 4.20-6.30 [facility], ) NORMAL RANGES Age WBC [...] HCT IS 5% LESS SOURCE FOR DATA: [employer] 1800 OPERATION MANUAL( AUTOMATED BLOOD COUNTS AND [...] >32 mL/min Normal HCT 41.8 % 37.0-51.0 [facility] ([facility], ) NORMAL RANGES [...] HCT IS 5% LESS SOURCE FOR DATA: [employer] 1800 OPERATION MANUAL( AUTOMATED BLOOD COUNTS AND [...] >32 mL/min Normal HGB 13.6 g/dL 12.0-18.0 [facility] ([facility], ) NORMAL RANGES [...] HCT IS 5% LESS SOURCE FOR DATA: [employer] 1800 OPERATION MANUAL( AUTOMATED BLOOD COUNTS AND [...] >32 mL/min Normal MCV 81.0 fL 80.0-97.0 [facility], [...] HCT IS 5% LESS SOURCE FOR DATA: [employer] 1800 OPERATION MANUAL( AUTOMATED BLOOD COUNTS AND [...] >32 mL/min Normal MCH 26.4 pg 26.0-32.0 [facility] ([facility], ) NORMAL RANGES [...] >32 mL/min Normal PLT 154 10E3/uL 140-440 [facility], ) NORMAL RANGES Age WBC RBC [...] HCT IS 5% LESS SOURCE FOR DATA: [employer] 1800 OPERATION MANUAL( AUTOMATED BLOOD COUNTS AND [...] >32 mL/min Normal MCHC 32.5 g/dL 31.0-36.0 [facility] ([facility], ) NORMAL RANGES Age WBC [...] HCT IS 5% LESS SOURCE FOR DATA: [employer] 1800 OPERATION MANUAL( AUTOMATED BLOOD COUNTS AND [...] test finding (navigational concept) 14.2 % 11.5-14.5 [facility] ([facility], ) NORMAL RANGES Age WBC [...] HCT IS 5% LESS SOURCE FOR DATA: [employer] 1800 OPERATION MANUAL( AUTOMATED BLOOD COUNTS AND [...] test finding (navigational concept) 64.1 % 37.0-92.0 [facility] ([facility], ) NORMAL RANGES Age WBC [...] HCT IS 5% LESS SOURCE FOR DATA: [employer] 1800 OPERATION MANUAL( AUTOMATED BLOOD COUNTS AND [...] test finding (navigational concept) 26.7 % 10.0-58.5 [facility] ([facility], ) NORMAL RANGES Age WBC [...] HCT IS 5% LESS SOURCE FOR DATA: [employer] 1800 OPERATION MANUAL( AUTOMATED BLOOD COUNTS AND [...] Semen by Manual count 3.5 % 2.0-7.8 [facility] ([facility], ) NORMAL RANGES Age WBC [...] HCT IS 5% LESS SOURCE FOR DATA: [employer] 1800 OPERATION MANUAL( AUTOMATED BLOOD COUNTS AND [...] test finding (navigational concept) 9.2 % 0.1-24.0 [facility] ([facility], ) NORMAL RANGES Age WBC [...] HCT IS 5% LESS SOURCE FOR DATA: [employer] 1800 OPERATION MANUAL( AUTOMATED BLOOD COUNTS AND [...] test finding (navigational concept) 1.5 10E3/uL 0.6-4.1 [facility] ([facility], ) NORMAL RANGES Age WBC [...] HCT IS 5% LESS SOURCE FOR DATA: [employer] 1800 OPERATION MANUAL( AUTOMATED BLOOD COUNTS AND [...] >32 mL/min Normal Glu 102 mg/dL 70-110 [facility], ) NORMAL RANGES Age WBC [...] Blood by Maninder 12.6 f L 9.0-13.0 [facility] ([facility], ) NORMAL RANGES Age WBC [...] HCT IS 5% LESS SOURCE FOR DATA: [facility] DYN 1800 OPERATION MANUAL( AUTOMATED BLOOD COUNTS [...] test finding (navigational concept) 0.5 10E3/uL 0.0-1.8 [facility] ([facility], ) NORMAL RANGES Age WBC [...] HCT IS 5% LESS SOURCE FOR DATA: [employer] 1800 OPERATION MANUAL( AUTOMATED BLOOD COUNTS AND [...] test finding (navigational concept) 0.8 mg/dL 0.5-1.0 [facility] ([facility], ) NORMAL RANGES Age WBC [...] HCT IS 5% LESS SOURCE FOR DATA: [employer] 1800 OPERATION MANUAL( AUTOMATED BLOOD COUNTS AND [...] Ratio] in Serum or Plasma 11.7 CALC [facility] ([facility], ) NORMAL RANGES Age WBC [...] HCT IS 5% LESS SOURCE FOR DATA: [employer] 1800 OPERATION MANUAL( AUTOMATED BLOOD COUNTS AND [...] >32 mL/min Normal BUN 9 mg/dL 8- [facility] ([facility], ) NORMAL RANGES Age WBC [...] HCT IS 5% LESS SOURCE FOR DATA: [employer] 1800 OPERATION MANUAL( AUTOMATED BLOOD COUNTS AND [...] >32 mL/min Normal CL 100.6 mmol/L 98.0-107.0 [facility], ) NORMAL RANGES Age WBC [...] HCT IS 5% LESS SOURCE FOR DATA: [employer] 1800 OPERATION MANUAL( AUTOMATED BLOOD COUNTS AND [...] in Serum or Plasma 4.0 mmol/L 3.5-5.1 [facility] ([facility], ) NORMAL RANGES Age [...] HCT IS 5% LESS SOURCE FOR DATA: [employer] 1800 OPERATION MANUAL( AUTOMATED BLOOD COUNTS AND [...] >32 mL/min Normal Na 136 mmol/L 136-145 [facility], ) NORMAL RANGES Age WBC RBC [...] HCT IS 5% LESS SOURCE FOR DATA: [employer] 1800 OPERATION MANUAL( AUTOMATED BLOOD COUNTS AND [...] >32 mL/min Normal TP 6.4 g/dL 6.6-8.7 [facility], [...] HCT IS 5% LESS SOURCE FOR DATA: [employer] 1800 OPERATION MANUAL( AUTOMATED BLOOD COUNTS AND [...] >32 mL/min Normal Co2 25.7 mmol/L 22.0-29.0 [facility], ) NORMAL RANGES Age WBC RBC [...] >32 mL/min Normal CA 9.3 mg/dL 8.6-10.2 [facility], ) NORMAL RANGES Age WBC [...] HCT IS 5% LESS SOURCE FOR DATA: [employer] 1800 OPERATION MANUAL( AUTOMATED BLOOD COUNTS AND [...] >32 mL/min Normal Alb 4.2 g/dL 3.4-4.8 [facility] ([facility], ) NORMAL RANGES Age WBC [...] HCT IS 5% LESS SOURCE FOR DATA: [employer] 1800 OPERATION MANUAL( AUTOMATED BLOOD COUNTS AND [...] Ratio] in Serum or Plasma 1.9 CALC [facility] ([facility], ) NORMAL RANGES Age WBC [...] HCT IS 5% LESS SOURCE FOR DATA: [employer] 1800 OPERATION MANUAL( AUTOMATED BLOOD COUNTS AND [...] in Serum by calculation 2.2 CALC [facility] ([facility], ) NORMAL RANGES Age WBC [...] HCT IS 5% LESS SOURCE FOR DATA: [employer] 1800 OPERATION MANUAL( AUTOMATED BLOOD COUNTS AND [...] test finding (navigational concept) 27 U/L 0-40 [facility] ([facility], ) NORMAL RANGES Age WBC [...] HCT IS 5% LESS SOURCE FOR DATA: [employer] 1800 OPERATION MANUAL( AUTOMATED BLOOD COUNTS AND [...] test finding (navigational concept) 22 U/L 0-41 [facility] ([facility], ) NORMAL RANGES Age WBC [...] HCT IS 5% LESS SOURCE FOR DATA: [employer] 1800 OPERATION MANUAL( AUTOMATED BLOOD COUNTS AND [...] test finding (navigational concept) 101.1 U/L 35-129 [facility] ([facility], ) NORMAL RANGES Age WBC [...] HCT IS 5% LESS SOURCE FOR DATA: [employer] 1800 OPERATION MANUAL( AUTOMATED BLOOD COUNTS AND [...] >32 mL/min Normal Anion Gap 14 mmol/L [facility] ([facility], ) NORMAL RANGES [...] HCT IS 5% LESS SOURCE FOR DATA: [employer] 1800 OPERATION MANUAL( AUTOMATED BLOOD COUNTS AND [...] >32 mL/min Normal Tbili 0.55 mg/dL 0.0-1.2 [facility], ) NORMAL RANGES Age WBC RBC [...] HCT IS 5% LESS SOURCE FOR DATA: [employer] 1800 OPERATION MANUAL( AUTOMATED BLOOD COUNTS AND [...] Laboratory test finding (navigational concept) 270.8 CALC [facility] ([facility], ) NORMAL RANGES Age [...] test finding (navigational concept) 81 # [facility] ([facility], ) NORMAL RANGES Age WBC [...] HCT IS 5% LESS SOURCE FOR DATA: [facility] DYN 1800 OPERATION MANUAL( AUTOMATED BLOOD COUNTS [...] test finding (navigational concept) 70 # [facility] ([facility], ) NORMAL RANGES Age WBC [...] HCT IS 5% LESS SOURCE FOR DATA: [employer] 1800 OPERATION MANUAL( AUTOMATED BLOOD COUNTS AND [...] test finding (navigational concept) Laboratory test result [facility], ) NORMAL RANGES Age WBC [...] HCT IS 5% LESS SOURCE FOR DATA: [employer] 1800 OPERATION MANUAL( AUTOMATED BLOOD COUNTS AND [...] >32 mL/min Normal Color Laboratory test result [facility], ) NORMAL RANGES Age WBC [...] HCT IS 5% LESS SOURCE FOR DATA: [employer] 1800 OPERATION MANUAL( AUTOMATED BLOOD COUNTS AND [...] >32 mL/min Normal Clarity Laboratory test result [facility] ([facility], ) NORMAL RANGES Age WBC [...] HCT IS 5% LESS SOURCE FOR DATA: [employer] 1800 OPERATION MANUAL( AUTOMATED BLOOD COUNTS AND [...] test finding (navigational concept) Laboratory test result [facility] ([facility], ) NORMAL RANGES Age WBC [...] HCT IS 5% LESS SOURCE FOR DATA: [employer] 1800 OPERATION MANUAL( AUTOMATED BLOOD COUNTS AND [...] >32 mL/min Normal Ketone Laboratory test result [facility] ([facility], ) NORMAL RANGES Age WBC [...] HCT IS 5% LESS SOURCE FOR DATA: [employer] 1800 OPERATION MANUAL( AUTOMATED BLOOD COUNTS AND [...] Serum or Plas ma 1.020 # 1.000-1.030 [facility] ([facility], ) NORMAL RANGES Age WBC [...] HCT IS 5% LESS SOURCE FOR DATA: [employer] 1800 OPERATION MANUAL( AUTOMATED BLOOD COUNTS AND [...] r esult Abnormal (applies to non-numeric results) [facility] ([facility], ) NORMAL RANGES Age WBC [...] HCT IS 5% LESS SOURCE FOR DATA: [employer] 1800 OPERATION MANUAL( AUTOMATED BLOOD COUNTS AND [...] >32 mL/min Normal pH 7.0 # 5.0-8.0 [facility], [...] HCT IS 5% LESS SOURCE FOR DATA: [employer] 1800 OPERATION MANUAL( AUTOMATED BLOOD COUNTS AND [...] >32 mL/min Normal Protein Laboratory test result [facility] ([facility], ) NORMAL RANGES Age WBC [...] >32 mL/min Normal Urobilinogen 0.2 NA 0.2-1.0 [facility], ) NORMAL RANGES Age [...] HCT IS 5% LESS SOURCE FOR DATA: [employer] 1800 OPERATION MANUAL( AUTOMATED BLOOD COUNTS AND [...] r esult Abnormal (applies to non-numeric results) [facility] ([facility], ) NORMAL RANGES Age [...] HCT IS 5% LESS SOURCE FOR DATA: [employer] 1800 OPERATION MANUAL( AUTOMATED BLOOD COUNTS AND [...] >32 mL/min Normal Nitrite Laboratory test result [facility] ([facility], ) NORMAL RANGES Age WBC [...] HCT IS 5% LESS SOURCE FOR DATA: [employer] 1800 OPERATION MANUAL( AUTOMATED BLOOD COUNTS AND [...] test finding (navigational concept) Laboratory test result [facility], ) NORMAL RANGES Age WBC [...] HCT IS 5% LESS SOURCE FOR DATA: [employer] 1800 OPERATION MANUAL( AUTOMATED BLOOD COUNTS AND [...] finding (navigational concept) Laboratory test result 0-3 [facility] ([facility], ) NORMAL RANGES Age WBC [...] HCT IS 5% LESS SOURCE FOR DATA: [employer] 1800 OPERATION MANUAL( AUTOMATED BLOOD COUNTS AND [...] r esult Abnormal (applies to non-numeric results) [facility] NORMAL RANGES Age WBC RBC HGB [...] HCT IS 5% LESS SOURCE FOR DATA: [employer] 1800 OPERATION MANUAL( AUTOMATED BLOOD COUNTS AND [...] esult 0-5 Abnormal (applies to non-numeric results) [facility] ([facility], ) NORMAL RANGES Age WBC [...] HCT IS 5% LESS SOURCE FOR DATA: [employer] 1800 OPERATION MANUAL( AUTOMATED BLOOD COUNTS AND [...] esult Abnormal (applies to non-numeric results) [facility] ([facility], ) NORMAL RANGES Age WBC [...] HCT IS 5% LESS SOURCE FOR DATA: [employer] 1800 OPERATION MANUAL( AUTOMATED BLOOD COUNTS AND [...] test finding (navigational concept) Laboratory test result [facility] ([facility], ) NORMAL RANGES Age [...] HCT IS 5% LESS SOURCE FOR DATA: [facility] DYN 1800 OPERATION MANUAL( AUTOMATED BLOOD COUNTS [...] >32 mL/min Normal ID Date Data Source [id number] 10/19/2019 10:13:00 AM EDT [facility] ([facility] Name Value Range Interpretation [...] Cheryl Young PRd.) ID Date Data Source [id number] 10/17/2019 12:24:34 PM EDT [facility] INFORMATIONPatient MRN Name Date of Age Gend*PT [id number] Judith Zavala 1940 79 years F ---PT Location Admission Date/Time Visit ID Attending Provider --- --- --- --- EPI ID CSN Admitting Provider [id number] ---Breast cancer surveillance and follow-upDolores returns today [...] core biopsy revealed grade 3 invasive ductal carcinoma,ER/DC+, H2N 2+, FISH negative, [id number], Stage I. She underwent lumpectomy withaxillary sentinel node biopsy which was performed by Dr Guillory. 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, grade 3 DCIS, axillarynode biopsy +0/1, ER/DC+, H2N negative, [id number], Stage I Treatment:Lumpectomy with negative axillary sentinel node biopsy 05/13/14, Dr Montanoation therapy 6460 cGy/35 fractions completed 08/06/14, Dr DiazAnastrozole started, did not tolerate, switched to tamoxifen had side effects,changed to exemestane, then to letrozole, none of them were tolerated, now on nohormonal therapy, Dr Vann, now Dr Wmoack Menstrual/ History: Menarche 13, 1st parity 18, [...] cm, grade 3 DCIS, axillarynode biopsy +0/1, ER/DC+, H2N negative, [id number], Stage I 04/15/2014 S/P radiation therapy to right breast, Dr Diaz 11/22/2016 VertigoPast Surgical History:Procedure Laterality Date ABDOMINAL HYSTERECTOMY 1978 partial bladder suspension BLADDER SUSPENSION BREAST LUMPECTOMY Right 2014 w lumph nodes BREAST SURGERY Right 05/03/2014 Procedure: EXCISION BREAST W MAMMO NEEDLE LOCAL SENTINEL NODE INJECT RIGHTLUMPECTOMY ; Surgeon: Dali Guillory MD; Location: [facility];Service: General; Laterality: Right; CARDIAC VALVE REPLACEMENT CARDIAC VALVE SURGERY N/A 12/19/2015 Procedure: THORACOTOMY VIA RIGHT HEARTPORT, REPLACEMENT AORTIC VALVE WITHMAGNA EASE 23 MM AND BUD ; Surgeon: Miryam Call MD; Location: [facility];Service: Cardiac/Open Heart; Laterality: N/A; CHOLECYSTECTOMY septic [...] by mouth daily , Disp: , Rfl: svzniwcj-xvpsyrmow-kckvacrwbzgonj (CORTISPORIN) otic solution, INSTILL 4DROPS INTO THE [...] [facility] and I be happy to see her back if anything everchanges. Brook[place]ed Luuy has a breast clinic up there and I urged her to gothere as they are outstandingShe is comfortable with that I am happy to see her back if anything changes Name Value Range Interpretation Code Description Data Josephine rce(s) Supporting Document(s) ID Date Data Source [id number] 10/17/2019 10:15:00 AM EDT [facility]: DIGI LEEANN MAMMOGRAM DIAG BL [...] densityResultCode: BR 2 BDISCLAIMER: According to the [place] [employer] and the [place] [employer], any patient with a lifetime risk assessment greater than 20% or patients with dense breasts (heterogeneously or extremely dense), may benefit from additional screening tests for breast cancer. Further screening tests for patients with dense breasts (heterogeneously or extremely dense) should be based upon the patient's breast cancer risk status. All patients, having their mammogram with [facility], with a lifetime risk assessment greater than 20% or with dense breasts, will be given the opportunity to meet with our certified breast health navigator to discuss their risk and further imaging options.Further screening tests include Ultrasound and MR (Magnetic Resonance) imaging.Dictated by: BELLA LEROY M.D. on 10/17/2019 Transcribed by: noam on <<TranscriptionDateTime1>>CDS G code: , ,CDS Modifier: , ,cc:DALI GUILLORY [id number] [place] [address] [place] [address] Name Value Range Interpretation Code Description Data Josephine rce(s) Supporting Document(s) ID Date Data Source [id number] 10/09/2019 01:17:00 PM EDT [facility] ([facility] Name Value Range Interpretation Code Description Data Josephine rce(s) Supporting Document(s) Bacteria identified in Urine by Culture Laboratory test result Abnormal (applies to non-numeric results) [facility] ([facility] SRC:UA VOIDED Antimicrobial Susceptibility Laboratory test result [facility] ([facility] SRC:UA VOIDED Urine Culture, Routine Laboratory test result Ab normal (applies to non-numeric results) [facility] ([facility] ) SRC:UA VOIDED ID Date Data Source [id number] 10/09/2019 01:12:00 PM EDT [facility] ([facility] Name Value Range Interpretation Code Description Data Josephine rce(s) Supporting Document(s) Clarity Laboratory test result [facility] ([facility] Color Laboratory test result [facility] ([facility] Glucose-Ua Laboratory test result ME DENT ([facility] Ketone Laboratory test result [facility] ([facility] Bilirubin,Urine Laboratory test result Abnormal (applies to non-numeric results) [facility] ([facility] ) Blood - Ua Laboratory test result Abnormal (applies to non -numeric results) [facility] ([facility] pH 6.5 # 5.0-8.0 [facility] Creatine kinase [Enzymatic activity/volume] in Serum or Plas ma 1.025 # 1.000-1.030 [facility] ([facility] Protein Laboratory test result Abnormal (applies to non -numeric results) [facility] ([facility] Urobilinogen 1.0 NA 0.2-1.0 [facility] ([facility] Nitrite Laboratory test result Abnormal (applies to non -numeric results) [facility] ([facility] Leukocyte Laboratory test result Abnormal (applies to non -numeric results) [facility] ([facility] Bacteria - Ua Laboratory test result Abnormal (applies to non-numeric results) [facility] ([facility] ) RBC-Ua Laboratory test result 0-3 Abnormal (applies to non -numeric results) [facility] ([facility] Epithelial Cells - Ua Laboratory test result [facility] ([facility] WBC-Ua Laboratory test result 0-5 Abnormal (applies to non -numeric results) [facility] ([facility] Comment Laboratory test result Above high normal [facility] ([facility] ID Date Data Source [id number] 10/03/2019 01:33:00 PM EDT [facility] ([facility]) Name Value Range Interpretation Code Description Data Josephine rce(s) Supporting Document(s) Alanine aminotransferase [Enzymatic activity/volume] in Serum or Pl asma 26 [facility] ([facility]) Albumin [Mass/volume] in Serum or Plasma 4.2 [facility] ([facility]) Calcium [Mass/volume] in Serum or Plasma 9.6 [facility] ([facility]) Chloride [Moles/volume] in Serum or Plasma 103.8 [facility] ([facility]) Carbon dioxide, total [Moles/volume] in Serum or Plasma 23.3 [facility] ([facility]) Sodium 137 [facility] Alkaline phosphatase [Enzymatic activity/volume] in Serum or Plasma 105.3 [facility] ([facility]) Potassium [Moles/volume] in Serum or Plasma 4.1 [facility] ([facility]) Protein [Mass/volume] in Serum or Plasma 6.9 [facility] ([facility]) Glucose 115 70-110 [facility] Aspartate aminotransferase [Enzymatic activity/volume] in Serum or Plasma 29 [facility] ([facility]) Urea nitrogen [Mass/volume] in Serum or Plasma 12 [facility] ([facility]) Creatinine For GFR 0.9 [facility] ([facility]) ID Date Data Source [id number] 10/03/2019 01:33:00 PM EDT [facility] ([facility]) Name Value Range Interpretation Code Description Data Josephine rce(s) Supporting Document(s) Red Blood Count 5.18 4.20-6.30 [facility] ([facility] Platelets 163 140-440 [facility] White Blood Count 6.4 4.1-10.9 [facility] ([facility]) Hematocrit 42.5 37.0-51.0 [facility] ([facility]) Hemoglobin 14.2 12.0-18.0 [facility] ([facility]) ID Date Data Source [id number] 10/03/2019 01:33:00 PM EDT [facility] ([facility]) Name Value Range Interpretation Code Description Data Josephine rce(s) Supporting Document(s) Triglycerides 195 [facility] ([facility]iol[facility] gy [facility]) Chol/HDL Ratio 4.9 [facility] ([facility]iol [facility]) HDL 44 45-65 [facility] ([facility]) Cholesterol in LDL [Mass/volume] in Serum or Plasma by calculation 12 9 [facility] ([facility]) Cholesterol 212 0-200 [facility] ([facility]) ID Date Data Source [id number] 10/03/2019 08:59:00 AM EDT [facility] ([facility] Name Value Range Interpretation Code Description Data Josephine rce(s) Supporting Document(s) Color Laboratory test result [facility] ([facility] NORMAL RANGES [...] HCT IS 5% LESS SOURCE FOR DATA: [employer] 1800 OPERATION MANUAL( AUTOMATED BLOOD COUNTS AND [...] HCT IS 5% LESS SOURCE FOR DATA: [employer] 1800 OPERATION MANUAL( AUTOMATED BLOOD COUNTS AND [...] 2-19 YEARS EXCLUSIVE. Clarity Laboratory test result [facility] ([facility] NORMAL RANGES Age [...] HCT IS 5% LESS SOURCE FOR DATA: [employer] 1800 OPERATION MANUAL( AUTOMATED BLOOD COUNTS AND [...] 2-19 YEARS EXCLUSIVE. Bilirubin,Urine Laboratory test result [facility] ([facility] NORMAL RANGES [...] HCT IS 5% LESS SOURCE FOR DATA: [employer] 1800 OPERATION MANUAL( AUTOMATED BLOOD COUNTS AND [...] HCT IS 5% LESS SOURCE FOR DATA: [employer] 1800 OPERATION MANUAL( AUTOMATED BLOOD COUNTS AND [...] 2-19 YEARS EXCLUSIVE. pH 6.5 # 5.0-8.0 [facility] ([facility] NORMAL RANGES Age WBC [...] HCT IS 5% LESS SOURCE FOR DATA: [employer] 1800 OPERATION MANUAL( AUTOMATED BLOOD COUNTS AND [...] 2-19 YEARS EXCLUSIVE. Ketone Laboratory test result [facility] ([facility] NORMAL RANGES [...] HCT IS 5% LESS SOURCE FOR DATA: [employer] 1800 OPERATION MANUAL( AUTOMATED BLOOD COUNTS AND [...] HCT IS 5% LESS SOURCE FOR DATA: [employer] 1800 OPERATION MANUAL( AUTOMATED BLOOD COUNTS AND [...] 2-19 YEARS EXCLUSIVE. Protein Laboratory test result [facility] ([facility] NORMAL RANGES [...] HCT IS 5% LESS SOURCE FOR DATA: [employer] 1800 OPERATION MANUAL( AUTOMATED BLOOD COUNTS AND [...] HCT IS 5% LESS SOURCE FOR DATA: [employer] 1800 OPERATION MANUAL( AUTOMATED BLOOD COUNTS AND [...] HCT IS 5% LESS SOURCE FOR DATA: [employer] 1800 OPERATION MANUAL( AUTOMATED BLOOD COUNTS AND [...] 2-19 YEARS EXCLUSIVE. ID Date Data Source [id number] 10/03/2019 08:59:00 AM EDT [facility] ([facility] Name Value Range Interpretation Code Description Data Josephine rce(s) Supporting Document(s) Chol 212 mg/dL 0-200 Above high normal [facility] ([facility] NORMAL RANGES [...] HCT IS 5% LESS SOURCE FOR DATA: [employer] 1800 OPERATION MANUAL( AUTOMATED BLOOD COUNTS AND [...] 2-19 YEARS EXCLUSIVE. LDL_C 129 Calc 75-129 [facility] ([facility] NORMAL [...] HCT IS 5% LESS SOURCE FOR DATA: [employer] 1800 OPERATION MANUAL( AUTOMATED BLOOD COUNTS AND [...] 44 mg/dL 45-65 Below low normal [facility] ([facility] ) NORMAL RANGES Age WBC [...] HCT IS 5% LESS SOURCE FOR DATA: [employer] 1800 OPERATION MANUAL( AUTOMATED BLOOD COUNTS AND [...] 2-19 YEARS EXCLUSIVE. Trig 195 mg/dL 40-200 [facility] ([facility] NORMAL [...] HCT IS 5% LESS SOURCE FOR DATA: [employer] 1800 OPERATION MANUAL( AUTOMATED BLOOD COUNTS AND [...] 2-19 YEARS EXCLUSIVE. Cho/HDL Ratio 4.9 CALC [facility] ([facility] NORMAL RANGES Age WBC RBC [...] HCT IS 5% LESS SOURCE FOR DATA: [employer] 1800 OPERATION MANUAL( AUTOMATED BLOOD COUNTS AND [...] 2-19 YEARS EXCLUSIVE. ID Date Data Source [id number] 10/03/2019 08:59:00 AM EDT [facility] ([facility] Name Value Range Interpretation Code Description Data Josephine rce(s) Supporting Document(s) Creatine kinase [Enzymatic activity/volume] in Serum or Plasma 48 U /L 26-192 [facility] ([facility] NORMAL RANGES Age [...] HCT IS 5% LESS SOURCE FOR DATA: [employer] 1800 OPERATION MANUAL( AUTOMATED BLOOD COUNTS AND [...] 2-19 YEARS EXCLUSIVE. ID Date Data Source [id number] 10/03/2019 08:59:00 AM EDT [facility] ([facility] Name Value Range Interpretation Code Description Data Josephine rce(s) Supporting Document(s) Glu 115 mg/dL 70-110 Above high normal [facility] ([facility] NORMAL RANGES [...] HCT IS 5% LESS SOURCE FOR DATA: [employer] 1800 OPERATION MANUAL( AUTOMATED BLOOD COUNTS AND [...] 2-19 YEARS EXCLUSIVE. BUN/Creatinine Ratio 14.1 CALC [facility] ([facility] NORMAL RANGES Age [...] HCT IS 5% LESS SOURCE FOR DATA: [employer] 1800 OPERATION MANUAL( AUTOMATED BLOOD COUNTS AND [...] 2-19 YEARS EXCLUSIVE. BUN 12 mg/dL 8-23 [facility] ([facility] NORMAL [...] HCT IS 5% LESS SOURCE FOR DATA: [employer] [facility] DYN 1800 OPERATION MANUAL( AUTOMATED BLOOD COUNTS [...] HCT IS 5% LESS SOURCE FOR DATA: [employer] 1800 OPERATION MANUAL( AUTOMATED BLOOD COUNTS AND [...] HCT IS 5% LESS SOURCE FOR DATA: [employer] 1800 OPERATION MANUAL( AUTOMATED BLOOD COUNTS AND [...] 2-19 YEARS EXCLUSIVE. K 4.1 mmol/L 3.5-5.1 [facility] ([facility] NORMAL RANGES Age WBC RBC [...] HCT IS 5% LESS SOURCE FOR DATA: [employer] 1800 OPERATION MANUAL( AUTOMATED BLOOD COUNTS AND [...] 2-19 YEARS EXCLUSIVE. CL 103.8 mmol/L 98.0-107.0 [facility] ([facility] NORMAL RANGES Age WBC RBC HGB [...] HCT IS 5% LESS SOURCE FOR DATA: [employer] 1800 OPERATION MANUAL( AUTOMATED BLOOD COUNTS AND [...] 2-19 YEARS EXCLUSIVE. CA 9.6 mg/dL 8.6-10.2 [facility] ([facility] NORMAL RANGES Age WBC [...] HCT IS 5% LESS SOURCE FOR DATA: [employer] 1800 OPERATION MANUAL( AUTOMATED BLOOD COUNTS AND [...] 2-19 YEARS EXCLUSIVE. TP 6.9 g/dL 6.6-8.7 [facility] ([facility] NORMAL [...] HCT IS 5% LESS SOURCE FOR DATA: [employer] 1800 OPERATION MANUAL( AUTOMATED BLOOD COUNTS AND [...] 2-19 YEARS EXCLUSIVE. Co2 23.3 mmol/L 22.0-29.0 [facility] ([facility] NORMAL RANGES Age WBC RBC [...] HCT IS 5% LESS SOURCE FOR DATA: [employer] 1800 OPERATION MANUAL( AUTOMATED BLOOD COUNTS AND [...] YEARS EXCLUSIVE. Alb 4.2 g/dL 3.4-4.8 [facility] ([facility] NORMAL [...] HCT IS 5% LESS SOURCE FOR DATA: [employer] 1800 OPERATION MANUAL( AUTOMATED BLOOD COUNTS AND [...] 2-19 YEARS EXCLUSIVE. Alp 105.3 U/L 35-129 [facility] ([facility] NORMAL [...] HCT IS 5% LESS SOURCE FOR DATA: [employer] 1800 OPERATION MANUAL( AUTOMATED BLOOD COUNTS AND [...] HCT IS 5% LESS SOURCE FOR DATA: [employer] 1800 OPERATION MANUAL( AUTOMATED BLOOD COUNTS AND [...] YEARS EXCLUSIVE. A/G Ratio 1.6 CALC [facility] NORMAL RANGES Age WBC [...] HCT IS 5% LESS SOURCE FOR DATA: [employer] 1800 OPERATION MANUAL( AUTOMATED BLOOD COUNTS AND [...] 2-19 YEARS EXCLUSIVE. Tbili 0.53 mg/dL 0.0-1.2 [facility] ([facility] NORMAL RANGES [...] HCT IS 5% LESS SOURCE FOR DATA: [employer] 1800 OPERATION MANUAL( AUTOMATED BLOOD COUNTS AND [...] HCT IS 5% LESS SOURCE FOR DATA: [employer] 1800 OPERATION MANUAL( AUTOMATED BLOOD COUNTS AND [...] YEARS EXCLUSIVE. Alt (SGPT) 26 U/L 0-41 [facility] ([facility] NORMAL RANGES Age WBC [...] HCT IS 5% LESS SOURCE FOR DATA: [employer] 1800 OPERATION MANUAL( AUTOMATED BLOOD COUNTS AND [...] HCT IS 5% LESS SOURCE FOR DATA: [employer] 1800 OPERATION MANUAL( AUTOMATED BLOOD COUNTS AND [...] HCT IS 5% LESS SOURCE FOR DATA: [employer] 1800 OPERATION MANUAL( AUTOMATED BLOOD COUNTS AND [...] 2-19 YEARS EXCLUSIVE. Anion Gap 14 mmol/L [facility] ([facility] NORMAL RANGES Age WBC [...] HCT IS 5% LESS SOURCE FOR DATA: [employer] 1800 OPERATION MANUAL( AUTOMATED BLOOD COUNTS AND [...] INDIVIDUALA AGED 2-19 YEARS EXCLUSIVE. eGFR Non-Afr. [place] 60 # [facility] ([facility] [...] HCT IS 5% LESS SOURCE FOR DATA: [employer] 1800 OPERATION MANUAL( AUTOMATED BLOOD COUNTS AND [...] 2-19 YEARS EXCLUSIVE. ID Date Data Source [id number] 10/03/2019 08:59:00 AM EDT [facility] ([facility] y [...] HCT IS 5% LESS SOURCE FOR DATA: [employer] 1800 OPERATION MANUAL( AUTOMATED BLOOD COUNTS AND [...] 2-19 YEARS EXCLUSIVE. RBC 5.18 10E6/uL 4.-6 [employer] ([facility] NORMAL RANGES Age [...] HCT IS 5% LESS SOURCE FOR DATA: [employer] 1800 OPERATION MANUAL( AUTOMATED BLOOD COUNTS AND [...] HCT IS 5% LESS SOURCE FOR DATA: [employer] 1800 OPERATION MANUAL( AUTOMATED BLOOD COUNTS AND [...] HCT IS 5% LESS SOURCE FOR DATA: [employer] 1800 OPERATION MANUAL( AUTOMATED BLOOD COUNTS AND [...] 2-19 YEARS EXCLUSIVE. MCV 82.0 fL 80.0-97.0 [facility] ([facility] NORMAL [...] HCT IS 5% LESS SOURCE FOR DATA: [employer] [facility] DYN 1800 OPERATION MANUAL( AUTOMATED BLOOD COUNTS [...] HCT IS 5% LESS SOURCE FOR DATA: [employer] 1800 OPERATION MANUAL( AUTOMATED BLOOD COUNTS AND [...] YEARS EXCLUSIVE. MCH 27.4 pg 26.0-32.0 [facility] NORMAL RANGES Age WBC [...] HCT IS 5% LESS SOURCE FOR DATA: [employer] 1800 OPERATION MANUAL( AUTOMATED BLOOD COUNTS AND [...] 2-19 YEARS EXCLUSIVE. PLT 163 10E3/uL 140-440 [facility] ([facility] NORMAL RANGES Age WBC RBC [...] HCT IS 5% LESS SOURCE FOR DATA: [employer] 1800 OPERATION MANUAL( AUTOMATED BLOOD COUNTS AND [...] HCT IS 5% LESS SOURCE FOR DATA: [employer] 1800 OPERATION MANUAL( AUTOMATED BLOOD COUNTS AND [...] 2-19 YEARS EXCLUSIVE. RDW-CV 14.3 % 11.5-14.5 [facility] ([facility] NORMAL RANGES Age WBC [...] HCT IS 5% LESS SOURCE FOR DATA: [employer] 1800 OPERATION MANUAL( AUTOMATED BLOOD COUNTS AND [...] 2-19 YEARS EXCLUSIVE. Neut% 69.3 % 37.0-92.0 [facility] ([facility] NORMAL [...] HCT IS 5% LESS SOURCE FOR DATA: [employer] 1800 OPERATION MANUAL( AUTOMATED BLOOD COUNTS AND [...] HCT IS 5% LESS SOURCE FOR DATA: [employer] 1800 OPERATION MANUAL( AUTOMATED BLOOD COUNTS AND [...] 2-19 YEARS EXCLUSIVE. Neut# 4.4 % 2.0-7.8 [facility] ([facility] NORMAL [...] 2-19 YEARS EXCLUSIVE. Lym# 1.5 10E3/uL 0.6-4.1 [facility] ([facility] NORMAL RANGES Age WBC RBC [...] HCT IS 5% LESS SOURCE FOR DATA: [employer] 1800 OPERATION MANUAL( AUTOMATED BLOOD COUNTS AND [...] YEARS EXCLUSIVE. MXD# 0.5 10E3/uL 0.0-1.8 [facility] ([facility] NORMAL RANGES Age WBC RBC [...] HCT IS 5% LESS SOURCE FOR DATA: [employer] 1800 OPERATION MANUAL( AUTOMATED BLOOD COUNTS AND [...] 2-19 YEARS EXCLUSIVE. MPV 12.5 fL 9.0-13.0 [facility] ([facility] NORMAL [...] 2-19 YEARS EXCLUSIVE. ID Date Data Source [id number] 08/14/2019 03:31:00 PM EDT [facility] Patient Name: JUDITH ZAVALA : 1940 Sex: F Pt Unit #: [id number] Location:[facility] Provider: Visit Date/Time: 08/14/19 Primary Insurance: [facility] Secondary Insurance: Self Pay Intake Vital [...] had 35 radiation treatments. 2015. No chemo. 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 Smoking 01/31/2020 12:00:00 AM EDT Patient has never smoked co mpleted Patient has never smoked [facility] ([facility]) Vital Signs ID Date Data Source UNK Name Value Range Interpretation Code Description Data Source(s) Oxygen saturation in Arterial blood by Pulse oximetry 98 % 98 % [facility] ([facility] Body mass index (BMI) [Ratio] 28.6 kg/m2 28.6 k g/m2 [facility] ([facility] [place] body weight 110 [lb_av] 110 [lb_av] [facility] T ([facility] Body weight 159.00 [lb_av] 159.00 [lb_av] [facility] T ([facility] Body height 62.50 [in_i] 62.50 [in_i] [facility] ([facility] 5'2.50" Respiratory rate 16 /min 16 /min [facility] ( [facility] Heart rate 81 /min 81 /min [facility] ([facility] Body temperature 96.8 [degF] 96.8 [degF] [facility] ([facility] Diastolic blood pressure 74 mm[Hg] 74 mm[Hg] [facility] ([facility] Systolic blood pressure 110 mm[Hg] 110 mm[Hg] M EDENT ([facility] Oxygen saturation in Arterial blood by Pulse oximetry 99 % 99 % [facility] ([facility] (AT Rest), (Room Air) Body mass index (BMI) [Ratio] 28.6 kg/m2 28.6 k g/m2 [facility] ([facility] [place] body weight 110 [lb_av] 110 [lb_av] [facility] T ([facility] Body weight 159.00 [lb_av] 159.00 [lb_av] [facility] T ([facility] Body height 62.50 [in_i] 62.50 [in_i] [facility] ([facility] 5'2.50" Respiratory rate 16 /min 16 /min [facility] ( [facility] Heart rate 76 /min 76 /min [facility] ([facility] Body temperature 96.9 [degF] 96.9 [degF] [facility] ([facility] Diastolic blood pressure 70 mm[Hg] 70 mm[Hg] [facility] ([facility] Systolic blood pressure 106 mm[Hg] 106 mm[Hg] M [facility] ([facility] Oxygen saturation in Arterial blood by Pulse oximetry 98 % 98 % [facility] ([facility] Body mass index (BMI) [Ratio] 28.8 kg/m2 28.8 k g/m2 [facility] ([facility] [place] body weight 110 [lb_av] 110 [lb_av] [facility] T ([facility] Body weight 160.00 [lb_av] 160.00 [lb_av] [facility] T ([facility] Body height 62.50 [in_i] 62.50 [in_i] [facility] ([facility] 5'2.50" Respiratory rate 16 /min 16 /min [facility] ( [facility] Heart rate 66 /min 66 /min [facility] ([facility] Body temperature 97.5 [degF] 97.5 [degF] [facility] ([facility] Diastolic blood pressure 82 mm[Hg] 82 mm[Hg] [facility] ([facility] Systolic blood pressure 118 mm[Hg] 118 mm[Hg] M EDENT ([facility] Oxygen saturation in Arterial blood by Pulse oximetry 98 % 98 % [facility] ([facility] ([place] Rest), (Room Air) Body mass index (BMI) [Ratio] 28.6 kg/m2 28.6 k g/m2 [facility] ([facility] [place] body weight 110 [lb_av] 110 [lb_av] [facility] T ([facility] Body weight 159.00 [lb_av] 159.00 [lb_av] [facility] T ([facility] Body height 62.50 [in_i] 62.50 [in_i] [facility] ([facility] 5'2.50" Respiratory rate 17 /min 17 /min [facility] ( [facility] Heart rate 86 /min 86 /min [facility] ([facility] Body temperature 97.1 [degF] 97.1 [degF] MEDENT ([facility] Diastolic blood pressure 78 mm[Hg] 78 mm[Hg] MEDENT ([facility] Systolic blood pressure 122 mm[Hg] 122 mm[Hg] M EDENT ([facility] Oxygen saturation in Arterial blood by Pulse oximetry 99 % 99 % MEDENT ([facility] Body mass index (BMI) [Ratio] 28.8 kg/m2 28.8 k g/m2 MEDENT ([facility] [place] body weight 110 [lb_av] 110 [lb_av] MEDEN T ([facility] Body weight 160.00 [lb_av] 160.00 [lb_av] MEDEN T ([facility] Body height 62.50 [in_i] 62.50 [in_i] MEDENT ([facility] 5'2.50" Respiratory rate 16 /min 16 /min MEDENT ( [facility] Heart rate 80 /min 80 /min MEDENT ([facility] Body temperature 98.1 [degF] 98.1 [degF] MEDENT ([facility] Diastolic blood pressure 80 mm[Hg] 80 mm[Hg] MEDENT ([facility] Systolic blood pressure 116 mm[Hg] 116 mm[Hg] M EDENT ([facility] Body mass index (BMI) [Ratio] 28.3 kg/m2 28.3 k g/m2 MEDENT ([facility], ) Body weight 160.00 [lb_av] 160.00 [lb_av] MEDEN T ([facility], ) Body height 63 [in_i] 63 [in_i] MEDENT ([facility], ) 5'3" Respiratory rate 12 /min 12 /min MEDENT ( [facility], ) Heart rate 72 /min 72 /min MEDENT ([facility], ) Diastolic blood pressure 78 mm[Hg] 78 mm[Hg] MEDENT ([facility], ) Systolic blood pressure 120 mm[Hg] 120 mm[Hg] EDENT ([facility], ) [place] body weight 115 [lb_av] 115 [lb_av] MEDEN T ([facility], ) Oxygen saturation in Arterial blood by Pulse oximetry 98 % 98 % MEDENT ([facility] Body mass index (BMI) [Ratio] 29.2 kg/m2 29.2 k g/m2 MEDENT ([facility] [place] body weight 110 [lb_av] 110 [lb_av] MEDEN T ([facility] Body weight 162.00 [lb_av] 162.00 [lb_av] MEDEN T ([facility] Body height 62.50 [in_i] 62.50 [in_i] MEDENT ([facility] 5'2.50" Respiratory rate 16 /min 16 /min MEDENT ( [facility] Heart rate 74 /min 74 /min MEDENT ([facility] Body temperature 97.0 [degF] 97.0 [degF] MEDENT ([facility] Diastolic blood pressure 68 mm[Hg] 68 mm[Hg] MEDENT ([facility] Systolic blood pressure 128 mm[Hg] 128 mm[Hg] M EDENT ([facility] Oxygen saturation in Arterial blood by Pulse oximetry 98 % 98 % MEDENT ([facility] ([place]), (Room Air) Body mass index (BMI) [Ratio] 29.3 kg/m2 29.3 k g/m2 MEDENT ([facility] [place] body weight 110 [lb_av] 110 [lb_av] MEDEN T ([facility] Body weight 163.00 [lb_av] 163.00 [lb_av] MEDEN T ([facility] Body height 62.50 [in_i] 62.50 [in_i] MEDENT ([facility] 5'2.50" Respiratory rate 16 /min 16 /min MEDENT ( [facility] Heart rate 81 /min 81 /min MEDENT ([facility] Body temperature 96.9 [degF] 96.9 [degF] MEDENT ([facility] Diastolic blood pressure 64 mm[Hg] 64 mm[Hg] MEDENT ([facility] Systolic blood pressure 108 mm[Hg] 108 mm[Hg] M EDENT ([facility] Diastolic blood pressure--sitting 74 mm[Hg] 74 mm[Hg] MEDENT ([facility]) large cuff, Ra Systolic blood pressure--sitting 114 mm[Hg] 114 mm[Hg] MEDENT ([facility]) large cuff, Ra Heart rate 96 /min 96 /min MEDENT ([facility]) regular Body mass index (BMI) [Ratio] 27.8 kg/m2 27.8 k g/m2 MEDENT ([facility]) Body height 63 [in_i] 63 [in_i] MEDENT [facility] 5'3" Body weight 157.00 [lb_av] 157.00 [lb_av] MEDEN T ([facility]) [place] body weight 115 [lb_av] 115 [lb_av] MEDEN T ([facility]) Body mass index (BMI) [Ratio] 28.3 kg/m2 28.3 k g/m2 MEDENT ([facility]) Body weight 160.00 [lb_av] 160.00 [lb_av] MEDEN T ([facility]) Body height 63 [in_i] 63 [in_i] MEDENT ([facility]) 5'3" Respiratory rate 12 /min 12 /min MEDENT ( [facility]) Body weight 72.576 kg 72.576 kg MEDENT ([facility]) [place] body weight 115 [lb_av] 115 [lb_av] MEDEN T ([facility]) Body mass index (BMI) [Ratio] 28.3 kg/m2 28.3 k g/m2 MEDENT ([facility]) Body weight 160.00 [lb_av] 160.00 [lb_av] MEDEN T ([facility]) Body height 63 [in_i] 63 [in_i] MEDENT ([facility]) 5'3" Diastolic blood pressure--sitting 76 mm[Hg] 76 mm[Hg] MEDENT ([facility]) large cuff, [place] Systolic blood pressure--sitting 122 mm[Hg] 122 mm[Hg] MEDENT ([facility]) large cuff, [place] Heart rate 72 /min 72 /min MEDENT ([facility]) Body mass index (BMI) [Ratio] 28.3 kg/m2 28.3 k g/m2 MEDENT ([facility]) Body height 63 [in_i] 63 [in_i] MEDENT ([facility]) 5'3" Body weight 160.00 [lb_av] 160.00 [lb_av] MEDEN T ([facility]) Oxygen saturation in Arterial blood by Pulse oximetry 96 % 96 % MEDENT ([facility], ) Body mass index (BMI) [Ratio] 28.8 kg/m2 28.8 k g/m2 MEDENT ([facility]) Body weight 160.00 [lb_av] 160.00 [lb_av] MEDEN T ([facility], ) Body height 62.50 [in_i] 62.50 [in_i] MEDENT ([facility], ) Respiratory rate 16 /min 16 /min MEDENT ( [facility], ) Body temperature 98.3 [degF] 98.3 [degF] MEDENT [facility] Heart rate 84 /min 84 /min MEDENT ([facility], ) Diastolic blood pressure 84 mm[Hg] 84 mm[Hg] MEDENT ([facility], ) Systolic blood pressure 128 mm[Hg] 128 mm[Hg] M EDENT ([facility], ) Oxygen saturation in Arterial blood by Pulse oximetry 96 % 96 % MEDENT ([facility] Body mass index (BMI) [Ratio] 28.8 kg/m2 28.8 k g/m2 MEDENT ([facility] [place] body weight 110 [lb_av] 110 [lb_av] MEDEN T ([facility] Body weight 160.00 [lb_av] 160.00 [lb_av] MEDEN T ([facility] Body height 62.50 [in_i] 62.50 [in_i] MEDENT ([facility] 5'2.50" Respiratory rate [...] k g/m2 MEDENT ([facility] [place] body weight 110 [lb_av] 110 [lb_av] MEDEN T ([facility] Body weight 165.00 [lb_av] 165.00 [lb_av] MEDEN T ([facility] Body height 62.50 [in_i] 62.50 [in_i] MEDENT ([facility] 5'2.50" Respiratory rate 16 /min 16 /min MEDENT ( [facility] Heart rate 75 /min 75 /min MEDENT ([facility] Body temperature 97.5 [degF] 97.5 [degF] MEDENT ([facility] Diastolic blood [...] weight 163.00 [lb_av] 163.00 [lb_av] MEDEN T ([facility] Body height 62.50 [in_i] 62.50 [in_i] MEDENT ([facility] 5'2.50" Respiratory rate 16 /min 16 /min MEDENT ( [facility] Heart rate 86 /min 86 /min MEDENT ([facility] Body temperature 97.5 [degF] 97.5 [degF] MEDENT ([facility] Diastolic blood pressure 80 mm[Hg] 80 mm[Hg] MEDENT ([facility] Systolic blood pressure 130 mm[Hg] 130 mm[Hg] M EDENT ([facility] Oxygen saturation in Arterial blood by Pulse oximetry 97 % 97 % MEDENT ([facility] Body mass index (BMI) [Ratio] 29.2 kg/m2 29.2 k g/m2 MEDENT ([facility] Body weight 162.00 [lb_av] 162.00 [lb_av] MEDEN T ([facility] Body height 62.50 [in_i] 62.50 [in_i] MEDENT ([facility] 5'2.50" Respiratory rate 18 /min 18 /min MEDENT ( [facility] Heart rate 86 /min 86 /min MEDENT ([facility] Body temperature 96.5 [degF] 96.5 [degF] MEDENT ([facility] Diastolic blood pressure 84 mm[Hg] 84 mm[Hg] MEDENT ([facility] Systolic blood pressure 134 mm[Hg] 134 mm[Hg] M EDENT ([facility] Oxygen saturation in Arterial blood by Pulse oximetry 96 % 96 % MEDENT ([facility] Body mass index (BMI) [Ratio] 29.2 kg/m2 29.2 k g/m2 MEDENT ([facility] Body weight 162.00 [lb_av] 162.00 [lb_av] MEDEN T ([facility] Body height 62.50 [in_i] 62.50 [in_i] MEDENT ([facility] 5'2.50" Respiratory rate 16 /min 16 /min MEDENT ( [facility] Heart rate 82 /min 82 /min MEDENT ([facility] Body temperature 97.6 [degF] 97.6 [degF] DAKOTAHENT ([facility] Diastolic blood pressure 64 mm[Hg] 64 mm[Hg] JODI ([facility] Systolic blood pressure 108 mm[Hg] 108 mm[Hg] Chuy ANGULO ([facility] Oxygen saturation in Arterial blood by Pulse oximetry 95 % 95 % JODI ([facility] Body mass index (BMI) [Ratio] 29.2 kg/m2 29.2 k g/m2 JODI ([facility] Body weight 162.00 [lb_av] 162.00 [lb_av] MEDEN T ([facility] Body height 62.50 [in_i] 62.50 [in_i] DAKOTAHENT ([facility] 5'2.50" Respiratory rate 16 /min 16 /min JODI ( [facility] Heart rate 83 /min 83 /min JODI ([facility] Body temperature 97.2 [degF] 97.2 [degF] JODI ([facility] Diastolic blood pressure 78 mm[Hg] 78 mm[Hg] JODI ([facility] Systolic blood pressure 118 mm[Hg] 118 mm[Hg] Chuy ANGULO ([facility]
[2020-05-01 02:13] LABS: ERYTHROCYTE SEDIMENTATION RATE 38 mm/hr (0-30)
[2020-05-01] MEDS ORDERED: ENOXAPARIN 40MG/0.4ML SYRINGE (J1650 PER 10MG) SC SCH (06:00)
[2020-05-01 07:49] LABS: BASO % 0.2 % (0.0-1.0); EOS % 0.5 % (0.0-3.0); HEMATOCRIT 41.8 % (36.0-47.0); HEMOGLOBIN 13.3 g/dl (12.0-15.5); LYMPH # 1.3 10^3/uL (1.5-5.0); LYMPH % 32.4 % (24.0-44.0); MEAN CORPUSCULAR HEMOGLOBIN 25.8 pg (27.0-33.0); MEAN CORPUSCULAR HGB CONC 31.8 g/dl (32.0-36.5); MONO # 0.5 10^3/uL (0.0-0.8); MONO % 12.1 % (0.0-5.0); NEUTROPHILS # 2.3 10^3/uL (1.5-8.5); NEUTROPHILS % 54.6 % (36.0-66.0); PLATELET COUNT, AUTOMATED 126 10^3/uL (150-450); RED BLOOD COUNT 5.16 10^6/uL (4.00-5.40); WHITE BLOOD COUNT 4.1 10^3/uL (4.0-10.0)
[2020-05-01 08:55] LABS: ALBUMIN 3.3 GM/DL (3.2-5.2); ALT/SGPT 25 U/L (12-78); BILIRUBIN,DIRECT 0.2 MG/DL (0.0-0.2); BILIRUBIN,TOTAL 0.4 MG/DL (0.2-1.0); BLOOD UREA NITROGEN 13 MG/DL (7-18); C REACTIVE PROTEIN QUANTITATIV 5.36 MG/DL (0.00-0.30); CALCIUM LEVEL 9.2 MG/DL (8.8-10.2); CARBON DIOXIDE LEVEL 28 MEQ/L (21-32); CHLORIDE LEVEL 100 MEQ/L (98-107); CPK CREATINE PHOSPHOKINASE 51 U/L (26-192); CREATININE FOR GFR 0.64 MG/DL (0.55-1.30); FERRITIN 248 NG/ML (8-252); GLOMERULAR FILTRATION RATE > 60.0 (>32); GLUCOSE, FASTING 79 MG/DL (70-100); LDH LACTATE DEHYDROGENASE 290 U/L (84-246); MAGNESIUM LEVEL 1.9 MG/DL (1.8-2.4); NT-PRO BNP 134 PG/ML (<450); POTASSIUM SERUM 3.4 MEQ/L (3.5-5.1); SODIUM LEVEL 137 MEQ/L (136-145); TOTAL PROTEIN 6.6 GM/DL (6.4-8.2); TROPONIN I < 0.02 NG/ML (< 0.10)
[2020-05-01] MEDS ORDERED: REMDESIVIR 200 MG in NS 250 ML IV ONE (09:00)
[2020-05-01] MEDS ORDERED: METOPROLOL TART 50 MG TAB PO SCH (09:00)
[2020-05-01] MEDS ORDERED: dexameTHASONE 4 MG/ML 1ML VIAL (J1100 PER 1MG) IV SCH (09:00)
[2020-05-01] MEDS ORDERED: CALCIUM/VITAMIN D 500 MG TAB PO SCH (09:00)
[2020-05-01] MEDS ORDERED: SODIUM CHLORIDE 0.9% INJ 10 ML SYR IV ONE (09:00)
[2020-05-01] MEDS ORDERED: MECLIZINE 25 MG TABLET PO SCH (09:00)
[2020-05-01] MEDS ORDERED: ASPIRIN 81 MG ENTERIC TAB PO SCH (09:00)
[2020-05-01] MEDS ORDERED: POTASSIUM CHLORIDE 10 MEQ SR TABLET PO ONE (09:15)
[2020-05-01 09:41] LABS: VENOUS BASE EXCESS 2.1 (-2.0-2.0); VENOUS HCO3 27.6 MEQ/L (23.0-27.0); VENOUS O2 SATURATION 42.4 % (60.0-80.0); VENOUS PARTIAL PRESSURE CO2 46.1 mmHg (38.0-50.0); VENOUS PARTIAL PRESSURE O2 23.4 mmHg (30.0-50.0); VENOUS PH 7.395 UNITS (7.330-7.430); VENOUS STANDARD HCO3 25.1 MEQ/L
[2020-05-01] MEDS ORDERED: DEXA2TA PO (11:27)
[2020-05-01] MEDS ORDERED: AUGM875T28 PO (11:27)
[2020-05-01] MEDS ORDERED: ZINC1TAB2 PO (11:27)
[2020-05-01] MEDS ORDERED: VITA500C24 PO (11:27)
[2020-05-01] MEDS ORDERED: VENTAER INH (11:27)
--- NOTE | 2020-05-01 13:28 | DS.PDOC ---
Discharge Summary General Date of Admission May 01, 2020 at 00:41 Date of Discharge 05/01/20 Discharge Summary Chief complaints: Fatigue Final diagnosis Covid 19 infection History of present illness and Hospital course This 80-year-old female presented with complaints of fatigue, weakness and shortness of breath. She was also Covid 19 about 9 days ago and was concerned about her symptoms. Therefore, she decided to come to the hospital for evaluation. Per discussion with Dr. Kenyon, her O2 sats were as low as 92%; and dropped by 3%. When they attempted to have her ambulate.a CTA was done which showed Scattered bilateral ground glass opacities. No pleural effusions. Findings are compatible with bilateral Covid pneumonia. No pulmonary embolism was noted. Clinically she was doing much better and we did ambulate a pulse ox as well and she was saturating about 92. Her inflammatory markers were also minimally elevated. This morning she was lying comfortably on the bed, saturating 94 on room air. Lungs are clear auscultation with a no labored effort. The patient has reached maximal benefit from this stay and can be discharged on dexamethasone 2 mg for 5 days, Augmentin for 4 days, albuterol in haler when necessary for the next 2 weeks. . For her 7mm ROSALINA lesion f/u w PCP for surveillance imaging and she understands. She will need to follow with PCP in 1 week and probably pulmonary in 4 weeks to get a x-ray for the resolution of the pneumonia. She is medically optimized for discharge. Physical examination GEN: well-nourished / well developed/ NAD HEENT: EOMI / mask covering lower face CVS: RRR/NMRG/ radial pulses intact / no lower extremity edema LUNGS: lungs are clear to auscultation bilaterally on room air ABDOMEN: soft & not tender with palpation MSK/EXTREMITIES: range of motion intact in all 4 extremities NEURO: CN 2-12 are grossly intact / speech is not dysarthric PSYCH: alert and oriented to person place and time/ able to understand and follow all commands Medictations. As per discharge reconciliation medication list Activity as tolerated Diet. 2 g sodium diet Follow-up appointments. PCP in 1 week. Condition on discharge. Patient is medically optimized for discharge Discharge disposition: Home Total time spent on this discharge including coordination of care, review of chart documentation and actual patient contact is around 35 minutes Vital Signs/I&Os Vital Signs Date Time Temp Pulse Resp B/P (MAP) Pulse Ox O2 Delivery O2 Flow Rate FiO2 05/01/20 12:34 97.4 83 20 126/77 (93) 94 Room Air 05/01/20 06:30 2.0 I&O- Last 24 Hours up to 6 AM 05/01/20 06:00 Intake Total 0 ml Output Total 0 ml Balance 0 ml Laboratory Data Labs 24H Laboratory Tests 2 04/30/20 18:54: Immature Granulocyte % (Auto) 0.4, Neutrophils (%) (Auto) 63.3, Lymphocytes (%) (Auto) 24.7, Monocytes (%) (Auto) 11.2H, Eosinophils (%) (Auto) 0.2, Basophils (%) (Auto) 0.2, Neutrophils # (Auto) 2.9, Lymphocytes # (Auto) 1.1L, Monocytes # (Auto) 0.5, Eosinophils # (Auto) 0.0, Basophils # (Auto) 0.0, Nucleated Red Blood Cells % (auto) 0.0, Erythrocyte Sedimentation Rate 38H, Prothrombin Time 13.5, Prothromb Time International Ratio 1.01, Activated Partial Thromboplast Time 35.6, Fibrinogen 557H, D-Dimer, Quantitative 1218.45H, Anion Gap 5L, Glomerular Filtration Rate > 60.0, Lactic Acid Level 1.0, Calcium Level 8.8, Ferritin 209, Total Bilirubin 0.4, Aspartate Amino Transf (AST/SGOT) 30, Alanine Aminotransferase (ALT/SGPT) 26, Alkaline Phosphatase 97, Lactate Dehydrogenase 305H, Total Creatine Kinase 49, Creatine Kinase MB < 1.0, Creatine Kinase MB Relative Index 2.04, Troponin I < 0.02, C-Reactive Protein, Quantitative 4.61H, Total Protein 6.7, Albumin 3.1L, Albumin/Globulin Ratio 0.9L 05/01/20 06:45: Immature Granulocyte % (Auto) 0.2, Neutrophils (%) (Auto) 54.6, Lymphocytes (%) (Auto) 32.4, Monocytes (%) (Auto) 12.1H, Eosinophils (%) (Auto) 0.5, Basophils (%) (Auto) 0.2, Neutrophils # (Auto) 2.3, Lymphocytes # (Auto) 1.3L, Monocytes # (Auto) 0.5, Eosinophils # (Auto) 0.0, Basophils # (Auto) 0.0, Nucleated Red Blood Cells % (auto) 0.0, Anion Gap 9, Glomerular Filtration Rate > 60.0, Calcium Level 9.2, Ferritin 248, Total Bilirubin 0.4, Aspartate Amino Transf (AST/SGOT) 34, Alanine Aminotransferase (ALT/SGPT) 25, Alkaline Phosphatase 86, Lactate Dehydrogenase 290H, Total Creatine Kinase 51, Troponin I < 0.02, C- Reactive Protein, Quantitative 5.36H, Total Protein 6.6, Albumin 3.3, Album in/Globulin Ratio 1.0L, Magnesium Level 1.9, Direct Bilirubin 0.2, MF-Eoc-Y-Type Natriuretic Peptide 134 05/01/20 07:12: D-Dimer, Quantitative 1173.51H 05/01/20 09:13: Blood Gas Bicarbonate Standard 25.1, Venous Blood pH 7.395, Venous Blood Partial Pressure CO2 46.1, Venous Blood Partial Pressure O2 23.4L, Venous Blood Total Carbon Dioxide 29.0H, Venous Blood HCO3 27.6H, Venous Blood Oxygen Saturation 42.4L, Venous Blood Base Excess 2.1H CBC/BMP Laboratory Tests 04/30/20 18:54 05/01/20 06:45 Discharge Medications Scheduled Amoxicillin/Potassium Clav (Augmentin 875-125 Tablet) 1 Each Tablet, 875 MG PO BID Ascorbic Acid (Vitamin C) 500 Mg Capsule, 1 CAP PO DAILY Calcium Carbonate/Vitamin D3 (Calcium 500-Vit D3 200 Tablet) 1 Each Tablet, 1 TAB PO BID, (Reported) Dexamethasone (Dexamethasone) 2 Mg Tablet, 2 MG PO DAILY Diltiazem HCl (Cardizem) 30 Mg Tablet, 30 MG PO BID, (Reported) Meclizine HCl (Meclizine HCl) 25 Mg Tablet, 25 MG PO BID, (Reported) Metoprolol Tartrate (Metoprolol Tartrate) 50 Mg Tablet, 50 MG PO BID, (Reported) Nortriptyline HCl (Nortriptyline HCl) 75 Mg Capsule, 75 MG PO QPM, (Reported) TAKES AT DINNERTIME Omeprazole (Omeprazole) 40 Mg Capsule.dr, 40 MG PO QPM, (Reported) TAKES AT DINNERTIME Zinc (Zinc) 50 Mg Tablet, 1 TAB PO DAILY Scheduled PRN Albuterol Sulfate (Ventolin Hfa) 18 Gm Hfa.aer.ad, 2 PUFF INH Q4-6HP PRN for wheezing Allergies Coded Allergies: No Known Allergies (Verified Allergy, Unknown, 05/01/20) PINEDA CHINCHILLA MD May 01, 2020 13:28
[2020-05-01] MEDS ORDERED: OMEPRAZOLE 20 MG CAP PO SCH (18:00)
[2020-05-01] MEDS ORDERED: NORTRIPTYLINE 25 MG CAP PO SCH (18:00)
[2020-05-02] MEDS ORDERED: SODIUM CHLORIDE 0.9% INJ 10 ML SYR IV SCH (08:00)
[2020-05-02] MEDS ORDERED: REMDESIVIR 100 MG in NS 250 ML IV SCH (09:00)
[2020-05-02] MEDS ORDERED: FLUBLOK(EGG FREE)(QUAD)INFLUENZA VACC 0.5ML SYRINGE 18YRS & OLDER IM ONE (09:00)
== END 2020-05-01 19:36 | disposition home or self-care (01) | DRG 177 ==
LOC: EDBD 18:54 → M ED 18:54 → M ED INP 05-01 00:41 → M 4MAIN 05-01 02:22
PROVIDERS: ADMIT Internal Medicine; ATTEND Internal Medicine
PROC: 3E0333Z Introduction of Anti-inflammatory into Peripheral Vein, Percutaneous Approach (ICD-10-PCS; principal; 2020-05-01)
DX: U07.1 COVID-19 (principal); J12.89 Other viral pneumonia; I10 Essential (primary) hypertension; Z86.73 Personal history of transient ischemic attack (TIA), and cerebral infarction without residual deficits; K57.90 Diverticulosis of intestine, part unspecified, without perforation or abscess without bleeding; R09.02 Hypoxemia; Z79.899 Other long term (current) drug therapy

== ENCOUNTER 2021-05-12 14:17 | Emergency (ER) | payer MEDICARE, OTHER ==
[~2021-05-12] VITALS: Ht 160 cm; Wt 70.5 kg
[~2021-05-12 14:17] MED LIST: ASPI-255 PO; AUGM875T28 PO; CARD40TA PO; DEXA2TA PO; ECOT81TA5 PO; MECL-86 PO; METO50TA7 PO; NORT75CA2 PO; OMEP40CA5 PO; OYST500T92 PO; VENTAER INH; VITA500C24 PO; ZINC1TAB2 PO
[2021-05-12] MEDS ORDERED: NITROGLYCERIN 2% OINT 1 GM *U/D* PKT TOP ONE (14:40)
[2021-05-12 15:11] LABS: BASO % 0.6 % (0.0-1.0); EOS # 0.3 10^3/uL (0.0-0.5); EOS % 6.8 % (0.0-3.0); HEMATOCRIT 42.3 % (36.0-47.0); HEMOGLOBIN 13.6 g/dl (12.0-15.5); LYMPH % 21.8 % (24.0-44.0); MEAN CORPUSCULAR HEMOGLOBIN 26.3 pg (27.0-33.0); MEAN CORPUSCULAR HGB CONC 32.2 g/dl (32.0-36.5); MEAN CORPUSCULAR VOLUME 81.8 fl (80.0-96.0); MONO # 0.4 10^3/uL (0.0-0.8); MONO % 7.6 % (2.0-8.0); PLATELET COUNT, AUTOMATED 157 10^3/uL (150-450); RED BLOOD COUNT 5.17 10^6/uL (4.00-5.40); WHITE BLOOD COUNT 4.7 10^3/uL (4.0-10.0)
[2021-05-12 15:21] LABS: INR 0.96; PROTHROMBIN TIME 13.2 SECONDS (12.7-14.5)
[2021-05-12 15:22] LABS: PARTIAL THROMBOPLASTIN TIME 28.3 SECONDS (25.9-37.0)
[2021-05-12 15:23] VITALS: BP 137/72
[2021-05-12 15:33] LABS: CK-MB VALUE MASS < 1.0 NG/ML (<3.6); CPK CREATINE PHOSPHOKINASE 47 U/L (26-192); MB/CK RELATIVE INDEX 2.13 (< OR =4)
[2021-05-12 15:42] LABS: ALBUMIN 3.5 GM/DL (3.2-5.2); ALT/SGPT 375 U/L (12-78); BILIRUBIN,DIRECT 1.9 MG/DL (0.0-0.2); BILIRUBIN,TOTAL 2.4 MG/DL (0.2-1.0); BLOOD UREA NITROGEN 9 MG/DL (7-18); C REACTIVE PROTEIN QUANTITATIV 2.38 MG/DL (0.00-0.30); CALCIUM LEVEL 9.1 MG/DL (8.8-10.2); CARBON DIOXIDE LEVEL 27 MEQ/L (21-32); CHLORIDE LEVEL 103 MEQ/L (98-107); CREATININE FOR GFR 0.87 MG/DL (0.55-1.30); GLOMERULAR FILTRATION RATE > 60.0 (>32); GLUCOSE, FASTING 145 MG/DL (70-100); LIPASE 83 U/L (73-393); NT-PRO BNP 104 PG/ML (<450); POTASSIUM SERUM 3.8 MEQ/L (3.5-5.1); SODIUM LEVEL 137 MEQ/L (136-145); TOTAL PROTEIN 6.9 GM/DL (6.4-8.2)
[2021-05-12 15:52] LABS: ERYTHROCYTE SEDIMENTATION RATE 18 mm/hr (0-30)
[2021-05-12 16:17] LABS: CK-MB VALUE MASS < 1.0 NG/ML (<3.6); CPK CREATINE PHOSPHOKINASE 44 U/L (26-192); MB/CK RELATIVE INDEX 2.27 (< OR =4)
[2021-05-12] MEDS ORDERED: ISOVUE-370 76% 100ML VIAL As Ordered ONE (16:26)
[2021-05-12] MEDS ORDERED: SUCRALFATE 1 GM TAB PO ONE (18:15)
[2021-05-12 19:00] VITALS: BP 147/75
== END 2021-05-12 19:08 | disposition home or self-care (01) ==
LOC: M ED 14:17
DX: R07.9 Chest pain, unspecified (principal); R79.89 Other specified abnormal findings of blood chemistry; I10 Essential (primary) hypertension; Z88.0 Allergy status to penicillin; Z88.1 Allergy status to other antibiotic agents; Z88.2 Allergy status to sulfonamides; Z88.6 Allergy status to analgesic agent
CPT/HCPCS: 36415; 71045; 71275; 74177; 76705; 80048; 80076; 82550; 82553; 83690; 83880; 84443; 84484; 85025; 85610; 85652; 85730; 86140; 87798; 93005; 93041; 94760; 99285; Q9967

== ENCOUNTER → 2021-06-15 | Outpatient (CLI) | payer MEDICARE ==
[~2021-06-15] MED LIST changes: +E-Z-GAS II EFFERVESCENT PACKET (SODIUM BICARB./CITRIC ACID/SIMETHICONE) As Ordered ONE; +E-Z-HD 98% w/w 340GM SUSP BTL As Ordered ONE; +E-Z-PAQUE 96% w/w SUSP 176GM BTL As Ordered ONE
== END ==
LOC: M RAD 09:10
PROVIDERS: ATTEND Internal Medicine Gastroenterology
DX: R13.10 Dysphagia, unspecified (principal); K21.9 Gastro-esophageal reflux disease without esophagitis

== ENCOUNTER → 2022-04-01 | Outpatient (CLI) | payer MEDICARE ==
[~2022-04-01] MED LIST changes: -E-Z-GAS II EFFERVESCENT PACKET (SODIUM BICARB./CITRIC ACID/SIMETHICONE) As Ordered ONE; -E-Z-HD 98% w/w 340GM SUSP BTL As Ordered ONE; -E-Z-PAQUE 96% w/w SUSP 176GM BTL As Ordered ONE
== END ==
LOC: M WHC 09:52
PROVIDERS: ATTEND Internal Medicine Hematology & Oncology
DX: N64.4 Mastodynia (principal)

== ENCOUNTER → 2022-11-16 | Outpatient (CLI) | payer MEDICARE ==
[~2022-11-16] MED LIST changes: +PROHANCE 279.3MG/ML 15ML VIAL As Ordered ONE
== END ==
LOC: M RAD 13:44
PROVIDERS: ATTEND Internal Medicine Gastroenterology
DX: K86.89 Other specified diseases of pancreas (principal); R93.3 Abnormal findings on diagnostic imaging of other parts of digestive tract; N28.1 Cyst of kidney, acquired; K44.9 Diaphragmatic hernia without obstruction or gangrene; K57.90 Diverticulosis of intestine, part unspecified, without perforation or abscess without bleeding; K76.0 Fatty (change of) liver, not elsewhere classified
CPT/HCPCS: 74183; A9576

== ENCOUNTER → 2023-08-25 | Outpatient (CLI) | payer MEDICARE ==
[~2023-08-25] MED LIST changes: -PROHANCE 279.3MG/ML 15ML VIAL As Ordered ONE
== END ==
LOC: M PLAIMG 13:35
PROVIDERS: ATTEND Internal Medicine Cardiovascular Disease
DX: I35.8 Other nonrheumatic aortic valve disorders (principal)

== ENCOUNTER → 2023-10-10 | Outpatient (CLI) | payer MEDICARE | LOC: M PLARAD 09:37 | PROVIDERS: ATTEND Internal Medicine Gastroenterology | DX: Z85.89 Personal history of malignant neoplasm of other organs and systems (principal); C49.A2 Gastrointestinal stromal tumor of stomach | CPT/HCPCS: 78815; A9552 ==

== ENCOUNTER → 2024-04-25 | Outpatient (CLI) | payer MEDICARE | LOC: M WHC 10:02 | PROVIDERS: ATTEND Internal Medicine Hematology & Oncology | DX: C7A.092 Malignant carcinoid tumor of the stomach (principal); M85.89 Other specified disorders of bone density and structure, multiple sites ==

== ENCOUNTER → 2024-08-22 | Outpatient (CLI) | payer MEDICARE | LOC: M PLAIMG 12:37 | PROVIDERS: ATTEND Registered Nurse | DX: I35.8 Other nonrheumatic aortic valve disorders (principal) ==

== ENCOUNTER → 2024-11-26 | Outpatient (CLI) | payer MEDICARE | LOC: M PLAIMG 15:53 | PROVIDERS: ATTEND Family Medicine | DX: D3A.8 Other benign neuroendocrine tumors (principal); K21.9 Gastro-esophageal reflux disease without esophagitis; K59.00 Constipation, unspecified ==

== ENCOUNTER 2024-11-30 16:13 | Inpatient (IN) | payer MEDICARE ==
[~2024-11-30] VITALS: Ht 160 cm; Wt 72.1 kg
[2024-11-30 17:16] LABS: BASO # 0.1 10^3/uL (0.0-0.2); BASO % 0.8 % (0.0-1.0); EOS # 0.2 10^3/uL (0.0-0.5); EOS % 2.0 % (0.0-3.0); LYMPH # 2.0 10^3/uL (1.5-5.0); LYMPH % 21.0 % (24.0-44.0); MONO # 0.8 10^3/uL (0.0-0.8); MONO % 8.7 % (2.0-8.0); NEUTROPHILS # 6.2 10^3/uL (1.5-8.5); NEUTROPHILS % 67.1 % (36.0-66.0); PLATELET COUNT, AUTOMATED 188 10^3/uL (150-450)
[2024-11-30 17:17] LABS: VENOUS BASE EXCESS -0.4 (-2.0-2.0); VENOUS HCO3 24.7 MMOL/L (23.0-27.0); VENOUS O2 SATURATION 77.6 % (60.0-80.0); VENOUS PARTIAL PRESSURE CO2 42.3 mmHg (38.0-50.0); VENOUS PARTIAL PRESSURE O2 43.5 mmHg (30.0-50.0); VENOUS PH 7.385 UNITS (7.330-7.430); VENOUS STANDARD HCO3 23.7 MMOL/L; VENOUS TOTAL CO2 26.0 MMOL/L (24.0-28.0)
[2024-11-30 17:31] LABS: INR 1.04
[2024-11-30 17:53] LABS: CK-MB VALUE MASS < 1.0 NG/ML (<3.6)
[2024-11-30 17:55] LABS: ALT/SGPT 27 U/L (7.0-40); AST/SGOT 32 U/L (<34); CALCIUM LEVEL 9.6 MG/DL (8.3-10.6); CARBON DIOXIDE LEVEL 26 MMOL/L (20-31); CHLORIDE LEVEL 102 MMOL/L (98-107); CREATININE FOR GFR 0.92 MG/DL (0.55-1.30); GLOMERULAR FILTRATION RATE 61.4 (>32); POTASSIUM SERUM 4.4 MMOL/L (3.5-5.1); SODIUM LEVEL 138 MMOL/L (136-145)
[2024-11-30 17:56] LABS: THYROXINE (T4) 12.1 UG/DL (4.5-10.9)
[2024-11-30 17:58] LABS: CPK CREATINE PHOSPHOKINASE 38 U/L (34-145)
[2024-11-30] MEDS ORDERED: ISOVUE-370 76% 100 ML VIAL As Ordered ONE (18:09)
[2024-11-30 18:35] LABS: CK-MB VALUE MASS < 1.0 NG/ML (<3.6)
[2024-11-30 18:36] LABS: CPK CREATINE PHOSPHOKINASE 30 U/L (34-145)
[2024-11-30] MEDS: ACETAMINOPHEN 325 MG TAB PO ONE (21:02)
[2024-11-30] MEDS ORDERED: JARD1TAB PO (21:42)
[2024-11-30] MEDS ORDERED: NITR0.4S14 SL (21:42)
[2024-11-30] MEDS ORDERED: SPIR-10 PO (21:42)
[2024-11-30] MEDS ORDERED: HOME MED LIST COMPLETE! XX SCH (21:45)
[2024-11-30] MEDS ORDERED: MECLIZINE 25 MG TABLET PO PRN (22:00)
[2024-11-30 22:19] LABS: C REACTIVE PROTEIN QUANTITATIV 1.62 MG/DL (<1.0)
[2024-11-30] MEDS: OMEPRAZOLE 20MG CAP PO SCH (22:24)
[2024-11-30] MEDS: dilTIAZem 30 MG TAB PO SCH (22:25)
[2024-11-30] MEDS: METOPROLOL TART 50 MG TAB PO SCH (22:25)
[2024-11-30] MEDS: NORTRIPTYLINE 25 MG CAP PO SCH (23:02)
[2024-11-30] MEDS: SYMBICORT 80/4.5MCG INHALER 6GM INH SCH (23:15)
[2024-11-30] MEDS: IPRATROPIUM 0.5 MG/ALBUTEROL 2.5 MG INH SOL UD 3 ML NEB SCH (23:28)
[2024-12-01 06:20] LABS: PLATELET COUNT, AUTOMATED 162 10^3/uL (150-450)
[2024-12-01 06:45] LABS: CALCIUM LEVEL 9.1 MG/DL (8.3-10.6); CARBON DIOXIDE LEVEL 24.0 MMOL/L (20-31); CHLORIDE LEVEL 102.0 MMOL/L (98-107); CREATININE FOR GFR 0.84 MG/DL (0.55-1.30); GLOMERULAR FILTRATION RATE 68.5 (>32); POTASSIUM SERUM 4.2 MMOL/L (3.5-5.1); SODIUM LEVEL 138.0 MMOL/L (136-145)
[2024-12-01 06:47] LABS: FREE T4 1.43 NG/DL (0.89-1.76)
[2024-12-01] MEDS ORDERED: PILL CUTTER 1 EACH XX ONE (07:42)
[2024-12-01] MEDS: ASPIRIN ENTERIC 325 MG TAB PO SCH (07:52)
[2024-12-01] MEDS: SPIRONOLACTONE 12.5MG PER 1/2 TABLET PO SCH (07:53)
[2024-12-01] MEDS: HEPARIN SOD 5000 UNITS/ML 1 ML VIAL/SYRINGE SC SCH (07:55)
[2024-12-01] MEDS ORDERED: SYMBICORT 80/4.5MCG INHALER 6GM INH SCH (08:00)
[2024-12-01 13:31] LABS: CK-MB VALUE MASS < 1.0 NG/ML (<3.6)
[2024-12-01 13:32] LABS: CALCIUM LEVEL 9.4 MG/DL (8.3-10.6); CARBON DIOXIDE LEVEL 21 MMOL/L (20-31); CHLORIDE LEVEL 102 MMOL/L (98-107); CPK CREATINE PHOSPHOKINASE 31 U/L (34-145); CREATININE FOR GFR 0.90 MG/DL (0.55-1.30); GLOMERULAR FILTRATION RATE 63.0 (>32); POTASSIUM SERUM 4.3 MMOL/L (3.5-5.1); SODIUM LEVEL 137 MMOL/L (136-145)
[2024-12-01 16:37] VITALS: BP 116/64; TEMP 97.3; O2SAT 95
[2024-12-01 19:05] VITALS: BP 119/63; TEMP 97.4; O2SAT 95
[2024-12-01 20:00] VITALS: BP 119/63; TEMP 97.4; O2SAT 95
[2024-12-01 20:41] LABS: CK-MB VALUE MASS 1.0 NG/ML (<3.6)
[2024-12-01 20:43] LABS: CALCIUM LEVEL 9.7 MG/DL (8.3-10.6); CARBON DIOXIDE LEVEL 21.0 MMOL/L (20-31); CHLORIDE LEVEL 100.0 MMOL/L (98-107); CREATININE FOR GFR 0.88 MG/DL (0.55-1.30); GLOMERULAR FILTRATION RATE 64.8 (>32); POTASSIUM SERUM 3.8 MMOL/L (3.5-5.1); SODIUM LEVEL 135.0 MMOL/L (136-145)
[2024-12-01 20:48] LABS: CPK CREATINE PHOSPHOKINASE 67.0 U/L (34-145); MB/CK RELATIVE INDEX 1.49 (< OR =4)
[2024-12-01 23:14] VITALS: BP 128/63; TEMP 97.2; O2SAT 95
[2024-12-02] VITALS (9 sets, daily range): BP systolic 104–148; BP diastolic 55–72; TEMP 97.2–98.4; O2SAT 95–98
[2024-12-02 01:05] LABS: CALCIUM LEVEL 9.1 MG/DL (8.3-10.6); CARBON DIOXIDE LEVEL 21.0 MMOL/L (20-31); CHLORIDE LEVEL 99.0 MMOL/L (98-107); CREATININE FOR GFR 0.86 MG/DL (0.55-1.30); GLOMERULAR FILTRATION RATE 66.6 (>32); POTASSIUM SERUM 4.2 MMOL/L (3.5-5.1); SODIUM LEVEL 135.0 MMOL/L (136-145)
[2024-12-02] MEDS: ACETAMINOPHEN 325 MG TAB PO PRN (01:55)
[2024-12-02] MEDS: RAMELTEON 8 MG TAB PO PRN (02:33)
[2024-12-02 04:25] LABS: PLATELET COUNT, AUTOMATED 202 10^3/uL (150-450)
[2024-12-02 04:55] LABS: CALCIUM LEVEL 9.1 MG/DL (8.3-10.6); CARBON DIOXIDE LEVEL 23.0 MMOL/L (20-31); CHLORIDE LEVEL 100.0 MMOL/L (98-107); CK-MB VALUE MASS 1.7 NG/ML (<3.6); CREATININE FOR GFR 0.85 MG/DL (0.55-1.30); GLOMERULAR FILTRATION RATE 67.5 (>32); MAGNESIUM LEVEL 2.2 MG/DL (1.8-2.4); POTASSIUM SERUM 4.6 MMOL/L (3.5-5.1); SODIUM LEVEL 136.0 MMOL/L (136-145)
[2024-12-02 04:56] LABS: CPK CREATINE PHOSPHOKINASE 119.0 U/L (34-145); MB/CK RELATIVE INDEX 1.42 (< OR =4)
[2024-12-02] MEDS: ASPIRIN 81 MG ENTERIC TABLET PO SCH (08:55)
[2024-12-02 13:03] LABS: CALCIUM LEVEL 9.3 MG/DL (8.3-10.6); CARBON DIOXIDE LEVEL 26.0 MMOL/L (20-31); CHLORIDE LEVEL 103.0 MMOL/L (98-107); CREATININE FOR GFR 0.85 MG/DL (0.55-1.30); GLOMERULAR FILTRATION RATE 67.5 (>32); POTASSIUM SERUM 4.7 MMOL/L (3.5-5.1); SODIUM LEVEL 138.0 MMOL/L (136-145)
[2024-12-02] MEDS ORDERED: PILL CUTTER 1 EACH XX PRN (16:50)
[2024-12-02] MEDS: DAPAGLIFLOZIN PROPANEDIOL 10 MG TABLET PO SCH (17:45)
[2024-12-02 18:54] LABS: CALCIUM LEVEL 9.1 MG/DL (8.3-10.6); CARBON DIOXIDE LEVEL 25.0 MMOL/L (20-31); CHLORIDE LEVEL 100.0 MMOL/L (98-107); CREATININE FOR GFR 0.81 MG/DL (0.55-1.30); GLOMERULAR FILTRATION RATE 71.5 (>32); POTASSIUM SERUM 4.2 MMOL/L (3.5-5.1); SODIUM LEVEL 136.0 MMOL/L (136-145)
[2024-12-02] MEDS: BUDESONIDE 180 MCG INHALER INH SCH (19:35)
[2024-12-03] VITALS (8 sets, daily range): BP systolic 118–148; BP diastolic 55–74; TEMP 97–97.5; O2SAT 93–98
[2024-12-03 00:48] LABS: CALCIUM LEVEL 9.2 MG/DL (8.3-10.6); CARBON DIOXIDE LEVEL 26.0 MMOL/L (20-31); CHLORIDE LEVEL 102.0 MMOL/L (98-107); CREATININE FOR GFR 0.88 MG/DL (0.55-1.30); GLOMERULAR FILTRATION RATE 64.8 (>32); POTASSIUM SERUM 4.4 MMOL/L (3.5-5.1); SODIUM LEVEL 138.0 MMOL/L (136-145)
[2024-12-03 06:19] LABS: PLATELET COUNT, AUTOMATED 200 10^3/uL (150-450)
[2024-12-03 06:34] LABS: CALCIUM LEVEL 9.4 MG/DL (8.3-10.6); CARBON DIOXIDE LEVEL 26.0 MMOL/L (20-31); CHLORIDE LEVEL 102.0 MMOL/L (98-107); CREATININE FOR GFR 0.91 MG/DL (0.55-1.30); GLOMERULAR FILTRATION RATE 62.2 (>32); MAGNESIUM LEVEL 2.3 MG/DL (1.8-2.4); POTASSIUM SERUM 4.2 MMOL/L (3.5-5.1); SODIUM LEVEL 139.0 MMOL/L (136-145)
[2024-12-03 12:25] LABS: PHOSPHORUS LEVEL 3.3 MG/DL (2.4-5.1)
[2024-12-03] MEDS: SYMBICORT 160/4.5MCG INHALER 6GM INH SCH (19:25)
[2024-12-04 03:55] VITALS: BP 122/77; TEMP 96.8; O2SAT 95
[2024-12-04 06:02] LABS: PLATELET COUNT, AUTOMATED 181 10^3/uL (150-450)
[2024-12-04 06:36] LABS: CALCIUM LEVEL 9.6 MG/DL (8.3-10.6); CARBON DIOXIDE LEVEL 24.0 MMOL/L (20-31); CHLORIDE LEVEL 101.0 MMOL/L (98-107); CREATININE FOR GFR 0.83 MG/DL (0.55-1.30); GLOMERULAR FILTRATION RATE 69.5 (>32); MAGNESIUM LEVEL 2.2 MG/DL (1.8-2.4); POTASSIUM SERUM 4.4 MMOL/L (3.5-5.1); SODIUM LEVEL 137.0 MMOL/L (136-145)
[2024-12-04 07:55] VITALS: BP 126/66; TEMP 97.4; O2SAT 95
[2024-12-04 08:04] VITALS: BP 126/66
[2024-12-04 12:00] VITALS: BP 128/72; TEMP 97.6; O2SAT 98
[2024-12-04] MEDS ORDERED: PRED50TA57 PO (12:43)
[2024-12-04] MEDS ORDERED: SYMB16INH INH ×2 (12:45→15:16)
[2024-12-04] MEDS ORDERED: VENTAER INH (14:49)
[2024-12-04] MEDS ORDERED: ADVA230A INH (14:49)
== END 2024-12-04 16:28 | disposition home health service (06) | DRG 191 ==
LOC: M ED 16:13 → M ED INP 12-01 12:24 → M PCU 12-01 16:38
PROVIDERS: ADMIT Family Medicine; ATTEND Student in an Organized Health Care Education/Training Program
PROC: B246ZZZ Ultrasonography of Right and Left Heart (ICD-10-PCS; principal; 2024-12-01)
DX: J43.2 Centrilobular emphysema (principal); I50.32 Chronic diastolic (congestive) heart failure; I11.0 Hypertensive heart disease with heart failure; F39 Unspecified mood [affective] disorder; G25.81 Restless legs syndrome; K21.9 Gastro-esophageal reflux disease without esophagitis; R42 Dizziness and giddiness; Z85.3 Personal history of malignant neoplasm of breast; Z95.3 Presence of xenogenic heart valve; Z90.49 Acquired absence of other specified parts of digestive tract; Z86.73 Personal history of transient ischemic attack (TIA), and cerebral infarction without residual deficits; Z79.82 Long term (current) use of aspirin; Z79.899 Other long term (current) drug therapy; Z88.2 Allergy status to sulfonamides; Z88.5 Allergy status to narcotic agent; Z88.8 Allergy status to other drugs, medicaments and biological substances

== ENCOUNTER → 2025-01-10 | Outpatient (CLI) | payer MEDICARE ==
[~2025-01-10] MED LIST changes: +ADVA230A INH; +ISOVUE-370 76% 100 ML VIAL As Ordered ONE; +JARD1TAB PO; +NITR0.4S14 SL; +PRED50TA57 PO; +SPIR-10 PO; +SYMB16INH INH
== END ==
LOC: M RAD 07:43
PROVIDERS: ATTEND Internal Medicine Gastroenterology
DX: R10.9 Unspecified abdominal pain (principal); D3A.8 Other benign neuroendocrine tumors
CPT/HCPCS: 74177; Q9967

== ENCOUNTER → 2025-02-05 | Outpatient (CLI) | payer MEDICARE ==
[~2025-02-05] MED LIST changes: -ISOVUE-370 76% 100 ML VIAL As Ordered ONE
== END ==
LOC: M CARPUL 09:55
PROVIDERS: ATTEND Internal Medicine Cardiovascular Disease
DX: R06.02 Shortness of breath (principal); I50.32 Chronic diastolic (congestive) heart failure